=== PATIENT | male | born 1960 | race Caucasian/White ===

== ENCOUNTER 2018-09-17 15:26 | Emergency (ER) | payer MEDICARE, OTHER ==
[2018-09-17 15:33] VITALS: RESP 18; TEMP 97.7
--- NOTE | 2018-09-17 16:04 | XR ---
EXAMINATION TYPE: XR chest 2V DATE OF EXAM: 09/17/2018 COMPARISON: 02/16/2014 HISTORY: Congestion, cough, chest pain and rhinorrhea TECHNIQUE: Frontal and lateral views of the chest are obtained. FINDINGS: There is no focal air space opacity, pleural effusion, or pneumothorax seen. COPD is seen as flattening of the diaphragms and pulmonary hyperinflation. The cardiac silhouette size is within normal limits. The osseous structures are intact. IMPRESSION: No acute cardiopulmonary process. Radiographic sequela of COPD.
--- NOTE | 2018-09-17 16:22 | ED ---
General Adult HPI - General Chief complaint: Upper Respiratory Infection Stated complaint: Cold Time Seen by Provider: 09/17/18 15:34 Source: patient, RN notes reviewed, old records reviewed Mode of arrival: ambulatory Limitations: no limitations - History of Present Illness Initial comments: 58-year-old male patient passed no history of emphysema presents to ED with approximately 2 days of sinus congestion, nasal drainage, mild cough. Patient denies any other complaints today. Patient denies chest pain, shortness breath, abdominal pain, nausea vomiting diarrhea. Systemic: Pt denies fatigue, myalgia, fever/chills, rash. Pt denies weakness, night sweats, weight loss. Neuro: Pt denies headache, visual disturbances, syncope or pre-syncope. HEENT: Pt denies ocular discharge or irritation, otalgia, rhinorrhea, pharyngitis or notable lymphadenopathy. Cardiopulmonary: Pt denies chest pain, SOB, heart palpitations, dyspnea on exertion. Abdominal/GI: Pt denies abdominal pain, n/v/d. : Pt denies dysuria, burning w/ urination, frequency/urgency. Denies new onset urinary or bowel incontinence. MSK: Pt denies myalgia, loss of strength or function in extremities. Neuro: Pt denies new onset weakness, paresthesias. - Related Data Home Medications Medication Instructions Recorded Confirmed Haloperidol [Haldol] 2 mg PO HS 02/15/14 09/17/18 OLANZapine [ZyPREXA] 7.5 mg PO HS 02/15/14 09/17/18 Albuterol Sulfate [Ventolin HFA] 1 - 2 puff INHALATION RT-Q6H PRN 06/13/16 09/17/18 Montelukast Sodium [Singulair] 10 mg PO HS 06/13/16 09/17/18 Qvar (Unknown Dose) 2 puff INHALATION RT-BID 06/13/16 09/17/18 Previous Rx's Medication Instructions Recorded Doxycycline [Vibramycin] 100 mg PO BID 10 Days #20 capsule 09/17/18 Fluticasone Propionate [Flonase 1 - 2 spray EA NOSTRIL DAILY 5 09/17/18 Allergy Relief] Days ml Allergies Allergy/AdvReac Type Severity Reaction Status Date / Time cephalexin monohydrate Allergy Unknown Verified 09/17/18 15:30 [From Keflex] clindamycin Allergy Unknown Verified 09/17/18 15:30 latex Allergy Rash/Hives Verified 09/17/18 15:30 Penicillins Allergy Unknown Verified 09/17/18 15:30 Review of Systems ROS Statement: Those systems with pertinent positive or pertinent negative responses have been documented in the HPI. ROS Other: All systems not noted in ROS Statement are negative. Past Medical History Past Medical History: Cancer, COPD Additional Past Medical History / Comment(s): Bronchitis, pneumonia, hypoglycemia, schizophrenia History of Any Multi-Drug Resistant Organisms: None Reported Past Surgical History: Adenoidectomy, Tonsillectomy Past Anesthesia/Blood Transfusion Reactions: No Reported Reaction Past Psychological History: Depression, Schizophrenia Smoking Status: Current every day smoker Past Alcohol Use History: Occasional Past Drug Use History: None Reported - Past Family History Father Family Medical History: Diabetes Mellitus Mother Additional Family Medical History / Comment(s): shingles General Exam - General Exam Comments Initial Comments: Constitutional: NAD, AOX3, Pt has pleasant affect. HEENT: NC/AT, trachea midline, neck supple, no lymphadenopathy. Posterior phar ynx non erythematous, without exudates. External ears appear normal, without discharge. Mucous membranes moist. Eyes PERRLA, EOM intact. There is no scleral icterus. No pallor noted. Maxillary sinus pressure reproducible upon palpation. Cardiopulmonary: RRR, no murmurs, rubs or gallops, no JVD noted. Lungs CTAB in anterior and posterior robert. No peripheral edema. Abdominal exam: Abdomen soft and non-distended. Abdomen non-tender to palpation in all 4 quadrants. Bowel sounds active in LLQ. No hepatosplenomegaly. No ecchymosis Neuro: CN II-XII grossly intact. No nuchal rigidity. MSK: No posterior calf tenderness bilaterally, homans sign negative bilaterally. Posterior tibialis and radial pulse +2 bilaterally. Sensation intact in upper and lower extremities. Full active ROM in upper and lower extremities, 5/5 stregnth. Limitations: no limitations Course Vital Signs 09/17/18 15:30 Temperature 97.7 F Pulse Rate 82 Respiratory 18 Rate Blood Pressure 145/93 O2 Sat by Pulse 100 Oximetry Medical Decision Making - Medical Decision Making 58-year-old male patient passed no history of emphysema presents to ED with approximately 2 days of sinus congestion, nasal drainage, mild cough. Patient denies any other complaints today. Patient denies chest pain, shortness breath, abdominal pain, nausea vomiting diarrhea. Patient vital signs stable, afebrile. Physical exam displayed: Maxillary sinus pressure reproducible upon palpation. Lungs CTAB. Chest x-ray displayed no acute cardiopulmonary process. Patient to be treated for acute sinusitis with doxycycline, Flonase. Patient to follow up with primary care provider in 1-2 days. Patient to return to ED if new signs or symptoms develop or condition worsens in any way. Case discussed with Dr. Mahajan. Disposition Clinical Impression: Sinusitis Disposition: HOME SELF-CARE Condition: Stable Instructions (If sedation given, give patient instructions): Sinusitis (ED) Additional Instructions: Patient to adhere to previously discussed treatment plan and will take medication(s) as directed. Patient to follow up with PCP in 1-2 days. Patient to return to ED if symptoms do not improve. Please take doxycycline and Flonase as directed. Please follow-up with primary care provider in 1-2 days. Please return to ED if condition worsens in any way. Prescriptions: Fluticasone Propionate [Flonase Allergy Relief] 1 - 2 spray EA NOSTRIL DAILY 5 Days ml Doxycycline [Vibramycin] 100 mg PO BID 10 Days #20 capsule Is patient prescribed a controlled substance at d/c from ED?: No Referrals: Jose Reyes MD [Primary Care Provider] - 1-2 days
[2018-09-17] MEDS ORDERED: FLUTICASONE 50MCG/SPRAY NASAL 16GM EA NOSTRIL STA (16:23)
[2018-09-17 17:11] VITALS: BP 135/83; PULSE 78
== END 2018-09-17 16:55 | disposition home or self-care (01) ==
LOC: EC 15:26
DX: J32.9 Chronic sinusitis, unspecified (principal); J44.9 Chronic obstructive pulmonary disease, unspecified; F20.9 Schizophrenia, unspecified; F32.9 Major depressive disorder, single episode, unspecified; F17.200 Nicotine dependence, unspecified, uncomplicated; Z85.9 Personal history of malignant neoplasm, unspecified; Z79.899 Other long term (current) drug therapy; Z79.51 Long term (current) use of inhaled steroids; Z88.1 Allergy status to other antibiotic agents; Z88.0 Allergy status to penicillin; Z91.040 Latex allergy status
CPT/HCPCS: 71046; 99284

== ENCOUNTER 2019-02-05 13:15 | Emergency (ER) | payer MEDICARE, OTHER ==
[2019-02-05 13:28] VITALS: RESP 18
--- NOTE | 2019-02-05 14:25 | ED ---
General Adult HPI - General Chief complaint: Psychiatric Symptoms Stated complaint: Mental Health Time Seen by Provider: 02/05/19 14:15 Source: patient, RN notes reviewed Mode of arrival: ambulatory Limitations: no limitations - History of Present Illness Initial comments: Patient is a pleasant 58-year-old male presenting to the emergency department for possible medication adjustment. Patient states he has been on medications for years. Patient is a Zyprexa. Patient states he has not been sleeping well lately. Patient denies any depression or suicidal thoughts. No homicidal thoughts. No hallucinations. Patient does smoke and drink alcohol. - Related Data Home Medications Medication Instructions Recorded Confirmed Haloperidol [Haldol] 2 mg PO HS 02/15/14 09/17/18 OLANZapine [ZyPREXA] 7.5 mg PO HS 02/15/14 09/17/18 Albuterol Sulfate [Ventolin HFA] 1 - 2 puff INHALATION RT-Q6H PRN 06/13/16 09/17/18 Montelukast Sodium [Singulair] 10 mg PO HS 06/13/16 09/17/18 Qvar (Unknown Dose) 2 puff INHALATION RT-BID 06/13/16 09/17/18 Previous Rx's Medication Instructions Recorded Doxycycline [Vibramycin] 100 mg PO BID 10 Days #20 capsule 09/17/18 Fluticasone Propionate [Flonase 1 - 2 spray EA NOSTRIL DAILY 5 09/17/18 Allergy Relief] Days ml Allergies Allergy/AdvReac Type Severity Reaction Status Date / Time cephalexin monohydrate Allergy Unknown Verified 02/05/19 13:22 [From Keflex] clindamycin Allergy Unknown Verified 02/05/19 13:22 latex Allergy Rash/Hives Verified 02/05/19 13:22 Penicillins Allergy Unknown Verified 02/05/19 13:22 Review of Systems ROS Statement: Those systems with pertinent positive or pertinent negative responses have been documented in the HPI. ROS Other: All systems not noted in ROS Statement are negative. Constitutional: Denies: fever Eyes: Denies: eye pain ENT: Denies: ear pain Respiratory: Denies: cough Cardiovascular: Denies: chest pain Endocrine: Denies: fatigue Gastrointestinal: Denies: abdominal pain Genitourinary: Denies: dysuria Musculoskeletal: Denies: back pain Skin: Denies: rash Neurological: Denies: weakness Psychiatric: Denies: depression, homicidal thoughts, suicidal thoughts Past Medical History Past Medical History: Cancer, COPD Additional Past Medical History / Comment(s): Bronchitis, pneumonia, hypoglycemia, schizophrenia History of Any Multi-Drug Resistant Organisms: None Reported Past Surgical History: Adenoidectomy, Tonsillectomy Past Anesthesia/Blood Transfusion Reactions: No Reported Reaction Past Psychological History: Depression, Schizophrenia Smoking Status: Current every day smoker Past Alcohol Use History: Occasional Past Drug Use History: None Reported - Past Family History Father Family Medical History: Diabetes Mellitus Mother Additional Family Medical History / Comment(s): shingles General Exam Limitations: no limitations General appearance: alert, in no apparent distress Head exam: Present: atraumatic Eye exam: Present: normal appearance, PERRL ENT exam: Present: normal oropharynx Neck exam: Present: normal inspection Respiratory exam: Present: normal lung sounds bilaterally. Absent: chest wall tenderness Cardiovascular Exam: Present: regular rate, normal rhythm GI/Abdominal exam: Present: soft. Absent: tenderness Extremities exam: Present: normal inspection Neurological exam: Present: alert Psychiatric exam: Present: normal affect, normal mood Skin exam: Present: normal color. Absent: rash Course Vital Signs 02/05/19 13:23 Temperature 97.5 F L Pulse Rate 91 Respiratory 18 Rate Blood Pressure 140/86 O2 Sat by Pulse 98 Oximetry Medical Decision Making - Medical Decision Making Patient does not feel he needs to be admitted psychiatrically. Patient denies depression. Patient denies suicidal or homicidal ideation. Patient is comfortable with discharge with follow-up. Patient will be provided follow-up for psychiatric. Patient states he will be able to get in to [facility] without any difficulty. - Lab Data Lab Results 02/05/19 Range/Units 14:29 Urine Opiates Screen Not Detected (NotDetected) Ur Oxycodone Screen Not Detected (NotDetected) Urine Methadone Screen Not Detected (NotDetected) Ur Propoxyphene Screen Not Detected (NotDetected) Ur Barbiturates Screen Not Detected (NotDetected) U Tricyclic Antidepress Not Detected (NotDetected) Ur Phencyclidine Scrn Not Detected (NotDetected) Ur Amphetamines Screen Not Detected (NotDetected) U Methamphetamines Scrn Not Detected (NotDetected) U Benzodiazepines Scrn Not Detected (NotDetected) Urine Cocaine Screen Not Detected (NotDetected) U Marijuana (THC) Screen Not Detected (NotDetected) Disposition Clinical Impression: Schizophrenia Disposition: HOME SELF-CARE Condition: Stable Instructions (If sedation given, give patient instructions): Schizophrenia (ED) Additional Instructions: Please follow-up with [facility] and primary care physician in the beginning of the week. Please decrease and discontinue alcohol use. Please provide list for mental health follow-up services. Return for thoughts of self-harm, thoughts of harming others, unable to sleep, worsening symptoms or other concerns Is patient prescribed a controlled substance at d/c from ED?: No Referrals: Jose Reyes MD [Primary Care Provider] - 1-2 days Time of Disposition: 15:33
[2019-02-05 14:48] LABS: Amphetamine Screen,Urine Not Detected (NotDetected); Barbiturate Screen,Urine Not Detected (NotDetected); Benzodiazepines Screen,Urine Not Detected (NotDetected); Cocaine Screen,Urine Not Detected (NotDetected); Methadone Screen, Urine Not Detected (NotDetected); Opiate Screen,Urine Not Detected (NotDetected); Oxycodone Screen, Urine Not Detected (NotDetected); Phencyclidine Screen,Urine Not Detected (NotDetected); Tricyclic Antidepressant,Urine Not Detected (NotDetected); Urn Cannabinoid Scrn Not Detected (NotDetected)
[2019-02-05 15:55] VITALS: BP 132/92; PULSE 87; TEMP 97.8
== END 2019-02-05 15:56 | disposition home or self-care (01) ==
LOC: EC 13:15
DX: F20.9 Schizophrenia, unspecified (principal); F32.9 Major depressive disorder, single episode, unspecified; J44.9 Chronic obstructive pulmonary disease, unspecified; F17.200 Nicotine dependence, unspecified, uncomplicated; Z85.9 Personal history of malignant neoplasm, unspecified; Z79.899 Other long term (current) drug therapy; Z88.1 Allergy status to other antibiotic agents; Z91.040 Latex allergy status; Z88.0 Allergy status to penicillin
CPT/HCPCS: 80306; 82075; 99284

== ENCOUNTER 2019-04-13 10:11 | Inpatient (IN) | payer MEDICARE, OTHER ==
[2019-04-13] MEDS ORDERED: methylPREDNISolone SOD SUCCI 125 MG/2 ML VIAL IV STA (10:30)
[2019-04-13] MEDS ORDERED: IPRATROPIUM-ALBUTEROL 3 ML NEB INHALATION STA (10:30)
--- NOTE | 2019-04-13 10:35 | ED ---
General Adult HPI - General Chief complaint: Shortness of Breath Stated complaint: Sob Time Seen by Provider: 04/13/19 10:25 Source: patient, RN notes reviewed Mode of arrival: ambulatory Limitations: no limitations - History of Present Illness Initial comments: Patient is a pleasant 59-year-old male presenting to the emergency Department with complaints of difficulty breathing. Onset of symptoms was morning. Symptoms have progressively worsened since that time. Symptoms are similar to previous COPD. Patient does not have significant cough. No fevers. No chest pain. No leg pain or leg swelling. - Related Data Home Medications Medication Instructions Recorded Confirmed Haloperidol [Haldol] 2 mg PO DAILY 02/15/14 04/13/19 OLANZapine [ZyPREXA] 7.5 mg PO DAILY 02/15/14 04/13/19 Albuterol Sulfate [Ventolin HFA] 2 puff INHALATION RT-Q6H PRN 06/13/16 04/13/19 Fluticasone/Vilanterol [Breo 1 puff INHALATION RT-DAILY 04/13/19 04/13/19 Ellipta 200-25 Mcg INH] Allergies Allergy/AdvReac Type Severity Reaction Status Date / Time cephalexin monohydrate Allergy Unknown Verified 04/13/19 10:40 [From Keflex] clindamycin Allergy Unknown Verified 04/13/19 10:40 latex Allergy Rash/Hives Verified 04/13/19 10:40 Penicillins Allergy Unknown Verified 04/13/19 10:40 Review of Systems ROS Statement: Those systems with pertinent positive or pertinent negative responses have been documented in the HPI. ROS Other: All systems not noted in ROS Statement are negative. Constitutional: Denies: fever Eyes: Denies: eye pain ENT: Denies: ear pain Respiratory: Reports: dyspnea. Denies: cough Cardiovascular: Denies: chest pain Endocrine: Denies: fatigue Gastrointestinal: Denies: abdominal pain Genitourinary: Denies: dysuria Musculoskeletal: Denies: back pain Skin: Denies: rash Neurological: Denies: weakness Past Medical History Past Medical History: Cancer, COPD Additional Past Medical History / Comment(s): Bronchitis, pneumonia, hypoglycemia, schizophrenia History of Any Multi-Drug Resistant Organisms: None Reported Past Surgical History: Adenoidectomy, Tonsillectomy Past Anesthesia/Blood Transfusion Reactions: No Reported Reaction Past Psychological History: Depression, Schizophrenia Smoking Status: Current every day smoker Past Alcohol Use History: Occasional Past Drug Use History: None Reported - Past Family History Father Family Medical History: Diabetes Mellitus Mother Additional Family Medical History / Comment(s): shingles General Exam Limitations: no limitations General appearance: alert Head exam: Present: normocephalic Eye exam: Present: normal appearance Neck exam: Present: normal inspection Respiratory exam: Present: decreased breath sounds Cardiovascular Exam: Present: tachycardia GI/Abdominal exam: Present: soft. Absent: tenderness Extremities exam: Present: normal inspection. Absent: pedal edema, calf tendern ess Neurological exam: Present: alert Psychiatric exam: Present: normal affect, normal mood Skin exam: Present: normal color Course Vital Signs 04/13/19 04/13/19 04/13/19 10:17 11:14 11:26 Temperature 97.7 F Pulse Rate 118 H 110 H 113 H Respiratory 25 H Rate Blood Pressure 101/68 O2 Sat by Pulse 98 Oximetry EKG Findings - EKG Comments: EKG Findings:: Sinus tachycardia 107. ID 136. QRS 84. QT 336. QTc 448. Right axis. Normal QRS. No acute ST change. Medical Decision Making - Medical Decision Making Patient reevaluated and somewhat improved. Case discussed in detail with Dr. Reyes, who will admit his patient. Patient updated. Patient does meet sepsis criteria diagnosed at 12:01 PM. Blood culture and not acid and IV antibiotics will be ordered. - Lab Data Result diagrams: 04/13/19 10:58 04/13/19 10:58 Lab Results 04/13/19 04/13/19 Range/Units 10:58 10:58 WBC 10.2 (3.8-10.6) k/uL RBC 5.04 (4.30-5.90) m/uL Hgb 16.9 (13.0-17.5) gm/dL Hct 48.5 (39.0-53.0) % MCV 96.3 (80.0-100.0) fL MCH 33.6 (25.0-35.0) pg MCHC 34.9 (31.0-37.0) g/dL RDW 14.4 (11.5-15.5) % Plt Count 253 (150-450) k/uL Neutrophils % 83 % Lymphocytes % 10 % Monocytes % 6 % Eosinophils % 0 % Basophils % 0 % Neutrophils # 8.4 H (1.3-7.7) k/uL Lymphocytes # 1.1 (1.0-4.8) k/uL Monocytes # 0.6 (0-1.0) k/uL Eosinophils # 0.0 (0-0.7) k/uL Basophils # 0.0 (0-0.2) k/uL Sodium 134 L (137-145) mmol/L Potassium 4.0 (3.5-5.1) mmol/L Chloride 107 (98-107) mmol/L Carbon Dioxide 10 L (22-30) mmol/L Anion Gap 17 mmol/L BUN 10 (9-20) mg/dL Creatinine 0.85 (0.66-1.25) mg/dL Est GFR (CKD-EPI)AfAm >90 (>60 ml/min/1.73 sqM) Est GFR (CKD-EPI)NonAf >90 (>60 ml/min/1.73 sqM) Glucose 108 H (74-99) mg/dL Calcium 8.6 (8.4-10.2) mg/dL Total Bilirubin 0.4 (0.2-1.3) mg/dL AST 45 (17-59) U/L ALT 42 (21-72) U/L Alkaline Phosphatase 91 (38-126) U/L Total Protein 6.9 (6.3-8.2) g/dL Albumin 3.7 (3.5-5.0) g/dL - Radiology Data Radiology results: image reviewed (Chest x-ray shows right lower lobe infiltrate: Correlate for atelectasis or pneumonia.) Critical Care Time Critical Care Time: Yes Total Critical Care Time: 32 Disposition Clinical Impression: Acute exacerbation of chronic obstructive airways disease, Pneumonia Disposition: ADMITTED IP TO THIS HOSP Is patient prescribed a controlled substance at d/c from ED?: No Referrals: Jose Reyes MD [Primary Care Provider] - 1-2 days Decision Time: 11:58
[2019-04-13 11:22] LABS: Basophils % (A) 0 %; Eosinophils % (A) 0 %; HCT 48.5 % (39.0-53.0); HGB 16.9 gm/dL (13.0-17.5); Lymphocytes # (A) 1.1 k/uL (1.0-4.8); Lymphocytes % (A) 10 %; MCH 33.6 pg (25.0-35.0); MCHC 34.9 g/dL (31.0-37.0); MCV 96.3 fL (80.0-100.0); Monocytes # (A) 0.6 k/uL (0-1.0); Monocytes % (A) 6 %; Neutrophils # (A) 8.4 k/uL (1.3-7.7); Neutrophils % (A) 83 %; Platelet Count 253 k/uL (150-450); RBC 5.04 m/uL (4.30-5.90); RDW 14.4 % (11.5-15.5); WBC 10.2 k/uL (3.8-10.6)
--- NOTE | 2019-04-13 11:27 | XR ---
EXAMINATION TYPE: XR chest 2V DATE OF EXAM: 04/13/2019 COMPARISON: 09/17/2018 INDICATION: Difficulty breathing TECHNIQUE: Frontal and lateral views of the chest are obtained. FINDINGS: The heart size is normal. The pulmonary vasculature is normal. Mild right lower lobe infiltrate is present. Correlate for subsegmental atelectasis or pneumonia. Fol low-up can be performed.. IMPRESSION: 1. Mild right lower lobe infiltrate. Correlate for atelectasis or pneumonia.
[2019-04-13 11:35] LABS: ALT 42 U/L (21-72); AST 45 U/L (17-59); African American GFR (CKD) >90 (>60 ml/min/1.73 sqM); Albumin 3.7 g/dL (3.5-5.0); Alkaline Phosphatase 91 U/L (38-126); Anion Gap 17 mmol/L; Blood Urea Nitrogen 10 mg/dL (9-20); Calcium 8.6 mg/dL (8.4-10.2); Carbon Dioxide 10 mmol/L (22-30); Chloride 107 mmol/L (98-107); Glucose 108 mg/dL (74-99); Sodium 134 mmol/L (137-145); Total Bilirubin 0.4 mg/dL (0.2-1.3); Total Protein 6.9 g/dL (6.3-8.2)
[2019-04-13] MEDS ORDERED: IPRATROPIUM-ALBUTEROL 3 ML NEB INHALATION PRN (12:03)
[2019-04-13] MEDS ORDERED: PNEUMONIA PROTOCOL UTILIZED 1 EACH MISC PO PRN (12:03)
[2019-04-13] MEDS ORDERED: LEVOFLOXACIN 750MG-D5W PMX 750 MG in DEXTROSE/WATER 1 150ML.BAG IVPB STA (12:03)
[2019-04-13] MEDS ORDERED: INFLUENZA VACCINE (6 MOS+) 60 MCG/0.5 ML SYRINGE IM ONE (12:50)
[2019-04-13] MEDS: IPRATROPIUM-ALBUTEROL 3 ML NEB INHALATION SCH ×2 (15:49→21:34)
[2019-04-13] MEDS: methylPREDNISolone SOD SUCCI 125 MG/2 ML VIAL IV SCH ×2 (17:03→23:56)
[2019-04-14] MEDS: methylPREDNISolone SOD SUCCI 125 MG/2 ML VIAL IV SCH ×4 (06:21→23:53)
--- NOTE | 2019-04-14 07:37 | XR ---
EXAMINATION TYPE: XR chest 2V DATE OF EXAM: 04/14/2019 COMPARISON: 04/13/2019 HISTORY: Shortness of breath TECHNIQUE: Frontal and lateral views of the chest are obtained. FINDINGS: Scattered senescent parenchymal changes noted. Hyperinflation compatible with COPD. Patchy basilar infiltrates noted. Suspect pneumonia. Follow-up until resolution advised. Heart size is stable. Mediastinal structures are stable and grossly unremarkable. No evidence for hilar prominence. Degenerative changes dorsal spine. IMPRESSION: 1. Patchy basilar infiltrates noted. Suspect pneumonia. Follow-up until resolution advised.
[2019-04-14] MEDS: IPRATROPIUM-ALBUTEROL 3 ML NEB INHALATION SCH ×4 (10:15→19:18)
[2019-04-14] MEDS: LEVOFLOXACIN 750 MG TAB PO SCH (10:31)
--- NOTE | 2019-04-14 18:23 | HP ---
HISTORY AND PHYSICAL CHIEF COMPLAINT: Difficulty breathing. HISTORY OF PRESENT ILLNESS: This is another admission for this 59-year-old white male who is an extremely heavy smoker. He smokes 2-3 packs a day. He came to the emergency room because of shortness of breath and was admitted with exacerbation of COPD and possible infiltrate. He has been quite short of breath, but he has had no chest pain, hemoptysis, purulent sputum production, chills, fever, etc. REVIEW OF SYSTEMS: He has had no other complaints. He has had no nausea or vomiting. He has had no headaches, neurologic problems, difficulty with vision or hearing, hypertension, heart disease, abdominal pain, vomiting, diarrhea, melena, hematochezia, jaundice, hepatitis, cirrhosis, etc. He has had no renal failure, hematuria, dysuria, frequency, etc. He is not diabetic. Past medical history, family history, and personal and social histories are all otherwise unremarkable or noncontributory. PHYSICAL EXAMINATION: Blood pressure is 138/86 with a pulse of 99, respirations of 35, and he is afebrile. In general, he appears to be acutely ill. Skin is dry. Head, ears, eyes, nose, mouth and throat are normal except for dry mucous membranes. Neck is supple. Chest demonstrates very poor breath sounds throughout with scattered rales and rhonchi. Cardiac exam demonstrates sinus tachycardia. Abdomen is soft and nontender without any visceromegaly or masses. Bowel sounds are present. Extremities are normal. Neurologically he is intact. IMPRESSION: 1. Exacerbation of chronic obstructive pulmonary disease. 2. Bronchial pneumonia. PLAN: 1. Bed rest. 2. IV fluids. 3. IV and inhaled steroids. 4. Antibiotics. MMODL / IJN: [id number] /
--- NOTE | 2019-04-14 18:50 | PN ---
PROGRESS NOTE CHIEF COMPLAINT: Pneumonitis and COPD. HISTORY OF PRESENT ILLNESS: This gentleman is feeling a little bit better than when he came in. He is breathing a little bit more easily. He has had no fever or chills. He has had no chest pain. PHYSICAL EXAMINATION: Breath sounds are very poor with an increased AP diameter. There are scattered rales and rhonchi and inspiratory and expiratory wheezing. Cardiac exam is normal. IMPRESSION: 1. Exacerbation of chronic obstructive pulmonary disease. 2. Pneumonitis. PLAN: Continue with treatment plan and increase activity. MMODL / IJN: [id number] /
[2019-04-15] MEDS: methylPREDNISolone SOD SUCCI 125 MG/2 ML VIAL IV SCH ×2 (06:30→12:01)
[2019-04-15] MEDS: IPRATROPIUM-ALBUTEROL 3 ML NEB INHALATION SCH ×4 (09:06→21:06)
[2019-04-15] MEDS: SENNOSIDES 8.6 MG TAB PO SCH (11:04)
[2019-04-15] MEDS: LEVOFLOXACIN 750 MG TAB PO SCH (12:01)
[2019-04-15 13:03] LABS: ALT 26 U/L (21-72); AST 45 U/L (17-59); African American GFR (CKD) >90 (>60 ml/min/1.73 sqM); Albumin 3.6 g/dL (3.5-5.0); Alkaline Phosphatase 76 U/L (38-126); Anion Gap 11 mmol/L; Blood Urea Nitrogen 10 mg/dL (9-20); Calcium 8.7 mg/dL (8.4-10.2); Carbon Dioxide 22 mmol/L (22-30); Chloride 104 mmol/L (98-107); Glucose 139 mg/dL (74-99); Potassium 4.1 mmol/L (3.5-5.1); Sodium 137 mmol/L (137-145); Total Bilirubin 0.2 mg/dL (0.2-1.3); Total Protein 6.4 g/dL (6.3-8.2)
[2019-04-15 13:08] LABS: Basophils # (A) 0.1 k/uL (0-0.2); Basophils % (A) 1 %; Eosinophils % (A) 0 %; HCT 44.6 % (39.0-53.0); HGB 14.6 gm/dL (13.0-17.5); Lymphocytes # (A) 0.4 k/uL (1.0-4.8); Lymphocytes % (A) 4 %; MCH 33.6 pg (25.0-35.0); MCHC 32.8 g/dL (31.0-37.0); Macrocytosis Slight; Mean Platelet Volume 8.1; Monocytes # (A) 0.4 k/uL (0-1.0); Monocytes % (A) 5 %; Neutrophils # (A) 7.4 k/uL (1.3-7.7); Neutrophils % (A) 88 %; Platelet Count 253 k/uL (150-450); RBC 4.36 m/uL (4.30-5.90); RDW 14.8 % (11.5-15.5); WBC 8.4 k/uL (3.8-10.6)
[2019-04-15 13:12] LABS: MCV 102.4 fL (80.0-100.0)
--- NOTE | 2019-04-15 13:18 | XR ---
EXAMINATION TYPE: XR chest 2V DATE OF EXAM: 04/15/2019 COMPARISON: 04/14/2019 HISTORY: Bilateral pneumonia. Progress exam. TECHNIQUE: Frontal and lateral views of the chest are obtained. FINDINGS: Bibasilar consolidations are redemonstrated slightly worsened, now moderate interstitial p ulmonary edema is also slightly worsened. Cardiomediastinal silhouette is within normal limits. Hyper inflation of the lungs relates underlying COPD with leading of the diaphragms on the lateral view. Th ere is mild diffuse osseous demineralization seen. IMPRESSION: Increasing bibasilar consolidations that may represent confluent pulmonary edema or mult ifocal pneumonia. Increasing moderate interstitial pulmonary overall.
[2019-04-15] MEDS: HALOPERIDOL 2 MG TAB PO SCH (13:48)
[2019-04-15] MEDS: OLANZapine 2.5 MG TAB PO SCH (13:48)
[2019-04-15] MEDS ORDERED: ASPIRIN 325 MG TAB PO STA (15:54)
[2019-04-15] MEDS: methylPREDNISolone SOD SUCCI 40 MG/ML 1 ML VIAL IV SCH ×2 (16:33→23:54)
[2019-04-15] MEDS: BUDESONIDE 0.5 MG/2 ML NEBU INHALATION SCH (21:05)
[2019-04-16] MEDS: IPRATROPIUM-ALBUTEROL 3 ML NEB INHALATION SCH ×4 (07:07→19:34)
[2019-04-16] MEDS: BUDESONIDE 0.5 MG/2 ML NEBU INHALATION SCH ×2 (07:08→19:34)
[2019-04-16] MEDS: OLANZapine 2.5 MG TAB PO SCH (09:28)
[2019-04-16] MEDS: SENNOSIDES 8.6 MG TAB PO SCH (09:28)
[2019-04-16] MEDS: HALOPERIDOL 2 MG TAB PO SCH (09:28)
[2019-04-16] MEDS: methylPREDNISolone SOD SUCCI 40 MG/ML 1 ML VIAL IV SCH ×2 (09:28→16:18)
[2019-04-16] MEDS: LEVOFLOXACIN 750 MG TAB PO SCH (11:55)
--- NOTE | 2019-04-16 16:26 | PN ---
PROGRESS NOTE DATE OF SERVICE: 04/15/2019 CHIEF COMPLAINT: 1. Pneumonitis in the left lower lobe. 2. Exacerbation of COPD. HISTORY OF PRESENT ILLNESS: This gentleman is doing fairly well as long as he is on oxygen. Whenever it is removed, his pulse ox drops and he becomes very dyspneic. PHYSICAL EXAMINATION: His face is somewhat flushed and he appears to be slightly dusky. Neck veins are not distended. Chest demonstrates poor breath sounds throughout with scattered rales and rhonchi. Cardiac exam is normal. Abdomen is soft, nontender. IMPRESSION: 1. Pneumonitis. 2. Exacerbation of chronic obstructive pulmonary disease. 3. Hypoxia. PLAN: Continue with treatment and provide him with a long O2 tube so that he can ambulate in the room. MMODL / IJN: [id number] /
--- NOTE | 2019-04-16 20:14 | PN ---
PROGRESS NOTE CHIEF COMPLAINT: Pneumonitis and exacerbation of COPD. HISTORY OF PRESENT ILLNESS: This gentleman believes he is doing well, but whenever he takes oxygen off his pulse ox goes down to 77 and he becomes dusky. REVIEW OF SYSTEMS: He has had no chest pain, fever, chills, etc. PHYSICAL EXAMINATION: Chest is clear, but breath sounds are extremely poor. He has occasional scattered rales. He has dry expiratory wheezing. Cardiac exam is normal. Abdomen is soft, nontender. IMPRESSION: 1. Pneumonitis. 2. Exacerbation of chronic obstructive pulmonary disease. PLAN: Continue with current program. If he does not significantly improve in the next 2 to 3 days, he will require home oxygen. MMODL / IJN: [id number] /
[2019-04-17] MEDS: methylPREDNISolone SOD SUCCI 40 MG/ML 1 ML VIAL IV SCH ×3 (00:16→15:46)
[2019-04-17] MEDS: BUDESONIDE 0.5 MG/2 ML NEBU INHALATION SCH ×2 (07:59→20:19)
[2019-04-17] MEDS: IPRATROPIUM-ALBUTEROL 3 ML NEB INHALATION SCH ×4 (08:00→20:19)
[2019-04-17] MEDS: OLANZapine 2.5 MG TAB PO SCH (08:48)
[2019-04-17] MEDS: SENNOSIDES 8.6 MG TAB PO SCH (08:48)
[2019-04-17] MEDS: HALOPERIDOL 2 MG TAB PO SCH (08:48)
--- NOTE | 2019-04-17 10:20 | XR ---
EXAMINATION TYPE: XR chest 2V DATE OF EXAM: 04/17/2019 HISTORY: eval pna/copd. REFERENCE: Previous study dated 04/15/2019. FINDINGS: Lung volumes are prominent. There is improved aeration of both lung bases. Some residual in flammatory change persists. The heart is not enlarged. It would be difficult to exclude tiny, bilater al effusions. IMPRESSION: 1. COPD. 2. IMPROVED AERATION, BOTH LUNG BASES.
[2019-04-17] MEDS: LEVOFLOXACIN 750 MG TAB PO SCH (13:10)
--- NOTE | 2019-04-17 15:21 | PN ---
PROGRESS NOTE CHIEF COMPLAINT: Pneumonitis and COPD. HISTORY OF PRESENT ILLNESS: This gentleman is feeling fairly well, but he is still having trouble maintaining oxygen off the nasal O2. We are encouraging him to move about more without the oxygen. PHYSICAL EXAMINATION: Breath sounds are extremely poor. There is still occasional squeaks on inspiration, expiration and scattered rales. Cardiac exam is normal. IMPRESSION: 1. Pneumonitis. 2. Exacerbation of chronic obstructive pulmonary disease. PLAN: Continue with updrafts and inpatient treatment along with nasal O2. If he cannot get along without the oxygen in the next 48 hours, he will be discharged on home O2. MMODL / IJN: [id number] /
[2019-04-17] MEDS: LISINOPRIL 10 MG TAB PO SCH (21:00)
[2019-04-18] MEDS: methylPREDNISolone SOD SUCCI 40 MG/ML 1 ML VIAL IV SCH ×3 (00:06→17:23)
[2019-04-18] MEDS: LISINOPRIL 10 MG TAB PO SCH (09:20)
[2019-04-18] MEDS: OLANZapine 2.5 MG TAB PO SCH (09:20)
[2019-04-18] MEDS: SENNOSIDES 8.6 MG TAB PO SCH (09:20)
[2019-04-18] MEDS: HALOPERIDOL 2 MG TAB PO SCH (09:20)
[2019-04-18] MEDS: BUDESONIDE 0.5 MG/2 ML NEBU INHALATION SCH ×2 (09:22→20:25)
[2019-04-18] MEDS: IPRATROPIUM-ALBUTEROL 3 ML NEB INHALATION SCH ×4 (09:22→20:25)
[2019-04-18] MEDS: LEVOFLOXACIN 750 MG TAB PO SCH (11:22)
[2019-04-18] MEDS ORDERED: LISINOPRIL 10 MG TAB PO STA (12:57)
--- NOTE | 2019-04-18 19:40 | PN ---
PROGRESS NOTE DATE OF SERVICE: 04/18/2019 CHIEF COMPLAINT: Pneumonitis and COPD. HISTORY OF PRESENT ILLNESS: This gentleman is more or less stable. Without oxygen he drops to a pulse ox of 80 and he is dyspneic. He has had no fever, chills, cough, purulent sputum, etc. PHYSICAL EXAM: Breath sounds are greatly diminished throughout. There are occasional rales. Cardiac exam is normal. IMPRESSION: 1. Bronchial pneumonia, bilateral lower lobes. 2. End-stage chronic obstructive pulmonary disease with anoxia on room air. PLAN: Continue to increase activity and try ambulating without nasal O2. If he is unable to do so, he will be discharged in the next day or 2 on home O2. MMODL / IJN: [id number] /
[2019-04-18 22:09] VITALS: RESP 16
[2019-04-19] MEDS: methylPREDNISolone SOD SUCCI 40 MG/ML 1 ML VIAL IV SCH ×2 (00:18→08:05)
[2019-04-19] MEDS: SENNOSIDES 8.6 MG TAB PO SCH (08:04)
[2019-04-19] MEDS: HALOPERIDOL 2 MG TAB PO SCH (08:05)
[2019-04-19] MEDS: OLANZapine 2.5 MG TAB PO SCH (08:05)
[2019-04-19] MEDS ORDERED: LISINOPRIL 20 MG TAB PO SCH (09:00)
[2019-04-19] MEDS: BUDESONIDE 0.5 MG/2 ML NEBU INHALATION SCH (09:29)
[2019-04-19] MEDS: IPRATROPIUM-ALBUTEROL 3 ML NEB INHALATION SCH ×3 (09:29→16:20)
[2019-04-19] MEDS: LEVOFLOXACIN 750 MG TAB PO SCH (11:54)
[2019-04-19 12:50] VITALS: BP 138/88; PULSE 81; TEMP 97.6
--- NOTE | 2019-04-19 15:31 | CDI ---
Documentation Clarification Form Date: 04/19/2019 3:21:50 PM From: Alee NinoBeanMATT alicea, CCDS Admit Date: 04/15/2019 10:13:00 AM Patient Name: Abelardo Salgado Visit Number: [id number] Discharge Date: ATTENTION: The Clinical Documentation Specialists (CDI) and [facility] Coding Staff appreciate your assistance in clarifying documentation. Please respond to the clarification below the line at the bottom and electronically sign. The CDI & [facility] Coding staff will review the response and follow-up if needed. Please note: Queries are made part of the Legal Health Record. If you have any questions, please contact the author of this message via ITS. Dr. Jose Reyes: Hypoxia is documented in the 04/16 attending progress note with pneumonitis & exacerbation of COPD. History/Risk Factors: COPD, previous pneumonia, Hypoglycemia, Schizophrenia & Smoker. Clinical Indicators: Presented with SOB, diagnosed with acute exacerbation of COPD & bronchial pneumonia. Admission VS: T 97.7, P 118^, R 25^, BP 101/68, PO 98 ra VS 04/16: P 56 - 84, R 22, BP 148/97, PO 77 RA Treatment: O2 increased to 5-6L high flow, INH Albuterol, IV Solumedrol, IV Levaquin, IM Influenza vaccine In your professional opinion, can you please clarify if these findings signify one of the following conditions? Respiratory failure ruled out Acute respiratory failure Chronic respiratory failure Acute on Chronic respiratory failure If respiratory failure is ruled in please specify: o With or Without hypoxia o With or Without hypercapnia o With or Without other respiratory condition Other Diagnosis, please specify Unable to determine (Last Revision: October 2017) MTDD
--- NOTE | 2019-04-19 23:41 | DS ---
DISCHARGE SUMMARY CHIEF COMPLAINT: Difficulty breathing. HISTORY OF PRESENT ILLNESS AND PHYSICAL EXAMINATION: Details of this man's history and physical can be found in the initial workup. LABORATORY STUDIES: While he was in the hospital he had laboratory studies, details of which can be found in the laboratory section of his chart. COURSE IN THE HOSPITAL: After admission he was placed on bedrest, started on intravenous fluids, updrafts, IV inhaled steroids and nasal oxygen. He did improve. His pneumonitis was resolved. In the hospital he was on oxygen almost continuously. When he came off, his pulse ox dropped to around 70. Toward the end of his hospitalization, he was able to get up and walk around without the oxygen and his PO2 held around 88. He did not want to go home on oxygen, and his last PO2 was up to 91. He will be sent home on antibiotics and his usual pulmonary management. It is realized that he is not likely to do well because he will very likely go back to smoking his usual 2 to 3 packs a day. Will see him in the office in followup. FINAL DIAGNOSES: 1. Exacerbation of chronic obstructive pulmonary disease. 2. Pneumonitis. OPERATIONS: None. CONSULTATION: Pulmonology. He is improved. MMODL / IJN: [id number] /
[2019-04-20] MEDS ORDERED: methylPREDNISolone 4 MG TAB TAPER PO SCH (09:00)
--- NOTE | 2019-04-22 05:34 | MISC ---
MISCELLANOUS REPORT QUERY Chronic respiratory failure, has hypoxia and hypercapnia. MMODL / IJN: [id number] /
== END 2019-04-19 16:24 | disposition home or self-care (01) | DRG 190 ==
LOC: EC 10:11 → 4MS4W 12:11 → OBSVTOIN 04-15 10:13
PROVIDERS: ADMIT Family Medicine; ATTEND Family Medicine
DX: J44.1 Chronic obstructive pulmonary disease with (acute) exacerbation (principal); J18.0 Bronchopneumonia, unspecified organism; J96.12 Chronic respiratory failure with hypercapnia; J96.11 Chronic respiratory failure with hypoxia; J44.0 Chronic obstructive pulmonary disease with (acute) lower respiratory infection; F20.9 Schizophrenia, unspecified; F17.210 Nicotine dependence, cigarettes, uncomplicated; F32.9 Major depressive disorder, single episode, unspecified; Z79.899 Other long term (current) drug therapy; Z88.0 Allergy status to penicillin; Z88.1 Allergy status to other antibiotic agents; Z91.040 Latex allergy status; Z87.01 Personal history of pneumonia (recurrent); Z83.3 Family history of diabetes mellitus
CPT/HCPCS: 36415; 71046; 80053; 83605; 85025; 87040; 90686; 93005; 94640; 94760; 96365; 96375; 99291

== ENCOUNTER → 2019-05-13 | Outpatient (CLI) | payer MEDICARE, OTHER ==
--- NOTE | 2019-05-13 13:24 | CTL ---
EXAMINATION TYPE: CT Low Dose Lung DATE OF EXAM ORDERED: 05/13/2019 HISTORY: . Lung cancer screening CT DLP: 54.[address] CTDI: 1.3 mGy Automated exposure control for dose reduction was used. SCREENING VISIT: COMPARISON: 02/16/2014 TECHNIQUE: Low dose computed tomography scan was performed through the chest at 1 mm thick sections a nd reconstructed images in the coronal plane at [address] DIAGNOSTIC QUALITY: Satisfactory FINDINGS: LUNG NODULES: 1. There are 2 subpleural 2 mm nodules anteriorly within the right upper lobe lung apex retrospective ly stable. LUNGS: Diffuse emphysematous changes are seen. No consolidative pneumonia. No interstitial edema or pleural effusion. Subsegmental changes at both lung bases are noted. PLEURAL SPACE: No pleural calcification, pleural effusion or pneumothorax. HEART: Heart size is normal. There is three-vessel dense coronary artery calcification. Atherosclerotic burch ge aorta which appears to be of normal caliber. OTHER FINDINGS: Mild hypertrophic changes of vertebral column. Chronic appearing mild superior endplate deformity in the mid to upper thoracic spine. IMPRESSION: Benign findings 1. Stable 2 mm subpleural nodules right upper lobe have a benign appearance and are stable since 2013 . 2. COPD 3. Three-vessel coronary artery dense atherosclerotic changes. Correlate clinically. FOLLOW UP CT CHEST RECOMMENDATION: Follow-up in one year recommended CT LUNG RAD: Lung-Rad 2 Benign Appearance or Behavior
== END | disposition home or self-care (01) ==
LOC: RADCTMAIN 12:31
PROVIDERS: ATTEND Family Medicine
DX: J44.9 Chronic obstructive pulmonary disease, unspecified (principal); I25.10 Atherosclerotic heart disease of native coronary artery without angina pectoris; R91.8 Other nonspecific abnormal finding of lung field; Z87.891 Personal history of nicotine dependence; Z88.0 Allergy status to penicillin; Z88.1 Allergy status to other antibiotic agents; Z91.040 Latex allergy status

== ENCOUNTER 2019-12-18 21:53 | Inpatient (IN) | payer MEDICARE, MEDICAID ==
[2019-12-18 22:59] LABS: Appearance,Urine Clear (Clear); Bilirubin,Urine Negative (Negative); Blood,Urine Negative (Negative); Color,Urine Light Yellow; Glucose,Urine (UA) Negative (Negative); Ketones,Urine Negative (Negative); Leukocyte Esterase,Urine Negative (Negative); Nitrite,Urine Negative (Negative); PH, Urine 6.5 (5.0-8.0); Protein,Urine Negative (Negative); Specific Gravity,Urine 1.004 (1.001-1.035); Urobilinogen,Urine <2.0 mg/dL (<2.0)
[2019-12-18 23:09] LABS: Amphetamine Screen,Urine Not Detected (NotDetected); Barbiturate Screen,Urine Not Detected (NotDetected); Benzodiazepines Screen,Urine Not Detected (NotDetected); Cocaine Screen,Urine Not Detected (NotDetected); Methadone Screen, Urine Not Detected (NotDetected); Opiate Screen,Urine Not Detected (NotDetected); Oxycodone Screen, Urine Not Detected (NotDetected); Phencyclidine Screen,Urine Not Detected (NotDetected); Tricyclic Antidepressant,Urine Not Detected (NotDetected); Urn Cannabinoid Scrn Not Detected (NotDetected)
--- NOTE | 2019-12-19 00:18 | ED ---
Psych HPI - General Chief Complaint: Psychiatric Symptoms Stated Complaint: Mental health Time Seen by Provider: 12/18/19 22:39 Source: patient, police Mode of arrival: ambulatory - History of Present Illness Initial Comments: 59-year-old male patient is brought to the emergency department for psychiatric evaluation. He is accompanied by the police. Patient reports that he was woke from sleep and made to come to the emergency department. Police officers report that patient is being petitioned by his father for stress of suicide. Patient does report a history of schizo for any, states he is taking his medications as directed. Denies any current hallucinations. Denies any current physical illness or concerns. Patient denies any recent rash, fever, chills, cough, shor tness of breath, chest pain, abdominal pain, nausea, vomiting, diarrhea, constipation, back pain, numbness, tingling, dizziness, weakness, hematuria, dysuria, urinary urgency, urinary frequency, headache, visual changes, or any other complaints. - Related Data Home Medications Medication Instructions Recorded Confirmed Haloperidol [Haldol] 2 mg PO DAILY 02/15/14 04/13/19 OLANZapine [ZyPREXA] 7.5 mg PO DAILY 02/15/14 04/13/19 Albuterol Sulfate [Ventolin HFA] 2 puff INHALATION RT-Q6H PRN 06/13/16 04/13/19 Fluticasone/Vilanterol [Breo 1 puff INHALATION RT-DAILY 04/13/19 04/13/19 Ellipta 200-25 Mcg INH] Previous Rx's Medication Instructions Recorded Ipratropium-Albuterol Nebulize 3 ml INHALATION RT-QID #120 04/19/19 [Duoneb 0.5 mg-3 mg/3 ml Soln] ampul.neb Levofloxacin [Levaquin] 750 mg PO DAILY@1200 #10 tab 04/19/19 Lisinopril [Zestril] 40 mg PO DAILY #30 tab 04/19/19 methylPREDNISolone Dose Pack 24 mg PO DAILY #1 dosepack 04/19/19 [Medrol Dose Pack] Allergies Allergy/AdvReac Type Severity Reaction Status Date / Time cephalexin monohydrate Allergy Unknown Verified 12/18/19 22:35 [From Keflex] clindamycin Allergy Unknown Verified 12/18/19 22:35 latex Allergy Rash/Hives Verified 12/18/19 22:35 Penicillins Allergy Unknown Verified 12/18/19 22:35 Review of Systems ROS Statement: Those systems with pertinent positive or pertinent negative responses have been documented in the HPI. ROS Other: All systems not noted in ROS Statement are negative. Past Medical History Past Medical History: Cancer, COPD, Pneumonia Additional Past Medical History / Comment(s): Melanoma removed from L trunk, skin cancer removed from R side of nose, L eye blurry vision, constipation, hematuria/UTI, hypoglycemia. History of Any Multi-Drug Resistant Organisms: None Reported Past Surgical History: Adenoidectomy, Tonsillectomy Additional Past Surgical History / Comment(s): R side of nose skin cancer removal/skin graft, L trunk melanoma removed, colonoscopy. Past Anesthesia/Blood Transfusion Reactions: No Reported Reaction Past Psychological History: Depression, Schizophrenia Smoking Status: Current every day smoker Past Alcohol Use History: Heavy Past Drug Use History: None Reported - Past Family History Father Family Medical History: Diabetes Mellitus Additional Family Medical History / Comment(s): Father is living. Mother Family Medical History: CVA/TIA, Myocardial Infarction (HI) Additional Family Medical History / Comment(s): Mother had a CVA, shingles. She is from the CVA. General Exam Limitations: no limitations General appearance: alert, in no apparent distress, other (This is a well- developed, well-nourished adult male patient in no acute distress. Vital signs upon presentation are temperature 98.4F, pulse 98, respirations 20, blood pressure 175/97, pulse ox 97% on room air.) Eye exam: Present: normal appearance, PERRL, EOMI. Absent: scleral icterus, conjunctival injection, periorbital swelling ENT exam: Present: normal exam, normal oropharynx, mucous membranes moist Respiratory exam: Present: normal lung sounds bilaterally. Absent: respiratory distress, wheezes, rales, rhonchi, stridor Cardiovascular Exam: Present: regular rate, normal rhythm, normal heart sounds. Absent: systolic murmur, diastolic murmur, rubs, gallop, clicks GI/Abdominal exam: Present: soft, normal bowel sounds. Absent: distended, tenderness, guarding, rebound, rigid Neurological exam: Present: alert, oriented X3, CN II-XII intact Psychiatric exam: Present: normal affect, normal mood, other (petitioned). Absent: homicidal ideation (denies), suicidal ideation (denies) Skin exam: Present: warm, dry, intact, normal color. Absent: rash Course Vital Signs 12/18/19 22:31 Temperature 98.4 F Pulse Rate 98 Respiratory 20 Rate Blood Pressure 175/97 O2 Sat by Pulse 97 Oximetry Medical Decision Making - Medical Decision Making 59-year-old male patient presented to the emergency department petitioned by his father for suicidal ideation. Patient was medically cleared, evaluated by emergency psychiatric services. This felt he would benefit from inpatient admission to be transferred to the mental health unit. - Lab Data Lab Results 12/18/19 12/18/19 Range/Units 22:41 22:41 Urine Color Light Yellow Urine Appearance Clear (Clear) Urine pH 6.5 (5.0-8.0) Ur Specific [place] 1.004 (1.001-1.035) Urine Protein Negative (Negative) Urine Glucose (UA) Negative (Negative) Urine Ketones Negative (Negative) Urine Blood Negative (Negative) Urine Nitrite Negative (Negative) Urine Bilirubin Negative (Negative) Urine Urobilinogen <2.0 (<2.0) mg/dL Ur Leukocyte Esterase Negative (Negative) Urine Opiates Screen Not Detected (NotDetected) Ur Oxycodone Screen Not Detected (NotDetected) Urine Methadone Screen Not Detected (NotDetected) Ur Propoxyphene Screen Not Detected (NotDetected) Ur Barbiturates Screen Not Detected (NotDetected) U Tricyclic Antidepress Not Detected (NotDetected) Ur Phencyclidine Scrn Not Detected (NotDetected) Ur Amphetamines Screen Not Detected (NotDetected) U Methamphetamines Scrn Not Detected (NotDetected) U Benzodiazepines Scrn Not Detected (NotDetected) Urine Cocaine Screen Not Detected (NotDetected) U Marijuana (THC) Screen Not Detected (NotDetected) Disposition Clinical Impression: Suicidal ideation Disposition: ADMITTED IP TO THIS [facility] Condition: Serious Referrals: Jose Reyes MD [Primary Care Provider] - 1-2 days Decision to Admit Reason: Admit from EC Decision Date: 12/19/19 Decision Time: 00:45
[2019-12-19] MEDS ORDERED: ZIPRASIDONE 20 MG VIAL IM STA (00:43)
[2019-12-19] MEDS ORDERED: LORazepam 2 MG/ML INJ IM STA (00:44)
[2019-12-19] MEDS ORDERED: LORazepam 1 MG TAB PO PRN (01:55)
[2019-12-19] MEDS ORDERED: MAG HYDROX/AL HYDROX/SIMETH 30 ML CUP PO PRN (01:55)
[2019-12-19] MEDS ORDERED: ZIPRASIDONE 20 MG VIAL IM PRN (01:55)
[2019-12-19] MEDS ORDERED: MAGNESIUM HYDROXIDE 2,400 MG/10 ML CUP PO PRN (01:55)
[2019-12-19] MEDS ORDERED: LORazepam 2 MG/ML INJ IM PRN (01:58)
[2019-12-19] MEDS: NICOTINE 14MG/24HR PATCH TRANSDERM SCH (08:20)
--- NOTE | 2019-12-19 09:54 | P.HP ---
Psychiatric H&P - . H&P Date: 12/19/19 History & Physical: IDENTIFYING DATA: He is a 59-year-old single male who has a history of a schizophrenia. HISTORY OF PRESENT ILLNESS: I reviewed the medical record, interviewed the patient and spoke with his father, Oneil, on the telephone. Oneil completed a petition for hospitalization that read "multiple hospitalizations in [facility] and [facility]. When off meds is delusional, hears voices, talks gibberish, bizarre behavior,, compulsively washing and no insight into his need for treatment. He's been sitting in on his porch last 3 nights with a duffel bag waiting for an imaginary friend to pick him up. Attitude change. Moving out. All his kitchen dishes out of the drawers and thrown on the floor. Asked me to turn off all the water because he is moving to [place]. Excessively washing. Talking to imaginary friend. Threw meds on the floor and into the trash." He was guarded and minimally cooperative. She denied the allegations in the petition. He denied that he had stopped taking his medications or was talking to imaginary friend. He denied feeling depressed or having thoughts and thoughts of suicide. When I asked about psychotic symptoms such as auditory hallucinations replied "do you?" When I replied to negative, he responded "well neither do I." PAST PSYCHIATRIC HISTORY: He would not answer questions on his past psychiatric treatment. He denied that he is involved with community mental health. He alleged that he's taken his prescribed psychotropic medications-olanzapine and Haldol. According to his father he is received mental health services since he was 20 years old. His father believes that he was "a bit odd" when he was a teenager. His first psychotic break occurred in [facility] when he was in the [place]. He's had multiple hospitalizations and [facility] and [facility]. His last hospitalization to [facility] was 10 years ago. His father states that this 10 year period was the longest that he has had without psychiatric hospitalization. PAST MEDICAL HISTORY: Hypertension, COPD ALLERGIES: Cephalexin, clindamycin, penicillin SUBSTANCE USE HISTORY: He denied use of alcohol or drugs. However, his father stated he has a history of alcohol use problems and his alcohol use increases when he stops taking his psychotropic medications. FAMILY PSYCHIATRIC/SUBSTANCE USE HISTORY: His father reported alcohol use problems in his brother and himself. His father describes himself as a recovering alcoholic. LEGAL HISTORY: He does not have a guardian. SOCIAL HISTORY: He is born and raised in [facility]. He had a close and supportive relationship with mother who 2 years ago. She had served as his legal guardian for many years. He completed high school. He served in the [employer] and received a medical discharge after his first psychotic break. He single and has no children. He lives alone in his own apartment. He receives social security income his father says he supplements his income with a monthly check. His father talked about a long-term girlfriend who also has a chronic mental illness. MENTAL STATUS EXAM: He presented as a thin male with male pattern baldness and close cropped hair. He made eye contact and appeared to attend to the interview. He had no distinguishing features or prominent physical abnormalities. He had an angry facial expression. He was alert and oriented to person, place and time. He showed no abnormality of psychomotor activity. He was not agitated, restless and impulsive. His speech was spontaneous with decreased rate and rhythm. His affect was angry, irritable, suspicious and guarded. He denies suicidal ideation and wishes. He denied homicidal ideation. He denied feeling hopeless, helpless or worthless. He did not express clear ideas reference, paranoid ideations or delusions. When asked about his "imaginary friend. He denied the allegations petition. His thinking is very concrete and showed poverty content poverty of speech. He denied hallucinations did not appear to be responding to internal stimuli. Global impression of intellect is average to below. He has limited awareness or understanding of his illness. STRENGTHS: Physical health, supportive family, stable income, stable housing WEAKNESSES: Chronic mental illness, poor compliance with psychiatric treatment. IMPRESSION: He is a 51-year-old male who has a long history of schizophrenia with multiple psychiatric hospitalizations. The last 10 years his longest that he has experienced without psychiatric hospitalization. He stopped taking his psychotropic medications and has become more paranoid, confused and delusional. His father reports obsessive washing, neglect of his personal responsibilities (paying bills and cleaning his apartment), auditory hallucinations, paranoia and increased irritability. There are interview he was guarded, suspicious and denied all symptoms. He should be treated inpatient basis with a combination of psychopharmacology and multimodal therapy. PRINCIPLE DIAGNOSIS: Schizophrenia, poor compliance with psychiatric treatment, rule out alcohol use disorder RECOMMENDATION: Admitted to the psychiatric unit. Safety precautions. She with involuntary hospitalization. Restart Haldol 2 mg daily and olanzapine 7.5 mg daily. Consult medicine for initial physical exam and medical history. milking worker completed initial psychosocial assessment and coordinate discharge and aftercare services. Obtain collateral information and a possible past medical records. Encourage participation in therapeutic groups and activities. Evaluate clinical status response to treatment daily basis. Allergies Allergy/AdvReac Type Severity Reaction Status Date / Time cephalexin monohydrate Allergy Unknown Verified 12/18/19 22:35 [From Keflex] clindamycin Allergy Unknown Verified 12/18/19 22:35 latex Allergy Rash/Hives Verified 12/18/19 22:35 Penicillins Allergy Unknown Verified 12/18/19 22:35 Vital Signs Temp 96.9 F L 12/19/19 02:26 Pulse 103 H 12/19/19 02:26 Resp 16 12/19/19 02:26 BP 148/104 12/19/19 02:26 Pulse Ox 94 L 12/19/19 02:26 Intake & Output 12/18/19 12/19/19 12/19/19 18:59 06:59 18:59 Weight 52.8 kg Laboratory Last Values Urine Color Light Yellow 12/18/19 22:41 Urine Appearance Clear (Clear) 12/18/19 22:41 Urine pH 6.5 (5.0-8.0) 12/18/19 22:41 Ur Specific [place] 1.004 (1.001-1.035) 12/18/19 22:41 Urine Protein Negative (Negative) 12/18/19 22:41 Urine Glucose (UA) Negative (Negative) 12/18/19 22:41 Urine Ketones Negative (Negative) 12/18/19 22:41 Urine Blood Negative (Negative) 12/18/19 22:41 Urine Nitrite Negative (Negative) 12/18/19 22:41 Urine Bilirubin Negative (Negative) 12/18/19 22:41 Urine Urobilinogen <2.0 mg/dL (<2.0) 12/18/19 22:41 Ur Leukocyte Esterase Negative (Negative) 12/18/19 22:41 Urine Opiates Screen Not Detected (NotDetected) 12/18/19 22:41 Ur Oxycodone Screen Not Detected (NotDetected) 12/18/19 22:41 Urine Methadone Screen Not Detected (NotDetected) 12/18/19 22:41 Ur Propoxyphene Screen Not Detected (NotDetected) 12/18/19 22:41 Ur Barbiturates Screen Not Detected (NotDetected) 12/18/19 22:41 U Tricyclic Antidepress Not Detected (NotDetected) 12/18/19 22:41 Ur Phencyclidine Scrn Not Detected (NotDetected) 12/18/19 22:41 Ur Amphetamines Screen Not Detected (NotDetected) 12/18/19 22:41 U Methamphetamines Scrn Not Detected (NotDetected) 12/18/19 22:41 U Benzodiazepines Scrn Not Detected (NotDetected) 12/18/19 22:41 Urine Cocaine Screen Not Detected (NotDetected) 12/18/19 22:41 U Marijuana (THC) Screen Not Detected (NotDetected) 12/18/19 22:41 12/19/19 08:58
[2019-12-19] MEDS: OLANZapine 2.5 MG TAB PO SCH (10:41)
[2019-12-19] MEDS: HALOPERIDOL 2 MG TAB PO SCH (10:41)
--- NOTE | 2019-12-20 05:35 | CONS ---
CONSULTATION CHIEF COMPLAINT: Acute psychosis. HISTORY OF PRESENT ILLNESS: This is another psych admission for this 59-year-old white male. He has not been in the unit for about 10 years. Apparently he became extremely agitated and aggressive and was brought to the emergency room and admitted. It is not clear if he has been on any psych medications or not. He is extremely heavy smoker and comes to the office rarely. He had a malignant melanoma removed from the left chest several years ago without any sequelae. REVIEW OF SYSTEMS: He denies any headaches, neurologic problems, difficulty with vision or hearing, cough, hemoptysis, chest pain, heart disease, hypertension, murmurs, rheumatic fever, abdominal pain, melena, hematochezia, jaundice, vomiting, renal failure, dysuria, hematuria, frequency, urgency, nocturia, diabetes, etc. Past medical history, family history and personal and social histories are otherwise contained in his admitting summary or otherwise noncontributory. He smokes 3 to 4 packs a day. PHYSICAL EXAMINATION: Blood pressure 126/104 with a pulse of 110, respirations of 35, and he is afebrile. In general, he appeared to be slender, tanned, and possibly malnourished. Head, ears, eyes, nose, mouth, and throat were unremarkable. Neck veins not distended. Chest demonstrated increased AP diameter with very poor breath sounds throughout. There is scattered rales and occasional rhonchi. Cardiac exam demonstrates sinus tachycardia with no murmurs or extra sounds. Abdomen is soft and no masses. Extremities demonstrated poor muscle bulk. Neurologically, he is intact. He is extremely agitated and hyper verbose with pressured speech. IMPRESSION: 1. Acute psychosis. 2. Schizophrenia. 3. History of heavy smoking and chronic obstructive pulmonary disease. 4. History of malignant melanoma. RECOMMENDATIONS: None at this time. MMODL / IJN: [id number] /
[2019-12-20] MEDS: NICOTINE 14MG/24HR PATCH TRANSDERM SCH (07:51)
[2019-12-20] MEDS: OLANZapine 2.5 MG TAB PO SCH (07:52)
[2019-12-20] MEDS: HALOPERIDOL 2 MG TAB PO SCH (07:52)
[2019-12-20 08:20] LABS: Basophils % (A) 1 %; Eosinophils # (A) 0.1 k/uL (0-0.7); Eosinophils % (A) 1 %; HCT 51.7 % (39.0-53.0); HGB 16.6 gm/dL (13.0-17.5); Lymphocytes % (A) 33 %; MCH 34.4 pg (25.0-35.0); MCV 107.5 fL (80.0-100.0); Macrocytosis Moderate; Mean Platelet Volume 9.8; Monocytes # (A) 0.6 k/uL (0-1.0); Monocytes % (A) 10 %; Neutrophils # (A) 3.2 k/uL (1.3-7.7); Neutrophils % (A) 52 %; Platelet Count 228 k/uL (150-450); RBC 4.81 m/uL (4.30-5.90); RDW 14.6 % (11.5-15.5); WBC 6.1 k/uL (3.8-10.6)
[2019-12-20 08:27] LABS: ALT 47 U/L (4-49); AST 63 U/L (17-59); African American GFR (CKD) >90 (>60 ml/min/1.73 sqM); Albumin 3.9 g/dL (3.5-5.0); Alkaline Phosphatase 84 U/L (38-126); Anion Gap 7 mmol/L; Bilirubin, Delta 0.1 mg/dL (0.0-0.2); Bilirubin,Unconjugated 0.8 mg/dL (0.0-1.1); Blood Urea Nitrogen 4 mg/dL (9-20); Calcium 9.6 mg/dL (8.4-10.2); Carbon Dioxide 28 mmol/L (22-30); Chloride 105 mmol/L (98-107); Cholesterol 181 mg/dL (<200); Glucose 77 mg/dL (74-99); HDL Cholesterol 95 mg/dL (40-60); LDL Cholesterol,Calculated 68 mg/dL (0-99); Non-African American GFR(CKD) >90 (>60 ml/min/1.73 sqM); Potassium 3.9 mmol/L (3.5-5.1); Sodium 140 mmol/L (137-145); Total Bilirubin 0.9 mg/dL (0.2-1.3); Total Protein 6.7 g/dL (6.3-8.2); Triglycerides 90 mg/dL (<150)
[2019-12-20] MEDS ORDERED: HALOPERIDOL 2 MG TAB PO SCH (09:00)
[2019-12-20] MEDS ORDERED: OLANZapine 2.5 MG TAB PO SCH (09:00)
--- NOTE | 2019-12-20 11:56 | P.PN ---
Progress Note - Text Progress Note Date: 12/20/19 Clinical Problems: Schizophrenia, poor compliance with treatment Interim history: I reviewed the medical record, interviewed the patient and discuss his treatment and treatment plan during team meeting. We talked about the concerns that his father documented in the Petition. He denied that he had stopped taking his medications. He alleged that he paid his rent but has not yet paid his phone bill. Our discussion of him packing his belongings and waiting for a "imaginary friend" resulted in a confusing discussion. He talked about his plans to keep his apartment but "visit a couple of cities outside [place]." He did not know the name of the city and did not have a plan where he would live when he arrived. He also did not have a plan how to get there. He denied feeling depressed or having thoughts of or suicide. In response to questions about hallucinations he replied "do you?" His been compliant with prescribed psychotropic medications. He has not attended therapeutic groups and activities. He is posed no management problems that had no episodes of behavioral dyscontrol. Mental status exam: He presented as a very thin 59-year-old male who was pleasant on approach. He made eye contact and appeared to attend to the interview. He had no prominent physical maladies. He is a blunted facial expression. He was alert and oriented to person, place and time. He had slight psychomotor retardation but no abnormal involuntary movements. His speech was spontaneous spontaneous with normal rate and rhythm. He had no articulation difficulties. His affect was blunted but stable and appropriate. He denied suicidal ideation, wishes and homicidal ideation. He denied feeling hopeless, helpless and worthless. He was paranoid, guarded and suspicious but did not express clear ideas reference, paranoid ideation or delusions. His thinking was very concrete and associations were not organized and fully goal directed. He had marked problems with executive functioning particularly with planning and problem solving. Assessment: He has been compliant with prescribed medications and does not have appearing positives symptoms of schizophrenia Plan: Continue inpatient treatment. Safety precautions. Probate hearing pending. Continue Haldol 2 mg daily and Zyprexa 7.5 mg daily. Encourage participation in therapeutic groups and activities. Evaluate clinical status response to treatment daily basis.
[2019-12-20 19:02] LABS: Hemoglobin A1C 4.8 % (4.0-6.0)
[2019-12-21] MEDS: SYMBICORT 160-4.5 MCG INHALER (MHU) INHALATION SCH ×2 (08:18→20:10)
[2019-12-21] MEDS: NICOTINE 14MG/24HR PATCH TRANSDERM SCH (08:18)
[2019-12-21] MEDS: OLANZapine 2.5 MG TAB PO SCH (08:19)
[2019-12-21] MEDS: HALOPERIDOL 2 MG TAB PO SCH (08:19)
[2019-12-21] MEDS: ACETAMINOPHEN TAB 325 MG TAB PO PRN ×2 (09:15→20:07)
[2019-12-21] MEDS: ALBUTEROL INHALER 60 PUFF/8 GM INHALER (MHU) INHALATION PRN ×2 (09:16→20:10)
--- NOTE | 2019-12-21 14:08 | P.PN ---
Progress Note - Text Progress Note Date: 12/21/19 Clinical Problems: Schizophrenia, poor compliance with treatment Interim history: I reviewed the medical record, interviewed the patient and discuss his treatment and treatment plan during team meeting. He denied problems or concerns and question the need for hospitalization. He remains guarded and suspicious and volunteers little information. Although he denied experiencing auditory hallucinations I have observed him talking to himself as though he is responding to internal stimuli. He's been compliant with prescribed medications. He does not attend therapeutic groups or activities. Mental status exam: He was pleasant on approach. He made eye contact and appeared to attend to the interview. He is a blunted facial expression. He was alert and oriented to person, place and time. He had slight psychomotor retardation but no abnormal involuntary movements. His speech was spontaneous with a blunted rhythm and loud volume. He had no articulation difficulties. His affect was suspicious, paranoid and blunted. He denied suicidal ideation, wishes and homicidal ideation. He denied feeling hopeless, helpless and worthless. He was paranoid, guarded and suspicious but did not express clear ideas reference, paranoid ideation or delusions. His thinking was very concrete and associations were not organized and fully goal directed. He had marked problems with executive functioning particularly with planning and problem solving. Assessment: He has been compliant with prescribed medications and does not have appearing positives symptoms of schizophrenia Plan: Continue inpatient treatment. Safety precautions. Probate hearing pending. Continue Haldol 2 mg daily and Zyprexa 7.5 mg daily. Encourage participation in therapeutic groups and activities. Evaluate clinical status response to treatment daily basis.
[2019-12-21] MEDS: TETRAHYDROZOLINE 0.05% OPHTH DROPS 15 ML BTL BOTH EYES PRN (15:09)
[2019-12-22] MEDS: SYMBICORT 160-4.5 MCG INHALER (MHU) INHALATION SCH ×2 (08:39→19:54)
[2019-12-22] MEDS: OLANZapine 2.5 MG TAB PO SCH (08:40)
[2019-12-22] MEDS: HALOPERIDOL 2 MG TAB PO SCH (08:40)
[2019-12-22] MEDS: ALBUTEROL INHALER 60 PUFF/8 GM INHALER (MHU) INHALATION PRN (08:40)
[2019-12-22] MEDS: NICOTINE 14MG/24HR PATCH TRANSDERM SCH (08:40)
[2019-12-22] MEDS: TETRAHYDROZOLINE 0.05% OPHTH DROPS 15 ML BTL BOTH EYES PRN (08:41)
[2019-12-22] MEDS: ACETAMINOPHEN TAB 325 MG TAB PO PRN ×2 (08:41→16:36)
--- NOTE | 2019-12-22 12:01 | P.PN ---
Progress Note - Text Progress Note Date: 12/22/19 Clinical Problems: Schizophrenia, poor compliance with treatment Interim history: I reviewed the medical record, interviewed the patient and discuss his treatment and treatment plan during team meeting. He again denied problems or concerns. He denied feeling paranoid or suspicious. He denied experiencing auditory, visual or olfactory hallucinations. He denied experiencing thought insertion, thought broadcasting or thought control. He talked about returning to his apartment, paying his bills and looking for "another place". He would not answer my questions about what he meant by looking for "another place". He did not volunteer that he plan to move to another city. He has not attended therapeutic groups and activities. He slept 7 hours last night. Mental status exam: He was pleasant on approach. He made eye contact and appeared to attend to the interview. He is a blunted facial expression. He was alert and oriented to person, place and time. He had slight psychomotor retardation but no abnormal involuntary movements. His speech was spontaneous with a blunted rhythm and loud volume. He had no articulation difficulties. His he was less suspicious and guarded than on prior encounters. He denied suicidal ideation, wishes and homicidal ideation. He denied feeling hopeless, helpless and worthless. He did not express clear ideas reference, paranoid ideation or delusions. His thinking was very concrete and associations were not organized and fully goal directed. He had marked problems with executive functioning particularly with planning and problem solving. Assessment: He is chronically, persistently and severely mentally ill and moderately improved from admission. Plan: Continue inpatient treatment. Safety precautions. Probate hearing pending. Continue Haldol 2 mg daily. Increase Zyprexa 10 mg daily. Encourage participation in therapeutic groups and activities. Evaluate clinical status response to treatment daily basis.
[2019-12-23] MEDS: SYMBICORT 160-4.5 MCG INHALER (MHU) INHALATION SCH ×2 (08:14→19:50)
[2019-12-23] MEDS: OLANZapine 10 MG TAB PO SCH (08:15)
[2019-12-23] MEDS: TETRAHYDROZOLINE 0.05% OPHTH DROPS 15 ML BTL BOTH EYES PRN (08:15)
[2019-12-23] MEDS: ALBUTEROL INHALER 60 PUFF/8 GM INHALER (MHU) INHALATION PRN (08:15)
[2019-12-23] MEDS: NICOTINE 14MG/24HR PATCH TRANSDERM SCH (08:15)
[2019-12-23] MEDS: HALOPERIDOL 2 MG TAB PO SCH (08:15)
[2019-12-23] MEDS: ACETAMINOPHEN TAB 325 MG TAB PO PRN ×3 (08:16→19:50)
--- NOTE | 2019-12-23 13:06 | P.PN ---
Progress Note - Text Progress Note Date: 12/23/19 Clinical Problems: Schizophrenia, poor compliance with treatment Interim history: I reviewed the medical record, interviewed the patient and discuss his treatment and treatment plan during team meeting. He again denied problems or concerns. He denied feeling paranoid or suspicious. He denied experiencing auditory, visual or olfactory hallucinations. He denied experiencing thought insertion, thought broadcasting or thought control. He again talked about returning to his apartment, paying his bills and looking for "another place". He talked about "looking into" living in "a city outsides [place]." He was guarded and would not or could not discuss the specifics of this plan. He attended 2 therapeutic groups yesterday. A therapist in one group described him as intrusive and non-redirectable. He slept 7 hours last night. Mental status exam: He was pleasant on approach. He made eye contact and appeared to attend to the interview. He is a blunted facial expression. He was alert and oriented to person, place and time. He had slight psychomotor retardation but no abnormal involuntary movements. His speech was spontaneous with a blunted rhythm and loud volume. He had no articulation difficulties. His was suspicious and guarded. He denied suicidal ideation, wishes and homicidal ideation. He denied feeling hopeless, helpless and worthless. He did not express clear ideas reference, paranoid ideation or delusions. His thinking was very concrete and associations were not organized and fully goal directed. Assessment: He is chronically, persistently and severely mentally ill and moderately improved from admission. He had marked problems with executive functioning particularly with planning and problem solving. Plan: Continue inpatient treatment. Safety precautions. Probate hearing pending. Continue Haldol 2 mg daily. Continue Zyprexa 10 mg daily. Consider transitioning to Haldol decanoate prior to discharge. Encourage participation in therapeutic groups and activities. Evaluate clinical status response to treatment daily basis.
[2019-12-24] MEDS: ACETAMINOPHEN TAB 325 MG TAB PO PRN ×4 (02:11→20:06)
[2019-12-24] MEDS: NICOTINE 14MG/24HR PATCH TRANSDERM SCH (07:55)
[2019-12-24] MEDS: HALOPERIDOL 2 MG TAB PO SCH (07:56)
[2019-12-24] MEDS: OLANZapine 10 MG TAB PO SCH (07:56)
[2019-12-24] MEDS: SYMBICORT 160-4.5 MCG INHALER (MHU) INHALATION SCH ×2 (07:57→20:05)
[2019-12-24] MEDS: ALBUTEROL INHALER 60 PUFF/8 GM INHALER (MHU) INHALATION PRN ×2 (07:58→20:07)
[2019-12-24] MEDS: TETRAHYDROZOLINE 0.05% OPHTH DROPS 15 ML BTL BOTH EYES PRN (12:18)
--- NOTE | 2019-12-24 12:57 | P.PN ---
Progress Note - Text Progress Note Date: 12/24/19 Clinical Problems: Schizophrenia, poor compliance with treatment Interim history: I reviewed the medical record, interviewed the patient and discuss his treatment and treatment plan during team meeting. He again denied problems or concerns. He denied psychotic symptoms such as hallucinations, paranoia etc. He again talked about his plan to keep his apartment but "look into" living "some cityies" outside of [place]. He alleged that he spoke with a well drill operator cable tool in [place] who were charged him $700 to [address] him to [place] and help him "find a place." He was evasive about the specifics of this plan and alleged that he could afford to keep his apartment in [place] and live outside of [place] on his current disability. I spoke to him about switching from oral to Haldol Decanoate. He would not consent. He alleged that he is compliant with his medication and has no problem continue to take the medication. Mental status exam: He was pleasant on approach. He made eye contact and appeared to attend to the interview. He is a blunted facial expression. He was alert and oriented to person, place and time. He had slight psychomotor retardation but no abnormal involuntary movements. His speech was spontaneous with a blunted rhythm and loud volume. He had no articulation difficulties. His was suspicious and guarded. He denied suicidal ideation, wishes and homicidal ideation. He denied feeling hopeless, helpless and worthless. He did not express clear ideas reference, paranoid ideation or delusions. His thinking was very concrete and associations were not organized and fully goal directed. Assessment: He is chronically, persistently and severely mentally ill and moderately improved from admission. He had marked problems with executive functioning particularly with planning and problem solving. Plan: Continue inpatient treatment. Safety precautions. Probate hearing pending. Continue Haldol 2 mg daily. Continue Zyprexa 10 mg daily. Continue to talk about Haldol Decanoate as an alternative to the oral Haldol. Consider transitioning to Haldol decanoate prior to discharge. Encourage participation in therapeutic groups and activities. Evaluate clinical status response to treatment daily basis.
[2019-12-25] MEDS: SYMBICORT 160-4.5 MCG INHALER (MHU) INHALATION SCH ×2 (08:32→20:08)
[2019-12-25] MEDS: ALBUTEROL INHALER 60 PUFF/8 GM INHALER (MHU) INHALATION PRN ×2 (08:33→20:09)
[2019-12-25] MEDS: NICOTINE 14MG/24HR PATCH TRANSDERM SCH (08:33)
[2019-12-25] MEDS: HALOPERIDOL 2 MG TAB PO SCH (08:34)
[2019-12-25] MEDS: OLANZapine 10 MG TAB PO SCH (08:34)
[2019-12-25] MEDS: ACETAMINOPHEN TAB 325 MG TAB PO PRN ×2 (08:34→20:10)
[2019-12-25] MEDS: TETRAHYDROZOLINE 0.05% OPHTH DROPS 15 ML BTL BOTH EYES PRN (08:35)
--- NOTE | 2019-12-25 10:40 | P.PN ---
Progress Note - Text Progress Note Date: 12/25/19 Interval history: Patient was seen sitting on the floor near the nurse's desk and was directable and agreeable to speak with software writer. Patient was attempting to be polite at first with software writer however questioned him several times and endorsed some paranoia. Patient was also fairly intrusive during the interview however for the most part was directable during conversation. Patient asked several times who software writer was and what his credentials were. He states that he did not sleep well last night due to the noise in the hallways. He states that he is taking his medications and claims that "you can't change my medications even if you want to". He states that his appetite is fine. At this time patient denies any suicidal or homicidal ideations intent or plan. Denies any Auditory or visual hallucinations. Patient denies any side effects from the medications and has been compliant with meds. Mental status exam: General Appearance: Patient appears to be thin, stated age is alert, directable, and suspicious Behavior: No agitated behavior. Patient is calm and directable. Suspicious. Speech: Patient's speech is fluent and nonpressured. Mood/Affect: Mood is improving mildly, affect is congruent and constricted. Suicidality/Homicidality: Patient denies having any suicidal or homicidal ideation intent or plan. Perceptions: Patient denies any auditory or visual hallucinations. Though content/process: Logical, goal oriented. Suspicious and some paranoia. Memory and concentration: AOX3, grossly intact for the purposes of this session Judgment and insight: improving mildly Assessment/Plan: Continue with current diagnosis. Patient continues to meet criteria for inpatient psychiatric admission for symptom stabilization and safety.Patient will be maintained on current psychotropic medication regimen. Monitor for medication compliance and for any psychotropic medication side effects. Will continue to monitor ongoing response to treatment. Encouraged participation in milieu.
[2019-12-26] MEDS: NICOTINE 14MG/24HR PATCH TRANSDERM SCH (07:52)
[2019-12-26] MEDS: HALOPERIDOL 2 MG TAB PO SCH (07:54)
[2019-12-26] MEDS: OLANZapine 10 MG TAB PO SCH (07:54)
[2019-12-26] MEDS: TETRAHYDROZOLINE 0.05% OPHTH DROPS 15 ML BTL BOTH EYES PRN (07:55)
[2019-12-26] MEDS: ALBUTEROL INHALER 60 PUFF/8 GM INHALER (MHU) INHALATION PRN (07:55)
[2019-12-26] MEDS: ACETAMINOPHEN TAB 325 MG TAB PO PRN ×2 (07:55→22:01)
--- NOTE | 2019-12-26 11:31 | P.PN ---
Progress Note - Text Progress Note Date: 12/26/19 Interval history: Patient was seen wandering the hallways this morning was directable and agree able to speak with sports book writer. Patient was initially cooperative however redirected several questions back to sports book writer. He asked sports book writer several times "why do you want to speak to me" and also "what questions do want me to ask you". Patient was also fairly intrusive during the interview however for the most part was directable during conversation. He states that he slept well last night and offered no overnight complaints. He claims that he is been going to groups over did not elaborate much on what he is doing. He states that he is taking his medications. He states that his appetite is fine. At this time patient denies any suicidal or homicidal ideations intent or plan. Denies any Auditory or visual hallucinations. Patient denies any side effects from the medications and has been compliant with meds. Mental status exam: General Appearance: Patient appears to be thin, stated age is alert, directable, and suspicious Behavior: No agitated behavior. Patient is calm and directable. Suspicious. Speech: Patient's speech is fluent and nonpressured. Mood/Affect: Mood is improving mildly, affect is congruent and constricted. Suicidality/Homicidality: Patient denies having any suicidal or homicidal ideation intent or plan. Perceptions: Patient denies any auditory or visual hallucinations. Though content/process: Logical, goal oriented. Suspicious and some paranoia. Memory and concentration: AOX3, grossly intact for the purposes of this session Judgment and insight: improving mildly Assessment/Plan: Continue with current diagnosis. Patient continues to meet criteria for inpatient psychiatric admission for symptom stabilization and safety.Patient will be maintained on current psychotropic medication regimen. Monitor for medication compliance and for any psychotropic medication side effects. Will continue to monitor ongoing response to treatment. Encouraged participation in milieu.
[2019-12-26] MEDS: SYMBICORT 160-4.5 MCG INHALER (MHU) INHALATION SCH ×2 (19:21→21:54)
[2019-12-27] MEDS: HALOPERIDOL 2 MG TAB PO SCH (08:27)
[2019-12-27] MEDS: NICOTINE 14MG/24HR PATCH TRANSDERM SCH (08:27)
[2019-12-27] MEDS: OLANZapine 10 MG TAB PO SCH (08:27)
[2019-12-27] MEDS: ALBUTEROL INHALER 60 PUFF/8 GM INHALER (MHU) INHALATION PRN ×2 (08:28→20:04)
[2019-12-27] MEDS: SYMBICORT 160-4.5 MCG INHALER (MHU) INHALATION SCH ×2 (08:28→19:40)
[2019-12-27] MEDS: ACETAMINOPHEN TAB 325 MG TAB PO PRN ×3 (08:29→20:04)
[2019-12-27] MEDS: TETRAHYDROZOLINE 0.05% OPHTH DROPS 15 ML BTL BOTH EYES PRN ×2 (08:31→20:04)
--- NOTE | 2019-12-27 12:16 | P.PN ---
Progress Note - Text Progress Note Date: 12/27/19 Clinical Problems: Schizophrenia, poor compliance with treatment Interim history: I reviewed the medical record, interviewed the patient and discuss his treatment and treatment plan during team meeting. He again denied problems or concerns. He denied psychotic symptoms such as hallucinations, paranoia etc. Dislike on Friday he talked about his plan to keep his apartment but "look into going to some cities" outside of [place]. He has lived in [place]" for 40 years" and believes there is "nothing here for me. ... Maybe I go there and finds apartment, find a job maybe even go to school." Became increasingly irritable and defensive as I ask specific questions about this plan. I again spoke to him about switching from oral to Haldol Decanoate. He would not consent. He alleged that he is compliant with his medication and has no problem continue to take the medication. Mental status exam: He was pleasant on approach. He made eye contact and appeared to attend to the interview. He is a blunted facial expression. He was alert and oriented to person, place and time. He had slight psychomotor retardation but no abnormal involuntary movements. His speech was spontaneous with a blunted rhythm and loud volume. He had no articulation difficulties. His was suspicious and guarded. He denied suicidal ideation, wishes and homicidal ideation. He denied feeling hopeless, helpless and worthless. He did not express clear ideas reference, paranoid ideation or delusions. His thinking was very concrete and associations were not organized and fully goal directed. Assessment: He is chronically, persistently and severely mentally ill and moderately improved from admission. He had marked problems with executive functioning particularly with planning and problem solving. Plan: Continue inpatient treatment. Safety precautions. Probate hearing pending. Continue Haldol 2 mg daily. Continue Zyprexa 10 mg daily. Continue to talk about Haldol Decanoate as an alternative to the oral Haldol. Transition to although decanoate after the probate hearing. Encourage participation in therapeutic groups and activities. Evaluate clinical status response to treatment daily basis.
[2019-12-28 06:53] VITALS: RESP 16
[2019-12-28] MEDS: NICOTINE 14MG/24HR PATCH TRANSDERM SCH (08:15)
[2019-12-28] MEDS: HALOPERIDOL 2 MG TAB PO SCH (08:15)
[2019-12-28] MEDS: OLANZapine 10 MG TAB PO SCH (08:16)
[2019-12-28] MEDS: ACETAMINOPHEN TAB 325 MG TAB PO PRN ×2 (08:18→20:13)
[2019-12-28] MEDS: ALBUTEROL INHALER 60 PUFF/8 GM INHALER (MHU) INHALATION PRN ×2 (08:19→20:11)
[2019-12-28] MEDS: TETRAHYDROZOLINE 0.05% OPHTH DROPS 15 ML BTL BOTH EYES PRN ×2 (08:19→20:12)
[2019-12-28] MEDS: SYMBICORT 160-4.5 MCG INHALER (MHU) INHALATION SCH ×2 (08:57→20:11)
--- NOTE | 2019-12-28 11:27 | P.PN ---
Progress Note - Text Progress Note Date: 12/28/19 Clinical Problems: Schizophrenia, poor compliance with treatment Interim history: I reviewed the medical record, interviewed the patient and discuss his treatment and treatment plan during team meeting. He complained about his psychiatric services alleging that "we do nothing" for him. He complained that we would not allow him to wear his sweatshirt or allow him to order his girlfriend some irvin. He talked about past experiences with psychiatric treatment when he was allowed [facility]. He believes that there was no reason for this admission He denied psychotic symptoms such as hallucinations, paranoia etc. Mental status exam: He was pleasant on approach. He made eye contact and appeared to attend to the interview. He is a blunted facial expression. He had slight psychomotor retardation but no abnormal involuntary movements. His speech was spontaneous with a blunted rhythm and loud volume. He had no articulation difficulties. He was not irritable but remains suspicious and guarded. He denied suicidal ideation, wishes and homicidal ideation. He denied feeling hopeless, helpless and worthless. He did not express clear ideas reference, paranoid ideation or delusions. His thinking was very concrete and associations were not organized and fully goal directed. Assessment: He is chronically, persistently and severely mentally ill and moderately improved from admission. He had marked problems with executive functioning particularly with planning and problem solving. Plan: Continue inpatient treatment. Safety precautions. Probate hearing pending. Continue Haldol 2 mg daily. Continue Zyprexa 10 mg daily. Continue to talk about Haldol Decanoate as an alternative to the oral Haldol. Transition to although decanoate after the probate hearing. Encourage participation in therapeutic groups and activities. Evaluate clinical status response to treatment daily basis.
[2019-12-29] MEDS: OLANZapine 10 MG TAB PO SCH (08:13)
[2019-12-29] MEDS: HALOPERIDOL 2 MG TAB PO SCH (08:13)
[2019-12-29] MEDS: SYMBICORT 160-4.5 MCG INHALER (MHU) INHALATION SCH ×2 (08:13→20:17)
[2019-12-29] MEDS: NICOTINE 14MG/24HR PATCH TRANSDERM SCH (08:13)
[2019-12-29] MEDS: ALBUTEROL INHALER 60 PUFF/8 GM INHALER (MHU) INHALATION PRN ×2 (08:14→20:18)
[2019-12-29] MEDS: ACETAMINOPHEN TAB 325 MG TAB PO PRN ×2 (08:15→20:19)
[2019-12-29] MEDS: TETRAHYDROZOLINE 0.05% OPHTH DROPS 15 ML BTL BOTH EYES PRN ×2 (08:16→20:18)
--- NOTE | 2019-12-29 11:22 | P.PN ---
Progress Note - Text Progress Note Date: 12/29/19 Clinical Problems: Schizophrenia, poor compliance with treatment Interim history: I reviewed the medical record, interviewed the patient and discuss his treatment and treatment plan during team meeting. He denied psychotic symptoms such as hallucinations, paranoia etc. He denied concerns other than remaining in the hospital. He acknowledged plans for himself after he leaves the hospital and change; i.e. he wants to keep his apartment in [place] but "go to some cities outside [place]." He believes that he cannot afford to pay the rent his apartment, paid cab to drive him to [place] and assist him with a finding a residence as well as live "in a city outside [place]" with his social security disability. He has his probate hearing for involuntary hospitalization today. Mental status exam: He was pleasant on approach. He made eye contact and appeared to attend to the interview. He is a blunted facial expression. He had slight psychomotor retardation but no abnormal involuntary movements. His speech was spontaneous with a blunted rhythm and loud volume. He had no ar ticulation difficulties. He was not irritable but remains suspicious and guarded. He denied suicidal ideation, wishes and homicidal ideation. He denied feeling hopeless, helpless and worthless. He did not express clear ideas reference, paranoid ideation or delusions. His thinking was very concrete and associations were not organized and fully goal directed. Assessment: He is chronically, persistently and severely mentally ill and moderately improved from admission. He had marked problems with executive functioning particularly with planning and problem solving. Plan: Continue inpatient treatment. Safety precautions. Continue Haldol 2 mg daily. Continue Zyprexa 10 mg daily. Continue to talk about Haldol Decanoate as an alternative to the oral Haldol. Transition to although decanoate after the probate hearing. Encourage participation in therapeutic groups and activities. Evaluate clinical status response to treatment daily basis.
[2019-12-29 14:59] VITALS: BMI 18.8
[2019-12-29 17:01] VITALS: TEMP 97.8
[2019-12-30 03:26] VITALS: BP 117/83; PULSE 104
[2019-12-30] MEDS: OLANZapine 10 MG TAB PO SCH (07:45)
[2019-12-30] MEDS: SYMBICORT 160-4.5 MCG INHALER (MHU) INHALATION SCH (07:45)
[2019-12-30] MEDS: HALOPERIDOL 2 MG TAB PO SCH (07:45)
[2019-12-30] MEDS: NICOTINE 14MG/24HR PATCH TRANSDERM SCH (07:45)
[2019-12-30] MEDS: ALBUTEROL INHALER 60 PUFF/8 GM INHALER (MHU) INHALATION PRN (07:46)
[2019-12-30] MEDS: ACETAMINOPHEN TAB 325 MG TAB PO PRN (07:47)
[2019-12-30] MEDS: TETRAHYDROZOLINE 0.05% OPHTH DROPS 15 ML BTL BOTH EYES PRN (07:48)
--- NOTE | 2019-12-30 13:03 | P.DS ---
Providers Date of admission: 12/19/19 01:54 Attending physician: Marc Hamilton MD Consults: 12/19/19 01:55 Consult Physician Routine Consulting Provider: Jose Reyes Consult Reason/Comments: medical H and P Do you want consulting provider notified?: Yes, Notify in am Primary care physician: Jose Reyes - Discharge Diagnosis(es) (1) Schizophrenia in partial remission with history of multiple episodes Current Visit: Yes Status: Chronic Priority: High (2) Poor compliance with medication Current Visit: Yes Status: Acute Priority: High (3) COPD (chronic obstructive pulmonary disease) Current Visit: No Status: Chronic Priority: Low Hospital Course: He is a 59-year-old single male who has a history of a schizophrenia. His father, Oneil, on the telephone. Oneil completed a petition for hospitalization that read "[facility]. When off meds is delusional, hears voices, talks gibberish, bizarre behavior,, compulsively washing and no insight into his need for treatment. He's been sitting in on his porch last 3 nights with a duffel bag waiting for an imaginary friend to pick him up. Attitude change. Moving out. All his kitchen dishes out of the drawers and thrown on the floor. Asked me to turn off all the water because he is moving to [place]. Excessively washing. Talking to imaginary friend. Threw meds on the floor and into the trash." He was guarded and minimally cooperative. She denied the allegations in the petition. He denied that he had stopped taking his medications or was talking to imaginary friend. He denied feeling depressed or having thoughts and thoughts of suicide. When I asked about psychotic symptoms such as auditory hallucinations replied "do you?" When I replied to negative, he responded "well neither do I." He would not answer questions on his past psychiatric treatment. He denied that he is involved with community mental health. He alleged that he's taken his prescribed psychotropic medications-olanzapine and Haldol. According to his father he is received mental health services since he was 20 years old. His father believes that he was "a bit odd" when he was a teenager. His first psychotic break occurred in [facility] when he was in the [place]. He's had multiple hospitalizations and [facility] and [facility]. His last hospitalization to [facility] was 10 years ago. His father states that this 10 year period was the longest that he has had without psychiatric hospitalization. We admitted him involuntarily to the psychiatric unit and provided a comprehensive biopsychosocial assessment. The domestic travel consultant transportation mechanic completed the initial physical exam and medical history. The domestic travel consultant diagnosed COPD and history of malignant melanoma. We restarted his outpatient medications- Haldol 2 mg daily and olanzapine 7.5 mg daily. He was guarded, suspicious and irritable. Although he remained guarded and suspicious throughout the hospitalization the irritability decreased substantially. We increased olanzapine to 10 mg daily to address the continued suspiciousness. He would not agree to defer the probate hearing. After the probate hearing and received a combined 90 day inpatient/outpatient treatment order. He is compliant with medications and posed no management problem and had no episodes of behavioral dyscontrol. He maintained a fixed belief that he plans to move to "a city outside [place]" (he remained guarded about the name of the city) and alleged that he arranged to have a dump truck driver off highway take him to "the [facility]" and assist him with finding a residence. He believed that he continued paying the rent on his apartment in [place], travel to "the [facility]" and "find a place" to live their on his fixed disability income. He was resistant to all attempts to address the impracticality of this plan. At time of discharge he presented as a thin, small framed elderly male with close cropped hair. He made eye contact and appeared to attend to the interview. He had no distinguishing features or prominent physical modalities. He had a blunted facial expression. He was alert and oriented to person, place and time. He has slight psychomotor retardation but no abnormal involuntary movements. Her speech was not spontaneous but had normal rate and rhythm. His affect was blunted but stable and appropriate. He is much less irritable and with smile occasionally. He did not express suicidal ideation or wishes. He denied homicidal ideation. No express feelings of hopelessness, helplessness or worthlessness. He did not express clear ideas reference, paranoid ideation or delusional place. His thinking was very concrete but his associations were goal directed. He denied hallucinations and did not appear to be responding to internal stimuli. Patient Condition at Discharge: Serious Plan - Discharge Summary New Discharge Prescriptions: New OLANZapine [ZyPREXA] 10 mg PO DAILY #30 tab Continue Albuterol Sulfate [Ventolin HFA] 2 puff INHALATION RT-Q6H PRN PRN Reason: Dyspnea Fluticasone/Vilanterol [Breo Ellipta 200-25 Mcg INH] 1 puff INHALATION RT- DAILY Ipratropium-Albuterol Nebulize [Duoneb 0.5 mg-3 mg/3 ml Soln] 3 ml INHALATION RT-QID #120 ampul.neb Haloperidol [Haldol] 2 mg PO DAILY #30 tab Discontinued OLANZapine [ZyPREXA] 7.5 mg PO DAILY Levofloxacin [Levaquin] 750 mg PO DAILY@1200 #10 tab Lisinopril [Zestril] 40 mg PO DAILY #30 tab methylPREDNISolone Dose Pack [Medrol Dose Pack] 24 mg PO DAILY #1 dosepack Discharge Medication List Albuterol Sulfate [Ventolin HFA] 2 puff INHALATION RT-Q6H PRN 06/13/16 [History] Fluticasone/Vilanterol [Breo Ellipta 200-25 Mcg INH] 1 puff INHALATION RT-DAILY 04/13/19 [History] Ipratropium-Albuterol Nebulize [Duoneb 0.5 mg-3 mg/3 ml Soln] 3 ml INHALATION RT-QID #120 ampul.neb 04/19/19 [Rx] Haloperidol [Haldol] 2 mg PO DAILY #30 tab 12/30/19 [Rx] OLANZapine [ZyPREXA] 10 mg PO DAILY #30 tab 12/30/19 [Rx] Follow up Appointment(s)/Referral(s): [facility] [Outside] - 12/31/19 1:00 pm (Telephone intake on 12/31/19 @ 1 pm with Marcelo Burnett.) Jose Reyes MD [Primary Care Provider] - 1-2 days Patient Instructions/Handouts: How to Stop Smoking (DC), Schizophrenia (DC) Activity/Diet/Wound Care/Special Instructions: Activity and diet as tolerated. Avoid the use of street drugs and alcohol. Take all medications as prescribed. When you are in need of refills on your medications please contact your medical provider and/or outpatient psychiatrist to have this done. Please go to scheduled outpatient appointment for aftercare treatment. If symptoms return or become worse, call the crisis line at and/or go to the nearest emergency room for evaluation. Discharge Disposition: HOME SELF-CARE
== END 2019-12-30 12:30 | disposition home or self-care (01) | DRG 885 ==
LOC: EC 21:53 → 3MHU 12-19 01:54
PROVIDERS: ADMIT Psychiatry & Neurology Psychiatry; ATTEND Psychiatry & Neurology Psychiatry
DX: F20.9 Schizophrenia, unspecified (principal); J44.9 Chronic obstructive pulmonary disease, unspecified; F17.200 Nicotine dependence, unspecified, uncomplicated; I10 Essential (primary) hypertension; F32.9 Major depressive disorder, single episode, unspecified; Z88.0 Allergy status to penicillin; Z88.1 Allergy status to other antibiotic agents; Z79.899 Other long term (current) drug therapy; Z91.040 Latex allergy status; Z91.14 Patient's other noncompliance with medication regimen; Z91.19 Patient's noncompliance with other medical treatment and regimen; Z87.01 Personal history of pneumonia (recurrent); Z90.89 Acquired absence of other organs; Z98.890 Other specified postprocedural states; Z85.820 Personal history of malignant melanoma of skin; Z87.440 Personal history of urinary (tract) infections; Z82.3 Family history of stroke; Z82.49 Family history of ischemic heart disease and other diseases of the circulatory system; Z83.3 Family history of diabetes mellitus
CPT/HCPCS: 80053; 80061; 80306; 81003; 82075; 82248; 83036; 84439; 84443; 85025; 99285

== ENCOUNTER 2020-01-09 05:35 | Emergency (ER) | payer MEDICARE, OTHER ==
[2020-01-09 05:41] VITALS: RESP 18
[2020-01-09] MEDS ORDERED: IPRATROPIUM-ALBUTEROL 3 ML NEB INHALATION STA (05:52)
[2020-01-09] MEDS ORDERED: methylPREDNISolone SOD SUCCI 125 MG/2 ML VIAL IV STA (06:04)
--- NOTE | 2020-01-09 06:07 | ED ---
SOB HPI - General Chief Complaint: Shortness of Breath Stated Complaint: LORI Time Seen by Provider: 01/09/20 05:58 Source: patient, RN notes reviewed, old records reviewed Mode of arrival: ambulatory Limitations: no limitations - History of Present Illness Initial Comments: Patient is a 39-year-old male presents emergency department today for complaints of difficulty in breathing and cough is nonproductive for the past few days. He reports his been worse since yesterday evening. Patient does have a history of COPD smoker. Patient states that he has been using his inhaler without any significant relief. Patient denies any chest pain at this time. He reports he does have a history of pneumonia in the past. He has a history of mental health disorder. - Related Data Home Medications Medication Instructions Recorded Confirmed Albuterol Sulfate [Ventolin HFA] 2 puff INHALATION RT-Q6H PRN 06/13/16 04/13/19 Fluticasone/Vilanterol [Breo 1 puff INHALATION RT-DAILY 04/13/19 04/13/19 Ellipta 200-25 Mcg INH] Previous Rx's Medication Instructions Recorded Ipratropium-Albuterol Nebulize 3 ml INHALATION RT-QID #120 04/19/19 [Duoneb 0.5 mg-3 mg/3 ml Soln] ampul.neb Haloperidol [Haldol] 2 mg PO DAILY #30 tab 12/30/19 OLANZapine [ZyPREXA] 10 mg PO DAILY #30 tab 12/30/19 Albuterol Inhaler [Ventolin Hfa 1 puff INHALATION RT-QID #1 inhaler 01/09/20 Inhaler] Levofloxacin [Levaquin] 750 mg PO DAILY 5 Days #5 tab 01/09/20 predniSONE [Deltasone] 20 mg PO DIRECTED #12 tab 01/09/20 Allergies Allergy/AdvReac Type Severity Reaction Status Date / Time cephalexin monohydrate Allergy Unknown Verified 01/09/20 05:41 [From Keflex] clindamycin Allergy Unknown Verified 01/09/20 05:41 latex Allergy Rash/Hives Verified 01/09/20 05:41 Penicillins Allergy Unknown Verified 01/09/20 05:41 Review of Systems ROS Statement: Those systems with pertinent positive or pertinent negative responses have been documented in the HPI. ROS Other: All systems not noted in ROS Statement are negative. Past Medical History Past Medical History: Cancer, COPD, Pneumonia Additional Past Medical History / Comment(s): Melanoma removed from L trunk, skin cancer removed from R side of nose, L eye blurry vision, constipation, hematuria/UTI, hypoglycemia. History of Any Multi-Drug Resistant Organisms: None Reported Past Surgical History: Adenoidectomy, Tonsillectomy Additional Past Surgical History / Comment(s): R side of nose skin cancer removal/skin graft, L trunk melanoma removed, colonoscopy. Past Anesthesia/Blood Transfusion Reactions: No Reported Reaction Past Psychological History: Depression, Schizophrenia Smoking Status: Current every day smoker Past Alcohol Use History: Heavy Past Drug Use History: None Reported - Past Family History Father Family Medical History: Diabetes Mellitus Additional Family Medical History / Comment(s): Father is living. Mother Family Medical History: CVA/TIA, Myocardial Infarction ([place]) Additional Family Medical History / Comment(s): Mother had a CVA, shingles. She is from the [place]. General Exam - General Exam Comments Initial Comments: 51-year-old male. Somewhat agitated. Limitations: no limitations General appearance: alert, in no apparent distress Head exam: Present: atraumatic, normocephalic, normal inspection Eye exam: Present: normal appearance, PERRL, EOMI. Absent: scleral icterus, conjunctival injection, periorbital swelling ENT exam: Present: normal exam, mucous membranes moist Neck exam: Present: normal inspection. Absent: tenderness, meningismus, lymphadenopathy Respiratory exam: Present: wheezes (Diffuse wheezing bilaterally.). Absent: normal lung sounds bilaterally, respiratory distress, rales, rhonchi, stridor Cardiovascular Exam: Present: regular rate, normal rhythm, normal heart sounds. Absent: systolic murmur, diastolic murmur, rubs, gallop, clicks GI/Abdominal exam: Present: soft, normal bowel sounds. Absent: distended, tenderness, guarding, rebound, rigid Extremities exam: Present: normal inspection, full ROM, normal capillary refill. Absent: tenderness, pedal edema, joint swelling, calf tenderness Back exam: Present: normal inspection Neurological exam: Present: alert, oriented X3, CN II-XII intact Psychiatric exam: Present: normal affect, normal mood Skin exam: Present: warm, dry, intact, normal color. Absent: rash Course Vital Signs 01/09/20 01/09/20 01/09/20 05:37 06:05 06:14 Temperature 97.5 F L Pulse Rate 101 H 100 96 Respiratory 18 Rate Blood Pressure 129/89 O2 Sat by Pulse 100 Oximetry Medical Decision Making - Medical Decision Making 51-year-old male history of COPD presents emergency room today with complaints of wheezing shortness of breath. Patient was given DuoNeb treatment and was given IV Solu-Medrol. Patient's labwork was also unremarkable. EKG shows no acute changes. Chest x-ray was reviewed and shows evidence of COPD hyperinflation. No focal pneumonia. At this time Patient will be treated for COPD exacerbation with steroids and inhaler and levaquin. - Lab Data Result diagrams: 01/09/20 06:13 01/09/20 06:13 Lab Results 01/09/20 01/09/20 Range/Units 06:13 06:13 WBC 9.4 (3.8-10.6) k/uL RBC 4.74 (4.30-5.90) m/uL Hgb 15.7 (13.0-17.5) gm/dL Hct 48.6 (39.0-53.0) % MCV 102.6 H (80.0-100.0) fL MCH 33.1 (25.0-35.0) pg MCHC 32.2 (31.0-37.0) g/dL RDW 14.3 (11.5-15.5) % Plt Count 279 (150-450) k/uL Neutrophils % 62 % Lymphocytes % 24 % Monocytes % 8 % Eosinophils % 3 % Basophils % 0 % Neutrophils # 5.8 (1.3-7.7) k/uL Lymphocytes # 2.3 (1.0-4.8) k/uL Monocytes # 0.7 (0-1.0) k/uL Eosinophils # 0.3 (0-0.7) k/uL Basophils # 0.0 (0-0.2) k/uL Macrocytosis Slight Sodium 133 L (137-145) mmol/L Potassium 4.1 (3.5-5.1) mmol/L Chloride 105 (98-107) mmol/L Carbon Dioxide 22 (22-30) mmol/L Anion Gap 6 mmol/L BUN 12 (9-20) mg/dL Creatinine 0.50 L (0.66-1.25) mg/dL Est GFR (CKD-EPI)AfAm >90 (>60 ml/min/1.73 sqM) Est GFR (CKD-EPI)NonAf >90 (>60 ml/min/1.73 sqM) Glucose 91 (74-99) mg/dL Calcium 8.6 (8.4-10.2) mg/dL 01/09/20 06:10 EKG shows normal sinus rhythm possible left atrial. Borderline ECG. Ventricul ar rate of 90 bpm. NE interval is 134 ms. QRS duration is 82 ms. QT QTc is 372/455 ms. - Radiology Data Radiology results: report reviewed Disposition Clinical Impression: COPD exacerbation, Agitation, Hostile behavior Disposition: ADMITTED IP TO THIS HOSP Condition: Stable Instructions (If sedation given, give patient instructions): COPD (Chronic Obstructive Pulmonary Disease) (ED) Additional Instructions: Please use medication as discussed. Please follow up with family doctor if symptoms have not improved over the next two days. Please return to the emergency room if your symptoms increase or worsen or for any other concerns. Prescriptions: predniSONE [Deltasone] 20 mg PO DIRECTED #12 tab Levofloxacin [Levaquin] 750 mg PO DAILY 5 Days #5 tab Albuterol Inhaler [Ventolin Hfa Inhaler] 1 puff INHALATION RT-QID #1 inhaler Is patient prescribed a controlled substance at d/c from ED?: No Referrals: Jose Reyes MD [Primary Care Provider] - 1-2 days Time of Disposition: 07:09
[2020-01-09 06:23] LABS: Basophils % (A) 0 %; Eosinophils # (A) 0.3 k/uL (0-0.7); Eosinophils % (A) 3 %; HCT 48.6 % (39.0-53.0); HGB 15.7 gm/dL (13.0-17.5); Lymphocytes # (A) 2.3 k/uL (1.0-4.8); Lymphocytes % (A) 24 %; MCH 33.1 pg (25.0-35.0); MCHC 32.2 g/dL (31.0-37.0); MCV 102.6 fL (80.0-100.0); Macrocytosis Slight; Mean Platelet Volume 8.8; Monocytes # (A) 0.7 k/uL (0-1.0); Monocytes % (A) 8 %; Neutrophils # (A) 5.8 k/uL (1.3-7.7); Neutrophils % (A) 62 %; Platelet Count 279 k/uL (150-450); RBC 4.74 m/uL (4.30-5.90); RDW 14.3 % (11.5-15.5); WBC 9.4 k/uL (3.8-10.6)
[2020-01-09 06:38] LABS: African American GFR (CKD) >90 (>60 ml/min/1.73 sqM); Anion Gap 6 mmol/L; Blood Urea Nitrogen 12 mg/dL (9-20); Calcium 8.6 mg/dL (8.4-10.2); Carbon Dioxide 22 mmol/L (22-30); Chloride 105 mmol/L (98-107); Glucose 91 mg/dL (74-99); Non-African American GFR(CKD) >90 (>60 ml/min/1.73 sqM); Potassium 4.1 mmol/L (3.5-5.1); Sodium 133 mmol/L (137-145)
[2020-01-09] MEDS ORDERED: LEVOFLOXACIN 750 MG TAB PO STA (07:07)
[2020-01-09 07:29] VITALS: BP 161/98; PULSE 92; TEMP 96.8
--- NOTE | 2020-01-09 07:41 | XR ---
EXAMINATION TYPE: XR chest 2V DATE OF EXAM: 01/09/2020 HISTORY: cough. REFERENCE: Previous study dated 04/17/2019. FINDINGS: The lungs are overinflated but clear. Pleural space are clear. The heart is not enlarged. IMPRESSION: COPD.
== END 2020-01-09 07:26 | disposition other institution (70) ==
LOC: EC 05:35
DX: J44.1 Chronic obstructive pulmonary disease with (acute) exacerbation (principal); R45.1 Restlessness and agitation; F17.200 Nicotine dependence, unspecified, uncomplicated; Z88.1 Allergy status to other antibiotic agents; Z91.040 Latex allergy status; Z88.2 Allergy status to sulfonamides; Z85.828 Personal history of other malignant neoplasm of skin; Z98.890 Other specified postprocedural states
CPT/HCPCS: 36415; 94640; 80048; 85025; 71046; 99285; 96374; J2930; 96360

== ENCOUNTER 2020-01-21 21:30 | Inpatient (IN) | payer MEDICARE, MEDICAID ==
--- NOTE | 2020-01-21 22:15 | ED ---
Psych HPI - General Source: patient, RN notes reviewed, old records reviewed Mode of arrival: EMS Limitations: altered mental status, physical limitation - History of Present Illness MD Complaint: altered mental status -: unknown Associated Psychiatric Symptoms: racing thoughts History of same: Yes Quality: constant Improves With: none Worsens With: none Associated Symptoms: denies other symptoms Treatments Prior to Arrival: placed on mental health hold <Shiva Long - Last Filed: 01/21/20 23:25> <Fortunato Hernandez - Last Filed: 01/22/20 10:45> - General Chief Complaint: Psychiatric Symptoms Stated Complaint: Mental health Time Seen by Provider: 01/21/20 21:50 - History of Present Illness Initial Comments: There is a 51-year-old male is a poor strain secondary to acute psychosis brought in by PD under petition for evaluation treatment by psychiatry (Shiva Long) - Related Data Home Medications Medication Instructions Recorded Confirmed Albuterol Sulfate [Ventolin HFA] 2 puff INHALATION RT-Q6H PRN 06/13/16 01/21/20 Fluticasone/Vilanterol [Breo 1 puff INHALATION RT-DAILY 04/13/19 01/21/20 Ellipta 200-25 Mcg INH] Montelukast [Singulair] 10 mg PO DAILY 01/21/20 01/21/20 Previous Rx's Medication Instructions Recorded Ipratropium-Albuterol Nebulize 3 ml INHALATION RT-QID #120 04/19/19 [Duoneb 0.5 mg-3 mg/3 ml Soln] ampul.neb Haloperidol [Haldol] 2 mg PO DAILY #30 tab 12/30/19 OLANZapine [ZyPREXA] 10 mg PO DAILY #30 tab 12/30/19 Allergies Allergy/AdvReac Type Severity Reaction Status Date / Time cephalexin monohydrate Allergy Unknown Verified 01/21/20 22:45 [From Keflex] clindamycin Allergy Unknown Verified 01/21/20 22:45 latex Allergy Rash/Hives Verified 01/21/20 22:45 Penicillins Allergy Unknown Verified 01/21/20 22:45 Review of Systems ROS Other: All systems not noted in ROS Statement are negative. <Shiva Long - Last Filed: 01/21/20 23:25> ROS Other: All systems not noted in ROS Statement are negative. <Fortunato Hernandez - Last Filed: 01/22/20 10:45> ROS Statement: Those systems with pertinent positive or pertinent negative responses have been documented in the HPI. Past Medical History Past Medical History: Cancer, COPD, Pneumonia Additional Past Medical History / Comment(s): Melanoma removed from L trunk, skin cancer removed from R side of nose, L eye blurry vision, constipation, hematuria/UTI, hypoglycemia. History of Any Multi-Drug Resistant Organisms: None Reported Past Surgical History: Adenoidectomy, Tonsillectomy Additional Past Surgical History / Comment(s): R side of nose skin cancer removal/skin graft, L trunk melanoma removed, colonoscopy. Past Anesthesia/Blood Transfusion Reactions: No Reported Reaction Past Psychological History: Depression, Schizophrenia Smoking Status: Current every day smoker Past Alcohol Use History: Heavy Past Drug Use History: None Reported - Past Family History Father Family Medical History: Diabetes Mellitus Additional Family Medical History / Comment(s): Father is living. Mother Family Medical History: CVA/TIA, Myocardial Infarction ([place]) Additional Family Medical History / Comment(s): Mother had a CVA, shingles. She is from the [place]. <Shiva Long B - Last Filed: 01/21/20 23:25> General Exam Limitations: no limitations General appearance: alert, in no apparent distress Head exam: Present: atraumatic, normocephalic, normal inspection Eye exam: Present: normal appearance, PERRL, EOMI. Absent: scleral icterus, conjunctival injection, periorbital swelling ENT exam: Present: normal exam, mucous membranes moist Neck exam: Present: normal inspection. Absent: tenderness, meningismus, lymphadenopathy Respiratory exam: Present: normal lung sounds bilaterally. Absent: respiratory distress, wheezes, rales, rhonchi, stridor Cardiovascular Exam: Present: regular rate, normal rhythm, normal heart sounds. Absent: systolic murmur, diastolic murmur, rubs, gallop, clicks GI/Abdominal exam: Present: soft, normal bowel sounds. Absent: distended, tenderness, guarding, rebound, rigid Extremities exam: Present: normal inspection, full ROM, normal capillary refill. Absent: tenderness, pedal edema, joint swelling, calf tenderness Back exam: Present: normal inspection Neurological exam: Present: alert, oriented X3, CN II-XII intact Psychiatric exam: Present: normal affect, normal mood Skin exam: Present: warm, dry, intact, normal color. Absent: rash <Shiva Long - Last Filed: 01/21/20 23:25> Course <Shiva Long - Last Filed: 01/21/20 23:25> Vital Signs 01/21/20 21:43 Temperature 98.6 F Pulse Rate 79 Respiratory 16 Rate Blood Pressure 136/88 O2 Sat by Pulse 100 Oximetry - Reevaluation(s) Reevaluation #1: 01/21/20 23:26 medically clear for psychiatric evaluation (Shiva Long) Medical Decision Making - Lab Data Result diagrams: 01/21/20 22:38 01/21/20 22:38 <Fortunato Hernandez - Last Filed: 01/22/20 10:45> - Medical Decision Making Patient is here on a pickup order, has been evaluated by EPS and will be admitted to this institution. I did complete a clinical certification on this patient. (Fortunato Hernandez) - Lab Data Lab Results 01/21/20 01/21/20 01/21/20 Range/Units 22:37 22:37 22:38 WBC 7.9 (3.8-10.6) k/uL RBC 4.12 L (4.30-5.90) m/uL Hgb 14.7 (13.0-17.5) gm/dL Hct 43.1 (39.0-53.0) % MCV 104.6 H (80.0-100.0) fL MCH 35.7 H (25.0-35.0) pg MCHC 34.1 (31.0-37.0) g/dL RDW 14.1 (11.5-15.5) % Plt Count 186 (150-450) k/uL Neutrophils % 63 % Lymphocytes % 28 % Monocytes % 7 % Eosinophils % 1 % Basophils % 0 % Neutrophils # 5.0 (1.3-7.7) k/uL Lymphocytes # 2.2 (1.0-4.8) k/uL Monocytes # 0.5 (0-1.0) k/uL Eosinophils # 0.1 (0-0.7) k/uL Basophils # 0.0 (0-0.2) k/uL Macrocytosis Slight Sodium (137-145) mmol/L Potassium (3.5-5.1) mmol/L Chloride (98-107) mmol/L Carbon Dioxide (22-30) mmol/L Anion Gap mmol/L BUN (9-20) mg/dL Creatinine (0.66-1.25) mg/dL Est GFR (CKD-EPI)AfAm (>60 ml/min/1.73 sqM) Est GFR (CKD-EPI)NonAf (>60 ml/min/1.73 sqM) Glucose (74-99) mg/dL Calcium (8.4-10.2) mg/dL Urine Color Yellow Urine Appearance Clear (Clear) Urine pH 6.0 (5.0-8.0) Ur Specific Williamson 1.012 (1.001-1.035) Urine Protein Negative (Negative) Urine Glucose (UA) Negative (Negative) Urine Ketones Negative (Negative) Urine Blood Negative (Negative) Urine Nitrite Negative (Negative) Urine Bilirubin Negative (Negative) Urine Urobilinogen 6.0 (<2.0) mg/dL Ur Leukocyte Esterase Negative (Negative) Salicylates mg/dL Urine Opiates Screen Not Detected (NotDetected) Ur Oxycodone Screen Not Detected (NotDetected) Urine Methadone Screen Not Detected (NotDetected) Ur Propoxyphene Screen Not Detected (NotDetected) Acetaminophen ug/mL Ur Barbiturates Screen Not Detected (NotDetected) U Tricyclic Antidepress Not Detected (NotDetected) Ur Phencyclidine Scrn Not Detected (NotDetected) Ur Amphetamines Screen Not Detected (NotDetected) U Methamphetamines Scrn Not Detected (NotDetected) U Benzodiazepines Scrn Not Detected (NotDetected) Urine Cocaine Screen Not Detected (NotDetected) U Marijuana (THC) Screen Not Detected (NotDetected) Serum Alcohol mg/dL 01/21/20 Range/Units 22:38 WBC (3.8-10.6) k/uL RBC (4.30-5.90) m/uL Hgb (13.0-17.5) gm/dL Hct (39.0-53.0) % MCV (80.0-100.0) fL MCH (25.0-35.0) pg MCHC (31.0-37.0) g/dL RDW (11.5-15.5) % Plt Count (150-450) k/uL Neutrophils % % Lymphocytes % % Monocytes % % Eosinophils % % Basophils % % Neutrophils # (1.3-7.7) k/uL Lymphocytes # (1.0-4.8) k/uL Monocytes # (0-1.0) k/uL Eosinophils # (0-0.7) k/uL Basophils # (0-0.2) k/uL Macrocytosis Sodium 128 L (137-145) mmol/L Potassium 3.7 (3.5-5.1) mmol/L Chloride 100 (98-107) mmol/L Carbon Dioxide 23 (22-30) mmol/L Anion Gap 5 mmol/L BUN 9 (9-20) mg/dL Creatinine 0.59 L (0.66-1.25) mg/dL Est GFR (CKD-EPI)AfAm >90 (>60 ml/min/1.73 sqM) Est GFR (CKD-EPI)NonAf >90 (>60 ml/min/1.73 sqM) Glucose 85 (74-99) mg/dL Calcium 8.2 L (8.4-10.2) mg/dL Urine Color Urine Appearance (Clear) Urine pH (5.0-8.0) Ur Specific Williamson (1.001-1.035) Urine Protein (Negative) Urine Glucose (UA) (Negative) Urine Ketones (Negative) Urine Blood (Negative) Urine Nitrite (Negative) Urine Bilirubin (Negative) Urine Urobilinogen (<2.0) mg/dL Ur Leukocyte Esterase (Negative) Salicylates 7.6 mg/dL Urine Opiates Screen (NotDetected) Ur Oxycodone Screen (NotDetected) Urine Methadone Screen (NotDetected) Ur Propoxyphene Screen (NotDetected) Acetaminophen <10.0 ug/mL Ur Barbiturates Screen (NotDetected) U Tricyclic Antidepress (NotDetected) Ur Phencyclidine Scrn (NotDetected) Ur Amphetamines Screen (NotDetected) U Methamphetamines Scrn (NotDetected) U Benzodiazepines Scrn (NotDetected) Urine Cocaine Screen (NotDetected) U Marijuana (THC) Screen (NotDetected) Serum Alcohol <10 mg/dL Disposition <Shiva Long - Last Filed: 01/21/20 23:25> Is patient prescribed a controlled substance at d/c from ED?: No Decision to Admit Reason: Admit from EC Decision Date: 01/22/20 Decision Time: 10:45 <Fortunato Hernandez - Last Filed: 01/22/20 10:45> Clinical Impression: Psychosis, Agitation, Hostile behavior Disposition: ADMITTED IP TO THIS HOSP Condition: Stable Referrals: Jose Reyes MD [Primary Care Provider] - 1-2 days
[2020-01-21 23:31] LABS: Acetaminophen <10.0 ug/mL; African American GFR (CKD) >90 (>60 ml/min/1.73 sqM); Alcohol <10 mg/dL; Anion Gap 5 mmol/L; Blood Urea Nitrogen 9 mg/dL (9-20); Calcium 8.2 mg/dL (8.4-10.2); Carbon Dioxide 23 mmol/L (22-30); Chloride 100 mmol/L (98-107); Glucose 85 mg/dL (74-99); Non-African American GFR(CKD) >90 (>60 ml/min/1.73 sqM); Potassium 3.7 mmol/L (3.5-5.1); Salicylate 7.6 mg/dL; Sodium 128 mmol/L (137-145)
[2020-01-21 23:32] LABS: Appearance,Urine Clear (Clear); Bilirubin,Urine Negative (Negative); Blood,Urine Negative (Negative); Color,Urine Yellow; Glucose,Urine (UA) Negative (Negative); Ketones,Urine Negative (Negative); Leukocyte Esterase,Urine Negative (Negative); Nitrite,Urine Negative (Negative); Protein,Urine Negative (Negative); Specific Gravity,Urine 1.012 (1.001-1.035)
[2020-01-21 23:35] LABS: Basophils % (A) 0 %; Eosinophils # (A) 0.1 k/uL (0-0.7); Eosinophils % (A) 1 %; HCT 43.1 % (39.0-53.0); HGB 14.7 gm/dL (13.0-17.5); Lymphocytes # (A) 2.2 k/uL (1.0-4.8); Lymphocytes % (A) 28 %; MCH 35.7 pg (25.0-35.0); MCHC 34.1 g/dL (31.0-37.0); MCV 104.6 fL (80.0-100.0); Macrocytosis Slight; Mean Platelet Volume 8.4; Monocytes # (A) 0.5 k/uL (0-1.0); Monocytes % (A) 7 %; Neutrophils % (A) 63 %; Platelet Count 186 k/uL (150-450); RBC 4.12 m/uL (4.30-5.90); RDW 14.1 % (11.5-15.5); WBC 7.9 k/uL (3.8-10.6)
[2020-01-21 23:47] LABS: Amphetamine Screen,Urine Not Detected (NotDetected); Barbiturate Screen,Urine Not Detected (NotDetected); Benzodiazepines Screen,Urine Not Detected (NotDetected); Cocaine Screen,Urine Not Detected (NotDetected); Methadone Screen, Urine Not Detected (NotDetected); Opiate Screen,Urine Not Detected (NotDetected); Oxycodone Screen, Urine Not Detected (NotDetected); Phencyclidine Screen,Urine Not Detected (NotDetected); Tricyclic Antidepressant,Urine Not Detected (NotDetected); Urn Cannabinoid Scrn Not Detected (NotDetected)
[2020-01-21] MEDS ORDERED: OLANZapine ODT 10 MG TAB PO STA (23:56)
[2020-01-22] MEDS ORDERED: ASPIRIN 325 MG TAB PO STA (03:20)
[2020-01-22] MEDS ORDERED: OLANZapine 5 MG TAB PO STA (06:36)
[2020-01-22] MEDS ORDERED: MAGNESIUM HYDROXIDE 2,400 MG/10 ML CUP PO PRN (12:15)
[2020-01-22] MEDS ORDERED: MAG HYDROX/AL HYDROX/SIMETH 30 ML CUP PO PRN (12:15)
[2020-01-22] MEDS: ACETAMINOPHEN TAB 325 MG TAB PO PRN ×2 (14:30→20:15)
[2020-01-22] MEDS: IPRATROPIUM-ALBUTEROL 3 ML NEB INHALATION SCH ×2 (17:22→19:43)
--- NOTE | 2020-01-22 20:13 | P.HP ---
Psychiatric H&P - . H&P Date: 01/22/20 History & Physical: IDENTIFYING Data: The patient is a 59-year-old single male who currently lives by himself, unemployed on SSD, has psychiatric history of schizophrenia, and medical history of COPD, skin cancer, melanoma. The patient has been admitted to our inpatient psychiatric services after been transferred from [facility]. Patient was initially brought to ED by police. The patient has been admitted on involuntary basis to our [id number]. Noncompliance with treatment. CHIEF COMPLAINT: "The brought me here because I missed appointment was my psychiatrist." HISTORY OF PRESENT ILLNESS: The patient was poorly historian, but reported was brought to the hospital because of court order and he missed appointment with his psychiatrist. Patient reports follow-up with [facility] for outpatient psychiatric treatment and he couldn't see his psychiatrist for long time so he missed a follow-up. He claimed that maintained taking his medications Zyprexa and Haldol. Reports taking Zyprexa 7.5 mg and Haldol 2 mg at bedtime. Patient reports last time was hospitalized at this facility was a month ago. He was talking about being and presents internally preoccupied with some tangential speech. He presents was flat affect and very staring eye contact. Patient was very loud and sometimes disorganized speech. Patient denies feeling depressed, hopeless, or suicidal. He denies any symptoms of maribell including a euphoric mood, absence need to sleep due to unusual increase in activities, impulsive/irrational behavior. Denies any current auditory or visual hallucinations, and he denies any paranoid ideation. Denies any delusions, but presents internally preoccupied. Denies any anxiety, feeling stressed, panic attacks, or PTSD symptoms. He denies any history of self- injurious behavior or suicide attempts. PAST PSYCHIATRIC HISTORY: Previous diagnoses: Schizophrenia Previous psychiatric hospitalizations: Multiple previous inpatient psychiatric hospitalization, reports last time was admitted to this unit was a month ago. As per medical records, the patient was admitted to this unit last months and discharged on 12/27/19 with psychiatric medications on discharge Haldol 2 mg daily, and Zyprexa 10 mg daily. Previous suicide attempts: Denies. Previous outpatient psychiatric treatment: Currently receiving outpatient psychiatric treatment with [facility] Dr. Leigh. Current psychiatric medications: Reports current medications Zyprexa 7.5 mg and Haldol 2 mg at bedtime.. Previous medication trials: Patient couldn't recall any previous psychiatric medications. SUBSTANCE ABUSE HISTORY: Reports to smoking cigar every day. Reports drinking alcohol a few times every month with the last time was few days ago. Denies any history of severe alcohol withdrawal, intoxication, or legal problems because of alcohol drinking. Reports sporadic use of marijuana with the last time was few weeks ago. Denies any history of using other illicit drugs. Denies any history of substance use disorder treatment. Social History: Patient was born in [place], [place] and raised up by appearance. Denies any history of childhood problems, abuse, or developmental problems Housing: Currently lives by himself. Patient never , and has no children Work history: Void on SSD. Education: Patient reports attaining an educational level of high school diploma. Denies any history of legal problems History of psychological trauma: Denies FAMILY HISTORY: Denies any family history of mental illness, addiction, or suicide Medical History: History of skin cancer, melanoma, and COPD MENTAL STATUS EVALUATION: Appearance: Appears stated age, FAIRLY groomed, average body built, and no specific features. Gait/ posture: Steady gait, normal arm swinging, no abnormal movements, with relaxed posture. Attitude and Behavior: engaged, cooperative, starring eye contact during course of interview. Motor Activity: normal psychomotor activity. Speech: spontaneous, normal rate, rhythm, and articulation. increased volume. not pressured. Language: Articulating, naming objects and repeat phrases. Mood: anxious Affect: flat to constrict. Thought process: poor, impoverished. Association: to some degree tangential. Thought content: denies delusions, but internally preoccupied, denies suicidal thoughts, Denies homicidal thoughts, no intentions, or plans. Perception: denies any hallucinations Alertness: No impairment. Concentration: impaired Orientation: Oriented to time, person, place, and situation Insight regarding psychiatric condition: Limited Judgment regarding daily activities and social situation: Limited Impulse control: fair Strengths: stable general medical condition housing SSD Challenges: poor compliance with treatment limited social support Allergies Allergy/AdvReac Type Severity Reaction Status Date / Time cephalexin monohydrate Allergy Unknown Verified 01/21/20 22:45 [From Keflex] clindamycin Allergy Unknown Verified 01/21/20 22:45 latex Allergy Rash/Hives Verified 01/21/20 22:45 Penicillins Allergy Unknown Verified 01/21/20 22:45 Vital Signs Temp 97.6 F 01/22/20 12:45 Pulse 76 01/22/20 17:31 Resp 18 01/22/20 12:45 BP 131/80 01/22/20 12:45 Pulse Ox 100 01/22/20 12:45 Intake & Output 01/22/20 01/22/20 01/23/20 06:59 18:59 06:59 Weight 51.891 kg Review of Lab results: Laboratory Last Values WBC 7.9 k/uL (3.8-10.6) 01/21/20 22:38 RBC 4.12 m/uL (4.30-5.90) L 01/21/20 22:38 Hgb 14.7 gm/dL (13.0-17.5) 01/21/20 22:38 Hct 43.1 % (39.0-53.0) 01/21/20 22:38 MCV 104.6 fL (80.0-100.0) H 01/21/20 22:38 MCH 35.7 pg (25.0-35.0) H 01/21/20 22:38 MCHC 34.1 g/dL (31.0-37.0) 01/21/20 22:38 RDW 14.1 % (11.5-15.5) 01/21/20 22:38 Plt Count 186 k/uL (150-450) 01/21/20 22:38 Neutrophils % 63 % 01/21/20 22:38 Lymphocytes % 28 % 01/21/20 22:38 Monocytes % 7 % 01/21/20 22:38 Eosinophils % 1 % 01/21/20 22:38 Basophils % 0 % 01/21/20 22:38 Neutrophils # 5.0 k/uL (1.3-7.7) 01/21/20 22:38 Lymphocytes # 2.2 k/uL (1.0-4.8) 01/21/20 22:38 Monocytes # 0.5 k/uL (0-1.0) 01/21/20 22:38 Eosinophils # 0.1 k/uL (0-0.7) 01/21/20 22:38 Basophils # 0.0 k/uL (0-0.2) 01/21/20 22:38 Macrocytosis Slight 01/21/20 22:38 Sodium 128 mmol/L (137-145) L 01/21/20 22:38 Potassium 3.7 mmol/L (3.5-5.1) 01/21/20 22:38 Chloride 100 mmol/L (98-107) 01/21/20 22:38 Carbon Dioxide 23 mmol/L (22-30) 01/21/20 22:38 Anion Gap 5 mmol/L 01/21/20 22:38 BUN 9 mg/dL (9-20) 01/21/20 22:38 Creatinine 0.59 mg/dL (0.66-1.25) L 01/21/20 22:38 Est GFR (CKD-EPI)AfAm >90 (>60 ml/min/1.73 sqM) 01/21/20 22:38 Est GFR (CKD-EPI)NonAf >90 (>60 ml/min/1.73 sqM) 01/21/20 22:38 Glucose 85 mg/dL (74-99) 01/21/20 22:38 Calcium 8.2 mg/dL (8.4-10.2) L 01/21/20 22:38 Urine Color Yellow 01/21/20 22:37 Urine Appearance Clear (Clear) 01/21/20 22:37 Urine pH 6.0 (5.0-8.0) 01/21/20 22:37 Ur Specific [place] 1.012 (1.001-1.035) 01/21/20 22:37 Urine Protein Negative (Negative) 01/21/20 22:37 Urine Glucose (UA) Negative (Negative) 01/21/20 22:37 Urine Ketones Negative (Negative) 01/21/20 22:37 Urine Blood Negative (Negative) 01/21/20 22:37 Urine Nitrite Negative (Negative) 01/21/20 22:37 Urine Bilirubin Negative (Negative) 01/21/20 22:37 Urine Urobilinogen 6.0 mg/dL (<2.0) 01/21/20 22:37 Ur Leukocyte Esterase Negative (Negative) 01/21/20 22:37 Salicylates 7.6 mg/dL 01/21/20 22:38 Urine Opiates Screen Not Detected (NotDetected) 01/21/20 22:37 Ur Oxycodone Screen Not Detected (NotDetected) 01/21/20 22:37 Urine Methadone Screen Not Detected (NotDetected) 01/21/20 22:37 Ur Propoxyphene Screen Not Detected (NotDetected) 01/21/20 22:37 Acetaminophen <10.0 ug/mL 01/21/20 22:38 Ur Barbiturates Screen Not Detected (NotDetected) 01/21/20 22:37 U Tricyclic Antidepress Not Detected (NotDetected) 01/21/20 22:37 Ur Phencyclidine Scrn Not Detected (NotDetected) 01/21/20 22:37 Ur Amphetamines Screen Not Detected (NotDetected) 01/21/20 22:37 U Methamphetamines Scrn Not Detected (NotDetected) 01/21/20 22:37 U Benzodiazepines Scrn Not Detected (NotDetected) 01/21/20 22:37 Urine Cocaine Screen Not Detected (NotDetected) 01/21/20 22:37 U Marijuana (THC) Screen Not Detected (NotDetected) 01/21/20 22:37 Serum Alcohol <10 mg/dL 01/21/20 22:38 Assessment: Schizophrenia TREATMENT PLAN/RECOMMENDATIONS: Medical Decision making: The patient presented with psychotic symptoms and noncompliance with treatment. The patient at high risk to hurt himself if he is not in the inpatient setting because of unstable psychotic symptoms. The patient's psychiatric symptoms are not stable and he needs further management of psychiatric medications and further planning for discharge. Therefore, inpatient level of care is needed. Continue the patient inpatient for safety. Continue the patient under 15 minutes safe check for safety. Continue treatment of schizophrenia. Psych education regarding his diagnosis, and treatment option. The patient will also be provided with individual therapy, group therapy, substance abuse counseling, gain insight, and coping skills. Consider medical consultation if any acute medical issue arise. Medications: Haldol 2 mg for psychotic symptoms. Zyprexa 10 mg for psychotic symptoms. Prognosis is guarded, contingent on patient has been compliant with his medications and has been followed up closely with outpatient mental health provider after discharge. The patient will be assessed on daily basis, and will be discharged back to his outpatient mental health provider upon stabilization. EXPECTED LENGTH OF STAY: 7 days. 01/22/20 19:56 01/22/20 20:12
[2020-01-22] MEDS: SYMBICORT 160-4.5 MCG INHALER INHALATION SCH (20:14)
[2020-01-23] MEDS: ACETAMINOPHEN TAB 325 MG TAB PO PRN ×3 (03:22→18:41)
[2020-01-23 07:36] LABS: ALT 41 U/L (4-49); AST 52 U/L (17-59); African American GFR (CKD) >90 (>60 ml/min/1.73 sqM); Albumin 3.1 g/dL (3.5-5.0); Alkaline Phosphatase 106 U/L (38-126); Anion Gap 3 mmol/L; Basophils % (A) 0 %; Blood Urea Nitrogen 5 mg/dL (9-20); Calcium 8.5 mg/dL (8.4-10.2); Carbon Dioxide 28 mmol/L (22-30); Chloride 101 mmol/L (98-107); Cholesterol 93 mg/dL (<200); Eosinophils # (A) 0.1 k/uL (0-0.7); Eosinophils % (A) 1 %; Glucose 84 mg/dL (74-99); HDL Cholesterol 30 mg/dL (40-60); LDL Cholesterol,Calculated 44 mg/dL (0-99); Lymphocytes % (A) 18 %; MCH 35.1 pg (25.0-35.0); MCHC 33.2 g/dL (31.0-37.0); MCV 105.6 fL (80.0-100.0); Macrocytosis Moderate; Mean Platelet Volume 8.4; Monocytes # (A) 0.7 k/uL (0-1.0); Monocytes % (A) 7 %; Neutrophils % (A) 73 %; Non-African American GFR(CKD) >90 (>60 ml/min/1.73 sqM); Platelet Count 174 k/uL (150-450); Potassium 3.9 mmol/L (3.5-5.1); RBC 4.26 m/uL (4.30-5.90); Sodium 132 mmol/L (137-145); Total Protein 5.7 g/dL (6.3-8.2); Triglycerides 94 mg/dL (<150)
[2020-01-23] MEDS: IPRATROPIUM-ALBUTEROL 3 ML NEB INHALATION SCH ×4 (09:05→20:55)
[2020-01-23] MEDS: MONTELUKAST 10 MG TAB PO SCH (09:41)
[2020-01-23] MEDS: OLANZapine 10 MG TAB PO SCH (09:41)
[2020-01-23] MEDS: SYMBICORT 160-4.5 MCG INHALER INHALATION SCH (09:42)
--- NOTE | 2020-01-23 16:15 | P.PN ---
Progress Note - Text Progress Note Date: 01/23/20 Subjective: Patient was seen today as a cross coverage for . The patient was evaluated, chart reviewed, case discussed with the treatment team. Patient reports good sleep last night and he denies any appetite problem. Patient has not been going to groups or other unit activities, but he was seen interacting with other peers. Patient takes his psychiatric medications and denies any side effects. Patient denies feeling depressed, suicidal or homicidal. He denies any hallucinations, but presents internally preoccupied. Patient is very loud, talkative and to some degree tangential. He was fixated on getting eyedrops because of dry eye. Objectives: MENTAL STATUS EVALUATION: Appearance: Appears stated age, FAIRLY groomed, average body built, and no specific features. Gait/ posture: Steady gait, normal arm swinging, no abnormal movements, with rel axed posture. Attitude and Behavior: engaged, cooperative, starring eye contact during course of interview. Motor Activity: normal psychomotor activity. Speech: spontaneous, normal rate, rhythm, and articulation. increased volume. not pressured. Language: Articulating, naming objects and repeat phrases. Mood: anxious Affect: flat to constrict. Thought process: poor, impoverished. Association: to some degree tangential. Thought content: denies delusions, but internally preoccupied, denies suicidal thoughts, Denies homicidal thoughts, no intentions, or plans. Perception: denies any hallucinations Alertness: No impairment. Concentration: impaired Orientation: Oriented to time, person, place, and situation Insight regarding psychiatric condition: Limited Judgment regarding daily activities and social situation: Limited Impulse control: fair Assessment: Schizophrenia Plan: Continue inpatient level of care due to need for further stabilization Precautions: Continue 15 minutes check for safety. Consider medical consultation if any acute medical issues arise. Provide the patient individual, group therapy, substance use disorder counseling to give better insight and learn coping skills. Continue follow-up with the patient daily to monitor progress of psychotic symptoms. Medications: Haldol 2 mg for psychotic symptoms. Zyprexa 10 mg for psychotic symptoms. Continue non-psychiatric medications for COPD. Discharge patient to OUTPATIENT services upon a stabilization
--- NOTE | 2020-01-23 17:02 | CONS ---
CONSULTATION CHIEF COMPLAINT: Acute psychosis, schizophrenia, and COPD. HISTORY OF PRESENT ILLNESS: This gentleman was not available at the time I came to the floor. He was in group. He will be assessed tomorrow. LAWSON / BOY: [id number] /
[2020-01-23] MEDS: LORazepam 1 MG TAB PO PRN (18:41)
[2020-01-24] MEDS: ACETAMINOPHEN TAB 325 MG TAB PO PRN ×3 (06:09→20:46)
[2020-01-24] MEDS: IPRATROPIUM-ALBUTEROL 3 ML NEB INHALATION SCH ×3 (08:22→20:06)
[2020-01-24] MEDS: SYMBICORT 160-4.5 MCG INHALER INHALATION SCH ×2 (08:43→20:06)
[2020-01-24] MEDS: OLANZapine 10 MG TAB PO SCH (08:46)
[2020-01-24] MEDS: MONTELUKAST 10 MG TAB PO SCH (08:46)
[2020-01-24] MEDS: LORazepam 1 MG TAB PO PRN ×3 (08:46→23:04)
[2020-01-24 11:39] LABS: Hemoglobin A1C 5.4 % (4.0-6.0)
[2020-01-24] MEDS ORDERED: HALOPERIDOL LACTATE 5 MG/ML 1 ML VIAL IM PRN (11:48)
--- NOTE | 2020-01-24 11:53 | P.PN ---
Progress Note - Text Progress Note Date: 01/24/20 Interval History: Patient was seen being agitated in the hallway and yelling at another patient this morning however patient was redirected and went to his room. Patient was then seen by board writer in his room and appeared to be sleeping. Patient was awoken by board writer and appeared to be bizarre, tangential with loose associations. He appeared to have poor insight and judgment. He spoke about being noncompliant with his medications at home and also spoke about being at "[employer] [place]" and claims that he was picked up by police however does not know why. Patient was somewhat argumentative with board writer when speaking about his medications. He claimed that his mood is "fine" and was constricted and his affect. He states that he was able to sleep well last night. At this time patient denies any suicidal or homical ideations, intent or plan. Patient denies any auditory, visual hallucinations. Patient denies any side effects from the medications and has been compliant with meds. Mental Status Exam: General Appearance: [Patient appears to be thin, older than stated age is alert, bizarre and difficult to redirect. Argumentative at times. Has poor hygiene and grooming.] Behavior: [Patient is calmly seated without any agitated behavior.] Bizarre at times. Argumentative Speech: Patient's speech is fluent and nonpressured. Illogical. Mood/Affect: Mood is "okay", affect is congruent and constricted. Suicidality/Homicidality: Patient denies having any suicidal or homicidal ideation intent or plan. Perceptions: Patient denies any visual hallucinations [and denies any auditory hallucinations] Though content/process: [place], illogical, tangential and bizarre content. Memory and concentration: AOX3, grossly intact for the purposes of this session Judgment and insight: Poor Assessment Schizophrenia Plan: -Patient continues to meet criteria for inpatient psychiatric admission for symptom stabilization and safety. Patient is currently on a active treatment order which expires in June 2020. -Medications: Due to issues with patient's compliance at home with medications will attempt to transition patient onto long-acting injection and minimize by mouth meds. Will increase Haldol by mouth to 3 mg twice a day for psychosis. Decreased Zyprexa to 5 mg daily at bedtime with plan to continue to titrate off. -When necessary Ativan and Geodon for agitation/aggression. -NRT -not needed as patient does not smoke. -SW on board for discharge planning. Encouraged the patient to participate in milieu. Patient will eat needed to transition onto long-acting injection prior to discharge. Likely discharge in 2-3 days.
[2020-01-24] MEDS: ALBUTEROL HFA INHALER INHALATION PRN (17:34)
[2020-01-24] MEDS: haloperidoL 1 MG TAB PO SCH (20:46)
[2020-01-24] MEDS ORDERED: OLANZapine 5 MG TAB PO SCH (21:00)
[2020-01-25] MEDS: IPRATROPIUM-ALBUTEROL 3 ML NEB INHALATION SCH ×3 (08:19→15:42)
[2020-01-25] MEDS: SYMBICORT 160-4.5 MCG INHALER INHALATION SCH ×2 (08:22→20:04)
[2020-01-25] MEDS: MONTELUKAST 10 MG TAB PO SCH (08:23)
[2020-01-25] MEDS: haloperidoL 1 MG TAB PO SCH ×2 (08:23→20:05)
[2020-01-25] MEDS: ACETAMINOPHEN TAB 325 MG TAB PO PRN ×3 (08:26→20:07)
[2020-01-25] MEDS: LORazepam 1 MG TAB PO PRN ×3 (08:26→23:09)
[2020-01-25] MEDS: ALBUTEROL HFA INHALER INHALATION PRN ×2 (08:28→15:41)
--- NOTE | 2020-01-25 10:37 | P.PN ---
Progress Note - Text Progress Note Date: 01/25/20 Interval History: Patient was seen this morning and always waiting for his medication and appeared to be upset and yelling in the hallway claiming that "my medications messed up in need to fix it". Patient was approached later on as he was sitting in on group and was agreeable to speak to telegraphic typewriter operator chief in the office. Patient was preoccupied with his medications and claims that he needs to be restarted on a morning dose of Zyprexa to help him with mood stabilization. Patient was requesting to be placed back on 7.5 mg daily. He continues to be bizarre, intrusive and demanding during conversation. Patient has poor insight and judgment. Improvement in hygiene today. He states that he was able to sleep well last night. Patient was somewhat argumentative with telegraphic typewriter operator chief when speaking about his medications. He claimed that his mood is "fine" and was constricted and his affect. At this time patient denies any suicidal or homical ideations, intent or plan. Patient denies any auditory, visual hallucinations. Patient denies any side effects from the medications and has been compliant with meds. Mental Status Exam: General Appearance: Patient appears to be thin, older than stated age is alert, difficult to redirect. Demanding and Argumentative at times. Has proving hygiene and grooming. Behavior: Patient is calmly seated without any agitated behavior. Demanding and Argumentative Speech: Patient's speech is fluent and nonpressured. Mood/Affect: Mood is "ok", affect is congruent and constricted. Suicidality/Homicidality: Patient denies having any suicidal or homicidal ideation intent or plan. Perceptions: Patient denies any visual hallucinations and denies any auditory mcqueen llucinations Though content/process: [place], illogical, tangential, preoccupied with his medications. Memory and concentration: AOX3, grossly intact for the purposes of this session Judgment and insight: Poor, and proving mildly. Assessment Schizophrenia Plan: -Patient continues to meet criteria for inpatient psychiatric admission for symptom stabilization and safety. Patient is currently on a active treatment order which expires in June 2020. -Medications: Due to issues with patient's compliance at home with medications will attempt to transition patient onto Haldol-D long-acting injection and minimize by mouth meds. Will continue with Haldol by mouth to 3 mg twice a day for psychosis, consider increasing as needed. Change Zyprexa to 7.5 mg daily for mood stabilization/psychosis. -When necessary Ativan and Geodon for agitation/aggression. -NRT -not needed as patient does not smoke. -SW on board for discharge planning. Encouraged the patient to participate in milieu. Patient will be needed to transition onto long-acting injection prior to discharge. Likely discharge in 2-3 days.
[2020-01-25] MEDS: OLANZapine 2.5 MG TAB PO SCH (10:47)
[2020-01-25] MEDS: ARTIFICIAL TEARS-HYPROMELLOSE DROPS 15 ML BTL BOTH EYES SCH ×2 (13:50→20:05)
--- NOTE | 2020-01-25 17:08 | CONS ---
CONSULTATION CHIEF COMPLAINT: Acute psychosis. HISTORY OF PRESENT ILLNESS: This is another recent admission for this 59-year-old white male, schizophrenic. He apparently was involved in some kind of a disturbance or activity and was brought to the emergency room and was admitted. It is not clear if he has been on medications or not. He has not been seen in my office since his last discharge from the psychiatric unit. REVIEW OF SYSTEMS: He denies headaches, trouble with vision or hearing, chest pain, cough, shortness of breath, hemoptysis, murmurs, rheumatic fever, hypertension, abdominal pain, nausea, vomiting, melena, hematochezia, hematuria, renal failure, frequency, urgency, diabetes, etc. PAST MEDICAL HISTORY/FAMILY HISTORY/PERSONAL AND SOCIAL HISTORIES: Are all otherwise unremarkable or can be found in his original history and physical. His biggest medical problem is that he smokes about 4 packs of cigarettes a day. PHYSICAL EXAMINATION: Blood pressure 128/78 with a pulse of 69, respirations of 32, and he is afebrile. In general, he appeared to be slender and somewhat hyperactive. Head, ears, eyes, nose, mouth, and throat were normal. Chest is clear. Cardiac exam is normal with sinus rhythm. The abdomen is soft and flat. Extremities normal. Neurologically, he is intact. IMPRESSION: 1. Acute psychosis. 2. Schizophrenia. 3. Chronic obstructive pulmonary disease. RECOMMENDATIONS: None. MMODL / IJN: [id number] /
[2020-01-26] MEDS: IPRATROPIUM-ALBUTEROL 3 ML NEB INHALATION SCH ×5 (02:11→21:09)
[2020-01-26] MEDS: ACETAMINOPHEN TAB 325 MG TAB PO PRN ×4 (03:36→21:11)
[2020-01-26] MEDS: MONTELUKAST 10 MG TAB PO SCH (08:52)
[2020-01-26] MEDS: ARTIFICIAL TEARS-HYPROMELLOSE DROPS 15 ML BTL BOTH EYES SCH ×2 (08:52→21:07)
[2020-01-26] MEDS: OLANZapine 2.5 MG TAB PO SCH (08:52)
[2020-01-26] MEDS: haloperidoL 1 MG TAB PO SCH ×2 (08:52→21:09)
[2020-01-26] MEDS: LORazepam 1 MG TAB PO PRN ×3 (08:54→23:55)
[2020-01-26] MEDS: ALBUTEROL HFA INHALER INHALATION PRN ×2 (08:56→21:08)
[2020-01-26] MEDS: SYMBICORT 160-4.5 MCG INHALER INHALATION SCH ×2 (08:57→21:08)
--- NOTE | 2020-01-26 12:48 | P.PN ---
Progress Note - Text Progress Note Date: 01/26/20 Interval History: Patient was seen this morning ,he does not have any insight to his need for me dications ,very paranoia,bizarre delusion ,I tried to talk with him about long actiing Haldol injection however patient got upset ,angry and with loud voice kept saying :(I have the right to refuse injection ,you do not have any right to change my medications,you want to run my life but I will not allowing you " Patient was argumentive and demanding to be discharged ,he denies any auditory or visual hallucination ,denies any suicidal or homicidal ideations,he claimed that his father called the police on him because "I was smoking cigar,I know the law and I have the right to smoke cigar" according to patient he has been getting his psychotropic medications from PCP , patient is very resistant to change current medications "I will not allowig you to change even dose ,I am completely fine " We discussed his case in treatment team and we will approach patient as a team tomorrow regarding transition to Haldol D Patient is on court order for treatment till end of June Mental status exam: He presented as a casually dressed fair hygiene uncooperative but agreed to to speak to greeting card writer in the office. He showed psychomotor agitation ,demanding and tangential. His speech was rambling ,very loud at times His affect was constricted He denied suicidal ideation or wishes. He denied homicidal ideation. He denied any auditory or visual hallucinations He did express paranoid ideation and bizarre delusions. His thinking was concrete with loose of association. Patient does not have any insight and very poor judgement.He is alert and oriented to place,person and date,memory is grossly intact Assessment: The acute psychosis has resolved and he has signs and symptoms of methamphetamine withdrawal. He is minimizing the severity of his methamphetamine use disorder and appears only superficially interested and some space treatment. Plan: Continue inpatient treatment. Continue safety precautions. Will discuss transition to Haldol D due to poor compliance and to avoid re-hospitalization . Will continue oral Haldol and ZyprexaContinue Ativan 1 mg 3 times a day when necessary for anxiety or agitation and Geodon 20 mg IM twice a day for agitation acute psychosis. service worker to coordinate discharge and aftercare services.
[2020-01-27] MEDS: ACETAMINOPHEN TAB 325 MG TAB PO PRN ×3 (05:54→20:51)
[2020-01-27] MEDS: ARTIFICIAL TEARS-HYPROMELLOSE DROPS 15 ML BTL BOTH EYES SCH ×2 (08:23→20:49)
[2020-01-27] MEDS: haloperidoL 1 MG TAB PO SCH (08:24)
[2020-01-27] MEDS: MONTELUKAST 10 MG TAB PO SCH (08:26)
[2020-01-27] MEDS: ALBUTEROL HFA INHALER INHALATION PRN ×2 (08:26→20:51)
[2020-01-27] MEDS: OLANZapine 2.5 MG TAB PO SCH (08:26)
[2020-01-27] MEDS: LORazepam 1 MG TAB PO PRN ×3 (08:26→23:02)
[2020-01-27] MEDS: IPRATROPIUM-ALBUTEROL 3 ML NEB INHALATION SCH ×4 (09:11→19:38)
[2020-01-27] MEDS: SYMBICORT 160-4.5 MCG INHALER INHALATION SCH ×2 (10:30→19:38)
--- NOTE | 2020-01-27 15:27 | P.PN ---
Progress Note - Text Progress Note Date: 01/27/20 Patient was seen today with his SW. . Patient reports good sleep last night and he denies any appetite problem. Patient denies any depressive symptoms,stated that he has been wearing diapers to avoid accident,patient denies having hallucinations but he presents with bizarre way of thinking,discussed transition to long acting Haldol and he agreed Objectives: MENTAL STATUS EVALUATION: Appearance: Appears stated age, FAIRLY groomed, average body built, and no specific features. Gait/ posture: Steady gait, normal arm swinging, no abnormal movements, with relaxed posture. Attitude and Behavior: engaged, cooperative, starring eye contact during course of interview. Motor Activity: normal psychomotor activity. Speech: spontaneous, normal rate, rhythm, and articulation. increased volume. not pressured. Language: Articulating, naming objects and repeat phrases. Mood: anxious Affect: flat to constrict. Thought process: poor, impoverished. Association: to some degree tangential. Thought content: denies delusions, but internally preoccupied, denies suicidal thoughts, Denies homicidal thoughts, no intentions, or plans. Perception: denies any hallucinations Alertness: No impairment. Concentration: impaired Orientation: Oriented to time, person, place, and situation Insight regarding psychiatric condition: Limited Judgment regarding daily activities and social situation: Limited Impulse control: fair Assessment: Schizophrenia Plan: Continue inpatient level of care due to need for further stabilization Discontinue oral Haldol ,start Haldol [place] 50 mg IM Q 4 weeks ,moniter any side-effect,continue Zyprexa 7.5 mg as patient was resistant to discontinue it Lenght of stay 2-3 days
[2020-01-28] MEDS: ACETAMINOPHEN TAB 325 MG TAB PO PRN ×4 (00:50→23:37)
--- NOTE | 2020-01-28 08:14 | P.PN ---
Progress Note - Text Progress Note Date: 01/28/20 Interval History: Patient was seen in th office,he was pleasant ,cooperative. Patient talked ab out that poor compliance with oral medications on weekend because I do drink bottle of vodka on weekend ,but I am not alcoholic ,I know I can not mix medications with alcohol"Patient talked about his post-plan discharge as he is willing to start Haldol D. He claimed that his mood is "fine" and was constricted and his affect. He states that he was able to sleep well last night. At this time patient denies any suicidal or homical ideations, intent or plan. Patient denies any auditory, visual hallucinations. Patient denies any side effects from the medications and has been compliant with meds. Mental Status Exam: General Appearance: [Patient appears stated age,hygiene is better Behavior: [Patient is calmly seated without any agitated behavior.] Bizarre at times. Speech: Patient's speech is fluent with some loose of association Mood/Affect: Mood is "okay", affect is congruent and constricted. Suicidality/Homicidality: Patient denies having any suicidal or homicidal ideation intent or plan. Perceptions: Patient denies any visual hallucinations [and denies any auditory hallucinations] Though content/process: [place], tangential and bizarre content. Memory and concentration: AOX3, grossly intact for the purposes of this session Judgment and insight: improving Assessment Schizophrenia Plan: -Patient continues to meet criteria for inpatient psychiatric admission for sym ptom stabilization and safety. Patient is currently on a active treatment order which expires in June 2020. -Medications:Haldol Decanoate 50 mg IM today and continue Zyprexa 7.5 mg ,encourage participation in groups ,discussed sobriety and compliance with treatment
[2020-01-28] MEDS: SYMBICORT 160-4.5 MCG INHALER INHALATION SCH ×2 (08:20→19:38)
[2020-01-28] MEDS: ALBUTEROL HFA INHALER INHALATION PRN ×2 (08:20→19:39)
[2020-01-28] MEDS: MONTELUKAST 10 MG TAB PO SCH (08:21)
[2020-01-28] MEDS: ARTIFICIAL TEARS-HYPROMELLOSE DROPS 15 ML BTL BOTH EYES SCH ×2 (08:21→19:39)
[2020-01-28] MEDS: OLANZapine 2.5 MG TAB PO SCH (08:21)
[2020-01-28] MEDS: LORazepam 1 MG TAB PO PRN ×3 (08:24→23:36)
[2020-01-28 11:13] VITALS: BMI 19.2
[2020-01-28] MEDS: IPRATROPIUM-ALBUTEROL 3 ML NEB INHALATION SCH ×3 (12:09→19:31)
[2020-01-28] MEDS ORDERED: HALOPERIDOL DECANOATE 50 MG/ML 1 ML VIAL IM SCH (15:30)
[2020-01-29] MEDS: ALBUTEROL HFA INHALER INHALATION PRN ×2 (08:11→21:10)
[2020-01-29] MEDS: SYMBICORT 160-4.5 MCG INHALER INHALATION SCH ×2 (08:11→21:11)
[2020-01-29] MEDS: OLANZapine 2.5 MG TAB PO SCH (08:13)
[2020-01-29] MEDS: MONTELUKAST 10 MG TAB PO SCH (08:13)
[2020-01-29] MEDS: ARTIFICIAL TEARS-HYPROMELLOSE DROPS 15 ML BTL BOTH EYES SCH ×2 (08:13→21:09)
[2020-01-29] MEDS: LORazepam 1 MG TAB PO PRN ×3 (08:14→23:19)
[2020-01-29] MEDS: ACETAMINOPHEN TAB 325 MG TAB PO PRN ×3 (08:14→21:10)
[2020-01-29] MEDS: IPRATROPIUM-ALBUTEROL 3 ML NEB INHALATION SCH ×3 (13:27→19:32)
--- NOTE | 2020-01-29 15:03 | P.PN ---
Progress Note - Text Progress Note Date: 01/29/20 Interval history: Patient is seen in [facility] today. He reports that he recently got a Haldol injection. He talks about some of the other medications that he is on. He does state that he had 2 cheeseburgers for lunch. He does not seem to verbalize any adverse psychotropic medication side effects. He does make reference to following up with [facility] after hospitalization. Mental status exam: He is alert and cooperative with the interview. He does show some range of affect. Mood toscano he says he had a rough start today but seems to have gotten better. He does not verbalize any auditory or visual hallucinations. He does not voice any thoughts of harm to self or others. He does not display any agitation. His thought processes are organized. Plan: Patient will be maintained on current psychotropic medication regimen. Continue to monitor for any medication side effects and monitor his ongoing response to treatment.
[2020-01-30] MEDS: ALBUTEROL HFA INHALER INHALATION PRN ×3 (08:21→21:00)
[2020-01-30] MEDS: ARTIFICIAL TEARS-HYPROMELLOSE DROPS 15 ML BTL BOTH EYES SCH ×2 (08:21→20:56)
[2020-01-30] MEDS: SYMBICORT 160-4.5 MCG INHALER INHALATION SCH ×2 (08:21→20:58)
[2020-01-30] MEDS: MONTELUKAST 10 MG TAB PO SCH (08:22)
[2020-01-30] MEDS: OLANZapine 2.5 MG TAB PO SCH (08:22)
[2020-01-30] MEDS: LORazepam 1 MG TAB PO PRN ×3 (08:24→22:54)
[2020-01-30] MEDS: ACETAMINOPHEN TAB 325 MG TAB PO PRN ×3 (08:24→20:58)
[2020-01-30] MEDS: IPRATROPIUM-ALBUTEROL 3 ML NEB INHALATION SCH ×4 (08:36→21:10)
--- NOTE | 2020-01-30 16:25 | P.PN ---
Progress Note - Text Progress Note Date: 01/30/20 Interval history: Patient seen in [facility] again today. He was found in the group.he does not seem to verbalize any adverse psychotropic medication side effects he says that the olanzapine has worked well for him and he also just received a Haldol Decanoate injection. He does make reference to having upcoming court hearing. Mental status exam: He is alert and cooperative with the interview. His speech is fluent, not rapid or pressured. He seems to describe his mood is doing well. He denies any thoughts of harm to self and does not voice any thoughts of harm to others. He denies any hallucinations. He does not display any agitation. Overall his thought processes are organized. Plan: Patient will be maintained on current psychotropic medication regimen. Continue monitor for any medication side effects monitor his ongoing response to treatment.
[2020-01-31 04:18] VITALS: RESP 16
[2020-01-31] MEDS: OLANZapine 2.5 MG TAB PO SCH (08:16)
[2020-01-31] MEDS: MONTELUKAST 10 MG TAB PO SCH (08:16)
[2020-01-31] MEDS: SYMBICORT 160-4.5 MCG INHALER INHALATION SCH ×2 (08:17→21:23)
[2020-01-31] MEDS: ARTIFICIAL TEARS-HYPROMELLOSE DROPS 15 ML BTL BOTH EYES SCH ×2 (08:18→21:27)
[2020-01-31] MEDS: ACETAMINOPHEN TAB 325 MG TAB PO PRN ×2 (08:20→21:26)
[2020-01-31] MEDS: LORazepam 1 MG TAB PO PRN (08:21)
--- NOTE | 2020-01-31 09:44 | P.PN ---
Progress Note - Text Progress Note Date: 01/31/20 Interval History: Patient was seen in th office,he was loud ,irritable ,talked about going to [place] [facility] on Friday for guardianship ,he stated "People running my life ,I do not need guardian ,I can pay my bills". Patient endorses anxiety and kept asking for "I just need Ativan or Xanax three times a day", He claimed that his mood is "fine" ,affect is irritable. .Patient has limited insight to his illness.endorses grandiose delusion saying "I am doing home care for lot of friends. At this time patient denies any suicidal or homical ideations, intent or plan. Patient denies any auditory, visual hallucinations. Patient denies any side effects from the medications Mental Status Exam: General Appearance: [Patient appears stated age,hygiene is fair Behavior: [Patient presents with agitated behavior.] Bizarre at times. Speech: Patient's speech is loud ,pressured with some loose of association Mood/Affect: Mood is "okay", affect is irritable Suicidality/Homicidality: Patient denies having any suicidal or homicidal ideation intent or plan. Perceptions: Patient denies any visual hallucinations [and denies any auditory hallucinations] Though content/process: [place], tangential and bizarre content. Memory and concentration: AOX3, grossly intact for the purposes of this session Judgment and insight: very limited Assessment Schizophrenia Plan: -Patient continues to meet criteria for inpatient psychiatric admission for symptom stabilization and safety. Patient is currently on a active treatment order which expires in June 2020. -Medications:Haldol Decanoate 50 mg IM today and continue Zyprexa 7.5 mg ,add Vistaril for anxiety ,encourage participation in groups ,discussed sobriety and compliance with treatment
[2020-01-31] MEDS ORDERED: hydrOXYzine pamoate 25 MG CAP PO PRN (09:45)
[2020-01-31] MEDS: IPRATROPIUM-ALBUTEROL 3 ML NEB INHALATION SCH ×4 (11:51→19:35)
[2020-01-31] MEDS: ALBUTEROL HFA INHALER INHALATION PRN (21:26)
[2020-02-01] MEDS: SYMBICORT 160-4.5 MCG INHALER INHALATION SCH ×2 (08:19→20:54)
[2020-02-01] MEDS: IPRATROPIUM-ALBUTEROL 3 ML NEB INHALATION SCH ×3 (08:19→20:34)
[2020-02-01] MEDS: OLANZapine 2.5 MG TAB PO SCH (08:53)
[2020-02-01] MEDS: MONTELUKAST 10 MG TAB PO SCH (08:53)
[2020-02-01] MEDS: ALBUTEROL HFA INHALER INHALATION PRN (08:53)
[2020-02-01] MEDS: ARTIFICIAL TEARS-HYPROMELLOSE DROPS 15 ML BTL BOTH EYES SCH ×2 (08:53→20:54)
[2020-02-01] MEDS: ACETAMINOPHEN TAB 325 MG TAB PO PRN ×2 (08:54→20:53)
--- NOTE | 2020-02-01 10:20 | P.PN ---
Progress Note - Text Progress Note Date: 02/01/20 Interval History: Patient was seen this morning taking part in group actively and sharing his th oughts. Patient was speaking about seeing several different psychiatrists however was directable and agreeable to speak with junior underwriter in the office today. Patient continues to ramble at times however for the most part was more logical today and goal oriented. He spoke more positively about his medications and states that "I'm taking a very old one and a very old one" And states that it is helping his mood. He denies any anxiety at this time. He spoke about Ativan being a "narcotic" and states that he is trying not to take that. He claims that he is actively participating in group. Patient did not endorse any delusions today and appeared to have improvement in his irritability and frustration tolerance. Patient was less intrusive and demanding during conversation. Improvement in hygiene today. He states that he was able to sleep well last night. At this time patient denies any suicidal or homical ideations, intent or plan. Patient denies any auditory, visual hallucinations. Patient denies any side effects from the medications and has been compliant with meds. Mental Status Exam: General Appearance: Patient appears to be thin, older than stated age is alert, more directable today and attempts to cooperate. Less demanding and improvement in hygiene and grooming. Behavior: Patient is calmly seated without any agitated behavior. Speech: Patient's speech is fluent and nonpressured. Mood/Affect: Mood is "fine", affect is congruent and constricted. Less irritable. Suicidality/Homicidality: Patient denies having any suicidal or homicidal ideation intent or plan. Perceptions: Patient denies any visual hallucinations and denies any auditory hallucinations Though content/process: rambles, tangential, preoccupied with his medications. Memory and concentration: AOX3, grossly intact for the purposes of this session Judgment and insight: Chronically Poor, however improving mildly. Assessment Schizophrenia Plan: -Patient continues to meet criteria for inpatient psychiatric admission for symptom stabilization and safety. Patient is currently on a active treatment order which expires in June 2020. -Medications: Patient received Haldol D 50 mg IM on 01/28/2020 and will be due every 14 days. Continue with Zyprexa to 7.5 mg daily for mood stabilization/psychosis. -When necessary Ativan and Geodon for agitation/aggression. -NRT -not needed as patient does not smoke. -SW on board for discharge planning. Encouraged the patient to participate in milieu. Likely discharge in 1-2 days. Patient will be following up with [facility] upon discharge.
[2020-02-02] MEDS: IPRATROPIUM-ALBUTEROL 3 ML NEB INHALATION SCH (01:55)
[2020-02-02 04:02] VITALS: BP 109/72; PULSE 119; TEMP 98
[2020-02-02] MEDS: ACETAMINOPHEN TAB 325 MG TAB PO PRN (06:47)
[2020-02-02] MEDS ORDERED: ACETAMINOPHEN TAB 325 MG TAB PO PRN (07:51)
[2020-02-02] MEDS: ALBUTEROL HFA INHALER INHALATION PRN (08:27)
[2020-02-02] MEDS: SYMBICORT 160-4.5 MCG INHALER INHALATION SCH (08:27)
[2020-02-02] MEDS: OLANZapine 2.5 MG TAB PO SCH (08:28)
[2020-02-02] MEDS: ARTIFICIAL TEARS-HYPROMELLOSE DROPS 15 ML BTL BOTH EYES SCH (08:28)
[2020-02-02] MEDS: MONTELUKAST 10 MG TAB PO SCH (08:28)
[2020-02-02] MEDS: LORazepam 1 MG TAB PO PRN (08:28)
--- NOTE | 2020-02-02 10:11 | P.DS ---
Providers Date of admission: 01/22/20 12:00 Expected date of discharge: 02/02/20 Attending physician: Michael Gonzalez MD Consults: 01/22/20 12:15 Consult Physician Routine Consulting Provider: Jose Reyes Consult Reason/Comments: medical management Do you want consulting provider notified?: Yes Primary care physician: Jose Reyes - Discharge Diagnosis(es) (1) Schizophrenia Current Visit: Yes Status: Acute Priority: High Hospital Course: Admission HPI: Admission note was completed by Dr. Rodas "The patient is a 59-year-old single male who currently lives by himself, unemployed on SSD, has psychiatric history of schizophrenia, and medical history of COPD, skin cancer, melanoma. The patient has been admitted to our inpatient psychiatric services after been transferred from [facility]. Patient was initially brought to ED by police. The patient has been admitted on involuntary basis to our [id number] Noncompliance with treatment. The patient was poorly historian, but reported was brought to the hospital because of court order and he missed appointment with his psychiatrist. Patient reports follow-up with [facility] for outpatient psychiatric treatment and he couldn't see his psychiatrist for long time so he missed a follow-up. He claimed that maintained taking his medications Zyprexa and Haldol. Reports taking Zyprexa 7.5 mg and Haldol 2 mg at bedtime. Patient reports last time was hospitalized at this facility was a month ago. He was talking about being and presents internally preoccupied with some tangential speech. He presents was flat affect and very staring eye contact. Patient was very loud and sometimes disorganized speech. Patient denies feeling depressed, hopeless, or suicidal. He denies any symptoms of maribell including a euphoric mood, absence need to sleep due to unusual in crease in activities, impulsive/irrational behavior. Denies any current auditory or visual hallucinations, and he denies any paranoid ideation. Denies any delusions, but presents internally preoccupied. Denies any anxiety, feeling stressed, panic attacks, or PTSD symptoms. He denies any history of self- injurious behavior or suicide attempts." Hospital course: Upon admission to the unit patient was initially bizarre, intrusive and unpredictable. Patient was currently on a active treatment order which is set to in June 2020. Patient also currently does not have a guardian paula ho does have a guardianship hearing set for 02/04/2020. Patient was however directable and agreeable to commence treatment. Patient initially was bizarre, loud and unpredictable however with treatment got along well with other patients on the unit and followed unit protocol. Patient was compliant with the medications and denied any side effects throughout hospital course. Patient was started on Haldol by mouth which was his home medication and was transitioned onto Haldol D long-acting injection 50 mg which was given on 01/28/2020 and patient will be due for his next injection on 02/11/2020 and every 14 days thereafter. Patient was also restarted on his Zyprexa at 7.5 mg daily for psychosis/mood stabilization. Patient spoke of his stressors and engaged in therapy both group and individual. Patient participated actively during groups. Patient was also seen by medical team for history and physical exam. Throughout the course of the hospitalization patient gradually improved with regards to mood, psychosis, sleep and became future oriented with improved insight and judgment. On the day of discharge patient denied any suicidal or homicidal ideations intent or plan denied any auditory or visual hallucinations. Patient endorsed wanting to live for his future and his family. The patient denied any access to guns or weapons. Patient denied any paranoia and did not endorse any delusions. Patient does not have a significant history of substance abuse however was counseled on abstaining from all substances including alcohol and marijuana. Patient was also counseled on the medications and need for regular compliance and was encouraged to follow-up with their outpatient appointment for mental health and also for primary care. Prior to discharge a family meeting will be arranged by social work assistant to answer any questions and ensure safety upon discharge. Mental status exam: General Appearance: Patient appears to be thin, stated age is alert, pleasant, and attempts to be cooperative. Patient is in no acute distress and has fair hygiene and grooming Behavior: Patient is calmly seated without any agitated behavior. Attempts to be cooperative. Speech: Patient's speech is fluent and nonpressured. Mood/Affect: Patient reports their mood is "much better", affect is congruent and euthymic. Suicidality/Homicidality: Patient denies having any suicidal or homicidal idea tion intent or plan. Perceptions: Patient denies any auditory or visual hallucinations. Though content/process: There is no evidence of any delusional thought content and thought process is linear and goal-directed. more future oriented. Rambles at times. Memory and concentration: AOX3, grossly intact for the purposes of this session. Can spell "WORLD" backwards correctly. Judgment and insight: Improved with guarded prognosis Impression: Schizophrenia Plan: -Continue with discharge today as patient has improved and stabilized psychiatrically and is not currently an imminent threat to himself and/or others. -Continue medications: Continue with Haldol D 50 mg every 14 days to ensure compliance. Patient's last 50 mg injection was given on 01/28/2020 and will be due for his next injection on 02/11/2020. Continue with Zyprexa 7.5 mg daily for mood stabilization/psychosis. -Patient was counseled on the need for medication compliance and appropriate follow-up at mental health and also primary care for medical issues. Patient verbalized understanding and agreed. -Patient is currently on a active treatment order which is set to in June 2020. Patient also currently does not have a guardian however does have a guardianship hearing set for 02/04/2020. -Social work to arrange for and conduct family meeting to ensure safety upon discharge and answer any questions/concerns. Social work also to arrange for patients follow up appointments with [facility] for psychiatric care along with follow up with primary care provider. -Patient counseled on abstaining from recreational drugs and marijuana and alcohol. Was informed/educated on the adverse effects on their physical and mental health. Patient verbally agreed and understood. -Patient was instructed to return to the hospital or seek immediate medical care if their psychiatric or medical symptoms do worsen or reoccur. Allergies Allergy/AdvReac Type Severity Reaction Status Date / Time cephalexin monohydrate Allergy Unknown Verified 01/21/20 22:45 [From Keflex] clindamycin Allergy Unknown Verified 01/21/20 22:45 latex Allergy Rash/Hives Verified 01/21/20 22:45 Penicillins Allergy Unknown Verified 01/21/20 22:45 Laboratory Results WBC 11.0 k/uL (3.8-10.6) H 01/23/20 06:59 RBC 4.26 m/uL (4.30-5.90) L 01/23/20 06:59 Hgb 15.0 gm/dL (13.0-17.5) 01/23/20 06:59 Hct 45.0 % (39.0-53.0) 01/23/20 06:59 MCV 105.6 fL (80.0-100.0) H 01/23/20 06:59 MCH 35.1 pg (25.0-35.0) H 01/23/20 06:59 MCHC 33.2 g/dL (31.0-37.0) 01/23/20 06:59 RDW 14.0 % (11.5-15.5) 01/23/20 06:59 Plt Count 174 k/uL (150-450) 01/23/20 06:59 Neutrophils % 73 % 01/23/20 06:59 Lymphocytes % 18 % 01/23/20 06:59 Monocytes % 7 % 01/23/20 06:59 Eosinophils % 1 % 01/23/20 06:59 Basophils % 0 % 01/23/20 06:59 Neutrophils # 8.0 k/uL (1.3-7.7) H 01/23/20 06:59 Lymphocytes # 2.0 k/uL (1.0-4.8) 01/23/20 06:59 Monocytes # 0.7 k/uL (0-1.0) 01/23/20 06:59 Eosinophils # 0.1 k/uL (0-0.7) 01/23/20 06:59 Basophils # 0.0 k/uL (0-0.2) 01/23/20 06:59 Macrocytosis Moderate 01/23/20 06:59 Sodium 132 mmol/L (137-145) L 01/23/20 06:59 Potassium 3.9 mmol/L (3.5-5.1) 01/23/20 06:59 Chloride 101 mmol/L (98-107) 01/23/20 06:59 Carbon Dioxide 28 mmol/L (22-30) 01/23/20 06:59 Anion Gap 3 mmol/L 01/23/20 06:59 BUN 5 mg/dL (9-20) L 01/23/20 06:59 Creatinine 0.45 mg/dL (0.66-1.25) L 01/23/20 06:59 Est GFR (CKD-EPI)AfAm >90 (>60 ml/min/1.73 sqM) 01/23/20 06:59 Est GFR (CKD-EPI)NonAf >90 (>60 ml/min/1.73 sqM) 01/23/20 06:59 Glucose 84 mg/dL (74-99) 01/23/20 06:[address] Glu mg/dL 108 01/23/20 06:59 Hemoglobin A1c 5.4 % (4.0-6.0) 01/23/20 06:59 Calcium 8.5 mg/dL (8.4-10.2) 01/23/20 06:59 Total Bilirubin 2.0 mg/dL (0.2-1.3) H 01/23/20 06:59 AST 52 U/L (17-59) 01/23/20 06:59 ALT 41 U/L (4-49) 01/23/20 06:59 Alkaline Phosphatase 106 U/L (38-126) 01/23/20 06:59 Total Protein 5.7 g/dL (6.3-8.2) L 01/23/20 06:59 Albumin 3.1 g/dL (3.5-5.0) L 01/23/20 06:59 Triglycerides 94 mg/dL (<150) 01/23/20 06:59 Cholesterol 93 mg/dL (<200) 01/23/20 06:59 LDL Cholesterol, Calc 44 mg/dL (0-99) 01/23/20 06:59 HDL Cholesterol 30 mg/dL (40-60) L 01/23/20 06:59 TSH 2.620 mIU/L (0.465-4.680) 01/23/20 06:59 Urine Color Yellow 01/21/20 22:37 Urine Appearance Clear (Clear) 01/21/20 22:37 Urine pH 6.0 (5.0-8.0) 01/21/20 22:37 Ur Specific Rena Lara 1.012 (1.001-1.035) 01/21/20 22:37 Urine Protein Negative (Negative) 01/21/20 22:37 Urine Glucose (UA) Negative (Negative) 01/21/20 22:37 Urine Ketones Negative (Negative) 01/21/20 22:37 Urine Blood Negative (Negative) 01/21/20 22:37 Urine Nitrite Negative (Negative) 01/21/20 22:37 Urine Bilirubin Negative (Negative) 01/21/20 22:37 Urine Urobilinogen 6.0 mg/dL (<2.0) 01/21/20 22:37 Ur Leukocyte Esterase Negative (Negative) 01/21/20 22:37 Salicylates 7.6 mg/dL 01/21/20 22:38 Urine Opiates Screen Not Detected (NotDetected) 01/21/20 22:37 Ur Oxycodone Screen Not Detected (NotDetected) 01/21/20 22:37 Urine Methadone Screen Not Detected (NotDetected) 01/21/20 22:37 Ur Propoxyphene Screen Not Detected (NotDetected) 01/21/20 22:37 Acetaminophen <10.0 ug/mL 01/21/20 22:38 Ur Barbiturates Screen Not Detected (NotDetected) 01/21/20 22:37 U Tricyclic Antidepress Not Detected (NotDetected) 01/21/20 22:37 Ur Phencyclidine Scrn Not Detected (NotDetected) 01/21/20 22:37 Ur Amphetamines Screen Not Detected (NotDetected) 01/21/20 22:37 U Methamphetamines Scrn Not Detected (NotDetected) 01/21/20 22:37 U Benzodiazepines Scrn Not Detected (NotDetected) 01/21/20 22:37 Urine Cocaine Screen Not Detected (NotDetected) 01/21/20 22:37 U Marijuana (THC) Screen Not Detected (NotDetected) 01/21/20 22:37 Serum Alcohol <10 mg/dL 01/21/20 22:38 Vital Signs Temp 98.0 F 02/02/20 04:01 Pulse 119 H 02/02/20 04:01 Resp 16 02/02/20 04:01 BP 109/72 02/02/20 04:01 Pulse Ox 98 02/02/20 04:01 Patient Condition at Discharge: Stable Plan - Discharge Summary New Discharge Prescriptions: New Artificial Tears-Hypromellose [Artificial Tear Drops] 1 drops BOTH EYES BID bottle OLANZapine 7.5 mg PO DAILY 30 Days tablet Continue Fluticasone/Vilanterol [Breo Ellipta 200-25 Mcg INH] 1 puff INHALATION RT- DAILY Ipratropium-Albuterol Nebulize [Duoneb 0.5 mg-3 mg/3 ml Soln] 3 ml INHALATION RT-QID #1 ampul.neb Montelukast [Singulair] 10 mg PO DAILY 30 Days tab Albuterol Sulfate [Ventolin HFA] 2 puff INHALATION RT-Q6H PRN #1 inhaler PRN Reason: Dyspnea Discontinued OLANZapine [ZyPREXA] 10 mg PO DAILY #30 tab haloperidoL [Haldol] 2 mg PO DAILY #30 tab Discharge Medication List Fluticasone/Vilanterol [Breo Ellipta 200-25 Mcg INH] 1 puff INHALATION RT-DAILY 04/13/19 [History] Albuterol Sulfate [Ventolin HFA] 2 puff INHALATION RT-Q6H PRN #1 inhaler 02/02/20 [Rx] Artificial Tears-Hypromellose [Artificial Tear Drops] 1 drops BOTH EYES BID bottle 02/02/20 [Rx] Ipratropium-Albuterol Nebulize [Duoneb 0.5 mg-3 mg/3 ml Soln] 3 ml INHALATION RT-QID #1 ampul.neb 02/02/20 [Rx] Montelukast [Singulair] 10 mg PO DAILY 30 Days tab 02/02/20 [Rx] OLANZapine 7.5 mg PO DAILY 30 Days tablet 02/02/20 [Rx] Follow up Appointment(s)/Referral(s): [facility] [Outside] - 02/08/20 11:00 am (02-08-20 @ 11:00 with Jimmy Novak by phone. 02-09-20 @ 9:[address] Yolanda Rodriguez at [facility] office.) Jose Reyes MD [Primary Care Provider] - 1-2 days Patient Instructions/Handouts: Brief Psychotic Disorder (DC) Activity/Diet/Wound Care/Special Instructions: Activity and diet as tolerated. Avoid the use of street drugs and alcohol. Take all medications as prescribed. When you are in need of refills on your medications please contact your medical provider and/or outpatient psychiatrist to have this done. Please go to scheduled outpatient appointment for aftercare treatment. If symptoms return or become worse, call the crisis line at and/or go to the nearest emergency room for evaluation Discharge Disposition: HOME SELF-CARE
[2020-02-11] MEDS ORDERED: HALOPERIDOL DECANOATE 50 MG/ML 1 ML VIAL IM SCH (09:00)
== END 2020-02-02 13:15 | disposition home or self-care (01) | DRG 885 ==
LOC: EC 21:30 → 3MHU 01-22 12:00
PROVIDERS: ADMIT Psychiatry & Neurology Psychiatry; ATTEND Psychiatry & Neurology Psychiatry
DX: F20.9 Schizophrenia, unspecified (principal); F17.200 Nicotine dependence, unspecified, uncomplicated; F41.9 Anxiety disorder, unspecified; J44.9 Chronic obstructive pulmonary disease, unspecified; F32.9 Major depressive disorder, single episode, unspecified; F15.10 Other stimulant abuse, uncomplicated; Z79.899 Other long term (current) drug therapy; Z88.0 Allergy status to penicillin; Z88.1 Allergy status to other antibiotic agents; Z91.040 Latex allergy status; Z87.01 Personal history of pneumonia (recurrent); Z80.8 Family history of malignant neoplasm of other organs or systems; Z82.49 Family history of ischemic heart disease and other diseases of the circulatory system; Z82.5 Family history of asthma and other chronic lower respiratory diseases; Z83.3 Family history of diabetes mellitus; Z85.820 Personal history of malignant melanoma of skin; Z90.89 Acquired absence of other organs; Z98.890 Other specified postprocedural states; Z87.440 Personal history of urinary (tract) infections; Z82.3 Family history of stroke; Z91.19 Patient's noncompliance with other medical treatment and regimen
CPT/HCPCS: 36415; 80048; 80053; 80061; 80306; 80320; 80329; 81003; 82075; 83036; 83520; 84443; 85025; 94640; 99285

== ENCOUNTER 2020-02-07 20:53 | Emergency (ER) | payer MEDICARE, OTHER ==
[2020-02-07 20:58] VITALS: BP 125/88; PULSE 56; RESP 18; TEMP 98.3
[2020-02-07] MEDS ORDERED: BUTA/APAP/CAF/COD 50-325-40-30 CAP PO STA (21:05)
--- NOTE | 2020-02-07 21:07 | ED ---
Headache HPI - General Chief Complaint: Headache Stated Complaint: Headache Time Seen by Provider: 02/07/20 20:59 Mode of arrival: ambulatory Limitations: no limitations - History of Present Illness Initial Comments: 59-year-old male patient presents to the emergency department today for evaluation of headache. Patient states that the headache started a few hours ago. States he has not taken any medication for his symptoms. He states that he does have a history of frequent headaches, this headache is consistent with his usual pattern. States that he usually takes Fioricet prescribed by his doctor but he is out of his prescription. He states he is eating and drinking without difficulty. Denies any nausea, vomiting, new blurred vision, dizziness, or weakness. Denies numbness or tingling to his extremities. He denies any new symptoms with this headache. Patient denies any recent rash, fever, chills, cough, shortness of breath, chest pain, abdominal pain, diarrhea, constipation, back pain, hematuria, dysuria, urinary urgency, urinary frequency, or any other complaints. - Related Data Home Medications Medication Instructions Recorded Confirmed Fluticasone/Vilanterol [Breo 1 puff INHALATION RT-DAILY 04/13/19 01/21/20 Ellipta 200-25 Mcg INH] Previous Rx's Medication Instructions Recorded Albuterol Sulfate [Ventolin HFA] 2 puff INHALATION RT-Q6H PRN #1 02/02/20 inhaler Artificial Tears-Hypromellose 1 drops BOTH EYES BID bottle 02/02/20 [Artificial Tear Drops] Ipratropium-Albuterol Nebulize 3 ml INHALATION RT-QID #1 ampul.neb 02/02/20 [Duoneb 0.5 mg-3 mg/3 ml Soln] Montelukast [Singulair] 10 mg PO DAILY 30 Days tab 02/02/20 OLANZapine 7.5 mg PO DAILY 30 Days tablet 02/02/20 Allergies Allergy/AdvReac Type Severity Reaction Status Date / Time cephalexin monohydrate Allergy Unknown Verified 01/21/20 22:45 [From Keflex] clindamycin Allergy Unknown Verified 01/21/20 22:45 latex Allergy Rash/Hives Verified 01/21/20 22:45 Penicillins Allergy Unknown Verified 01/21/20 22:45 Review of Systems ROS Statement: Those systems with pertinent positive or pertinent negative responses have been documented in the HPI. ROS Other: All systems not noted in ROS Statement are negative. Past Medical History Past Medical History: Cancer, COPD, Pneumonia Additional Past Medical History / Comment(s): Melanoma removed from L trunk, skin cancer removed from R side of nose, L eye blurry vision, constipation, hematuria/UTI, hypoglycemia. History of Any Multi-Drug Resistant Organisms: None Reported Past Surgical History: Adenoidectomy, Tonsillectomy Additional Past Surgical History / Comment(s): R side of nose skin cancer removal/skin graft, L trunk melanoma removed, colonoscopy. Past Anesthesia/Blood Transfusion Reactions: No Reported Reaction Past Psychological History: Depression, Schizophrenia Smoking Status: Current every day smoker Past Alcohol Use History: Heavy Past Drug Use History: None Reported - Past Family History Father Family Medical History: Diabetes Mellitus Additional Family Medical History / Comment(s): Father is living. Mother Family Medical History: CVA/TIA, Myocardial Infarction ([place]) Additional Family Medical History / Comment(s): Mother had a CVA, shingles. She is from the CVA. General Exam Limitations: no limitations General appearance: alert, in no apparent distress, other (This is a well- developed, well-nourished adult male patient in no acute distress. Vital signs upon presentation are temperature 98.3F, pulse 56, respirations 18, blood pressure 125/88, pulse ox 98% on room air.) Eye exam: Present: normal appearance, PERRL, EOMI. Absent: scleral icterus, conjunctival injection, nystagmus, periorbital swelling ENT exam: Present: normal exam, normal oropharynx, mucous membranes moist Respiratory exam: Present: normal lung sounds bilaterally. Absent: respiratory distress, wheezes, rales, rhonchi, stridor Cardiovascular Exam: Present: regular rate, normal rhythm, normal heart sounds. Absent: systolic murmur, diastolic murmur, rubs, gallop, clicks GI/Abdominal exam: Present: soft, normal bowel sounds. Absent: distended, tenderness, guarding, rebound, rigid Neurological exam: Present: alert, oriented X3, CN II-XII intact Expanded Cranial nerves: EOM's Intact: Normal, Nystagmus: Normal Motor strength exam: RUE: 5, LUE: 5, RLE: 5, LLE: 5 Psychiatric exam: Present: normal affect, normal mood Skin exam: Present: warm, dry, intact, normal color. Absent: rash Course Vital Signs 02/07/20 20:54 Temperature 98.3 F Pulse Rate 56 L Respiratory 18 Rate Blood Pressure 125/88 O2 Sat by Pulse 98 Oximetry Medical Decision Making - Medical Decision Making 59-year-old male patient presents to the emergency department today for evaluation of headache. Physical examination is unremarkable. He is neurologically intact with no focal deficits. This is not the worst headache of his life. He does report a history of frequent headaches usually takes Urised but is out of the medication. He has not taken any medication for his symptoms. He is not having any vomiting. He'll be given Fioricet here in the emergency department. We discharged him up with his primary care physician for recheck in 1-2 days. Return parameters were discussed in detail. He verbalizes understanding and agrees with this plan. Disposition Clinical Impression: Migraine Disposition: HOME SELF-CARE Condition: Good Instructions (If sedation given, give patient instructions): Acute Headache (ED) Additional Instructions: Follow-up with your primary care physician for recheck in 1-2 days. Return to the emergency department immediately for any new, worsening, or concerning symptoms. Is patient prescribed a controlled substance at d/c from ED?: No Referrals: Jose Reyes MD [Primary Care Provider] - 1-2 days Time of Disposition: 21:06
== END 2020-02-07 21:22 | disposition home or self-care (01) ==
LOC: EEVIPCON 20:53 → EC 20:53
DX: G43.909 Migraine, unspecified, not intractable, without status migrainosus (principal); J44.9 Chronic obstructive pulmonary disease, unspecified; F17.200 Nicotine dependence, unspecified, uncomplicated; Z79.51 Long term (current) use of inhaled steroids; Z85.828 Personal history of other malignant neoplasm of skin; Z88.0 Allergy status to penicillin; Z88.1 Allergy status to other antibiotic agents; Z91.040 Latex allergy status
CPT/HCPCS: 99283

== ENCOUNTER 2020-02-08 03:53 | Emergency (ER) | payer MEDICARE, OTHER ==
--- NOTE | 2020-02-08 03:57 | ED ---
Headache HPI - General Stated Complaint: headache Time Seen by Provider: 02/08/20 03:55 Source: RN notes reviewed, old records reviewed - History of Present Illness Initial Comments: This is a 51-year-old male well-known to us with some mental health issues coming in for headache today. Seen in ER yesterday for same complaint. No trauma no fevers no neurological complaints, no recent trauma. MD Complaint: headache, "migraine" -: days(s) Onset Description: gradual Location: frontal Severity: moderate Severity scale (1-10): 6 Quality: aching, throbbing Consistency: intermittent Improves With: nothing Worsens With: none Context: occurred at rest Treatments Prior to Arrival: none - Related Data Home Medications Medication Instructions Recorded Confirmed Fluticasone/Vilanterol [Breo 1 puff INHALATION RT-DAILY 04/13/19 01/21/20 Ellipta 200-25 Mcg INH] Previous Rx's Medication Instructions Recorded Albuterol Sulfate [Ventolin HFA] 2 puff INHALATION RT-Q6H PRN #1 02/02/20 inhaler Artificial Tears-Hypromellose 1 drops BOTH EYES BID bottle 02/02/20 [Artificial Tear Drops] Ipratropium-Albuterol Nebulize 3 ml INHALATION RT-QID #1 ampul.neb 02/02/20 [Duoneb 0.5 mg-3 mg/3 ml Soln] Montelukast [Singulair] 10 mg PO DAILY 30 Days tab 02/02/20 OLANZapine 7.5 mg PO DAILY 30 Days tablet 02/02/20 Allergies Allergy/AdvReac Type Severity Reaction Status Date / Time cephalexin monohydrate Allergy Unknown Verified 01/21/20 22:45 [From Keflex] clindamycin Allergy Unknown Verified 01/21/20 22:45 latex Allergy Rash/Hives Verified 01/21/20 22:45 Penicillins Allergy Unknown Verified 01/21/20 22:45 Review of Systems ROS Statement: Those systems with pertinent positive or pertinent negative responses have been documented in the HPI. ROS Other: All systems not noted in ROS Statement are negative. Past Medical History Past Medical History: Cancer, COPD, Pneumonia Additional Past Medical History / Comment(s): Melanoma removed from L trunk, skin cancer removed from R side of nose, L eye blurry vision, constipation, hematuria/UTI, hypoglycemia. History of Any Multi-Drug Resistant Organisms: None Reported Past Surgical History: Adenoidectomy, Tonsillectomy Additional Past Surgical History / Comment(s): R side of nose skin cancer removal/skin graft, L trunk melanoma removed, colonoscopy. Past Anesthesia/Blood Transfusion Reactions: No Reported Reaction Past Psychological History: Depression, Schizophrenia Smoking Status: Current every day smoker Past Alcohol Use History: Heavy Past Drug Use History: None Reported - Past Family History Father Family Medical History: Diabetes Mellitus Additional Family Medical History / Comment(s): Father is living. Mother Family Medical History: CVA/TIA, Myocardial Infarction ([place]) Additional Family Medical History / Comment(s): Mother had a CVA, shingles. She is from the CVA. General Exam General appearance: alert, in no apparent distress Head exam: Present: atraumatic, normocephalic, normal inspection Eye exam: Present: normal appearance, PERRL, EOMI. Absent: scleral icterus, conjunctival injection, periorbital swelling ENT exam: Present: normal exam, mucous membranes moist Neck exam: Present: normal inspection. Absent: tenderness, meningismus, lymphadenopathy Respiratory exam: Present: normal lung sounds bilaterally. Absent: respiratory distress, wheezes, rales, rhonchi, stridor Cardiovascular Exam: Present: regular rate, normal rhythm, normal heart sounds. Absent: systolic murmur, diastolic murmur, rubs, gallop, clicks GI/Abdominal exam: Present: soft, normal bowel sounds. Absent: distended, tenderness, guarding, rebound, rigid Extremities exam: Present: normal inspection, full ROM, normal capillary refill. Absent: tenderness, pedal edema, joint swelling, calf tenderness Back exam: Present: normal inspection Neurological exam: Present: alert, oriented X3, CN II-XII intact Psychiatric exam: Present: normal affect, normal mood Skin exam: Present: warm, dry, intact, normal color. Absent: rash Course Vital Signs 02/08/20 04:00 Temperature 97.0 F L Pulse Rate 102 H Respiratory 16 Rate Blood Pressure 139/94 O2 Sat by Pulse 99 Oximetry - Reevaluation(s) Reevaluation #1: 02/08/20 04:26 Patient's medical record is reviewed Reevaluation #2: 02/08/20 04:26 Patient is well-known to this emergency department, symptoms resolved Medical Decision Making - Medical Decision Making 69 male requiring specific medications for symptoms including headache. Patient symptoms resolved here in the ER and can be discharged home Disposition Clinical Impression: Poor compliance with medication, Headache Disposition: HOME SELF-CARE Condition: Good Instructions (If sedation given, give patient instructions): Acute Headache (ED) Is patient prescribed a controlled substance at d/c from ED?: No Referrals: Jose Reyes MD [Primary Care Provider] - 1-2 days
[2020-02-08 04:03] VITALS: BP 139/94; PULSE 102; RESP 16; TEMP 97
[2020-02-08] MEDS ORDERED: LORazepam 1 MG TAB PO STA (04:26)
[2020-02-08] MEDS ORDERED: BUTA/APAP/CAF/COD 50-325-40-30 CAP PO STA (04:26)
== END 2020-02-08 04:44 | disposition home or self-care (01) ==
LOC: EC 03:53
DX: R51 Headache (principal); J44.9 Chronic obstructive pulmonary disease, unspecified; F17.200 Nicotine dependence, unspecified, uncomplicated; Z79.51 Long term (current) use of inhaled steroids; Z91.040 Latex allergy status; Z88.0 Allergy status to penicillin; Z88.1 Allergy status to other antibiotic agents; Z85.820 Personal history of malignant melanoma of skin; Z91.14 Patient's other noncompliance with medication regimen
CPT/HCPCS: 99284

== ENCOUNTER 2020-02-09 18:55 | Emergency (ER) | payer MEDICARE, OTHER ==
[2020-02-09 19:04] VITALS: BP 152/89; PULSE 115; RESP 18; TEMP 98.9
--- NOTE | 2020-02-09 19:37 | ED ---
Headache HPI - General Chief Complaint: Headache Stated Complaint: headache, anxiety Time Seen by Provider: 02/09/20 19:10 Mode of arrival: ambulatory Limitations: no limitations - History of Present Illness Initial Comments: Patient is a 59-year-old male with history of schizophrenia presenting to the emergency department with a chief complaint of headache. Patient states he has history of recurrent headaches. Patient states his primary care typically given there are for the headaches but he is yet to fill up his prescription. Patient states she also has anxiety and is causing his headaches. States the headache is mostly located in the frontal region which was a gradual onset and not the worst headache of his life. Patient denies any photosensitivity nausea or vom iting. Denies any visual disturbances, one-sided weakness or paresthesias. Denies any nuchal rigidity or neck tenderness. Denies any night sweats fevers or chills. Patient states he was recently treated emergency department which helped him for sure. At time but then the pain returned. Patient also concerned for his glucose levels. Patient is not a diabetic. - Related Data Home Medications Medication Instructions Recorded Confirmed Fluticasone/Vilanterol [Breo 1 puff INHALATION RT-DAILY 04/13/19 02/09/20 Ellipta 200-25 Mcg INH] Artificial Tears-Hypromellose 1 drop BOTH EYES BID 02/09/20 02/09/20 [Artificial Tear Drops] Haldol Decanoate 50mg/Ml Oil 50 mg IM Q14D 02/09/20 02/09/20 haloperidoL [Haldol] 2 mg PO DAILY 02/09/20 02/09/20 Previous Rx's Medication Instructions Recorded Albuterol Sulfate [Ventolin HFA] 2 puff INHALATION RT-Q6H PRN #1 02/02/20 inhaler Ipratropium-Albuterol Nebulize 3 ml INHALATION RT-QID #1 ampul.neb 02/02/20 [Duoneb 0.5 mg-3 mg/3 ml Soln] Montelukast [Singulair] 10 mg PO DAILY 30 Days tab 02/02/20 OLANZapine 7.5 mg PO DAILY 30 Days tablet 02/02/20 Allergies Allergy/AdvReac Type Severity Reaction Status Date / Time cephalexin monohydrate Allergy Unknown Verified 02/09/20 20:10 [From [employer]] clindamycin Allergy Unknown Verified 02/09/20 20:10 latex Allergy Rash/Hives Verified 02/09/20 20:10 Penicillins Allergy Rash/Hives Verified 02/09/20 20:10 Review of Systems ROS Statement: Those systems with pertinent positive or pertinent negative responses have been documented in the HPI. ROS Other: All systems not noted in ROS Statement are negative. Past Medical History Past Medical History: Cancer, COPD, Pneumonia Additional Past Medical History / Comment(s): Melanoma removed from L trunk, skin cancer removed from R side of nose, L eye blurry vision, constipation, hematuria/UTI, hypoglycemia. History of Any Multi-Drug Resistant Organisms: None Reported Past Surgical History: Adenoidectomy, Tonsillectomy Additional Past Surgical History / Comment(s): R side of nose skin cancer removal/skin graft, L trunk melanoma removed, colonoscopy. Past Anesthesia/Blood Transfusion Reactions: No Reported Reaction Past Psychological History: Depression, Schizophrenia Smoking Status: Current every day smoker Past Alcohol Use History: Heavy Past Drug Use History: None Reported - Past Family History Father Family Medical History: Diabetes Mellitus Additional Family Medical History / Comment(s): Father is living. Mother Family Medical History: CVA/TIA, Myocardial Infarction ([place]) Additional Family Medical History / Comment(s): Mother had a CVA, shingles. She is from the CVA. General Exam Limitations: no limitations General appearance: alert, in no apparent distress Head exam: Present: atraumatic, normocephalic, normal inspection Eye exam: Present: normal appearance, PERRL, EOMI Pupils: Present: normal accommodation ENT exam: Present: normal exam, normal oropharynx, mucous membranes moist, TM's normal bilaterally, normal external ear exam Neck exam: Present: normal inspection, full ROM. Absent: tenderness Respiratory exam: Present: normal lung sounds bilaterally. Absent: respiratory distress, wheezes Cardiovascular Exam: Present: regular rate, normal rhythm, normal heart sounds Extremities exam: Present: normal inspection, full ROM, normal capillary refill, other (+2 ulnar and radial pulses bilateral.). Absent: tenderness Back exam: Present: normal inspection, full ROM. Absent: tenderness, CVA tenderness (R), CVA tenderness (L), muscle spasm Neurological exam: Present: alert, oriented X3, CN II-XII intact, normal gait Psychiatric exam: Present: normal affect, normal mood Skin exam: Present: warm, dry, intact, normal color Course Vital Signs 02/09/20 19:01 Temperature 98.9 F Pulse Rate 115 H Respiratory 18 Rate Blood Pressure 152/89 O2 Sat by Pulse 98 Oximetry Medical Decision Making - Medical Decision Making Patient is 59-year-old male with history of headaches presenting to the emergency department with a chief complaint of a headache. Patient well-known to the emergency department course frequent visits. Patient has been to emergency department last several days with same chief complaint. Patient state he saw his psychiatrist today and was prescribed antipsychotic medication for his schizophrenia. He is yet to start taking the medication. Patient given here said with codeine and Xanax for anxiety. Patient requesting outpatient prescription of the medication. I did not give him any and advised him to come to the emergency department if symptoms worsen. he was also advised to follow- up with his primary care physician who can possibly give him a prescription. Return parameters were thoroughly discussed patient is an ascending agreeable. Case discussed with physician. - Lab Data Lab Results 02/09/20 Range/Units 19:47 POC Glucose (mg/dL) 94 (75-99) mg/dL POC Glu [employer] Automatic ID Sarita Monroy Disposition Clinical Impression: Headache Disposition: HOME SELF-CARE Condition: Good Instructions (If sedation given, give patient instructions): Acute Headache (ED) Additional Instructions: Follow up with primary care physician. Return to emergency department if symptoms worsen. Is patient prescribed a controlled substance at d/c from ED?: No Referrals: Jose Reyes MD [Primary Care Provider] - 1-2 days Time of Disposition: 20:43
[2020-02-09] MEDS ORDERED: LORazepam 1 MG TAB PO STA (19:38)
[2020-02-09] MEDS ORDERED: BUTA/APAP/CAF/COD 50-325-40-30 CAP PO STA (19:38)
[2020-02-09 20:00] LABS: Glucose,Whole Blood 94 mg/dL (75-99)
== END 2020-02-09 20:57 | disposition home or self-care (01) ==
LOC: EC 18:55
DX: R51 Headache (principal); F41.9 Anxiety disorder, unspecified; J44.9 Chronic obstructive pulmonary disease, unspecified; F20.9 Schizophrenia, unspecified; F17.200 Nicotine dependence, unspecified, uncomplicated; Z85.820 Personal history of malignant melanoma of skin; Z85.828 Personal history of other malignant neoplasm of skin; Z79.51 Long term (current) use of inhaled steroids; Z79.899 Other long term (current) drug therapy; Z88.1 Allergy status to other antibiotic agents; Z91.040 Latex allergy status; Z88.0 Allergy status to penicillin
CPT/HCPCS: 36415; 99284

== ENCOUNTER 2020-02-10 09:15 | Emergency (ER) | payer MEDICARE, OTHER ==
[2020-02-10 09:20] VITALS: BP 136/90; PULSE 101; RESP 18; TEMP 98
[2020-02-10] MEDS ORDERED: KETOROLAC 30 MG/ML 1 ML VIAL IM STA (09:34)
--- NOTE | 2020-02-10 09:36 | ED ---
General Adult HPI - General Chief complaint: Headache Stated complaint: headache Source: patient, RN notes reviewed Mode of arrival: ambulatory Limitations: no limitations - History of Present Illness Initial comments: 59-year-old male with a past medical history of melanoma, schizophrenia, chronic headaches presents to the emergency department for a chief complaint of headache . Patient states that he gets headaches every day of his life. States he is normally on Fioricet with codeine and Ativan for these headaches. States that he has an appointment with his doctor in a few weeks but they will not fill his prescriptions until he is seen. Patient reports that he is going to be coming here daily until that time for his Fioricet and Ativan. States his headaches are consistent with previous headaches. Denies nausea vomiting. Patient has no other complaints at this time including shortness of breath, chest pain, abdominal pain, nausea or vomiting, or visual changes. - Related Data Home Medications Medication Instructions Recorded Confirmed Fluticasone/Vilanterol [Breo 1 puff INHALATION RT-DAILY 04/13/19 02/09/20 Ellipta 200-25 Mcg INH] Artificial Tears-Hypromellose 1 drop BOTH EYES BID 02/09/20 02/09/20 [Artificial Tear Drops] Haldol Decanoate 50mg/Ml Oil 50 mg IM Q14D 02/09/20 02/09/20 haloperidoL [Haldol] 2 mg PO DAILY 02/09/20 02/09/20 Previous Rx's Medication Instructions Recorded Albuterol Sulfate [Ventolin HFA] 2 puff INHALATION RT-Q6H PRN #1 02/02/20 inhaler Ipratropium-Albuterol Nebulize 3 ml INHALATION RT-QID #1 ampul.neb 02/02/20 [Duoneb 0.5 mg-3 mg/3 ml Soln] Montelukast [Singulair] 10 mg PO DAILY 30 Days tab 02/02/20 OLANZapine 7.5 mg PO DAILY 30 Days tablet 02/02/20 Allergies Allergy/AdvReac Type Severity Reaction Status Date / Time cephalexin monohydrate Allergy Unknown Verified 02/10/20 09:37 [From Keflex] clindamycin Allergy Unknown Verified 02/10/20 09:37 latex Allergy Rash/Hives Verified 02/10/20 09:37 Penicillins Allergy Rash/Hives Verified 02/10/20 09:37 Review of Systems ROS Statement: Those systems with pertinent positive or pertinent negative responses have been documented in the HPI. ROS Other: All systems not noted in ROS Statement are negative. Past Medical History Past Medical History: Cancer, COPD, Pneumonia Additional Past Medical History / Comment(s): Melanoma removed from L trunk, skin cancer removed from R side of nose, L eye blurry vision, constipation, hematuria/UTI, hypoglycemia. History of Any Multi-Drug Resistant Organisms: None Reported Past Surgical History: Adenoidectomy, Tonsillectomy Additional Past Surgical History / Comment(s): R side of nose skin cancer removal/skin graft, L trunk melanoma removed, colonoscopy. Past Anesthesia/Blood Transfusion Reactions: No Reported Reaction Past Psychological History: Schizophrenia Smoking Status: Current every day smoker Past Alcohol Use History: Heavy Past Drug Use History: None Reported - Past Family History Father Family Medical History: Diabetes Mellitus Additional Family Medical History / Comment(s): Father is living. Mother Family Medical History: CVA/TIA, Myocardial Infarction ([place]) Additional Family Medical History / Comment(s): Mother had a CVA, shingles. She is from the CVA. General Exam Limitations: no limitations General appearance: alert, in no apparent distress Head exam: Present: atraumatic, normocephalic, normal inspection Eye exam: Present: normal appearance, PERRL, EOMI. Absent: scleral icterus, conjunctival injection, periorbital swelling ENT exam: Present: normal exam, mucous membranes moist Neck exam: Present: normal inspection, full ROM. Absent: tenderness, meningismus, lymphadenopathy Respiratory exam: Present: normal lung sounds bilaterally. Absent: respiratory distress, wheezes, rales, rhonchi, stridor Cardiovascular Exam: Present: regular rate, normal rhythm, normal heart sounds. Absent: systolic murmur, diastolic murmur, rubs, gallop, clicks GI/Abdominal exam: Present: soft, normal bowel sounds. Absent: distended, tenderness, guarding, rebound, rigid Neurological exam: Present: alert, oriented X3, normal gait, other (GCS 15) Course Vital Signs 02/10/20 09:16 Temperature 98 F Pulse Rate 101 H Respiratory 18 Rate Blood Pressure 136/90 O2 Sat by Pulse 98 Oximetry Medical Decision Making - Medical Decision Making Patient refuses CAT scan. I did recommend CAT scan given this is patient's fourth day being seen here for headache. However he reports he always gets this headache and is only here because he does not have his prescriptions filled. Patient was not given Ativan and codeine. He was given Toradol instead as this is nonnarcotic. He is not trying any [id number] medications and was told to try Excedrin Motrin or Tylenol. He will return here for any worsening symptoms. Patient was given a half dose of Ativan to prevent withdrawal. Disposition Clinical Impression: Headache Disposition: HOME SELF-CARE Condition: Good Instructions (If sedation given, give patient instructions): Acute Headache (ED) Additional Instructions: Please try Motrin, or Tylenol, or Excedrin [id number] for headaches. Please follow-up with your doctor for further treatment of chronic headaches. If you have worsening headaches return to the emergency room. Is patient prescribed a controlled substance at d/c from ED?: No Referrals: Navneet King [Primary Care Provider] - 1-2 days Time of Disposition: 09:39
[2020-02-10] MEDS ORDERED: LORazepam 1 MG TAB PO STA (09:41)
== END 2020-02-10 10:03 | disposition home or self-care (01) ==
LOC: EC 09:15
DX: R51 Headache (principal); F20.9 Schizophrenia, unspecified; J44.9 Chronic obstructive pulmonary disease, unspecified; F17.200 Nicotine dependence, unspecified, uncomplicated; Z79.51 Long term (current) use of inhaled steroids; Z79.899 Other long term (current) drug therapy; Z88.0 Allergy status to penicillin; Z88.1 Allergy status to other antibiotic agents; Z91.040 Latex allergy status; Z85.828 Personal history of other malignant neoplasm of skin; Z98.890 Other specified postprocedural states
CPT/HCPCS: 96372; 99284; J1885

== ENCOUNTER 2020-02-13 14:10 | Emergency (ER) | payer MEDICARE, OTHER ==
[2020-02-13 14:14] VITALS: BP 147/88; PULSE 87; RESP 20; TEMP 98.3
--- NOTE | 2020-02-13 14:35 | ED ---
Headache HPI - General Chief Complaint: Headache Stated Complaint: headache Time Seen by Provider: 02/13/20 14:18 Source: RN notes reviewed, old records reviewed Mode of arrival: ambulatory Limitations: no limitations - History of Present Illness Initial Comments: Bhavin Bermudez 51-year-old male with a history of schizophrenia who presents emergency department today complaining of a chronic headache. He spent to the emergency department 5 times within the past week for this headache. He states is only looking for a refill for his Fioricet with codeine and Ativan. Patient states that this headache seems to be consistent of previous headaches. Patient has reported multiple CT scans related to this the past. He states that he has an upcoming appointment with a new primary care physician on February 27. He states that he plans to come here every day until he can have his prescriptions refilled. Patient states he has not been taking any aspirin or any other medications to help with this headache at home. - Related Data Home Medications Medication Instructions Recorded Confirmed Fluticasone/Vilanterol [Breo 1 puff INHALATION RT-DAILY 04/13/19 02/10/20 Ellipta 200-25 Mcg INH] Artificial Tears-Hypromellose 1 drop BOTH EYES BID 02/09/20 02/10/20 [Artificial Tear Drops] Haldol Decanoate 50mg/Ml Oil 50 mg IM Q14D 02/09/20 02/10/20 haloperidoL [Haldol] 2 mg PO DAILY 02/09/20 02/10/20 Previous Rx's Medication Instructions Recorded Albuterol Sulfate [Ventolin HFA] 2 puff INHALATION RT-Q6H PRN #1 02/02/20 inhaler Ipratropium-Albuterol Nebulize 3 ml INHALATION RT-QID #1 ampul.neb 02/02/20 [Duoneb 0.5 mg-3 mg/3 ml Soln] Montelukast [Singulair] 10 mg PO DAILY 30 Days tab 02/02/20 OLANZapine 7.5 mg PO DAILY 30 Days tablet 02/02/20 Acetaminophen Tab [Tylenol Tab] 500 mg PO Q6H #12 tablet 02/13/20 Fluticasone/Vilanterol [Breo 1 inhalation INHALATION DAILY #1 02/13/20 Ellipta 200-25 Mcg INH] device Ibuprofen [Motrin] 600 mg PO Q6HR PRN #20 tab 02/13/20 Allergies Allergy/AdvReac Type Severity Reaction Status Date / Time cephalexin monohydrate Allergy Unknown Verified 02/13/20 14:14 [From Keflex] clindamycin Allergy Unknown Verified 02/13/20 14:14 latex Allergy Rash/Hives Verified 02/13/20 14:14 Penicillins Allergy Rash/Hives Verified 02/13/20 14:14 Review of Systems ROS Statement: Those systems with pertinent positive or pertinent negative responses have been documented in the HPI. ROS Other: All systems not noted in ROS Statement are negative. Past Medical History Past Medical History: Cancer, COPD, Pneumonia Additional Past Medical History / Comment(s): Melanoma removed from L trunk, skin cancer removed from R side of nose, L eye blurry vision, constipation, hematuria/UTI, hypoglycemia. History of Any Multi-Drug Resistant Organisms: None Reported Past Surgical History: Adenoidectomy, Tonsillectomy Additional Past Surgical History / Comment(s): R side of nose skin cancer removal/skin graft, L trunk melanoma removed, colonoscopy. Past Anesthesia/Blood Transfusion Reactions: No Reported Reaction Past Psychological History: Schizophrenia Smoking Status: Current every day smoker Past Alcohol Use History: Heavy Past Drug Use History: None Reported - Past Family History Father Family Medical History: Diabetes Mellitus Additional Family Medical History / Comment(s): Father is living. Mother Family Medical History: CVA/TIA, Myocardial Infarction ([place]) Additional Family Medical History / Comment(s): Mother had a CVA, shingles. She is from the CV[place]. General Exam - General Exam Comments Initial Comments: Is alert and oriented 59-year-old male. No significant distress. Patient is somewhat hostile. Limitations: no limitations General appearance: alert, in no apparent distress Head exam: Present: atraumatic, normocephalic, normal inspection Eye exam: Present: normal appearance, PERRL, EOMI. Absent: scleral icterus, conjunctival injection, periorbital swelling ENT exam: Present: normal exam, mucous membranes moist Neck exam: Present: normal inspection. Absent: tenderness, meningismus, lymphadenopathy Respiratory exam: Present: normal lung sounds bilaterally. Absent: respiratory distress, wheezes, rales, rhonchi, stridor Cardiovascular Exam: Present: regular rate, normal rhythm, normal heart sounds. Absent: systolic murmur, diastolic murmur, rubs, gallop, clicks GI/Abdominal exam: Present: soft, normal bowel sounds. Absent: distended, tenderness, guarding, rebound, rigid Extremities exam: Present: normal inspection, full ROM, normal capillary refill. Absent: tenderness, pedal edema, joint swelling, calf tenderness Back exam: Present: normal inspection Neurological exam: Present: alert, oriented X3, CN II-XII intact Expanded Patient oriented to: Present: person, place, time Speech: Present: fluid speech Cranial nerves: EOM's Intact: Normal Cerebellar function: Finger to Nose: Normal Upper motor neuron: Pronator Drift: Normal Sensory exam: Upper Extremity Light Touch: Normal, Lower Extremity Light Touch: Normal Motor strength exam: RUE: 5, LUE: 5, RLE: 5, LLE: 5 Eye Response: (4) open spontaneously Motor Response: (6) obeys commands Verbal Response: (5) oriented Rod Total: 15 Psychiatric exam: Present: normal affect, normal mood Skin exam: Present: warm, dry, intact, normal color. Absent: rash Course Vital Signs 02/13/20 14:13 Temperature 98.3 F Pulse Rate 87 Respiratory 20 Rate Blood Pressure 147/88 O2 Sat by Pulse 100 Oximetry Medical Decision Making - Medical Decision Making 51-year-old male presents emergency room today with concerns for chronic headache. He states he is here only for a refill of his torso with codeine medication as well as Ativan. States he has an upcoming appointment with a new primary care physician on the . He also requests a refill for his breathing. He states is the same headache he's had. Patient has no acute neurological deficits. I discussed that this is the patient's fifth time to be evaluated in the emergency department for headache. Discussed that imaging such as CT would be is warranted any concerns or tumor masses or other causes for patient's headache. Patient was agreeable to this. Patient had a CT of the brain without contrast shows no acute changes. Patient is requesting snacks and food emergency department. He otherwise appears well. He is somewhat hostile but does have a previous psychiatric admission history. At this time Patient was given Toradol and was given half a dose of Ativan for anxiety behavior emergency department. Does report improvement of his headache. I discussed his PRIMARY care doctor for further prescriptions and no prescription for Fioricet with codeine or Ativan will be written from the emergency department. I did discuss that I can write him a prescription for his Brio inhaler that he is out of. - Radiology Data Radiology results: report reviewed Negative Unenhanced head CT. Disposition Clinical Impression: Headache, Medication refill Disposition: HOME SELF-CARE Condition: Good Instructions (If sedation given, give patient instructions): Acute Headache (ED) Additional Instructions: Please use medication as discussed. Please follow up with family doctor if symptoms have not improved over the next two days. Please return to the emergency room if your symptoms increase or worsen or for any other concerns. Prescriptions: Fluticasone/Vilanterol [Breo Ellipta 200-25 Mcg INH] 1 inhalation INHALATION DAILY #1 device Ibuprofen [Motrin] 600 mg PO Q6HR PRN #20 tab PRN Reason: Pain Acetaminophen Tab [Tylenol Tab] 500 mg PO Q6H #12 tablet Is patient prescribed a controlled substance at d/c from ED?: No Referrals: Jose Reyes MD [Primary Care Provider] - 1-2 days Time of Disposition: 15:25
[2020-02-13] MEDS ORDERED: KETOROLAC 30 MG/ML 1 ML VIAL IM STA (14:38)
[2020-02-13] MEDS ORDERED: LORazepam 1 MG TAB PO STA (14:43)
--- NOTE | 2020-02-13 15:10 | CT ---
EXAMINATION TYPE: CT brain wo con DATE OF EXAM: 02/13/2020 COMPARISON: None HISTORY: headache CT DLP: 1103.4 mGycm Automated exposure control for dose reduction was used. Ventricles and sulci appear normal. There is no mass effect nor midline shift. There is no sign of in tracranial hemorrhage. Calvarium is intact. There is no evidence of cerebral edema. There is normal a eration of the temporal bones. IMPRESSION: Negative unenhanced head CT scan.
== END 2020-02-13 15:40 | disposition home or self-care (01) ==
LOC: EC 14:10
DX: R51 Headache (principal); F17.200 Nicotine dependence, unspecified, uncomplicated; J44.9 Chronic obstructive pulmonary disease, unspecified; F20.9 Schizophrenia, unspecified; Z79.899 Other long term (current) drug therapy; Z76.0 Encounter for issue of repeat prescription; Z88.0 Allergy status to penicillin; Z88.1 Allergy status to other antibiotic agents; Z91.040 Latex allergy status; Z85.820 Personal history of malignant melanoma of skin
CPT/HCPCS: 70450; 99284

== ENCOUNTER 2020-02-14 03:15 | Emergency (ER) | payer MEDICARE, OTHER ==
--- NOTE | 2020-02-14 03:20 | ED ---
Headache HPI - General Stated Complaint: Headache Time Seen by Provider: 02/14/20 03:18 - History of Present Illness Initial Comments: Abelardo is a 59-year-old and a history of chronic migraines who regularly takes Fioricet with codeine. Patient also has an extensive psychiatric history. Patient is been in our ER 6 times in the past 8 days for his chronic headaches. On my arrival in the room patient states #10 headache indicating that this is a headache with 10 out 10 in intensity, though he is sitting in a well lit room in no acute distress. Patient states he needs his Fioricet with codeine and Ativan because he feels anxious. Patient has these requests everyday when he comes to the emergency department. He states that he is out of his current meds are not scheduled to see his primary care until the . He states he takes Fioricet and Ativan daily and is going to come to the ER daily until he sees his primary care. - Related Data Home Medications Medication Instructions Recorded Confirmed Fluticasone/Vilanterol [Breo 1 puff INHALATION RT-DAILY 04/13/19 02/10/20 Ellipta 200-25 Mcg INH] Artificial Tears-Hypromellose 1 drop BOTH EYES BID 02/09/20 02/10/20 [Artificial Tear Drops] Haldol Decanoate 50mg/Ml Oil 50 mg IM Q14D 02/09/20 02/10/20 haloperidoL [Haldol] 2 mg PO DAILY 02/09/20 02/10/20 Previous Rx's Medication Instructions Recorded Albuterol Sulfate [Ventolin HFA] 2 puff INHALATION RT-Q6H PRN #1 02/02/20 inhaler Ipratropium-Albuterol Nebulize 3 ml INHALATION RT-QID #1 ampul.neb 02/02/20 [Duoneb 0.5 mg-3 mg/3 ml Soln] Montelukast [Singulair] 10 mg PO DAILY 30 Days tab 02/02/20 OLANZapine 7.5 mg PO DAILY 30 Days tablet 02/02/20 Acetaminophen Tab [Tylenol Tab] 500 mg PO Q6H #12 tablet 02/13/20 Fluticasone/Vilanterol [Breo 1 inhalation INHALATION DAILY #1 02/13/20 Ellipta 200-25 Mcg INH] device Ibuprofen [Motrin] 600 mg PO Q6HR PRN #20 tab 02/13/20 Allergies Allergy/AdvReac Type Severity Reaction Status Date / Time cephalexin monohydrate Allergy Unknown Verified 02/14/20 03:31 [From Keflex] clindamycin Allergy Unknown Verified 02/14/20 03:31 latex Allergy Rash/Hives Verified 02/14/20 03:31 Penicillins Allergy Rash/Hives Verified 02/14/20 03:31 Review of Systems ROS Statement: Those systems with pertinent positive or pertinent negative responses have been documented in the HPI. ROS Other: All systems not noted in ROS Statement are negative. Past Medical History Past Medical History: Cancer, COPD, Pneumonia Additional Past Medical History / Comment(s): Melanoma removed from L trunk, skin cancer removed from R side of nose, L eye blurry vision, constipation, hematuria/UTI, hypoglycemia. History of Any Multi-Drug Resistant Organisms: None Reported Past Surgical History: Adenoidectomy, Tonsillectomy Additional Past Surgical History / Comment(s): R side of nose skin cancer removal/skin graft, L trunk melanoma removed, colonoscopy. Past Anesthesia/Blood Transfusion Reactions: No Reported Reaction Past Psychological History: Schizophrenia Smoking Status: Current every day smoker Past Alcohol Use History: Heavy Past Drug Use History: None Reported - Past Family History Father Family Medical History: Diabetes Mellitus Additional Family Medical History / Comment(s): Father is living. Mother Family Medical History: CVA/TIA, Myocardial Infarction ([place]) Additional Family Medical History / Comment(s): Mother had a CVA, shingles. She is from the [place]. General Exam - General Exam Comments Initial Comments: Physical Exam GENERAL: Patient is well-developed and well-nourished. Patient is nontoxic and well-hydrated and is in no distress. HENT: Normocephalic, Atraumatic. No nuchal rigidity EYES: PERRL, EOMI No photophobia PULMONARY: Unlabored respirations. CARDIOVASCULAR: RRR Warm and well perfused extremities ABDOMEN: Non-distended SKIN: No rashes or bruising : Deferred NEUROLOGIC: Alert and oriented Normal speech Normal gait MUSCULOSKELETAL: Moving all extremities with no apparent injury PSYCHIATRIC: Agitated, baseline for patient Course Vital Signs 02/14/20 03:29 Temperature 98.3 F Pulse Rate 93 Respiratory 18 Rate Blood Pressure 139/64 O2 Sat by Pulse 100 Oximetry Medical Decision Making - Medical Decision Making Patient was seen and evaluated history. Patient review of medical record Patient complaining of headache requesting Fioricet Ativan and food Ambulating through the emergency department while waiting for his medications, no acute distress Advised patient that since he doesn't seem to have any acute anxiety or signs of withdrawal we will not give him any Ativan however we will put give him a single dose of Fioricet here in the emergency department Patient was given his dose of Fioricet and stated that he was ready to leave, he reported the headache hadn't improved when he note will after taking his Fioricet Discharge home in stable condition Disposition Clinical Impression: Headache Disposition: HOME SELF-CARE Condition: Stable Instructions (If sedation given, give patient instructions): Acute Headache (ED) Is patient prescribed a controlled substance at d/c from ED?: No Referrals: Jose Reyes MD [Primary Care Provider] - 1-2 days
[2020-02-14 03:32] VITALS: BP 139/64; PULSE 93; RESP 18; TEMP 98.3
[2020-02-14] MEDS ORDERED: BUTA/APAP/CAF/COD 50-325-40-30 CAP PO STA (03:58)
== END 2020-02-14 04:40 | disposition home or self-care (01) ==
LOC: EC 03:15
DX: G43.709 Chronic migraine without aura, not intractable, without status migrainosus (principal); J44.9 Chronic obstructive pulmonary disease, unspecified; F17.200 Nicotine dependence, unspecified, uncomplicated; Z79.51 Long term (current) use of inhaled steroids; Z79.899 Other long term (current) drug therapy; Z88.0 Allergy status to penicillin; Z88.1 Allergy status to other antibiotic agents; Z91.040 Latex allergy status; Z85.820 Personal history of malignant melanoma of skin
CPT/HCPCS: 99283

== ENCOUNTER 2020-02-16 04:40 | Emergency (ER) | payer MEDICARE, OTHER ==
[2020-02-16 04:46] VITALS: TEMP 97.5
[2020-02-16] MEDS ORDERED: LORazepam 1 MG TAB PO STA (05:10)
[2020-02-16] MEDS ORDERED: BUTA/APAP/CAF/COD 50-325-40-30 CAP PO ONE (05:30)
--- NOTE | 2020-02-16 05:40 | ED ---
Headache HPI - General Chief Complaint: Headache Stated Complaint: headache Time Seen by Provider: 02/16/20 04:56 Mode of arrival: ambulatory - History of Present Illness MD Complaint: headache -: days(s) Onset Description: gradual Location: frontal Severity: moderate Quality: aching, similar to previous headaches Consistency: constant Improves With: nothing Worsens With: none Context: occurred at rest Treatments Prior to Arrival: none - Related Data Home Medications Medication Instructions Recorded Confirmed Fluticasone/Vilanterol [Breo 1 puff INHALATION RT-DAILY 04/13/19 02/10/20 Ellipta 200-25 Mcg INH] Artificial Tears-Hypromellose 1 drop BOTH EYES BID 02/09/20 02/10/20 [Artificial Tear Drops] Haldol Decanoate 50mg/Ml Oil 50 mg IM Q14D 02/09/20 02/10/20 haloperidoL [Haldol] 2 mg PO DAILY 02/09/20 02/10/20 Previous Rx's Medication Instructions Recorded Albuterol Sulfate [Ventolin HFA] 2 puff INHALATION RT-Q6H PRN #1 02/02/20 inhaler Ipratropium-Albuterol Nebulize 3 ml INHALATION RT-QID #1 ampul.neb 02/02/20 [Duoneb 0.5 mg-3 mg/3 ml Soln] Montelukast [Singulair] 10 mg PO DAILY 30 Days tab 02/02/20 OLANZapine 7.5 mg PO DAILY 30 Days tablet 02/02/20 Acetaminophen Tab [Tylenol Tab] 500 mg PO Q6H #12 tablet 02/13/20 Fluticasone/Vilanterol [Breo 1 inhalation INHALATION DAILY #1 02/13/20 Ellipta 200-25 Mcg INH] device Ibuprofen [Motrin] 600 mg PO Q6HR PRN #20 tab 02/13/20 [place]/APAP/Caf/Cod 71-168-29-30 1 cap PO Q8H PRN 3 Days #9 cap 02/16/20 [Fioricet w/Cod 16-015-48-30MG] Allergies Allergy/AdvReac Type Severity Reaction Status Date / Time cephalexin monohydrate Allergy Unknown Verified 02/16/20 04:46 [From Keflex] clindamycin Allergy Unknown Verified 02/16/20 04:46 latex Allergy Rash/Hives Verified 02/16/20 04:46 Penicillins Allergy Rash/Hives Verified 02/16/20 04:46 Review of Systems ROS Statement: Those systems with pertinent positive or pertinent negative responses have been documented in the HPI. ROS Other: All systems not noted in ROS Statement are negative. Constitutional: Denies: fever, chills Respiratory: Denies: cough, dyspnea Cardiovascular: Denies: chest pain Gastrointestinal: Denies: abdominal pain, nausea, vomiting Skin: Denies: rash Neurological: Reports: headache. Denies: weakness, numbness, paresthesias, confusion, abnormal gait, vertigo Past Medical History Past Medical History: Cancer, COPD, Pneumonia Additional Past Medical History / Comment(s): Melanoma removed from L trunk, skin cancer removed from R side of nose, L eye blurry vision, constipation, hematuria/UTI, hypoglycemia. History of Any Multi-Drug Resistant Organisms: None Reported Past Surgical History: Adenoidectomy, Tonsillectomy Additional Past Surgical History / Comment(s): R side of nose skin cancer removal/skin graft, L trunk melanoma removed, colonoscopy. Past Anesthesia/Blood Transfusion Reactions: No Reported Reaction Past Psychological History: Schizophrenia Smoking Status: Current every day smoker Past Alcohol Use History: Heavy Past Drug Use History: None Reported - Past Family History Father Family Medical History: Diabetes Mellitus Additional Family Medical History / Comment(s): Father is living. Mother Family Medical History: CVA/TIA, Myocardial Infarction ([place]) Additional Family Medical History / Comment(s): Mother had a CVA, shingles. She is from the [place]. General Exam General appearance: alert, in no apparent distress Head exam: Present: atraumatic, normocephalic Eye exam: Present: normal appearance. Absent: scleral icterus, conjunctival injection ENT exam: Present: normal oropharynx Neck exam: Present: normal inspection, full ROM. Absent: tenderness, meningismus Respiratory exam: Present: normal lung sounds bilaterally. Absent: respiratory distress, wheezes, rales, rhonchi, stridor Cardiovascular Exam: Present: regular rate, normal rhythm, normal heart sounds GI/Abdominal exam: Present: soft. Absent: distended, tenderness, guarding, rebound Neurological exam: Present: alert, oriented X3, CN II-XII intact. Absent: motor sensory deficit Skin exam: Present: warm, dry, intact, normal color. Absent: rash Course Vital Signs 02/16/20 04:44 Temperature 97.5 F L Pulse Rate 87 Respiratory 18 Rate Blood Pressure 140/92 O2 Sat by Pulse 100 Oximetry Disposition Clinical Impression: Headache Disposition: HOME SELF-CARE Condition: Good Instructions (If sedation given, give patient instructions): General Headache (ED) Prescriptions: [place]/APAP/Caf/Cod 60-808-10-30 [Fioricet w/Cod 80-060-09-30MG] 1 cap PO Q8H PRN 3 Days #9 cap PRN Reason: Migraine Headache Is patient prescribed a controlled substance at d/c from ED?: No Referrals: Jose Reyes MD [Primary Care Provider] - 1-2 days Maria Guadalupe Gan MD [REFERRING] - 1-2 days
[2020-02-16 06:07] VITALS: BP 137/94; PULSE 94; RESP 16
== END 2020-02-16 06:07 | disposition home or self-care (01) ==
LOC: EC 04:40
DX: R51 Headache (principal); J44.9 Chronic obstructive pulmonary disease, unspecified; F17.200 Nicotine dependence, unspecified, uncomplicated; Z79.51 Long term (current) use of inhaled steroids; Z79.899 Other long term (current) drug therapy; Z88.0 Allergy status to penicillin; Z88.1 Allergy status to other antibiotic agents; Z91.040 Latex allergy status; Z85.828 Personal history of other malignant neoplasm of skin; Z85.820 Personal history of malignant melanoma of skin
CPT/HCPCS: 99283

== ENCOUNTER 2020-02-19 20:42 | Emergency (ER) | payer MEDICARE, OTHER ==
--- NOTE | 2020-02-19 21:47 | ED ---
Headache HPI - General Chief Complaint: Headache Stated Complaint: Headache Time Seen by Provider: 02/19/20 21:12 Mode of arrival: ambulatory Limitations: no limitations - History of Present Illness Initial Comments: patient is a 59-year-old male here with complaints of a headache x 1 day. this is patient's eighth visit in the last 2 weeks for same complaint. He does have history of chronic headaches. He states he is waiting for his doctor's appointment that he thinks is in a week or 2. He denies any falls or trauma. he had CT of the brain during a recent visit which showed no abnormalities.Denies any dizziness, blurry vision, nausea or vomiting. He states his headache is 10 out of 10 however he is sitting comfortably in a well lit room. He states that he normally gets Fioricet with codeine. He states he has run out from his previous prescription. He is also requesting Ativan that he takes as needed. He denies any chest pains, shortness of breath, fever or chills. He has no further complaints at this time. Upon arrival to the ER, his vital signs are stable. - Related Data Home Medications Medication Instructions Recorded Confirmed Fluticasone/Vilanterol [Breo 1 puff INHALATION RT-DAILY 04/13/19 02/10/20 Ellipta 200-25 Mcg INH] Artificial Tears-Hypromellose 1 drop BOTH EYES BID 02/09/20 02/10/20 [Artificial Tear Drops] Haldol Decanoate 50mg/Ml Oil 50 mg IM Q14D 02/09/20 02/10/20 haloperidoL [Haldol] 2 mg PO DAILY 02/09/20 02/10/20 Previous Rx's Medication Instructions Recorded Albuterol Sulfate [Ventolin HFA] 2 puff INHALATION RT-Q6H PRN #1 02/02/20 inhaler Ipratropium-Albuterol Nebulize 3 ml INHALATION RT-QID #1 ampul.neb 02/02/20 [Duoneb 0.5 mg-3 mg/3 ml Soln] Montelukast [Singulair] 10 mg PO DAILY 30 Days tab 02/02/20 OLANZapine 7.5 mg PO DAILY 30 Days tablet 02/02/20 Acetaminophen Tab [Tylenol Tab] 500 mg PO Q6H #12 tablet 02/13/20 Fluticasone/Vilanterol [Breo 1 inhalation INHALATION DAILY #1 02/13/20 Ellipta 200-25 Mcg INH] device Ibuprofen [Motrin] 600 mg PO Q6HR PRN #20 tab 02/13/20 Buta/APAP/Caf/Cod [id number] 1 cap PO Q8H PRN 3 Days #9 cap 02/19/20 [Fioricet w/Cod [id number]] Allergies Allergy/AdvReac Type Severity Reaction Status Date / Time cephalexin monohydrate Allergy Unknown Verified 02/19/20 20:50 [From Keflex] clindamycin Allergy Unknown Verified 02/19/20 20:50 latex Allergy Rash/Hives Verified 02/19/20 20:50 Penicillins Allergy Rash/Hives Verified 02/19/20 20:50 Review of Systems ROS Statement: Those systems with pertinent positive or pertinent negative responses have been documented in the HPI. ROS Other: All systems not noted in ROS Statement are negative. Past Medical History Past Medical History: Cancer, COPD, Pneumonia Additional Past Medical History / Comment(s): Melanoma removed from L trunk, skin cancer removed from R side of nose, L eye blurry vision, constipation, hematuria/UTI, hypoglycemia. History of Any Multi-Drug Resistant Organisms: None Reported Past Surgical History: Adenoidectomy, Tonsillectomy Additional Past Surgical History / Comment(s): R side of nose skin cancer removal/skin graft, L trunk melanoma removed, colonoscopy. Past Anesthesia/Blood Transfusion Reactions: No Reported Reaction Past Psychological History: Schizophrenia Smoking Status: Current every day smoker Past Alcohol Use History: Heavy Past Drug Use History: None Reported - Past Family History Father Family Medical History: Diabetes Mellitus Additional Family Medical History / Comment(s): Father is living. Mother Family Medical History: CVA/TIA, Myocardial Infarction ([place]) Additional Family Medical History / Comment(s): Mother had a CVA, shingles. She is from the [place]. General Exam - General Exam Comments Initial Comments: GENERAL: Patient is well-developed and well-nourished. Patient is nontoxic and in no acute distress. HEAD: Atraumatic, normocephalic. EYES: Pupils equal round and reactive to light, extraocular movements intact, sclera anicteric, conjunctiva are normal. Eyelids were unremarkable. ENT: TMs normal, nares patent, oropharynx clear without exudates. Moist mucous membranes. NECK: Normal range of motion, supple without lymphadenopathy or JVD. LUNGS: Unlabored respirations. Breath sounds clear to auscultation bilaterally and equal. No wheezes rales or rhonchi. HEART: Regular rate and rhythm without murmurs, rubs or gallops. ABDOMEN: Soft, nontender, normoactive bowel sounds. No guarding, no rebound. No masses appreciated. : Deferred MUSCULOSKELETAL: Normal extremities with adequate strength and normal range of motion, no pitting or edema. No clubbing or cyanosis. NEUROLOGICAL: Patient is alert and oriented x 3. Motor and sensory are also intact. Cranial nerves II through XII grossly intact. Symmetrical smile. Normal speech, normal gait. PSYCH: Normal mood, normal affect. SKIN: Warm, Dry, normal turgor, no rashes or lesions noted. Limitations: no limitations Course Vital Signs 02/19/20 02/19/20 20:48 21:59 Temperature 98.5 F 98.3 F Pulse Rate 99 94 Respiratory 18 17 Rate Blood Pressure 142/93 144/94 O2 Sat by Pulse 99 99 Oximetry Medical Decision Making - Medical Decision Making patient is a 59-year-old male here for a headache 1 day. This is patient's eighth visit in the last 2 weeks for same complaint. He rates his headache a 10 out of 10 but is sensitive sitting comfortably in a well lit room without any distress. His exam is unremarkable, no neural deficits. he did have recent CT of the brain which showed no abnormalities.He is requesting Fioricet with codeine as well as Ativan that he takes when necessary for anxiety. He appears to have no need for the Ativan today, no acute anxiety. I discussed the patient we will give him a tablet of Fioricet with codeine but I will not give him Ativan. He needs to get that from his PCP. I will give him a short prescription for additional Fioricet. He is in agreement with this plan of care. He is stable for discharge.return parameters were discussed with the patient he verbalizes understanding. Case discussed with Dr. Gonzalez. Disposition Clinical Impression: Medication refill, Headache Disposition: HOME SELF-CARE Condition: Stable Instructions (If sedation given, give patient instructions): Acute Headache (ED) Additional Instructions: Please return to the Emergency Department if symptoms worsen or any other conc erns. Follow-up with PCP. Prescriptions: Buta/APAP/Caf/Cod [id number] [Fioricet w/Cod [id number]] 1 cap PO Q8H PRN 3 Days #9 cap PRN Reason: Migraine Headache Is patient prescribed a controlled substance at d/c from ED?: Yes When asked, does pt state using other controlled substances?: No If prescribed controlled substance>3 days was MAPS reviewed?: Prescribed <3 Days If opioid is for acute pain is fill amount 7 days or less?: Yes Referrals: Jose Reyes MD [Primary Care Provider] - 1-2 days
[2020-02-19] MEDS ORDERED: BUTA/APAP/CAF/COD 50-325-40-30 CAP PO STA (21:52)
[2020-02-19 22:00] VITALS: BP 144/94; PULSE 94; RESP 17; TEMP 98.3
== END 2020-02-19 22:17 | disposition home or self-care (01) ==
LOC: EC 20:42
DX: R51 Headache (principal); J44.9 Chronic obstructive pulmonary disease, unspecified; F20.9 Schizophrenia, unspecified; F17.200 Nicotine dependence, unspecified, uncomplicated; Z79.51 Long term (current) use of inhaled steroids; Z79.899 Other long term (current) drug therapy; Z91.040 Latex allergy status; Z88.0 Allergy status to penicillin; Z88.1 Allergy status to other antibiotic agents; Z76.0 Encounter for issue of repeat prescription; Z85.820 Personal history of malignant melanoma of skin; Z85.828 Personal history of other malignant neoplasm of skin
CPT/HCPCS: 99283

== ENCOUNTER 2020-02-20 10:14 | Emergency (ER) | payer MEDICARE, OTHER ==
[2020-02-20 10:30] VITALS: BP 124/74; PULSE 93; RESP 18; TEMP 98.2
[2020-02-20] MEDS ORDERED: BUTA/APAP/CAF/COD 50-325-40-30 CAP PO STA (11:07)
--- NOTE | 2020-02-20 11:07 | ED ---
Headache HPI - General Chief Complaint: Headache Stated Complaint: headache Time Seen by Provider: 02/20/20 10:51 Mode of arrival: ambulatory Limitations: no limitations - History of Present Illness Initial Comments: 89-year-old male presenting today for chief complaint of headache. Patient states he has had a headache the past 2 days he states that normally Fioricet with codeine works however he has been out of medications and came here yesterday where his prescription was sent to the pharmacy at [facility] he states he cannot pick it up that evening and waited till the morning and found out there closed. Patient states he then came to the ER. Patient states he needs Ativan as well. Patient states his chronic anxiety. Patient denies any vision loss weakness of the upper or lower external ears facial asymmetry denies IV drug use fevers he denies any nausea. Patient states as a pounding 10 out of 10 headache. Not worst headahce of life, denies sudden onset. states came on gradually "a few days ago". Patient states is very typical of his headaches to be does not take his medications. Patient denies head injury. Patient denies ataxia. Upon arrival patient resting comfortably in well lit room. Does not appear in distress. - Related Data Home Medications Medication Instructions Recorded Confirmed Fluticasone/Vilanterol [Breo 1 puff INHALATION RT-DAILY 04/13/19 02/10/20 Ellipta 200-25 Mcg INH] Artificial Tears-Hypromellose 1 drop BOTH EYES BID 02/09/20 02/10/20 [Artificial Tear Drops] Haldol Decanoate 50mg/Ml Oil 50 mg IM Q14D 02/09/20 02/10/20 haloperidoL [Haldol] 2 mg PO DAILY 02/09/20 02/10/20 Previous Rx's Medication Instructions Recorded Albuterol Sulfate [Ventolin HFA] 2 puff INHALATION RT-Q6H PRN #1 02/02/20 inhaler Ipratropium-Albuterol Nebulize 3 ml INHALATION RT-QID #1 ampul.neb 02/02/20 [Duoneb 0.5 mg-3 mg/3 ml Soln] Montelukast [Singulair] 10 mg PO DAILY 30 Days tab 02/02/20 OLANZapine 7.5 mg PO DAILY 30 Days tablet 02/02/20 Acetaminophen Tab [Tylenol Tab] 500 mg PO Q6H #12 tablet 02/13/20 Fluticasone/Vilanterol [Breo 1 inhalation INHALATION DAILY #1 02/13/20 Ellipta 200-25 Mcg INH] device Ibuprofen [Motrin] 600 mg PO Q6HR PRN #20 tab 02/13/20 Buta/APAP/Caf/Cod [id number] 1 cap PO Q8H PRN 3 Days #9 cap 02/19/20 [Fioricet w/Cod 85-714-90-30MG] Allergies Allergy/AdvReac Type Severity Reaction Status Date / Time cephalexin monohydrate Allergy Unknown Verified 02/20/20 10:25 [From Keflex] clindamycin Allergy Unknown Verified 02/20/20 10:25 latex Allergy Rash/Hives Verified 02/20/20 10:25 Penicillins Allergy Rash/Hives Verified 02/20/20 10:25 Review of Systems ROS Statement: Those systems with pertinent positive or pertinent negative responses have been documented in the HPI. ROS Other: All systems not noted in ROS Statement are negative. Past Medical History Past Medical History: Cancer, COPD, Pneumonia Additional Past Medical History / Comment(s): Melanoma removed from L trunk, skin cancer removed from R side of nose, L eye blurry vision, constipation, hematuria/UTI, hypoglycemia. History of Any Multi-Drug Resistant Organisms: None Reported Past Surgical History: Adenoidectomy, Tonsillectomy Additional Past Surgical History / Comment(s): R side of nose skin cancer removal/skin graft, L trunk melanoma removed, colonoscopy. Past Anesthesia/Blood Transfusion Reactions: No Reported Reaction Past Psychological History: Schizophrenia Smoking Status: Current every day smoker Past Alcohol Use History: Heavy Past Drug Use History: None Reported - Past Family History Father Family Medical History: Diabetes Mellitus Additional Family Medical History / Comment(s): Father is living. Mother Family Medical History: CVA/TIA, Myocardial Infarction ([place]) Additional Family Medical History / Comment(s): Mother had a CVA, shingles. She is from the [place]. General Exam - General Exam Comments Initial Comments: General: The patient is awake and alert, in no distress, and does not appear acutely ill. Eye: +3 mm pupils are equal, round and reactive to light, extra-ocular movements are intact. No nystagmus. There is normal conjunctiva bilaterally. No signs of icterus. Ears, nose, mouth and throat: There are moist mucous membranes and no oral lesions. Neck: The neck is supple, there is no tenderness or JVD. No nuchal rigidity Cardiovascular: There is a regular rate and rhythm. No murmur, rub or gallop is appreciated. Respiratory: Lungs are clear to auscultation, respirations are non-labored, breath sounds are equal. No wheezes, stridor, rales, or rhonchi. Musculoskeletal: Normal ROM, no tenderness. Strength 5/5 of the upper and lower extremities equal comparison bilaterally. Sensation intact of the upper and lower extremity is equal comparison bilaterally. Pulses equal bilaterally 2+. Neurological: A&O x 3. CN II-XII intact, There are no obvious motor or sensory deficits. Coordination of upper and lower extremity swelling and coronary. Patient has no changes in gait. No drift. Normal b/l java oracle developer strength. Speech WNL. Skin: Skin is warm and dry and no rashes or lesions are noted. Psychiatric: Cooperative, appropriate mood & affect, normal judgment. Limitations: no limitations Course Vital Signs 02/20/20 10:26 Temperature 98.2 F Pulse Rate 93 Respiratory 18 Rate Blood Pressure 124/74 O2 Sat by Pulse 98 Oximetry Medical Decision Making - Medical Decision Making Nontoxic-appearing 59-year-old male well-known to the emergency department for presenting for headaches. Denies sudden onset denied this being the worst headache of his life stating as 10 out of 10 pain he states this is because he has not had his prescription for Fioricet or Ativan. Patient was given a Fioricet with codeine in the emergency department he was encouraged to transfer his prescription from [facility] in the hospital which is closed [facility] which is in close proximity to the hospital. Patient scoffed at the idea. Patient does not appear to in distress and has no focal neurological deficits. Patient is agreeable to discharge he is upset that he did not get Ativan. Case discussed with attending provider Dr. fair. Disposition Clinical Impression: Headache Disposition: HOME SELF-CARE Condition: Good Instructions (If sedation given, give patient instructions): Acute Headache (ED) Additional Instructions: Please use medication as discussed. Please follow-up with family doctor in the next 2 days.. Please return to emergency room if the symptoms increase or worsen or for any other concerns. Is patient prescribed a controlled substance at d/c from ED?: No Referrals: Jose Reyes MD [STAFF PHYSICIAN] - 1-2 days Time of Disposition: 11:07
== END 2020-02-20 11:39 | disposition home or self-care (01) ==
LOC: EC 10:14
DX: R51 Headache (principal); J44.9 Chronic obstructive pulmonary disease, unspecified; F17.200 Nicotine dependence, unspecified, uncomplicated; Z79.51 Long term (current) use of inhaled steroids; Z79.899 Other long term (current) drug therapy; Z88.1 Allergy status to other antibiotic agents; Z91.040 Latex allergy status; Z88.0 Allergy status to penicillin; Z85.828 Personal history of other malignant neoplasm of skin; Z85.820 Personal history of malignant melanoma of skin
CPT/HCPCS: 99283

== ENCOUNTER 2020-02-23 11:25 | Emergency (ER) | payer MEDICARE, OTHER ==
[2020-02-23 11:46] VITALS: BP 134/90; PULSE 89; RESP 16; TEMP 97.6
[2020-02-23] MEDS ORDERED: BUTA/APAP/CAF/COD 50-325-40-30 CAP PO STA (12:36)
--- NOTE | 2020-02-23 12:37 | ED ---
Headache HPI - General Chief Complaint: Headache Stated Complaint: headache Time Seen by Provider: 02/23/20 11:54 Mode of arrival: ambulatory Limitations: no limitations - History of Present Illness Initial Comments: Patient is a 59-year-old male presenting to the emergency Department with complaints of a headache 1 day. He states his headache is a "10 headache." Patient has had multiple visits in the past few weeks for same complaint. He states he normally takes Fioricet with codeine for his headaches but has unable to get into his PCP to get a refill. Patient states he feels like this is his normal headache. He denies the worst headache of his life, sudden onset. He is asking for food as well as Ativan. Patient denies recent fever, chills, nausea, vomiting. Lights are bright the room, he is resting comfortably. He has no further complaints. Upon arrival to the ER his vitals are stable. - Related Data Home Medications Medication Instructions Recorded Confirmed Fluticasone/Vilanterol [Breo 1 puff INHALATION RT-DAILY 04/13/19 02/10/20 Ellipta 200-25 Mcg INH] Artificial Tears-Hypromellose 1 drop BOTH EYES BID 02/09/20 02/10/20 [Artificial Tear Drops] Haldol Decanoate 50mg/Ml Oil 50 mg IM Q14D 02/09/20 02/10/20 haloperidoL [Haldol] 2 mg PO DAILY 02/09/20 02/10/20 Previous Rx's Medication Instructions Recorded Albuterol Sulfate [Ventolin HFA] 2 puff INHALATION RT-Q6H PRN #1 02/02/20 inhaler Ipratropium-Albuterol Nebulize 3 ml INHALATION RT-QID #1 ampul.neb 02/02/20 [Duoneb 0.5 mg-3 mg/3 ml Soln] Montelukast [Singulair] 10 mg PO DAILY 30 Days tab 02/02/20 OLANZapine 7.5 mg PO DAILY 30 Days tablet 02/02/20 Acetaminophen Tab [Tylenol Tab] 500 mg PO Q6H #12 tablet 02/13/20 Fluticasone/Vilanterol [Breo 1 inhalation INHALATION DAILY #1 02/13/20 Ellipta 200-25 Mcg INH] device Ibuprofen [Motrin] 600 mg PO Q6HR PRN #20 tab 02/13/20 Buta/APAP/Caf/Cod [id number] 1 cap PO Q8H PRN 3 Days #9 cap 02/19/20 [Fioricet w/Cod 10-138-29-30MG] Allergies Allergy/AdvReac Type Severity Reaction Status Date / Time cephalexin monohydrate Allergy Unknown Verified 02/23/20 11:44 [From Keflex] clindamycin Allergy Unknown Verified 02/23/20 11:44 latex Allergy Rash/Hives Verified 02/23/20 11:44 Penicillins Allergy Rash/Hives Verified 02/23/20 11:44 Review of Systems ROS Statement: Those systems with pertinent positive or pertinent negative responses have been documented in the HPI. ROS Other: All systems not noted in ROS Statement are negative. Past Medical History Past Medical History: Cancer, COPD, Pneumonia Additional Past Medical History / Comment(s): Melanoma removed from L trunk, skin cancer removed from R side of nose, L eye blurry vision, constipation, hematuria/UTI, hypoglycemia. History of Any Multi-Drug Resistant Organisms: None Reported Past Surgical History: Adenoidectomy, Tonsillectomy Additional Past Surgical History / Comment(s): R side of nose skin cancer removal/skin graft, L trunk melanoma removed, colonoscopy. Past Anesthesia/Blood Transfusion Reactions: No Reported Reaction Past Psychological History: Schizophrenia Smoking Status: Current every day smoker Past Alcohol Use History: Heavy Past Drug Use History: None Reported - Past Family History Father Family Medical History: Diabetes Mellitus Additional Family Medical History / Comment(s): Father is living. Mother Family Medical History: CVA/TIA, Myocardial Infarction ([place]) Additional Family Medical History / Comment(s): Mother had a CVA, shingles. She is from the [place]. General Exam - General Exam Comments Initial Comments: GENERAL: Patient is well-developed and well-nourished. Patient is nontoxic and in no acute distress. HEAD: Atraumatic, normocephalic. EYES: Pupils equal round and reactive to light, extraocular movements intact, sclera anicteric, conjunctiva are normal. Eyelids were unremarkable. ENT: TMs normal, nares patent, oropharynx clear without exudates. Moist mucous membranes. NECK: Normal range of motion, supple without lymphadenopathy or JVD. LUNGS: Unlabored respirations. Breath sounds clear to auscultation bilaterally and equal. No wheezes rales or rhonchi. HEART: Regular rate and rhythm without murmurs, rubs or gallops. ABDOMEN: Soft, nontender, normoactive bowel sounds. No guarding, no rebound. No masses appreciated. : Deferred MUSCULOSKELETAL: Normal extremities with adequate strength and normal range of motion, no pitting or edema. No clubbing or cyanosis. NEUROLOGICAL: Patient is alert and oriented x 3. Motor and sensory are also intact. Cranial nerves II through XII grossly intact. Symmetrical smile. Normal speech, normal gait. PSYCH: Normal mood, normal affect. SKIN: Warm, Dry, normal turgor, no rashes or lesions noted. Limitations: no limitations Course Vital Signs 02/23/20 11:44 Temperature 97.6 F Pulse Rate 89 Respiratory 16 Rate Blood Pressure 134/90 O2 Sat by Pulse 98 Oximetry Medical Decision Making - Medical Decision Making Patient is a 59-year-old male presenting with a headache 1 day. This is patient's 10th visit in the past few weeks for same complaint. He has been told multiple times that he needs to follow up with his PCP for continued medications. His exam is unremarkable, no acute neuro deficits. He's had recent brain imaging with no acute process. Patient is requesting food and At juana as well as his Fioricet with codeine. I discussed with patient that I would not give him a prescription for Ativan or a prescription for Fioricet with codeine. We will give him one tablet in the ER. I strongly recommended he call his regular doctor for continued visits. I discussed with patient that we cannot continue to treat his chronic condition. He is stable for discharge. He is in agreement with this plan of care. Case discussed with Dr. Gonzalez. Disposition Clinical Impression: Headache Disposition: HOME SELF-CARE Condition: Stable Instructions (If sedation given, give patient instructions): Acute Headache (ED) Additional Instructions: Please return to the Emergency Department if symptoms worsen or any other concerns. Follow-up with PCP. Is patient prescribed a controlled substance at d/c from ED?: No Referrals: None,Stated [Primary Care Provider] - 1-2 days
== END 2020-02-23 12:55 | disposition home or self-care (01) ==
LOC: EC 11:25
DX: R51 Headache (principal); J44.9 Chronic obstructive pulmonary disease, unspecified; F20.9 Schizophrenia, unspecified; Z79.51 Long term (current) use of inhaled steroids; Z79.899 Other long term (current) drug therapy; F17.200 Nicotine dependence, unspecified, uncomplicated; Z88.1 Allergy status to other antibiotic agents; Z91.040 Latex allergy status; Z88.0 Allergy status to penicillin; Z85.828 Personal history of other malignant neoplasm of skin; Z98.890 Other specified postprocedural states
CPT/HCPCS: 99283

== ENCOUNTER 2020-02-25 11:34 | Emergency (ER) | payer MEDICARE, OTHER ==
[2020-02-25 11:49] VITALS: RESP 18
--- NOTE | 2020-02-25 12:22 | ED ---
Psych HPI - General Chief Complaint: Psychiatric Symptoms Stated Complaint: mental health Time Seen by Provider: 02/25/20 11:56 Source: patient Mode of arrival: ambulatory - History of Present Illness Initial Comments: Patient is a 57-year-old male presenting to the emergency department for psychiatric evaluation. Patient states he has schizophrenia and has had difficult time dealing with a recently. States he takes Haldol and Zyprexa which seemed to be effective although not as of recently. He denies any visual or auditory hallucinations at this time. He denies any homicidal, suicidal thoughts or ideations. Patient states she was recently in the emergency department for headaches which have since resolved. - Related Data Home Medications Medication Instructions Recorded Confirmed Fluticasone/Vilanterol [Breo 1 puff INHALATION RT-DAILY 04/13/19 02/10/20 Ellipta 200-25 Mcg INH] Artificial Tears-Hypromellose 1 drop BOTH EYES BID 02/09/20 02/10/20 [Artificial Tear Drops] Haldol Decanoate 50mg/Ml Oil 50 mg IM Q14D 02/09/20 02/10/20 haloperidoL [Haldol] 2 mg PO DAILY 02/09/20 02/10/20 Previous Rx's Medication Instructions Recorded Albuterol Sulfate [Ventolin HFA] 2 puff INHALATION RT-Q6H PRN #1 02/02/20 inhaler Ipratropium-Albuterol Nebulize 3 ml INHALATION RT-QID #1 ampul.neb 02/02/20 [Duoneb 0.5 mg-3 mg/3 ml Soln] Montelukast [Singulair] 10 mg PO DAILY 30 Days tab 02/02/20 OLANZapine 7.5 mg PO DAILY 30 Days tablet 02/02/20 Acetaminophen Tab [Tylenol Tab] 500 mg PO Q6H #12 tablet 02/13/20 Fluticasone/Vilanterol [Breo 1 inhalation INHALATION DAILY #1 02/13/20 Ellipta 200-25 Mcg INH] device Ibuprofen [Motrin] 600 mg PO Q6HR PRN #20 tab 02/13/20 Buta/APAP/Caf/Cod [id number] 1 cap PO Q8H PRN 3 Days #9 cap 02/19/20 [Fioricet w/Cod [id number]] Allergies Allergy/AdvReac Type Severity Reaction Status Date / Time cephalexin monohydrate Allergy Unknown Verified 02/25/20 11:49 [From Keflex] clindamycin Allergy Unknown Verified 02/25/20 11:49 latex Allergy Rash/Hives Verified 02/25/20 11:49 Penicillins Allergy Rash/Hives Verified 02/25/20 11:49 Review of Systems ROS Statement: Those systems with pertinent positive or pertinent negative responses have been documented in the HPI. ROS Other: All systems not noted in ROS Statement are negative. Past Medical History Past Medical History: Cancer, COPD, Pneumonia Additional Past Medical History / Comment(s): Melanoma removed from L trunk, skin cancer removed from R side of nose, L eye blurry vision, constipation, hematuria/UTI, hypoglycemia. History of Any Multi-Drug Resistant Organisms: None Reported Past Surgical History: Adenoidectomy, Tonsillectomy Additional Past Surgical History / Comment(s): R side of nose skin cancer removal/skin graft, L trunk melanoma removed, colonoscopy. Past Anesthesia/Blood Transfusion Reactions: No Reported Reaction Past Psychological History: Schizophrenia Smoking Status: Current every day smoker Past Alcohol Use History: Daily, Heavy Past Drug Use History: None Reported - Past Family History Father Family Medical History: Diabetes Mellitus Additional Family Medical History / Comment(s): Father is living. Mother Family Medical History: CVA/TIA, Myocardial Infarction ([place]) Additional Family Medical History / Comment(s): Mother had a CVA, shingles. She is from the CVA. General Exam Limitations: no limitations General appearance: alert, in no apparent distress Head exam: Present: atraumatic, normocephalic, normal inspection Eye exam: Present: normal appearance, PERRL Pupils: Present: normal accommodation ENT exam: Present: normal exam, normal oropharynx, mucous membranes moist Neck exam: Present: normal inspection, full ROM Respiratory exam: Present: normal lung sounds bilaterally. Absent: respiratory distress Cardiovascular Exam: Present: regular rate, normal rhythm, normal heart sounds Extremities exam: Present: normal inspection, full ROM Back exam: Present: normal inspection, full ROM. Absent: tenderness Neurological exam: Present: alert, oriented X3, normal gait Psychiatric exam: Present: depressed, flat affect Skin exam: Present: warm, dry, intact, normal color Course Vital Signs 02/25/20 11:45 Temperature 97.7 F Pulse Rate 99 Respiratory 18 Rate Blood Pressure 139/93 O2 Sat by Pulse 99 Oximetry Medical Decision Making - Medical Decision Making patient 57-year-old male with history of schizophrenia presenting to the emergency department for psychiatric evaluation. Physical examination is unrem arkable. He doesn't have any suicidal, homicidal thoughts or ideations. EPS evaluated the patient and they recommend discharge. Patient will seek outpatient psychiatric care. safety plan discussed. Case discussed physician. Disposition Clinical Impression: Adjustment reaction of adult life Disposition: HOME SELF-CARE Condition: Stable Instructions (If sedation given, give patient instructions): Schizophrenia (ED) Additional Instructions: Follow with a psychiatrist. Return to emergency department if symptoms worsen. Is patient prescribed a controlled substance at d/c from ED?: No Referrals: None,Stated [Primary Care Provider] - 1-2 days Time of Disposition: 14:20
[2020-02-25 14:36] VITALS: BP 128/74; PULSE 89; TEMP 97.8
== END 2020-02-25 14:33 | disposition home or self-care (01) ==
LOC: EC 11:34
DX: F43.20 Adjustment disorder, unspecified (principal); F20.9 Schizophrenia, unspecified; J44.9 Chronic obstructive pulmonary disease, unspecified; F17.200 Nicotine dependence, unspecified, uncomplicated; Z79.899 Other long term (current) drug therapy; Z79.51 Long term (current) use of inhaled steroids; Z88.0 Allergy status to penicillin; Z91.040 Latex allergy status; Z88.1 Allergy status to other antibiotic agents; Z85.820 Personal history of malignant melanoma of skin; Z85.828 Personal history of other malignant neoplasm of skin
CPT/HCPCS: 82075; 99284

== ENCOUNTER 2020-03-04 00:51 | Emergency (ER) | payer MEDICARE, OTHER ==
[2020-03-04 01:05] VITALS: BP 127/86; PULSE 82; RESP 16; TEMP 98
[2020-03-04] MEDS ORDERED: LORazepam 1 MG TAB PO STA (01:17)
--- NOTE | 2020-03-04 01:18 | ED ---
Headache HPI - General Chief Complaint: Headache Stated Complaint: headache Mode of arrival: ambulatory Limitations: no limitations - History of Present Illness Initial Comments: Patient is a 59-year-old male with history of headaches and schizophrenia presenting to the emergency department with chief complaint of painful urination and headache. Patient states she was recently discharged from the mental health unit from this hospital. States the doctor advised him to take Ativan as needed. Patient states he has an appointment with a psychiatrist to [facility] on Friday. Patient also reports since yesterday developed dysuria but denies increased urgency or frequency. Denies any penile discharge, testicular pain or swelling. Patient states this is his typical headache and it goes away with Fioricet. Denies any visual changes, gait instability, chest pain, shortness of breath, one-sided weakness or paresthesias. Denies nausea vomiting diarrhea. Denies any back pain abdominal pain. - Related Data Home Medications Medication Instructions Recorded Confirmed Fluticasone/Vilanterol [Breo 1 puff INHALATION RT-DAILY 04/13/19 02/10/20 Ellipta 200-25 Mcg INH] Artificial Tears-Hypromellose 1 drop BOTH EYES BID 02/09/20 02/10/20 [Artificial Tear Drops] Haldol Decanoate 50mg/Ml Oil 50 mg IM Q14D 02/09/20 02/10/20 haloperidoL [Haldol] 2 mg PO DAILY 02/09/20 02/10/20 Previous Rx's Medication Instructions Recorded Albuterol Sulfate [Ventolin HFA] 2 puff INHALATION RT-Q6H PRN #1 02/02/20 inhaler Ipratropium-Albuterol Nebulize 3 ml INHALATION RT-QID #1 ampul.neb 02/02/20 [Duoneb 0.5 mg-3 mg/3 ml Soln] Montelukast [Singulair] 10 mg PO DAILY 30 Days tab 02/02/20 OLANZapine 7.5 mg PO DAILY 30 Days tablet 02/02/20 Acetaminophen Tab [Tylenol Tab] 500 mg PO Q6H #12 tablet 02/13/20 Fluticasone/Vilanterol [Breo 1 inhalation INHALATION DAILY #1 02/13/20 Ellipta 200-25 Mcg INH] device Ibuprofen [Motrin] 600 mg PO Q6HR PRN #20 tab 02/13/20 Buta/APAP/Caf/Cod [id number] 1 cap PO Q8H PRN 3 Days #9 cap 02/19/20 [Fioricet w/Cod [id number]] Allergies Allergy/AdvReac Type Severity Reaction Status Date / Time cephalexin monohydrate Allergy Unknown Verified 03/04/20 01:05 [From Keflex] clindamycin Allergy Unknown Verified 03/04/20 01:05 latex Allergy Rash/Hives Verified 03/04/20 01:05 Penicillins Allergy Rash/Hives Verified 03/04/20 01:05 Review of Systems ROS Statement: Those systems with pertinent positive or pertinent negative responses have been documented in the HPI. ROS Other: All systems not noted in ROS Statement are negative. Past Medical History Past Medical History: Cancer, COPD, Pneumonia Additional Past Medical History / Comment(s): Melanoma removed from L trunk, skin cancer removed from R side of nose, L eye blurry vision, constipation, hematuria/UTI, hypoglycemia. History of Any Multi-Drug Resistant Organisms: None Reported Past Surgical History: Adenoidectomy, Tonsillectomy Additional Past Surgical History / Comment(s): R side of nose skin cancer removal/skin graft, L trunk melanoma removed, colonoscopy. Past Anesthesia/Blood Transfusion Reactions: No Reported Reaction Past Psychological History: Schizophrenia Smoking Status: Current every day smoker Past Alcohol Use History: Daily, Heavy Past Drug Use History: None Reported - Past Family History Father Family Medical History: Diabetes Mellitus Additional Family Medical History / Comment(s): Father is living. Mother Family Medical History: CVA/TIA, Myocardial Infarction ([place]) Additional Family Medical History / Comment(s): Mother had a CVA, shingles. She is from the CVA. General Exam Limitations: no limitations General appearance: alert, in no apparent distress Head exam: Present: atraumatic, normocephalic, normal inspection Eye exam: Present: normal appearance, PERRL, EOMI Pupils: Present: normal accommodation ENT exam: Present: normal exam, normal oropharynx, mucous membranes moist Neck exam: Present: normal inspection, full ROM. Absent: tenderness Respiratory exam: Present: normal lung sounds bilaterally. Absent: respiratory distress, wheezes Cardiovascular Exam: Present: regular rate, normal rhythm, normal heart sounds GI/Abdominal exam: Present: soft. Absent: distended, tenderness, guarding Extremities exam: Present: normal inspection, full ROM. Absent: tenderness Back exam: Present: normal inspection, full ROM. Absent: tenderness, CVA tenderness (R), CVA tenderness (L) Neurological exam: Present: alert, oriented X3 Psychiatric exam: Present: normal affect, normal mood Skin exam: Present: warm, dry, intact, normal color Course Vital Signs 03/04/20 01:03 Temperature 98.0 F Pulse Rate 82 Respiratory 16 Rate Blood Pressure 127/86 O2 Sat by Pulse 99 Oximetry Medical Decision Making - Medical Decision Making Patient is a 59-year-old male with history of schizophrenia and headaches presenting to the emergency department with chief complaint of headache and painful urination. He only has dysuria but no frequency or urgency. No testicular pain, swelling, penile discharge. UA is unremarkable. Culture is pending. Patient was given furicet and Ativan. He will follow up with his psychiatrist on Friday at [facility]. Return parameters thoroughly discussed the patient is understanding and agreeable. Case discussed with physician. - Lab Data Lab Results 03/04/20 Range/Units 01:22 Urine Color Light Yellow Urine Appearance Clear (Clear) Urine pH 7.0 (5.0-8.0) Ur Specific [place] 1.005 (1.001-1.035) Urine Protein Negative (Negative) Urine Glucose (UA) Negative (Negative) Urine Ketones Negative (Negative) Urine Blood Negative (Negative) Urine Nitrite Negative (Negative) Urine Bilirubin Negative (Negative) Urine Urobilinogen <2.0 (<2.0) mg/dL Ur Leukocyte Esterase Negative (Negative) Disposition Clinical Impression: Headache, Dysuria Disposition: HOME SELF-CARE Condition: Stable Instructions (If sedation given, give patient instructions): Acute Headache (ED) Additional Instructions: Follow-up with your psychiatrist. Return to emergency department if symptoms worsen. Is patient prescribed a controlled substance at d/c from ED?: No Referrals: None,Stated [REFERRING] - 1-2 days Time of Disposition: 01:47
[2020-03-04] MEDS ORDERED: BUTALB/APAP/CAFF 50-325-40MG TAB PO ONE (01:30)
[2020-03-04 01:42] LABS: Appearance,Urine Clear (Clear); Bilirubin,Urine Negative (Negative); Blood,Urine Negative (Negative); Color,Urine Light Yellow; Glucose,Urine (UA) Negative (Negative); Ketones,Urine Negative (Negative); Leukocyte Esterase,Urine Negative (Negative); Nitrite,Urine Negative (Negative); Protein,Urine Negative (Negative); Specific Gravity,Urine 1.005 (1.001-1.035); Urobilinogen,Urine <2.0 mg/dL (<2.0)
== END 2020-03-04 02:04 | disposition home or self-care (01) ==
LOC: EC 00:51
DX: R51 Headache (principal); R30.0 Dysuria; F20.9 Schizophrenia, unspecified; J44.9 Chronic obstructive pulmonary disease, unspecified; F17.200 Nicotine dependence, unspecified, uncomplicated; Z79.899 Other long term (current) drug therapy; Z79.51 Long term (current) use of inhaled steroids; Z88.1 Allergy status to other antibiotic agents; Z91.040 Latex allergy status; Z88.0 Allergy status to penicillin; Z85.828 Personal history of other malignant neoplasm of skin; Z98.890 Other specified postprocedural states
CPT/HCPCS: 81003; 99283; 99284

== ENCOUNTER 2020-03-04 18:54 | Emergency (ER) | payer MEDICARE, OTHER ==
[2020-03-04 19:13] VITALS: BP 110/73; PULSE 97; RESP 18; TEMP 97.8
--- NOTE | 2020-03-04 19:39 | ED ---
General Adult HPI - General Chief complaint: Headache Stated complaint: headache Time Seen by Provider: 03/04/20 19:03 Source: patient Mode of arrival: ambulatory Limitations: no limitations - History of Present Illness Initial comments: Patient presents the ED complaining of having a diffuse, 10/10 headache for the past 3 hours or so. Patient states that he has had similar headaches intermittently for quite some time now. Patient has had numerous ED presentations for similar headaches over the past month. Patient is requesting Fioricet with codeine and Ativan for treatment of his headache. Patient denies trauma or injury, sudden onset of headache, LOC, neck pain or stiffness, fever or chills, focal numbness/weakness/neuro deficit, visual changes, speech difficulty, chest pain, dyspnea, dizziness, abdominal pain, nausea or vomiting, or any other symptoms or complaint. - Related Data Home Medications Medication Instructions Recorded Confirmed Fluticasone/Vilanterol [Breo 1 puff INHALATION RT-DAILY 04/13/19 02/10/20 Ellipta 200-25 Mcg INH] Artificial Tears-Hypromellose 1 drop BOTH EYES BID 02/09/20 02/10/20 [Artificial Tear Drops] Haldol Decanoate 50mg/Ml Oil 50 mg IM Q14D 02/09/20 02/10/20 haloperidoL [Haldol] 2 mg PO DAILY 02/09/20 02/10/20 Previous Rx's Medication Instructions Recorded Albuterol Sulfate [Ventolin HFA] 2 puff INHALATION RT-Q6H PRN #1 02/02/20 inhaler Ipratropium-Albuterol Nebulize 3 ml INHALATION RT-QID #1 ampul.neb 02/02/20 [Duoneb 0.5 mg-3 mg/3 ml Soln] Montelukast [Singulair] 10 mg PO DAILY 30 Days tab 02/02/20 OLANZapine 7.5 mg PO DAILY 30 Days tablet 02/02/20 Acetaminophen Tab [Tylenol Tab] 500 mg PO Q6H #12 tablet 02/13/20 Fluticasone/Vilanterol [Breo 1 inhalation INHALATION DAILY #1 02/13/20 Ellipta 200-25 Mcg INH] device Ibuprofen [Motrin] 600 mg PO Q6HR PRN #20 tab 02/13/20 Buta/APAP/Caf/Cod [id number] 1 cap PO Q8H PRN 3 Days #9 cap 02/19/20 [Fioricet w/Cod [id number]] Allergies Allergy/AdvReac Type Severity Reaction Status Date / Time cephalexin monohydrate Allergy Unknown Verified 03/04/20 19:00 [From Keflex] clindamycin Allergy Unknown Verified 03/04/20 19:00 latex Allergy Rash/Hives Verified 03/04/20 19:00 Penicillins Allergy Rash/Hives Verified 03/04/20 19:00 Review of Systems ROS Statement: Those systems with pertinent positive or pertinent negative responses have been documented in the HPI. ROS Other: All systems not noted in ROS Statement are negative. Past Medical History Past Medical History: Cancer, COPD, Pneumonia Additional Past Medical History / Comment(s): Melanoma removed from L trunk, skin cancer removed from R side of nose, L eye blurry vision, constipation, hematuria/UTI, hypoglycemia. History of Any Multi-Drug Resistant Organisms: None Reported Past Surgical History: Adenoidectomy, Tonsillectomy Additional Past Surgical History / Comment(s): R side of nose skin cancer removal/skin graft, L trunk melanoma removed, colonoscopy. Past Anesthesia/Blood Transfusion Reactions: No Reported Reaction Past Psychological History: Schizophrenia Smoking Status: Current every day smoker Past Alcohol Use History: Daily, Occasional Past Drug Use History: None Reported - Past Family History Father Family Medical History: Diabetes Mellitus Additional Family Medical History / Comment(s): Father is living. Mother Family Medical History: CVA/TIA, Myocardial Infarction ([place]) Additional Family Medical History / Comment(s): Mother had a CVA, shingles. She is from the [place]A. General Exam Limitations: no limitations General appearance: alert, in no apparent distress Head exam: Present: atraumatic, normocephalic Eye exam: Present: normal appearance, PERRL, EOMI ENT exam: Present: mucous membranes moist Neck exam: Present: other (No nuchal rigidity or meningeal signs are present on examination). Absent: tenderness, meningismus Respiratory exam: Present: normal lung sounds bilaterally. Absent: respiratory distress, wheezes, rales, rhonchi Cardiovascular Exam: Present: regular rate, normal rhythm, normal heart sounds, other (Normal radial pulses bilaterally) GI/Abdominal exam: Present: soft. Absent: distended, tenderness Extremities exam: Present: full ROM. Absent: tenderness, pedal edema, calf tenderness Neurological exam: Present: alert, oriented X3, CN II-XII intact. Absent: motor sensory deficit Psychiatric exam: Present: normal mood Skin exam: Present: warm, dry, intact, normal color Course Vital Signs 03/04/20 18:57 Temperature 97.8 F Pulse Rate 97 Respiratory 18 Rate Blood Pressure 110/73 O2 Sat by Pulse 98 Oximetry Medical Decision Making - Medical Decision Making I explained to the patient that I would not provide him with prescriptions for Fioricet with codeine or Ativan as he is requesting given his headaches are chronic in nature, and he has been told this on prior ED presentations. At this point, the patient decided that he wanted to leave AMA. Patient is A and O 4 and completely coherent at this time. I have explained to the patient the risks of leaving AMA, including further morbidity and even in the worse case situation. Patient is able to verbalize understanding of these risks, and he states that he still wishes to leave AMA. Patient was counseled about headaches, and he was instructed to return to the ED should he change his mind or develop new or worsening symptoms. Patient was also instructed to follow up closely with his primary care provider. Patient feels comfortable with this plan. Disposition Clinical Impression: Headache Disposition: Left Against Medical Advice Condition: Stable Instructions (If sedation given, give patient instructions): Acute Headache (ED) Additional Instructions: Return to the ER immediately if you change your mind or if you develop new or worsening symptoms. Follow up closely with your primary care provider. Is patient prescribed a controlled substance at d/c from ED?: No Referrals: Navneet King [Primary Care Provider] - 1-2 days Time of Disposition: 19:29
== END 2020-03-04 19:33 | disposition left against medical advice (07) ==
LOC: EC 18:54
DX: R51 Headache (principal); H53.8 Other visual disturbances; F17.200 Nicotine dependence, unspecified, uncomplicated; J44.9 Chronic obstructive pulmonary disease, unspecified; F20.9 Schizophrenia, unspecified; Z79.51 Long term (current) use of inhaled steroids; Z79.899 Other long term (current) drug therapy; Z88.1 Allergy status to other antibiotic agents; Z91.040 Latex allergy status; Z88.0 Allergy status to penicillin; Z85.828 Personal history of other malignant neoplasm of skin; Z98.890 Other specified postprocedural states
CPT/HCPCS: 99283

== ENCOUNTER 2020-03-24 22:47 | Emergency (ER) | payer MEDICARE, OTHER ==
[2020-03-24 22:59] VITALS: RESP 18
--- NOTE | 2020-03-25 00:03 | ED ---
Psych HPI - General Chief Complaint: Psychiatric Symptoms Stated Complaint: MENTAL HEALTH Time Seen by Provider: 03/24/20 23:24 Source: patient Mode of arrival: ambulatory - History of Present Illness Initial Comments: 59-year-old male presenting for psychiatric evaluation. Patient states he needs Fioricet and Ativan he states he is out palpation. He states he needs a psychiatric evaluation as they usually give him these medications. Patient denies suicidal or homicidal ideation he states he is concerned he is being evicted. Admits to headaache, states he has them daily and struggles with chronic headahces, denies changes, sudden onset, visual or speech changes, denies weakness or sensation deficits of the extremities. Patient denies chest pain shortness of breath nausea vomiting hallucinations dizziness shakiness or additional complaints. Patient appears to be at baseline on arrival as I am familar with the patient. - Related Data Home Medications Medication Instructions Recorded Confirmed Fluticasone/Vilanterol [Breo 1 puff INHALATION RT-DAILY 04/13/19 02/10/20 Ellipta 200-25 Mcg INH] Artificial Tears-Hypromellose 1 drop BOTH EYES BID 02/09/20 02/10/20 [Artificial Tear Drops] Haldol Decanoate 50mg/Ml Oil 50 mg IM Q14D 02/09/20 02/10/20 haloperidoL [Haldol] 2 mg PO DAILY 02/09/20 02/10/20 Previous Rx's Medication Instructions Recorded Albuterol Sulfate [Ventolin HFA] 2 puff INHALATION RT-Q6H PRN #1 02/02/20 inhaler Ipratropium-Albuterol Nebulize 3 ml INHALATION RT-QID #1 ampul.neb 02/02/20 [Duoneb 0.5 mg-3 mg/3 ml Soln] Montelukast [Singulair] 10 mg PO DAILY 30 Days tab 02/02/20 OLANZapine 7.5 mg PO DAILY 30 Days tablet 02/02/20 Acetaminophen Tab [Tylenol Tab] 500 mg PO Q6H #12 tablet 02/13/20 Fluticasone/Vilanterol [Breo 1 inhalation INHALATION DAILY #1 02/13/20 Ellipta 200-25 Mcg INH] device Ibuprofen [Motrin] 600 mg PO Q6HR PRN #20 tab 02/13/20 Buta/APAP/Caf/Cod 33-960-55-30 1 cap PO Q8H PRN 3 Days #9 cap 02/19/20 [Fioricet w/Cod 93-433-90-30MG] Allergies Allergy/AdvReac Type Severity Reaction Status Date / Time cephalexin monohydrate Allergy Unknown Verified 03/04/20 19:00 [From Keflex] clindamycin Allergy Unknown Verified 03/04/20 19:00 latex Allergy Rash/Hives Verified 03/04/20 19:00 Penicillins Allergy Rash/Hives Verified 03/04/20 19:00 Review of Systems ROS Statement: Those systems with pertinent positive or pertinent negative responses have been documented in the HPI. ROS Other: All systems not noted in ROS Statement are negative. Past Medical History Past Medical History: Cancer, COPD, Pneumonia Additional Past Medical History / Comment(s): Melanoma removed from L trunk, skin cancer removed from R side of nose, L eye blurry vision, constipation, hematuria/UTI, hypoglycemia. History of Any Multi-Drug Resistant Organisms: None Reported Past Surgical History: Adenoidectomy, Tonsillectomy Additional Past Surgical History / Comment(s): R side of nose skin cancer removal/skin graft, L trunk melanoma removed, colonoscopy. Past Anesthesia/Blood Transfusion Reactions: No Reported Reaction Past Psychological History: Schizophrenia Smoking Status: Current every day smoker Past Alcohol Use History: Daily, Occasional Past Drug Use History: None Reported - Past Family History Father Family Medical History: Diabetes Mellitus Additional Family Medical History / Comment(s): Father is living. Mother Family Medical History: CVA/TIA, Myocardial Infarction ([place]) Additional Family Medical History / Comment(s): Mother had a CVA, shingles. She is from the CVA. General Exam - General Exam Comments Initial Comments: General: The patient is awake and alert, in no distress, and does not appear acutely ill. Eye: Pupils are equal, round and reactive to light, extra-ocular movements are intact. No nystagmus. There is normal conjunctiva bilaterally. No signs of icterus. Ears, nose, mouth and throat: There are moist mucous membranes and no oral lesions. Neck: The neck is supple, there is no tenderness or JVD. Cardiovascular: There is a regular rate and rhythm. No murmur, rub or gallop is appreciated. Respiratory: Lungs are clear to auscultation, respirations are non-labored, breath sounds are equal. No wheezes, stridor, rales, or rhonchi. Gastrointestinal: Soft, non-distended, non-tender abdomen without masses or organomegaly noted. There is no rebound or guarding present Musculoskeletal: Normal ROM, no tenderness. Strength 5/5. Sensation intact. Pulses equal bilaterally 2+. Neurological: A&O x 3. CN II-XII intact grossly, There are no obvious motor or sensory deficits. Coordination appears grossly intact. Speech is normal. Skin: Skin is warm and dry and no rashes or lesions are noted. Psychiatric: Cooperative, appropriate mood & affect, normal judgment. Limitations: no limitations Course Vital Signs 03/24/20 03/25/20 22:55 02:28 Temperature 98.3 F 97.9 F Pulse Rate 94 115 H Respiratory 18 18 Rate Blood Pressure 148/78 133/87 O2 Sat by Pulse 98 97 Oximetry Medical Decision Making - Medical Decision Making Patient states he needs EPS evaluation. Smells of alcohol.. Sober at 0000. Patient placed on CIWA protocols as he drinks heavily. given ativan states he feels much better. Patient evaluated by EPS after clearance. EPS recommended discharge, - Lab Data Lab Results 03/25/20 Range/Units 00:25 Urine Color Colorless Urine Appearance Clear (Clear) Urine pH 7.0 (5.0-8.0) Ur Specific [place] 1.001 (1.001-1.035) Urine Protein Negative (Negative) Urine Glucose (UA) Negative (Negative) Urine Ketones Negative (Negative) Urine Blood Negative (Negative) Urine Nitrite Negative (Negative) Urine Bilirubin Negative (Negative) Urine Urobilinogen <2.0 (<2.0) mg/dL Ur Leukocyte Esterase Negative (Negative) Urine Opiates Screen Not Detected (NotDetected) Ur Oxycodone Screen Not Detected (NotDetected) Urine Methadone Screen Not Detected (NotDetected) Ur Propoxyphene Screen Not Detected (NotDetected) Ur Barbiturates Screen Not Detected (NotDetected) U Tricyclic Antidepress Not Detected (NotDetected) Ur Phencyclidine Scrn Not Detected (NotDetected) Ur Amphetamines Screen Not Detected (NotDetected) U Methamphetamines Scrn Not Detected (NotDetected) U Benzodiazepines Scrn Not Detected (NotDetected) Urine Cocaine Screen Not Detected (NotDetected) U Marijuana (THC) Screen Not Detected (NotDetected) Disposition Clinical Impression: Psychiatric complaint, Chronic headaches Disposition: HOME SELF-CARE Condition: Good Instructions (If sedation given, give patient instructions): Medical Clearance for Psychiatric Care (ED) Additional Instructions: Please use medication as discussed. Please follow-up with family doctor in the next 2 days. Please return to emergency room if the symptoms increase or worsen or for any other concerns. Is patient prescribed a controlled substance at d/c from ED?: No Referrals: Navneet King [Primary Care Provider] - 1-2 days Time of Disposition: 02:09
[2020-03-25] MEDS ORDERED: THIAMINE 100 MG/ML 2 ML VIAL IM STA (00:04)
[2020-03-25] MEDS ORDERED: LORazepam 2 MG/ML INJ IV PRN ×3 (00:04)
[2020-03-25 01:04] LABS: Appearance,Urine Clear (Clear); Bilirubin,Urine Negative (Negative); Blood,Urine Negative (Negative); Color,Urine Colorless; Glucose,Urine (UA) Negative (Negative); Ketones,Urine Negative (Negative); Leukocyte Esterase,Urine Negative (Negative); Nitrite,Urine Negative (Negative); Protein,Urine Negative (Negative); Specific Gravity,Urine 1.001 (1.001-1.035); Urobilinogen,Urine <2.0 mg/dL (<2.0)
[2020-03-25 01:13] LABS: Amphetamine Screen,Urine Not Detected (NotDetected); Barbiturate Screen,Urine Not Detected (NotDetected); Benzodiazepines Screen,Urine Not Detected (NotDetected); Cocaine Screen,Urine Not Detected (NotDetected); Methadone Screen, Urine Not Detected (NotDetected); Opiate Screen,Urine Not Detected (NotDetected); Oxycodone Screen, Urine Not Detected (NotDetected); Phencyclidine Screen,Urine Not Detected (NotDetected); Tricyclic Antidepressant,Urine Not Detected (NotDetected); Urn Cannabinoid Scrn Not Detected (NotDetected)
[2020-03-25 02:29] VITALS: BP 133/87; PULSE 115; TEMP 97.9
[2020-03-25] MEDS ORDERED: THIAMINE 100 MG TAB PO SCH (17:30)
== END 2020-03-25 02:29 | disposition home or self-care (01) ==
LOC: SUPCPDRO 22:47 → EC 22:47
DX: G89.29 Other chronic pain (principal); R51 Headache; Z13.39 Encounter for screening examination for other mental health and behavioral disorders; F20.9 Schizophrenia, unspecified; J44.9 Chronic obstructive pulmonary disease, unspecified; F17.200 Nicotine dependence, unspecified, uncomplicated; Z79.51 Long term (current) use of inhaled steroids; Z79.899 Other long term (current) drug therapy; Z88.1 Allergy status to other antibiotic agents; Z91.040 Latex allergy status; Z88.0 Allergy status to penicillin; Z85.828 Personal history of other malignant neoplasm of skin; Z98.890 Other specified postprocedural states
CPT/HCPCS: 96372; 99284 ×2; 82075; 96360; 81003; 80306; J3411

== ENCOUNTER 2020-06-17 20:26 | Emergency (ER) | payer MEDICARE, OTHER ==
[2020-06-17 20:33] VITALS: BP 121/69; PULSE 94; RESP 16; TEMP 97.8
[2020-06-17] MEDS ORDERED: TOBRAMYCIN 0.3% OPHTH DROPS 5 ML BTL LEFT EYE STA (20:59)
--- NOTE | 2020-06-17 21:04 | ED ---
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 Patient reports that he has had symptoms for the past day. He reports he woke up with his eye crusted over. He denies any other symptoms. Denies visual changes. Denies pain with eye movements. - Related Data Home Medications Medication Instructions Recorded Confirmed Fluticasone/Vilanterol [Breo 1 puff INHALATION RT-DAILY 04/13/19 04/06/20 Ellipta 200-25 Mcg INH] Haldol Decanoate 50mg/Ml Oil 50 mg IM Q14D 02/09/20 04/06/20 haloperidoL [Haldol] 2 mg PO DAILY 02/09/20 04/06/20 Previous Rx's Medication Instructions Recorded Albuterol Sulfate [Ventolin HFA] 2 puff INHALATION RT-Q6H PRN #1 02/02/20 inhaler OLANZapine 7.5 mg PO DAILY 30 Days tablet 02/02/20 Tobramycin 0.3% Ophth Soln [Tobrex 1 - 2 drop BOTH EYES Q4H #1 bottle 06/17/20 0.3% Ophth Soln] Tobramycin 0.3% Ophth Soln [Tobrex 1 - 2 drop BOTH EYES Q4H #1 bottle 06/17/20 0.3% Ophth Soln] Allergies Allergy/AdvReac Type Severity Reaction Status Date / Time cephalexin monohydrate Allergy Unknown Verified 06/17/20 20:30 [From Keflex] clindamycin Allergy Unknown Verified 06/17/20 20:30 latex Allergy Rash/Hives Verified 06/17/20 20:30 Penicillins Allergy Rash/Hives Verified 06/17/20 20:30 Review of Systems ROS Statement: Those systems with pertinent positive or pertinent negative responses have been documented in the HPI. ROS Other: All systems not noted in ROS Statement are negative. Past Medical History Past Medical History: Cancer, COPD, Pneumonia Additional Past Medical History / Comment(s): Melanoma removed from L trunk, skin cancer removed from R side of nose, L eye blurry vision, constipation, hematuria/UTI, hypoglycemia. History of Any Multi-Drug Resistant Organisms: None Reported Past Surgical History: Adenoidectomy, Tonsillectomy Additional Past Surgical History / Comment(s): R side of nose skin cancer removal/skin graft, L trunk melanoma removed, colonoscopy. Past Anesthesia/Blood Transfusion Reactions: No Reported Reaction Past Psychological History: No Psychological Hx Reported, Schizophrenia Smoking Status: Current every day smoker Past Alcohol Use History: Occasional Past Drug Use History: None Reported - Past Family History Father Family Medical History: Diabetes Mellitus Additional Family Medical History / Comment(s): Father is living. Mother Family Medical History: CVA/TIA, Myocardial Infarction ([place]) Additional Family Medical History / Comment(s): Mother had a CVA, shingles. She is from the CVA. General Exam - General Exam Comments Initial Comments: Vision 10-year-old male. Alert and oriented. No distress. Limitations: no limitations General appearance: alert, in no apparent distress Head exam: Present: atraumatic, normocephalic, normal inspection Eye exam: Present: normal appearance, PERRL, EOMI, other (Left eye conjunctival injection erythema. Evidence of purulent drainage.). Absent: scleral icterus, conjunctival injection, periorbital swelling ENT exam: Present: normal exam, mucous membranes moist Neck exam: Present: normal inspection. Absent: tenderness, meningismus, lymphadenopathy Respiratory exam: Present: normal lung sounds bilaterally. Absent: respiratory distress, wheezes, rales, rhonchi, stridor Cardiovascular Exam: Present: regular rate, normal rhythm, normal heart sounds. Absent: systolic murmur, diastolic murmur, rubs, gallop, clicks GI/Abdominal exam: Present: soft, normal bowel sounds. Absent: distended, tenderness, guarding, rebound, rigid Extremities exam: Present: normal inspection, full ROM, normal capillary refill. Absent: tenderness, pedal edema, joint swelling, calf tenderness Back exam: Present: normal inspection Neurological exam: Present: alert, oriented X3, CN II-XII intact Psychiatric exam: Present: normal affect, normal mood Course Vital Signs 06/17/20 20:30 Temperature 97.8 F Pulse Rate 94 Respiratory 16 Rate Blood Pressure 121/69 O2 Sat by Pulse 97 Oximetry Medical Decision Making - Medical Decision Making 60-year-old male presents with her today for left eye drainage and pain. Patient has evidence of conjunctivitis likely bacterial with due to the purulent drainage. Patient started on torsemide tonight ointment. Discussed return parameters and following up with PCP or ophthalmology. Disposition Clinical Impression: Conjunctivitis Disposition: HOME SELF-CARE Condition: Good Instructions (If sedation given, give patient instructions): Conjunctivitis (ED) Additional Instructions: The eye drops in the eye every 4 hours. Patient should return to emergency department if any alarming signs or symptoms occur. Prescriptions: Tobramycin 0.3% Ophth Soln [Tobrex 0.3% Ophth Soln] 1 - 2 drop BOTH EYES Q4H #1 bottle Tobramycin 0.3% Ophth Soln [Tobrex 0.3% Ophth Soln] 1 - 2 drop BOTH EYES Q4H #1 bottle Is patient prescribed a controlled substance at d/c from ED?: No Referrals: Navneet King [Primary Care Provider] - 1-2 days Time of Disposition: 21:01
== END 2020-06-17 21:34 | disposition home or self-care (01) ==
LOC: EC 20:26
DX: H10.9 Unspecified conjunctivitis (principal); J44.9 Chronic obstructive pulmonary disease, unspecified; F17.200 Nicotine dependence, unspecified, uncomplicated; Z79.51 Long term (current) use of inhaled steroids; Z79.899 Other long term (current) drug therapy; Z88.0 Allergy status to penicillin; Z88.1 Allergy status to other antibiotic agents; Z91.040 Latex allergy status; Z85.820 Personal history of malignant melanoma of skin
CPT/HCPCS: 99283

== ENCOUNTER 2020-09-23 12:29 | Emergency (ER) | payer MEDICARE, OTHER ==
[2020-09-23 12:40] VITALS: BP 126/72; PULSE 91; RESP 18; TEMP 97.6
[2020-09-23] MEDS ORDERED: BUTA/APAP/CAF/COD 50-325-40-30 CAP PO STA (13:07)
--- NOTE | 2020-09-23 13:08 | ED ---
Headache HPI - General Chief Complaint: Headache Stated Complaint: headach Time Seen by Provider: 09/23/20 12:47 Mode of arrival: ambulatory Limitations: no limitations - History of Present Illness Initial Comments: 60-year-old male patient with past history significant for migraine headache presents to the emergency department today reporting a headache with a 10 out of 10 pain rating on the scale. Patient states the headache has been present for the last couple of days. States he is out of his usual migraine medications. States he generally takes Fioricet with codeine and is now for quite some time. States he does have an appointment with his primary care physician on Friday to get a refill. Patient denies any new symptoms with this headache. Denies any blurred or double vision. Denies nausea, vomiting, numbness, tingling, weakness. Denies any dizziness or fainting. States his headache is the same as previous is just out of his medication. Denies any recent head injury. Denies use of anticoagulants or antiplatelet medications. - Related Data Home Medications Medication Instructions Recorded Confirmed Fluticasone/Vilanterol [Breo 1 puff INHALATION RT-DAILY 04/13/19 04/06/20 Ellipta 200-25 Mcg INH] Haldol Decanoate 50mg/Ml Oil 50 mg IM Q14D 02/09/20 04/06/20 haloperidoL [Haldol] 2 mg PO DAILY 02/09/20 04/06/20 Previous Rx's Medication Instructions Recorded Albuterol Sulfate [Ventolin HFA] 2 puff INHALATION RT-Q6H PRN #1 02/02/20 inhaler OLANZapine 7.5 mg PO DAILY 30 Days tablet 02/02/20 Tobramycin 0.3% Ophth Soln [Tobrex 1 - 2 drop BOTH EYES Q4H #1 bottle 06/17/20 0.3% Ophth Soln] Tobramycin 0.3% Ophth Soln [Tobrex 1 - 2 drop BOTH EYES Q4H #1 bottle 06/17/20 0.3% Ophth Soln] Allergies Allergy/AdvReac Type Severity Reaction Status Date / Time cephalexin monohydrate Allergy Unknown Verified 09/23/20 12:40 [From Keflex] clindamycin Allergy Unknown Verified 09/23/20 12:40 latex Allergy Rash/Hives Verified 09/23/20 12:40 Penicillins Allergy Rash/Hives Verified 09/23/20 12:40 Review of Systems ROS Statement: Those systems with pertinent positive or pertinent negative responses have been documented in the HPI. ROS Other: All systems not noted in ROS Statement are negative. Past Medical History Past Medical History: Cancer, COPD, Pneumonia Additional Past Medical History / Comment(s): Melanoma removed from L trunk, skin cancer removed from R side of nose, L eye blurry vision, constipation, hematuria/UTI, hypoglycemia. migraines History of Any Multi-Drug Resistant Organisms: None Reported Past Surgical History: Adenoidectomy, Tonsillectomy Additional Past Surgical History / Comment(s): R side of nose skin cancer removal/skin graft, L trunk melanoma removed, colonoscopy. Past Anesthesia/Blood Transfusion Reactions: No Reported Reaction Past Psychological History: No Psychological Hx Reported Smoking Status: Current every day smoker Past Alcohol Use History: Occasional Past Drug Use History: None Reported - Past Family History Father Family Medical History: Diabetes Mellitus Additional Family Medical History / Comment(s): Father is living. Mother Family Medical History: CVA/TIA, Myocardial Infarction ([place]) Additional Family Medical History / Comment(s): Mother had a CVA, shingles. She is from the CVA. General Exam Limitations: no limitations General appearance: alert, in no apparent distress, other (This is a well- developed, well-nourished adult male patient in no acute distress. Vital signs upon presentation are temperature 97.6F, pulse 91, respirations 18, blood pressure 126/72, pulse ox 99% on room air.) Eye exam: Present: normal appearance, PERRL, EOMI. Absent: scleral icterus, conjunctival injection, nystagmus, periorbital swelling Respiratory exam: Present: normal lung sounds bilaterally. Absent: respiratory distress, wheezes, rales, rhonchi, stridor Cardiovascular Exam: Present: regular rate, normal rhythm, normal heart sounds. Absent: systolic murmur, diastolic murmur, rubs, gallop, clicks Neurological exam: Present: alert, oriented X3, CN II-XII intact Expanded Speech: Present: fluid speech Cerebellar function: Finger to Nose: Normal Motor strength exam: RUE: 5, LUE: 5, RLE: 5, LLE: 5 Eye Response: (4) open spontaneously Motor Response: (6) obeys commands Verbal Response: (5) oriented Rod Total: 15 Psychiatric exam: Present: normal affect, normal mood Skin exam: Present: warm, dry, intact, normal color. Absent: rash Course Vital Signs 09/23/20 12:37 Temperature 97.6 F Pulse Rate 91 Respiratory 18 Rate Blood Pressure 126/72 O2 Sat by Pulse 99 Oximetry Medical Decision Making - Medical Decision Making 60-year-old male patient with past medical history significant for migraine headache presents to the emergency department today reporting headache. States the pain is at couple episodes entire head. This is not the worse headache of his life. Denies any sudden onset of head pain. Denies any recent injury. Physical examination is unremarkable. He is neurologically intact with no focal deficits. He is requesting Fioricet with codeine. He'll be given 1 tablet here and discharged popped his primary care physician. He does have an appointment on Friday. Return parameters were discussed in detail. He verbalizes understanding and agrees with this plan. My attending is Dr. Gonzalez Disposition Clinical Impression: Migraine Disposition: HOME SELF-CARE Condition: Good Instructions (If sedation given, give patient instructions): Migraine Headache (ED) Additional Instructions: Follow-up with your primary care physician for recheck on Friday as you have planned. Return to the emergency department for any new, worsening, or concerning symptoms. Is patient prescribed a controlled substance at d/c from ED?: No Referrals: Jose Reyes MD [Primary Care Provider] - 1-2 days Time of Disposition: 13:07
== END 2020-09-23 13:42 | disposition home or self-care (01) ==
LOC: EC 12:29
DX: G43.909 Migraine, unspecified, not intractable, without status migrainosus (principal); T39.1X6A Underdosing of 4-Aminophenol derivatives, initial encounter; J44.9 Chronic obstructive pulmonary disease, unspecified; F17.200 Nicotine dependence, unspecified, uncomplicated; K59.00 Constipation, unspecified; H53.8 Other visual disturbances; Z87.01 Personal history of pneumonia (recurrent); Z87.440 Personal history of urinary (tract) infections; Z85.820 Personal history of malignant melanoma of skin; Z79.899 Other long term (current) drug therapy; Z88.0 Allergy status to penicillin; Z88.1 Allergy status to other antibiotic agents; Z91.040 Latex allergy status; Z83.3 Family history of diabetes mellitus; Z82.49 Family history of ischemic heart disease and other diseases of the circulatory system; Z82.3 Family history of stroke; Z83.1 Family history of other infectious and parasitic diseases
CPT/HCPCS: 99283

== ENCOUNTER 2020-10-08 09:11 | Emergency (ER) | payer MEDICARE, OTHER ==
[2020-10-08 09:22] VITALS: RESP 18; TEMP 98
[2020-10-08] MEDS ORDERED: BUTA/APAP/CAF/COD 50-325-40-30 CAP PO STA (10:23)
--- NOTE | 2020-10-08 10:24 | ED ---
Headache HPI - General Chief Complaint: Headache Stated Complaint: HEADACHE Time Seen by Provider: 10/08/20 10:10 Source: patient, RN notes reviewed Mode of arrival: ambulatory Limitations: no limitations - History of Present Illness Initial Comments: This a 60-year-old male presents emergency from chief complaint of migraine headache. Patient has chronic migraine states this is not out of the usual headache. He states that he just is out of his firocet with codeine. He states that he cannot get a hold with his PCP today on a Friday. Patient that she'll contact them tomorrow. Patient is requesting one firocet that for his migraine headache. Denies any visual disturbances, focal weakness, nausea vomiting. He states is diffuse normal headache. It was not sudden onset. - Related Data Home Medications Medication Instructions Recorded Confirmed Fluticasone/Vilanterol [Breo 1 puff INHALATION RT-DAILY 04/13/19 04/06/20 Ellipta 200-25 Mcg INH] Haldol Decanoate 50mg/Ml Oil 50 mg IM Q14D 02/09/20 04/06/20 haloperidoL [Haldol] 2 mg PO DAILY 02/09/20 04/06/20 Previous Rx's Medication Instructions Recorded Albuterol Sulfate [Ventolin HFA] 2 puff INHALATION RT-Q6H PRN #1 02/02/20 inhaler OLANZapine 7.5 mg PO DAILY 30 Days tablet 02/02/20 Tobramycin 0.3% Ophth Soln [Tobrex 1 - 2 drop BOTH EYES Q4H #1 bottle 06/17/20 0.3% Ophth Soln] Tobramycin 0.3% Ophth Soln [Tobrex 1 - 2 drop BOTH EYES Q4H #1 bottle 06/17/20 0.3% Ophth Soln] Allergies Allergy/AdvReac Type Severity Reaction Status Date / Time cephalexin monohydrate Allergy Unknown Verified 10/08/20 09:19 [From Keflex] clindamycin Allergy Unknown Verified 10/08/20 09:19 latex Allergy Rash/Hives Verified 10/08/20 09:19 Penicillins Allergy Rash/Hives Verified 10/08/20 09:19 Review of Systems ROS Statement: Those systems with pertinent positive or pertinent negative responses have been documented in the HPI. ROS Other: All systems not noted in ROS Statement are negative. Past Medical History Past Medical History: Cancer, COPD, Pneumonia Additional Past Medical History / Comment(s): Melanoma removed from L trunk, skin cancer removed from R side of nose, L eye blurry vision, constipation, hematuria/UTI, hypoglycemia. migraines History of Any Multi-Drug Resistant Organisms: None Reported Past Surgical History: Adenoidectomy, Tonsillectomy Additional Past Surgical History / Comment(s): R side of nose skin cancer removal/skin graft, L trunk melanoma removed, colonoscopy. Past Anesthesia/Blood Transfusion Reactions: No Reported Reaction Past Psychological History: No Psychological Hx Reported Smoking Status: Current every day smoker Past Alcohol Use History: Occasional Past Drug Use History: None Reported - Past Family History Father Family Medical History: Diabetes Mellitus Additional Family Medical History / Comment(s): Father is living. Mother Family Medical History: CVA/TIA, Myocardial Infarction ([place]) Additional Family Medical History / Comment(s): Mother had a CVA, shingles. She is from the CVA. General Exam Limitations: no limitations General appearance: alert, in no apparent distress Head exam: Present: atraumatic, normocephalic, normal inspection Eye exam: Present: normal appearance, PERRL, EOMI. Absent: scleral icterus, conjunctival injection, periorbital swelling ENT exam: Present: normal exam, normal oropharynx, mucous membranes moist, TM's normal bilaterally Neck exam: Present: normal inspection, full ROM. Absent: tenderness, meningismus, lymphadenopathy Respiratory exam: Present: normal lung sounds bilaterally. Absent: respiratory distress, wheezes, rales, rhonchi, stridor Cardiovascular Exam: Present: regular rate, normal rhythm, normal heart sounds. Absent: systolic murmur, diastolic murmur, rubs, gallop, clicks Extremities exam: Present: normal inspection, full ROM, normal capillary refill. Absent: tenderness, pedal edema, joint swelling, calf tenderness Neurological exam: Present: alert, oriented X3, CN II-XII intact, reflexes normal, other (finger to nose intact). Absent: motor sensory deficit Course Vital Signs 10/08/20 09:19 Temperature 98 F Pulse Rate 76 Respiratory 18 Rate Blood Pressure 130/76 O2 Sat by Pulse 100 Oximetry Medical Decision Making - Medical Decision Making Patient is neurologically intact with his typical migraine headache. Patient provided one of his firocet and which she will follow-up with his PCP tomorrow for prescription. Return parameters were discussed. Patient has no neurological deficits. Disposition Clinical Impression: Migraine Disposition: HOME SELF-CARE Condition: Stable Instructions (If sedation given, give patient instructions): Acute Headache (ED) Additional Instructions: Please return to the Emergency Department if symptoms worsen or any other concerns. Is patient prescribed a controlled substance at d/c from ED?: No Referrals: Jose Reyes MD [Primary Care Provider] - 1-2 days Time of Disposition: 10:24
[2020-10-08 10:42] VITALS: PULSE 72
[2020-10-08 10:43] VITALS: BP 121/78
== END 2020-10-08 11:10 | disposition home or self-care (01) ==
LOC: EC 09:11
DX: G43.909 Migraine, unspecified, not intractable, without status migrainosus (principal); F17.200 Nicotine dependence, unspecified, uncomplicated; J44.9 Chronic obstructive pulmonary disease, unspecified; Z79.51 Long term (current) use of inhaled steroids
CPT/HCPCS: 99283

== ENCOUNTER 2020-12-06 06:11 | Emergency (ER) | payer MEDICARE, OTHER ==
--- NOTE | 2020-12-06 06:18 | ED ---
General Adult HPI - General Chief complaint: Headache Stated complaint: Headache Time Seen by Provider: 12/06/20 06:13 Source: patient, EMS, RN notes reviewed Mode of arrival: EMS Limitations: no limitations - History of Present Illness Initial comments: This a 60-year-old male presents emergency Department with chief complaint of needing medication refill. Patient states that he is out of his fierce that with codeine and states that the pharmacy will not fill it because he needs $150. Patient states his chronic headaches is not usual. He states he had no injury no fevers chills no neck pain no neck stiffness no blurred vision no focal weakness. Patient offers no other complaints. - Related Data Home Medications Medication Instructions Recorded Confirmed Fluticasone/Vilanterol [Breo 1 puff INHALATION RT-DAILY 04/13/19 04/06/20 Ellipta 200-25 Mcg INH] Haldol Decanoate 50mg/Ml Oil 50 mg IM Q14D 02/09/20 04/06/20 haloperidoL [Haldol] 2 mg PO DAILY 02/09/20 04/06/20 Previous Rx's Medication Instructions Recorded Albuterol Sulfate [Ventolin HFA] 2 puff INHALATION RT-Q6H PRN #1 02/02/20 inhaler OLANZapine 7.5 mg PO DAILY 30 Days tablet 02/02/20 Tobramycin 0.3% Ophth Soln [Tobrex 1 - 2 drop BOTH EYES Q4H #1 bottle 06/17/20 0.3% Ophth Soln] Tobramycin 0.3% Ophth Soln [Tobrex 1 - 2 drop BOTH EYES Q4H #1 bottle 06/17/20 0.3% Ophth Soln] Allergies Allergy/AdvReac Type Severity Reaction Status Date / Time cephalexin monohydrate Allergy Unknown Verified 12/06/20 06:18 [From Keflex] clindamycin Allergy Unknown Verified 12/06/20 06:18 latex Allergy Rash/Hives Verified 12/06/20 06:18 Penicillins Allergy Rash/Hives Verified 12/06/20 06:18 Review of Systems ROS Statement: Those systems with pertinent positive or pertinent negative responses have been documented in the HPI. ROS Other: All systems not noted in ROS Statement are negative. Past Medical History Past Medical History: Cancer, COPD, Pneumonia Additional Past Medical History / Comment(s): Melanoma removed from L trunk, skin cancer removed from R side of nose, L eye blurry vision, constipation, hematuria/UTI, hypoglycemia. migraines History of Any Multi-Drug Resistant Organisms: None Reported Past Surgical History: Adenoidectomy, Tonsillectomy Additional Past Surgical History / Comment(s): R side of nose skin cancer removal/skin graft, L trunk melanoma removed, colonoscopy. Past Anesthesia/Blood Transfusion Reactions: No Reported Reaction Past Psychological History: No Psychological Hx Reported Smoking Status: Current every day smoker Past Alcohol Use History: Occasional Past Drug Use History: None Reported - Past Family History Father Family Medical History: Diabetes Mellitus Additional Family Medical History / Comment(s): Father is living. Mother Family Medical History: CVA/TIA, Myocardial Infarction ([place]) Additional Family Medical History / Comment(s): Mother had a CVA, shingles. She is from the CVA. General Exam Limitations: no limitations General appearance: alert, in no apparent distress Head exam: Present: atraumatic, normocephalic, normal inspection Eye exam: Present: normal appearance, PERRL, EOMI. Absent: scleral icterus, conjunctival injection, periorbital swelling ENT exam: Present: normal exam, normal oropharynx, mucous membranes moist Neck exam: Present: normal inspection, full ROM. Absent: tenderness, meningismus, lymphadenopathy Respiratory exam: Present: normal lung sounds bilaterally. Absent: respiratory distress, wheezes, rales, rhonchi, stridor Cardiovascular Exam: Present: regular rate, normal rhythm, normal heart sounds. Absent: systolic murmur, diastolic murmur, rubs, gallop, clicks Neurological exam: Present: alert, oriented X3, CN II-XII intact Skin exam: Present: warm, dry, intact, normal color. Absent: rash Course Vital Signs 12/06/20 06:13 Temperature 98.0 F Pulse Rate 92 Respiratory 18 Rate Blood Pressure 160/90 O2 Sat by Pulse 96 Oximetry Medical Decision Making - Medical Decision Making Patient does not want any workup states that he just wants his medications filled. Patient will be given 2 tablets now and he is advised to contact his insurance and pharmacy requiring about his prescription coverage. Disposition Clinical Impression: Headache, Medication refill Disposition: HOME SELF-CARE Condition: Stable Instructions (If sedation given, give patient instructions): Acute Headache (ED) Additional Instructions: Please return to the Emergency Department if symptoms worsen or any other concerns. Is patient prescribed a controlled substance at d/c from ED?: No Referrals: Jose Reyes MD [Primary Care Provider] - 1-2 days Time of Disposition: 06:18
[2020-12-06 06:19] VITALS: BP 160/90; PULSE 92; RESP 18; TEMP 98
[2020-12-06] MEDS ORDERED: BUTA/APAP/CAF/COD 50-325-40-30 CAP PO ONE (06:30)
== END 2020-12-06 06:40 | disposition home or self-care (01) ==
LOC: EC 06:11
DX: Z76.0 Encounter for issue of repeat prescription (principal); R51.9 Headache, unspecified; J44.9 Chronic obstructive pulmonary disease, unspecified; F17.200 Nicotine dependence, unspecified, uncomplicated; Z79.51 Long term (current) use of inhaled steroids
CPT/HCPCS: 99284

== ENCOUNTER 2020-12-23 07:20 | Emergency (ER) | payer MEDICARE, OTHER ==
[2020-12-23] MEDS ORDERED: BUTA/APAP/CAF/COD 50-325-40-30 CAP PO STA (07:24)
--- NOTE | 2020-12-23 07:26 | ED ---
General Adult HPI - General Stated complaint: headache Time Seen by Provider: 12/23/20 07:22 Source: patient, EMS, RN notes reviewed Mode of arrival: EMS Limitations: no limitations - History of Present Illness Initial comments: 60-year-old male presents emergency Department chief complaint of a headache. This is a chronic ongoing issue. He states is normal headache from denies any visual changes. Denies any nausea vomiting fevers chills neck Stiffness. Patient states he normally takes fierce that but secondary to insurance issues currently. He's not had his prescription. Patient states he was gardening to help him. Patient denies any chest pain shortness breath. Patient offers no other complaints. - Related Data Home Medications Medication Instructions Recorded Confirmed Fluticasone/Vilanterol [Breo 1 puff INHALATION RT-DAILY 04/13/19 04/06/20 Ellipta 200-25 Mcg INH] Haldol Decanoate 50mg/Ml Oil 50 mg IM Q14D 02/09/20 04/06/20 haloperidoL [Haldol] 2 mg PO DAILY 02/09/20 04/06/20 Previous Rx's Medication Instructions Recorded Albuterol Sulfate [Ventolin HFA] 2 puff INHALATION RT-Q6H PRN #1 02/02/20 inhaler OLANZapine 7.5 mg PO DAILY 30 Days tablet 02/02/20 Tobramycin 0.3% Ophth Soln [Tobrex 1 - 2 drop BOTH EYES Q4H #1 bottle 06/17/20 0.3% Ophth Soln] Tobramycin 0.3% Ophth Soln [Tobrex 1 - 2 drop BOTH EYES Q4H #1 bottle 06/17/20 0.3% Ophth Soln] Allergies Allergy/AdvReac Type Severity Reaction Status Date / Time cephalexin monohydrate Allergy Unknown Verified 12/06/20 06:18 [From Keflex] clindamycin Allergy Unknown Verified 12/06/20 06:18 latex Allergy Rash/Hives Verified 12/06/20 06:18 Penicillins Allergy Rash/Hives Verified 12/06/20 06:18 Review of Systems ROS Statement: Those systems with pertinent positive or pertinent negative responses have been documented in the HPI. ROS Other: All systems not noted in ROS Statement are negative. Past Medical History Past Medical History: Cancer, COPD, Pneumonia Additional Past Medical History / Comment(s): Melanoma removed from L trunk, skin cancer removed from R side of nose, L eye blurry vision, constipation, hem aturia/UTI, hypoglycemia. migraines History of Any Multi-Drug Resistant Organisms: None Reported Past Surgical History: Adenoidectomy, Tonsillectomy Additional Past Surgical History / Comment(s): R side of nose skin cancer removal/skin graft, L trunk melanoma removed, colonoscopy. Past Anesthesia/Blood Transfusion Reactions: No Reported Reaction Past Psychological History: No Psychological Hx Reported Smoking Status: Current every day smoker Past Alcohol Use History: Occasional Past Drug Use History: None Reported - Past Family History Father Family Medical History: Diabetes Mellitus Additional Family Medical History / Comment(s): Father is living. Mother Family Medical History: CVA/TIA, Myocardial Infarction ([place]) Additional Family Medical History / Comment(s): Mother had a CVA, shingles. She is from the CVA. General Exam General appearance: alert, in no apparent distress Head exam: Present: atraumatic, normocephalic, normal inspection Eye exam: Present: normal appearance, PERRL, EOMI. Absent: scleral icterus, conjunctival injection, periorbital swelling ENT exam: Present: normal exam, normal oropharynx, mucous membranes moist Neck exam: Present: normal inspection, full ROM. Absent: tenderness, meningismus, lymphadenopathy Respiratory exam: Present: normal lung sounds bilaterally. Absent: respiratory distress, wheezes, rales, rhonchi, stridor Cardiovascular Exam: Present: regular rate, normal rhythm, normal heart sounds. Absent: systolic murmur, diastolic murmur, rubs, gallop, clicks Neurological exam: Present: alert, oriented X3, CN II-XII intact Medical Decision Making - Medical Decision Making Patient's is neurovascular neurologically intact with no deficits. Patient has chronic headaches. Patient will be provided 2 tablets now be discharged advised to contact his levelman his prescription and return for any worsening change in symptoms Disposition Clinical Impression: Headache Disposition: HOME SELF-CARE Condition: Stable Instructions (If sedation given, give patient instructions): Migraine Headache (ED) Additional Instructions: Please return to the Emergency Department if symptoms worsen or any other concerns. Is patient prescribed a controlled substance at d/c from ED?: No Referrals: Jose Reyes MD [Primary Care Provider] - 1-2 days Time of Disposition: 07:26
[2020-12-23 07:29] VITALS: BP 146/100; PULSE 76; RESP 18; TEMP 97.5
== END 2020-12-23 07:59 | disposition home or self-care (01) ==
LOC: EC 07:20
DX: R51.9 Headache, unspecified (principal); J44.9 Chronic obstructive pulmonary disease, unspecified; F17.200 Nicotine dependence, unspecified, uncomplicated; Z88.0 Allergy status to penicillin; Z79.51 Long term (current) use of inhaled steroids
CPT/HCPCS: 99283

== ENCOUNTER 2020-12-24 10:58 | Emergency (ER) | payer MEDICARE, OTHER ==
[2020-12-24 11:15] VITALS: BP 129/92; RESP 18
--- NOTE | 2020-12-24 11:42 | ED ---
Lower Extremity Injury HPI - General Chief Complaint: Extremity Injury, Lower Stated Complaint: R ankle pain Time Seen by Provider: 12/24/20 11:16 Source: patient, RN notes reviewed Mode of arrival: ambulatory Limitations: no limitations - History of Present Illness Initial Comments: 60-year-old male presents emergency Department with chief complaint right ankle injury. Patient states he stepped in a manhole that was removed and states he twisted his ankle. Patient complains of pain when he ambulates. No head injury no other injuries from this accident. Patient states that he is able to move it no paresthesias no prior fractures. - Related Data Home Medications Medication Instructions Recorded Confirmed Fluticasone/Vilanterol [Breo 1 puff INHALATION RT-DAILY 04/13/19 04/06/20 Ellipta 200-25 Mcg INH] Haldol Decanoate 50mg/Ml Oil 50 mg IM Q14D 02/09/20 04/06/20 haloperidoL [Haldol] 2 mg PO DAILY 02/09/20 04/06/20 Previous Rx's Medication Instructions Recorded Albuterol Sulfate [Ventolin HFA] 2 puff INHALATION RT-Q6H PRN #1 02/02/20 inhaler OLANZapine 7.5 mg PO DAILY 30 Days tablet 02/02/20 Tobramycin 0.3% Ophth Soln [Tobrex 1 - 2 drop BOTH EYES Q4H #1 bottle 06/17/20 0.3% Ophth Soln] Tobramycin 0.3% Ophth Soln [Tobrex 1 - 2 drop BOTH EYES Q4H #1 bottle 06/17/20 0.3% Ophth Soln] Allergies Allergy/AdvReac Type Severity Reaction Status Date / Time cephalexin monohydrate Allergy Unknown Verified 12/24/20 11:15 [From Keflex] clindamycin Allergy Unknown Verified 12/24/20 11:15 latex Allergy Rash/Hives Verified 12/24/20 11:15 Penicillins Allergy Rash/Hives Verified 12/24/20 11:15 Review of Systems ROS Statement: Those systems with pertinent positive or pertinent negative responses have been documented in the HPI. ROS Other: All systems not noted in ROS Statement are negative. Past Medical History Past Medical History: Cancer, COPD, Pneumonia Additional Past Medical History / Comment(s): Melanoma removed from L trunk, skin cancer removed from R side of nose, L eye blurry vision, constipation, hematuria/UTI, hypoglycemia. migraines History of Any Multi-Drug Resistant Organisms: None Reported Past Surgical History: Adenoidectomy, Tonsillectomy Additional Past Surgical History / Comment(s): R side of nose skin cancer removal/skin graft, L trunk melanoma removed, colonoscopy. Past Anesthesia/Blood Transfusion Reactions: No Reported Reaction Past Psychological History: No Psychological Hx Reported Smoking Status: Current every day smoker Past Alcohol Use History: Occasional Past Drug Use History: None Reported - Past Family History Father Family Medical History: Diabetes Mellitus Additional Family Medical History / Comment(s): Father is living. Mother Family Medical History: CVA/TIA, Myocardial Infarction ([place]) Additional Family Medical History / Comment(s): Mother had a CVA, shingles. She is from the CVA. General Exam Limitations: no limitations General appearance: alert, in no apparent distress Head exam: Present: atraumatic, normocephalic, normal inspection Neck exam: Present: normal inspection, full ROM. Absent: tenderness, meningismus, lymphadenopathy Respiratory exam: Present: normal lung sounds bilaterally. Absent: respiratory distress, wheezes, rales, rhonchi, stridor Cardiovascular Exam: Present: regular rate, normal rhythm, normal heart sounds. Absent: systolic murmur, diastolic murmur, rubs, gallop, clicks Extremities exam: Present: other (Right ankle there is tenderness on the medial lateral portion, mild swelling neurovascular intact no distal foot tenderness no proximal tib-fib tenderness) Course Vital Signs 12/24/20 11:13 Temperature 97.7 F Pulse Rate 88 Respiratory 18 Rate Blood Pressure 129/92 O2 Sat by Pulse 98 Oximetry Procedures - Orthopedic Splinting/Casting Injury #1 Side: left Lower Extremity Injury Location: short leg, foot Lower Extremity Immobilizer: posterior splint, synthetic pre-padded splint Other Orthopedic Equipment: crutches Medical Decision Making - Medical Decision Making Case discussed with on-call orthopedics recommended the patient be placed in a posterior splint, remain nonweightbearing, crutches will follow-up in office. Disposition Clinical Impression: Calcaneus fracture, right Disposition: HOME SELF-CARE Condition: Stable Instructions (If sedation given, give patient instructions): Calcaneal Fracture (ED) Additional Instructions: Remain nonweightbearing as directed follow-up with orthopedics.Please return to the Emergency Department if symptoms worsen or any other concerns. Is patient prescribed a controlled substance at d/c from ED?: No Referrals: Jose Reyes MD [Primary Care Provider] - 1-2 days Robert Blackman DO [REFERRING] - 1-2 days Addison Gruber DO [Doctor of Osteopathic Medicine] - 1-2 days Time of Disposition: 12:51
--- NOTE | 2020-12-24 11:49 | XR ---
EXAMINATION TYPE: XR ankle complete RT DATE OF EXAM: 12/24/2020 COMPARISON: NONE HISTORY: 60-year-old male right ankle pain after injury TECHNIQUE: 3 views FINDINGS: Mild anterior and lateral soft tissue swelling. Small underlying ankle joint effusion. Some lucency o bliquely oriented across the inferior body of the calcaneus. Sclerosis along the superior half calcan eal body. Spinal delineation to the Achilles tendon. No other acute fracture or dislocation seen. Jose Luis hler's angle may be slightly flattened. IMPRESSION: Unable to exclude a subtle calcaneal body fracture.
[2020-12-24] MEDS ORDERED: ACET/COD 300 MG/30 MG STARTER PACK 6 TAB BTL PO STA (13:11)
--- NOTE | 2020-12-24 13:16 | CT ---
EXAMINATION TYPE: CT ankle RT wo con DATE OF EXAM: 12/24/2020 COMPARISON: Radiograph same day HISTORY: 60-year-old male with injury, pain, Possible calcaneus fracture TECHNIQUE: Contiguous axial scanning of the ankle without IV contrast. Coronal and sagittal reconstru ctions performed. 3-D reconstructions generated on a dedicated workstation. CT DLP: 264.2 mGycm Automated exposure control for dose reduction was used. FINDINGS: There is a markedly comminuted fracture involving the calcaneus extending from the anterior aspect in cluding the anterior process to the mid body. There is intra-articular extension into the calcaneal cuboidal joint joint that results in 3 mm of ar ticular surface step-off and a 4 mm bony gap, referred axial image 64. There is impaction to the anterior portion of the middle subtalar facet resulting in slight anterior rotation and up to 5 mm of articular surface step-off (sagittal image 50). Additional impaction involves the lateral half of the posterior subtalar articular facet resulting in clockwise rotation and 8 mm of articular surface step-off, coronal image 69. Fractures located along the posterior margin of the anterior subtalar joint but does not extend into the joint itself. Slight flattening of Boehler's angle Achilles tendon is intact. No additional acute fractures identified. IMPRESSION: COMMINUTED FRACTURE INVOLVING THE ANTERIOR CALCANEUS AND CALCANEAL BODY. INTRA-ARTICULAR FRACTURE EXT ENSION INTO BOTH THE MIDDLE AND POSTERIOR SUBTALAR JOINTS WELL THE CALCANEOCUBOID JOINT RESULTI NG IN ARTICULAR SURFACE STEP-OFF AND ARTICULAR SURFACE GAPS ABOVE. SLIGHT FLATTENING OF BOEHLER'S ANGLE.
[2020-12-24 13:44] VITALS: PULSE 78; TEMP 97.8
== END 2020-12-24 13:44 | disposition home or self-care (01) ==
LOC: EC 10:58
DX: S92.061A Displaced intraarticular fracture of right calcaneus, initial encounter for closed fracture (principal); J44.9 Chronic obstructive pulmonary disease, unspecified; F17.200 Nicotine dependence, unspecified, uncomplicated; Z88.1 Allergy status to other antibiotic agents; Z91.040 Latex allergy status; Z88.0 Allergy status to penicillin; Z79.51 Long term (current) use of inhaled steroids; X50.1XXA Overexertion from prolonged static or awkward postures, initial encounter
CPT/HCPCS: 29515; 99284

== ENCOUNTER 2021-02-04 05:50 | Emergency (ER) | payer MEDICARE, OTHER ==
[2021-02-04 06:31] VITALS: BP 127/89; PULSE 87; RESP 18; TEMP 98
[2021-02-04] MEDS ORDERED: IBUPROFEN 600 MG STARTER PACK 4 TAB BTL PO STA (06:38)
--- NOTE | 2021-02-04 06:45 | ED ---
Headache HPI - General Chief Complaint: Headache Stated Complaint: Headache Time Seen by Provider: 02/04/21 06:21 Mode of arrival: EMS - History of Present Illness Initial Comments: Patient is a 60-year-old male, presenting via EMS with complaints of a headache and foot pain has been going on for a while. He states he is a chronic headache for years. He states he also is recovering from a broken foot that happened early last month.. Patient states he was taking Tylenol threes with codeine for his broken foot and he also used to take Fioricet with codeine for his headaches. According to his guardian, they do not want to prescribe any narcotics anymore. He denies any falls or trauma, no worry vision, he states his headache is minimal right now at a 2/10. Denies any blurry vision, no fevers or chills, no neck pain, no chest pain or short of breath, no nausea or vomiting. According to EMS, there was bed bugs found on the patient upon arrival, he was showered. He has no further complaints. - Related Data Home Medications Medication Instructions Recorded Confirmed Fluticasone/Vilanterol [Breo 1 puff INHALATION RT-DAILY 04/13/19 04/06/20 Ellipta 200-25 Mcg INH] Haldol Decanoate 50mg/Ml Oil 50 mg IM Q14D 02/09/20 04/06/20 haloperidoL [Haldol] 2 mg PO DAILY 02/09/20 04/06/20 Previous Rx's Medication Instructions Recorded Albuterol Sulfate [Ventolin HFA] 2 puff INHALATION RT-Q6H PRN #1 02/02/20 inhaler OLANZapine 7.5 mg PO DAILY 30 Days tablet 02/02/20 Tobramycin 0.3% Ophth Soln [Tobrex 1 - 2 drop BOTH EYES Q4H #1 bottle 06/17/20 0.3% Ophth Soln] Tobramycin 0.3% Ophth Soln [Tobrex 1 - 2 drop BOTH EYES Q4H #1 bottle 06/17/20 0.3% Ophth Soln] Allergies Allergy/AdvReac Type Severity Reaction Status Date / Time cephalexin monohydrate Allergy Unknown Verified 02/04/21 06:20 [From Keflex] clindamycin Allergy Unknown Verified 02/04/21 06:20 latex Allergy Rash/Hives Verified 02/04/21 06:20 Penicillins Allergy Rash/Hives Verified 02/04/21 06:20 Review of Systems ROS Statement: Those systems with pertinent positive or pertinent negative responses have been documented in the HPI. ROS Other: All systems not noted in ROS Statement are negative. Past Medical History Past Medical History: Cancer, COPD, Pneumonia Additional Past Medical History / Comment(s): Melanoma removed from L trunk, skin cancer removed from R side of nose, L eye blurry vision, constipation, hematuria/UTI, hypoglycemia. migraines History of Any Multi-Drug Resistant Organisms: None Reported Past Surgical History: Adenoidectomy, Tonsillectomy Additional Past Surgical History / Comment(s): R side of nose skin cancer removal/skin graft, L trunk melanoma removed, colonoscopy. Past Anesthesia/Blood Transfusion Reactions: No Reported Reaction Past Psychological History: No Psychological Hx Reported Smoking Status: Current every day smoker Past Alcohol Use History: Occasional Past Drug Use History: None Reported - Past Family History Father Family Medical History: Diabetes Mellitus Additional Family Medical History / Comment(s): Father is living. Mother Family Medical History: CVA/TIA, Myocardial Infarction ([place]) Additional Family Medical History / Comment(s): Mother had a CVA, shingles. She is from the CVA. General Exam - General Exam Comments Initial Comments: GENERAL: Patient is well-developed and well-nourished. Patient is nontoxic and in no acute distress. HEAD: Atraumatic, normocephalic. EYES: Pupils equal round and reactive to light, extraocular movements intact, sclera anicteric, conjunctiva are normal. Eyelids were unremarkable. ENT: Nares patent, oropharynx clear without exudates. Moist mucous membranes. NECK: Normal range of motion, supple without lymphadenopathy or JVD. LUNGS: Unlabored respirations. Breath sounds clear to auscultation bilaterally and equal. No wheezes rales or rhonchi. HEART: Regular rate and rhythm without murmurs, rubs or gallops. ABDOMEN: Soft, nontender, normoactive bowel sounds. MUSCULOSKELETAL: Normal extremities with adequate strength and normal range of motion, no pitting or edema. No clubbing or cyanosis. NEUROLOGICAL: Patient is alert and oriented x 3. Motor and sensory are also intact. Cranial nerves II through XII grossly intact. Symmetrical smile. Normal speech. PSYCH: Patient is angry that he is not receiving narcotics. SKIN: Warm, Dry, normal turgor, no rashes or lesions noted. Course Vital Signs 02/04/21 06:17 Temperature 98.0 F Pulse Rate 87 Respiratory 18 Rate Blood Pressure 127/89 O2 Sat by Pulse 100 Oximetry Medical Decision Making - Medical Decision Making Patient is a 60-year-old male presenting via EMS for a chronic headache he's had for years. He states he normally takes Fioricet with codeine for these h eadaches. According to his guardian, he is no longer able to receive narcotics. Patient's exam is showing no acute findings, no acute neuro deficits. His headache feels like his normal everyday headaches, currently rates it as minimal. I did offer patient Tylenol or Motrin. I will give patient a Motrin starter pack to go home with. I recommended following up with his PCP for pain management. Patient is very angry that he is not getting the medication that he wants but is agreeable to this. He is stable for discharge. Case discussed with Dr. Polanco. Upon discharge, patient refused Motrin starter pack. Disposition Clinical Impression: Chronic headache Disposition: HOME SELF-CARE Condition: Stable Instructions (If sedation given, give patient instructions): Acute Headache (ED) Additional Instructions: Please return to the Emergency Department if symptoms worsen or any other concerns. May take Motrin every 8 hours for headache or pain. Please follow up with your primary care physician or your orthopedic physician for pain management. Is patient prescribed a controlled substance at d/c from ED?: No Referrals: Jose Reyes MD [Primary Care Provider] - 1-2 days Time of Disposition: 06:45
== END 2021-02-04 06:58 | disposition home or self-care (01) ==
LOC: EC 05:50
DX: G89.29 Other chronic pain (principal); R51.9 Headache, unspecified; J44.9 Chronic obstructive pulmonary disease, unspecified; F17.200 Nicotine dependence, unspecified, uncomplicated; Z85.820 Personal history of malignant melanoma of skin; Z83.3 Family history of diabetes mellitus; Z82.49 Family history of ischemic heart disease and other diseases of the circulatory system; Z79.51 Long term (current) use of inhaled steroids; Z79.899 Other long term (current) drug therapy; Z88.0 Allergy status to penicillin; Z88.1 Allergy status to other antibiotic agents
CPT/HCPCS: 99284

== ENCOUNTER 2021-02-11 08:15 | Emergency (ER) | payer MEDICARE, OTHER ==
[2021-02-11 08:33] VITALS: BP 142/94; PULSE 65; RESP 16; TEMP 98.1
--- NOTE | 2021-02-11 08:58 | ED ---
Lower Extremity Injury HPI - General Chief Complaint: Extremity Injury, Lower Stated Complaint: Rt Foot Pain Time Seen by Provider: 02/11/21 08:35 Source: patient, RN notes reviewed Mode of arrival: ambulatory Limitations: no limitations - History of Present Illness Initial Comments: This a 60-year-old male presents emergency Department with chief complaint of right foot and ankle pain. Patient was offered for last 3 weeks as he states he had a fracture. Patient states he saw orthopedics was advised to stay off it but never followed up after. He states is too painful to ambulate. Patient states so swollen. No Pain no upper leg pain no paresthesias. - Related Data Home Medications Medication Instructions Recorded Confirmed Fluticasone/Vilanterol [Breo 1 puff INHALATION RT-DAILY 04/13/19 04/06/20 Ellipta 200-25 Mcg INH] Haldol Decanoate 50mg/Ml Oil 50 mg IM Q14D 02/09/20 04/06/20 haloperidoL [Haldol] 2 mg PO DAILY 02/09/20 04/06/20 Previous Rx's Medication Instructions Recorded Albuterol Sulfate [Ventolin HFA] 2 puff INHALATION RT-Q6H PRN #1 02/02/20 inhaler OLANZapine 7.5 mg PO DAILY 30 Days tablet 02/02/20 Tobramycin 0.3% Ophth Soln [Tobrex 1 - 2 drop BOTH EYES Q4H #1 bottle 06/17/20 0.3% Ophth Soln] Tobramycin 0.3% Ophth Soln [Tobrex 1 - 2 drop BOTH EYES Q4H #1 bottle 06/17/20 0.3% Ophth Soln] Allergies Allergy/AdvReac Type Severity Reaction Status Date / Time cephalexin monohydrate Allergy Unknown Verified 02/11/21 08:33 [From Keflex] clindamycin Allergy Unknown Verified 02/11/21 08:33 latex Allergy Rash/Hives Verified 02/11/21 08:33 Penicillins Allergy Rash/Hives Verified 02/11/21 08:33 Review of Systems ROS Statement: Those systems with pertinent positive or pertinent negative responses have been documented in the HPI. ROS Other: All systems not noted in ROS Statement are negative. Past Medical History Past Medical History: Cancer, COPD, Pneumonia Additional Past Medical History / Comment(s): Melanoma removed from L trunk, skin cancer removed from R side of nose, L eye blurry vision, constipation, hematuria/UTI, hypoglycemia. migraines History of Any Multi-Drug Resistant Organisms: None Reported Past Surgical History: Adenoidectomy, Tonsillectomy Additional Past Surgical History / Comment(s): R side of nose skin cancer removal/skin graft, L trunk melanoma removed, colonoscopy. Past Anesthesia/Blood Transfusion Reactions: No Reported Reaction Past Psychological History: No Psychological Hx Reported Smoking Status: Current every day smoker Past Alcohol Use History: Occasional Past Drug Use History: None Reported - Past Family History Father Family Medical History: Diabetes Mellitus Additional Family Medical History / Comment(s): Father is living. Mother Family Medical History: CVA/TIA, Myocardial Infarction ([place]) Additional Family Medical History / Comment(s): Mother had a CVA, shingles. She is from the CVA. General Exam Limitations: no limitations General appearance: alert, in no apparent distress Head exam: Present: atraumatic, normocephalic, normal inspection Respiratory exam: Present: normal lung sounds bilaterally. Absent: respiratory distress, wheezes, rales, rhonchi, stridor Cardiovascular Exam: Present: regular rate, normal rhythm, normal heart sounds. Absent: systolic murmur, diastolic murmur, rubs, gallop, clicks Extremities exam: Present: other (Right foot and ankle is moderate swelling, tenderness with palpation diffusely neurovascular intact no calf swelling or tenderness noted no erythema) Course Vital Signs 02/11/21 08:31 Temperature 98.1 F Pulse Rate 65 Respiratory 16 Rate Blood Pressure 142/94 O2 Sat by Pulse 99 Oximetry Procedures - Orthopedic Splinting/Casting Injury #1 Side: right Lower Extremity Injury Location: short leg, ankle, foot Lower Extremity Immobilizer: posterior splint Other Orthopedic Equipment: crutches Medical Decision Making - Medical Decision Making Patient was resplinted and will follow-up with orthopedics as provided. Return parameters discussed he is advised to remain nonweightbearing Disposition Clinical Impression: Calcaneus fracture, right Disposition: HOME SELF-CARE Condition: Stable Instructions (If sedation given, give patient instructions): Foot Fracture in Adults (ED) Additional Instructions: Please follow-up with orthopedic physician as directed. Please remain nonweightbearing.Please return to the Emergency Department if symptoms worsen or any other concerns. Is patient prescribed a controlled substance at d/c from ED?: No Referrals: Tracy,Jose G, MD [Primary Care Provider] - 1-2 days Haroon Davis DPM [Doctor of Osteopathic Medicine] - 1-2 days Time of Disposition: 08:58
--- NOTE | 2021-02-11 09:10 | XR ---
EXAMINATION TYPE: XR ankle complete RT DATE OF EXAM: 02/11/2021 COMPARISON: NONE HISTORY: Pain FINDINGS: Three views of the ankle demonstrate the ankle mortise to be intact and symmetric. There is diffuse o steopenia. Abnormal appearance to the calcaneus highly suggestive of fracture. Fracture line suspecte d to extend into the subtalar joint. IMPRESSION: 1. Suspect fracture involving the calcaneus with extension into the subtalar joint.
--- NOTE | 2021-02-11 09:12 | XR ---
EXAMINATION TYPE: XR foot complete RT DATE OF EXAM: 02/11/2021 COMPARISON: NONE HISTORY: Pain TECHNIQUE: Two views are submitted. FINDINGS: Diffuse osteopenia with arthropathy of the first MTP and all DIP joints. There is an abnormal appeara nce of the calcaneus suggestive of comminuted fracture extending into the subtalar joint. IMPRESSION: 1. Suspect comminuted fracture calcaneus extending into the subtalar joint.
== END 2021-02-11 09:12 | disposition home or self-care (01) ==
LOC: EC 08:15
DX: S92.001A Unspecified fracture of right calcaneus, initial encounter for closed fracture (principal); J44.9 Chronic obstructive pulmonary disease, unspecified; F17.200 Nicotine dependence, unspecified, uncomplicated; Z79.899 Other long term (current) drug therapy; Z79.51 Long term (current) use of inhaled steroids; Z88.0 Allergy status to penicillin; Z88.1 Allergy status to other antibiotic agents; Z88.8 Allergy status to other drugs, medicaments and biological substances; X58.XXXA Exposure to other specified factors, initial encounter
CPT/HCPCS: 29515; 99283

== ENCOUNTER 2021-04-26 03:13 | Emergency (ER) | payer MEDICARE, OTHER ==
[2021-04-26 03:38] VITALS: TEMP 97.7
--- NOTE | 2021-04-26 04:05 | XR ---
EXAMINATION TYPE: XR chest 2V DATE OF EXAM: 04/26/2021 COMPARISON: 01/09/2020 HISTORY: Difficulty breathing TECHNIQUE: 2 views FINDINGS: There is no heart failure nor confluent pneumonic infiltrate. Costophrenic angles are clear . There is flattening of the diaphragm. There are chest leads. Bony thorax is intact. IMPRESSION: COPD. No active cardiopulmonary disease. Normal heart. No change.
[2021-04-26] MEDS ORDERED: predniSONE 20 MG TAB PO STA (04:51)
[2021-04-26] MEDS ORDERED: ALBUTEROL NEBULIZED 2.5 MG/3 ML INHALATION STA (04:51)
[2021-04-26 05:14] VITALS: BP 144/87; PULSE 91; RESP 25
--- NOTE | 2021-04-26 05:15 | ED ---
SOB HPI - General Chief Complaint: Shortness of Breath Stated Complaint: LORI Time Seen by Provider: 04/26/21 03:17 Source: patient, EMS Mode of arrival: EMS Limitations: no limitations - Related Data Home Medications Medication Instructions Recorded Confirmed Fluticasone/Vilanterol [Breo 1 puff INHALATION RT-DAILY 04/13/19 04/06/20 Ellipta 200-25 Mcg Inhaler] Haldol Decanoate 50mg/Ml Oil 50 mg IM Q14D 02/09/20 04/06/20 haloperidoL [Haldol] 2 mg PO DAILY 02/09/20 04/06/20 Previous Rx's Medication Instructions Recorded Albuterol Sulfate [Ventolin HFA] 2 puff INHALATION RT-Q6H PRN #1 02/02/20 inhaler OLANZapine 7.5 mg PO DAILY 30 Days tablet 02/02/20 Tobramycin 0.3% Ophth Soln [Tobrex 1 - 2 drop BOTH EYES Q4H #1 bottle 06/17/20 0.3% Ophth Soln] Tobramycin 0.3% Ophth Soln [Tobrex 1 - 2 drop BOTH EYES Q4H #1 bottle 06/17/20 0.3% Ophth Soln] Albuterol Inhaler [Ventolin Hfa 2 puff INHALATION Q4HR PRN #8 gm 04/26/21 Inhaler] predniSONE [Deltasone] 20 mg PO BID #8 tab 04/26/21 Allergies Allergy/AdvReac Type Severity Reaction Status Date / Time cephalexin monohydrate Allergy Unknown Verified 02/11/21 08:33 [From Keflex] clindamycin Allergy Unknown Verified 02/11/21 08:33 latex Allergy Rash/Hives Verified 02/11/21 08:33 Penicillins Allergy Rash/Hives Verified 02/11/21 08:33 Review of Systems ROS Statement: Those systems with pertinent positive or pertinent negative responses have been documented in the HPI. ROS Other: All systems not noted in ROS Statement are negative. Past Medical History Past Medical History: Cancer, COPD, Pneumonia Additional Past Medical History / Comment(s): Melanoma removed from L trunk, skin cancer removed from R side of nose, L eye blurry vision, constipation, cam turia/UTI, hypoglycemia. migraines History of Any Multi-Drug Resistant Organisms: None Reported Past Surgical History: Adenoidectomy, Tonsillectomy Additional Past Surgical History / Comment(s): R side of nose skin cancer removal/skin graft, L trunk melanoma removed, colonoscopy. Past Anesthesia/Blood Transfusion Reactions: No Reported Reaction Past Psychological History: No Psychological Hx Reported Smoking Status: Current every day smoker Past Alcohol Use History: Occasional Past Drug Use History: None Reported - Past Family History Father Family Medical History: Diabetes Mellitus Additional Family Medical History / Comment(s): Father is living. Mother Family Medical History: CVA/TIA, Myocardial Infarction ([place]) Additional Family Medical History / Comment(s): Mother had a CVA, shingles. She is from the CVA. General Exam Limitations: no limitations Course Vital Signs 04/26/21 04/26/21 04/26/21 03:29 04:13 04:14 Temperature 97.7 F Pulse Rate 90 93 Respiratory 24 20 24 Rate Blood Pressure 133/84 129/94 O2 Sat by Pulse 97 96 Oximetry Medical Decision Making - Lab Data Lab Results 04/26/21 Range/Units 03:57 Coronavirus (PCR) Not Detected (Not Detectd) Disposition Clinical Impression: Acute exacerbation of chronic obstructive airways disease Disposition: HOME SELF-CARE Condition: Good Instructions (If sedation given, give patient instructions): Acute Bronchitis (ED) Prescriptions: predniSONE [Deltasone] 20 mg PO BID #8 tab Albuterol Inhaler [Ventolin Hfa Inhaler] 2 puff INHALATION Q4HR PRN #8 gm PRN Reason: Wheezing Is patient prescribed a controlled substance at d/c from ED?: No Referrals: Jose Reyes MD [Primary Care Provider] - 1-2 days
== END 2021-04-26 05:20 | disposition home or self-care (01) ==
LOC: EC 03:13
DX: J44.1 Chronic obstructive pulmonary disease with (acute) exacerbation (principal); F17.200 Nicotine dependence, unspecified, uncomplicated; Z88.0 Allergy status to penicillin; Z88.1 Allergy status to other antibiotic agents; Z91.040 Latex allergy status; Z20.822 Contact with and (suspected) exposure to COVID-19
CPT/HCPCS: 99285; 87635; 71046; J7512

== ENCOUNTER 2021-05-21 14:54 | Emergency (ER) | payer MEDICARE, OTHER ==
[2021-05-21 15:12] VITALS: RESP 18; TEMP 97.6
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
--- NOTE | 2021-05-21 15:29 | XR ---
EXAMINATION TYPE: XR knee complete RT DATE OF EXAM: 05/21/2021 COMPARISON: NONE HISTORY: Pain TECHNIQUE: Three views are submitted. FINDINGS: There is a vascular calcification. There is a depressed lateral tibial plateau fracture with displace ment recommend CT scan. Suspect a hairline fracture through the proximal fibula. IMPRESSION: 1. Findings are suggestive of a significantly depressed lateral tibial plateau fracture. Recommend CT scan. 2. Hairline fracture involving the proximal fibula suspected
--- NOTE | 2021-05-21 17:35 | CT ---
EXAMINATION TYPE: CT lower extremity RT wo con DATE OF EXAM: 05/21/2021 COMPARISON: None HISTORY: Right knee pain after injury CT DLP: 108.4 mGycm Automated exposure control for dose reduction was used. Images obtained from the distal femur to the proximal tibia without contrast. There is severely comminuted fractures of the lateral tibial condyle with depression of the lateral t ibial plateau. There is approximate 2 cm of depression of the major fragments. There is fracture line s extending to the tibial spines. There is knee joint effusion. The patella is intact. There is nondi splaced fracture of the head of the fibula which extends to the end of the bone. The distal femur is intact. IMPRESSION: Comminuted lateral tibial condyle fracture with significant depression of the lateral tibial plateau. Nondisplaced fibular fracture.
[2021-05-21 17:37] VITALS: BP 135/89; PULSE 91
== END 2021-05-21 17:36 | disposition home or self-care (01) ==
LOC: EC 14:54
DX: S82.141A Displaced bicondylar fracture of right tibia, initial encounter for closed fracture (principal); S82.831A Other fracture of upper and lower end of right fibula, initial encounter for closed fracture; J44.9 Chronic obstructive pulmonary disease, unspecified; F17.200 Nicotine dependence, unspecified, uncomplicated; Z88.1 Allergy status to other antibiotic agents; Z88.0 Allergy status to penicillin; Z91.040 Latex allergy status; Z85.820 Personal history of malignant melanoma of skin; Z87.440 Personal history of urinary (tract) infections; Z90.89 Acquired absence of other organs; W50.0XXA Accidental hit or strike by another person, initial encounter
CPT/HCPCS: 99284; 73562; 73700; L1830

== ENCOUNTER 2021-09-17 11:19 | Inpatient (IN) | payer MEDICARE, MEDICAID ==
--- NOTE | 2021-09-17 12:58 | ED ---
General Adult HPI - General Source: patient, RN notes reviewed Mode of arrival: ambulatory Limitations: no limitations <Florian Quinn - Last Filed: 09/17/21 13:02> <Nikhil Zuluaga - Last Filed: 09/17/21 13:16> - General Chief complaint: Psychiatric Symptoms Stated complaint: Mental Health Time Seen by Provider: 09/17/21 11:26 - History of Present Illness Initial comments: This is a 7-year-old male presents emergency Department with police for psychiatric evaluation. Patient states that he has no specific complaints patient is brought in for acute psychosis. She has been in intermediate for several months per his report. Patient denies any medications. Patient does have history of psychiatric issues. Patient denies any physical complaints. (Florian Quinn) - Related Data Home Medications Medication Instructions Recorded Confirmed No Known Home Medications 09/17/21 09/17/21 Allergies Allergy/AdvReac Type Severity Reaction Status Date / Time cephalexin monohydrate Allergy Unknown Verified 09/17/21 12:05 [From Keflex] clindamycin Allergy Unknown Verified 09/17/21 12:05 latex Allergy Rash/Hives Verified 09/17/21 12:05 Penicillins Allergy Rash/Hives Verified 09/17/21 12:05 Review of Systems ROS Other: All systems not noted in ROS Statement are negative. <Florian Quinn - Last Filed: 09/17/21 13:02> ROS Other: All systems not noted in ROS Statement are negative. <Nikhil Zuluaga - Last Filed: 09/17/21 13:16> ROS Statement: Those systems with pertinent positive or pertinent negative responses have been documented in the HPI. Past Medical History Past Medical History: Cancer, COPD, Pneumonia Additional Past Medical History / Comment(s): Melanoma removed from L trunk, skin cancer removed from R side of nose, L eye blurry vision, constipation, hematuria/UTI, hypoglycemia. migraines History of Any Multi-Drug Resistant Organisms: None Reported Past Surgical History: Adenoidectomy, Tonsillectomy Additional Past Surgical History / Comment(s): R side of nose skin cancer removal/skin graft, L trunk melanoma removed, colonoscopy. Past Anesthesia/Blood Transfusion Reactions: No Reported Reaction Past Psychological History: No Psychological Hx Reported Smoking Status: Current every day smoker Past Alcohol Use History: Occasional Past Drug Use History: None Reported - Past Family History Father Family Medical History: Diabetes Mellitus Additional Family Medical History / Comment(s): Father is living. Mother Family Medical History: CVA/TIA, Myocardial Infarction ([place]) Additional Family Medical History / Comment(s): Mother had a CVA, shingles. She is from the [place]. <Florian Quinn - Last Filed: 09/17/21 13:02> General Exam Limitations: no limitations General appearance: alert, in no apparent distress, anxious Head exam: Present: atraumatic, normocephalic, normal inspection Eye exam: Present: normal appearance, PERRL, EOMI. Absent: scleral icterus, conjunctival injection, periorbital swelling ENT exam: Present: normal exam, normal oropharynx, mucous membranes moist Neck exam: Present: normal inspection, full ROM. Absent: tenderness, meningismus, lymphadenopathy Respiratory exam: Present: normal lung sounds bilaterally. Absent: respiratory distress, wheezes, rales, rhonchi, stridor Cardiovascular Exam: Present: regular rate, normal rhythm, normal heart sounds. Absent: systolic murmur, diastolic murmur, rubs, gallop, clicks Neurological exam: Present: alert Psychiatric exam: Present: agitated, anxious Skin exam: Present: warm, dry, intact, normal color. Absent: rash <Florian Quinn - Last Filed: 09/17/21 13:02> Course Vital Signs 09/17/21 11:21 Temperature 97.3 F L Pulse Rate 103 H Respiratory 20 Rate Blood Pressure 141/94 O2 Sat by Pulse 96 Oximetry Medical Decision Making <Florian Quinn - Last Filed: 09/17/21 13:02> <Nikhil Zuluaga - Last Filed: 09/17/21 13:16> - Medical Decision Making Patient was evaluated be admitted for psychiatric services. Clinical certification filled out by Dr. Zuluaga. (Florian Quinn) Patient reevaluated by myself, Dr. Zuluaga. Patient was seen by mental health services with plans for admission. Patient is clearly psychotic. Patient is hyperverbal and assessed with urination. Patient has been yelling at staff and officers were present. Positive clinical certificate completed. (Nikhil Zuluaga) Disposition Time of Disposition: 13:02 <Florian Quinn - Last Filed: 09/17/21 13:02> <Nikhil Zuluaga - Last Filed: 09/17/21 13:16> Clinical Impression: Acute psychosis, Schizophrenia Disposition: TRANSFER TO PSYCH HOSP/UNIT Condition: Stable Referrals: None,Stated [Primary Care Provider] - 1-2 days
[2021-09-17] MEDS ORDERED: ZIPRASIDONE 20 MG VIAL IM STA (14:41)
[2021-09-17] MEDS ORDERED: LORazepam 2 MG/ML INJ IM STA (14:42)
[2021-09-17 17:37] LABS: Appearance,Urine Turbid (Clear); Bacteria,Urine Moderate /hpf; Bilirubin,Urine Negative (Negative); Blood,Urine Small (Negative); Color,Urine Yellow; Glucose,Urine (UA) Negative (Negative); Ketones,Urine Negative (Negative); Leukocyte Esterase,Urine Large (Negative); Mucus,Urine Rare /hpf; Nitrite,Urine Positive (Negative); PH, Urine 6.5 (5.0-8.0); Protein,Urine 1+ (Negative); RBC,Urine 27 /hpf (0-5); Specific Gravity,Urine 1.017 (1.001-1.035); Squamous Epithelial Cell,Urine <1 /hpf (0-4); Urobilinogen,Urine <2.0 mg/dL (<2.0); WBC,Urine >182 /hpf (0-5)
[2021-09-17 17:59] LABS: Amphetamine Screen,Urine Not Detected (NotDetected); Barbiturate Screen,Urine Not Detected (NotDetected); Benzodiazepines Screen,Urine Not Detected (NotDetected); Cocaine Screen,Urine Not Detected (NotDetected); Methadone Screen, Urine Not Detected (NotDetected); Opiate Screen,Urine Not Detected (NotDetected); Phencyclidine Screen,Urine Not Detected (NotDetected); Tricyclic Antidepressant,Urine Not Detected (NotDetected); Urn Cannabinoid Scrn Not Detected (NotDetected)
[2021-09-17 18:00] LABS: Oxycodone Screen, Urine Not Detected (NotDetected)
[2021-09-17] MEDS ORDERED: HALOPERIDOL LACTATE 5 MG/ML 1 ML VIAL IM PRN (21:37)
[2021-09-17] MEDS ORDERED: MAGNESIUM HYDROXIDE 2,400 MG/10 ML CUP PO PRN (21:37)
[2021-09-17] MEDS ORDERED: MAG HYDROX/AL HYDROX/SIMETH 30 ML CUP PO PRN (21:37)
[2021-09-17] MEDS ORDERED: QUEtiapine 100 MG TAB PO PRN (21:38)
[2021-09-17] MEDS ORDERED: LORazepam 2 MG/ML INJ IM PRN (21:38)
--- NOTE | 2021-09-17 22:20 | P.PN ---
Progress Note - Text Progress Note Date: 09/17/21 notified by RN of new admission , patient currently sleeping
[2021-09-18] MEDS: ACETAMINOPHEN TAB 325 MG TAB PO PRN ×2 (03:24→20:15)
[2021-09-18] MEDS: LORazepam 1 MG TAB PO PRN ×2 (08:30→20:15)
[2021-09-18] MEDS: NICOTINE 14MG/24HR PATCH TRANSDERM SCH (09:01)
[2021-09-18] MEDS: haloperidoL 5 MG TAB PO PRN (10:11)
[2021-09-18] MEDS ORDERED: traZODone HCL 100 MG TAB PO PRN (10:25)
--- NOTE | 2021-09-18 10:43 | P.HP ---
Psychiatric H&P - . H&P Date: 09/18/21 History & Physical: Allergies Allergy/AdvReac Type Severity Reaction Status Date / Time cephalexin monohydrate Allergy Unknown Verified 09/17/21 12:05 From Keflex clindamycin Allergy Unknown Verified 09/17/21 12:05 latex Allergy Rash/Hives Verified 09/17/21 12:05 Penicillins Allergy Rash/Hives Verified 09/17/21 12:05 Vital Signs Temp 98.5 F 09/18/21 06:43 Pulse 97 09/18/21 06:43 Resp 18 09/17/21 22:21 BP 98/61 09/18/21 06:43 Pulse Ox 98 09/18/21 06:43 Intake & Output 09/17/21 09/18/21 09/18/21 18:59 06:59 18:59 Weight 77.111 kg Laboratory Last Values Urine Color Yellow 09/17/21 17:01 Urine Appearance Turbid (Clear) 09/17/21 17:01 Urine pH 6.5 (5.0-8.0) 09/17/21 17:01 Ur Specific [place] 1.017 (1.001-1.035) 09/17/21 17:01 Urine Protein 1+ (Negative) H 09/17/21 17:01 Urine Glucose (UA) Negative (Negative) 09/17/21 17:01 Urine Ketones Negative (Negative) 09/17/21 17:01 Urine Blood Small (Negative) H 09/17/21 17:01 Urine Nitrite Positive (Negative) 09/17/21 17:01 Urine Bilirubin Negative (Negative) 09/17/21 17:01 Urine Urobilinogen <2.0 mg/dL (<2.0) 09/17/21 17:01 Ur Leukocyte Esterase Large (Negative) H 09/17/21 17:01 Urine RBC 27 /hpf (0-5) H 09/17/21 17:01 Urine WBC >182 /hpf (0-5) H 09/17/21 17:01 Urine WBC Clumps Many /hpf (None) H 09/17/21 17:01 Ur Squamous Epith Cells <1 /hpf (0-4) 09/17/21 17:01 Urine Bacteria Moderate /hpf (None) H 09/17/21 17:01 Urine Mucus Rare /hpf (None) H 09/17/21 17:01 Urine Opiates Screen Not Detected (NotDetected) 09/17/21 17:01 Ur Oxycodone Screen Not Detected (NotDetected) 09/17/21 17:01 Urine Methadone Screen Not Detected (NotDetected) 09/17/21 17:01 Ur Propoxyphene Screen Not Detected (NotDetected) 09/17/21 17:01 Ur Barbiturates Screen Not Detected (NotDetected) 09/17/21 17:01 U Tricyclic Antidepress Not Detected (NotDetected) 09/17/21 17:01 Ur Phencyclidine Scrn Not Detected (NotDetected) 09/17/21 17:01 Ur Amphetamines Screen Not Detected (NotDetected) 09/17/21 17:01 U Methamphetamines Scrn Not Detected (NotDetected) 09/17/21 17:01 U Benzodiazepines Scrn Not Detected (NotDetected) 09/17/21 17:01 Urine Cocaine Screen Not Detected (NotDetected) 09/17/21 17:01 U Marijuana (THC) Screen Not Detected (NotDetected) 09/17/21 17:01 Coronavirus (PCR) Not Detected (Not Detectd) 09/17/21 13:08 09/18/21 10:21 IDENTIFYING Data: The patient is a 61-year-old single male who currently lives by himself, unemployed on [employer], has psychiatric history of schizophrenia HISTORY OF PRESENT ILLNESS: The patient was brought in by the police from the assisted yesterday and was on a petition. The petition was filled out by the community mental health social worker who claim the patient was floridly psychotic and apparently was easily angered, responding to internal stimuli and covered in urine. Patient was evaluated in the ER and found to have a UDS which was negative. Patient was last admitted to the mental health unit in January 2020 and has been following up with [facility] up until 2020 where he stopped. Patient was previously on Haldol Decanoate 50 mg IM every 2 weeks and also Zyprexa 7.5 mg daily at bedtime. Patient was admitted to the mental health unit involuntarily. Patient was seen wandering the hallways and was covering his head with a blanket. He was responding to internal stimuli at times during the interview and laughing inappropriately. He was also irritable and illogical and had loose associations. He had poor reality testing. Poor hygiene and grooming. He claims that the police "just walked in and grabbed me" and was unsure as to why he was in the hospital. He redirected several questions towards specification writer about his medications. He was agreeable to go back on Haldol and states that he was previously taking it "as needed". He denied most of what was going on in the petition. He claims that his sleep has been poor appetite as been fair. He is currently denying any suicidal or homicidal ideations and denying any auditory or visual hallucinations. He is denying any recreational drug use. Admits to cigarette use. PAST PSYCHIATRIC HISTORY: Previous diagnoses: Schizophrenia Previous psychiatric hospitalizations: Multiple previous inpatient psychiatric hospitalization, reports last time was admitted to the unit in January 2020. Previous suicide attempts: Denies. Previous outpatient psychiatric treatment: Currently receiving outpatient psychiatric treatment with [facility] however has not gone since 2020. Current psychiatric medications: Patient was previously on Zyprexa and Haldol D. SUBSTANCE ABUSE HISTORY: Reports to smoking cigar every day. Reports drinking alcohol a few times every month with the last time was few days ago. Denies any history of severe alcohol withdrawal, intoxication, or legal problems because of alcohol drinking. Reports sporadic use of marijuana with the last time was few weeks ago. Denies any history of using other illicit drugs. Denies any history of substance use disorder treatment. Social History: Patient was born in [place], [place] and raised up by appearance. Denies any history of childhood problems, abuse, or developmental problems Housing: Currently lives by himself. Patient never , and has no children Work history: [employer]. Education: Patient reports attaining an educational level of high school diploma. FAMILY HISTORY: Denies any family history of mental illness, addiction, or suicide Medical History: History of skin cancer, melanoma, and COPD MENTAL STATUS EXAM: General Appearance: Patient appears to be thin, bald, wearing hospital gown and blanket over his head, stated age is alert, bizarre and inappropriate. Responding to internal stimuli. Patient appears to have poor hygiene and grooming. Behavior: Patient is seated without any agitated behavior. Irritable. Responding to internal stimuli. Speech: Patient's speech is slurred at times. Loud at times. Mood/Affect: Patient reports their mood is "fine", affect is congruent and constricted. Suicidality/Homicidality: Patient denies having any homicidal ideation intent or plan. Denies any suicidal ideations intent or plan Perceptions: Patient denies any visual hallucinations and denies any auditory hallucinations Though content/process: Patient is a logical, tangential, inappropriate. Redirects questions. Bizarre. Memory and concentration: AOX3, grossly intact for the purposes of this session. Can spell "WORLD" backwards Judgment and insight: Chronically poor STRENGTHS/WEAKNESSES: strength is that patient is resilient. Weakness is that patient has poor judgment and is impulsive INTELLECT: average IMPRESSIONS: Schizophrenia Nicotine dependence PLAN: -Patient is admitted under involuntary status to MHU for stabilization of psychiatric symptoms and safety. Patient has not signed adult voluntary form and medication consent and is placed in patient's chart. A second certification was completed and along with petition will be filed for court. -Medications : Will start patient on Haldol 3 mg twice a day for psychosis. Plan will be to transition patient back onto Haldol D to ensure compliance. Trazodone 100 mg daily at bedtime when necessary for insomnia. -Ativan and Haldol PRN for agitation/aggression -Patient was informed of the risks, benefits and side effects of the medication and patient verbally consented however did not sign for medications. -Internal Medicine consult to perform medical evaluation and physical. -NRT - nicotine patch -SW on board for discharge planning. Encourage patient to participate in groups to work on coping skills. Will await deferral and court date.
[2021-09-18 11:20] LABS: Basophils # (A) 0.1 k/uL (0-0.2); Basophils % (A) 0 %; Eosinophils # (A) 0.1 k/uL (0-0.7); Eosinophils % (A) 1 %; HCT 45.2 % (39.0-53.0); HGB 14.6 gm/dL (13.0-17.5); Lymphocytes # (A) 1.8 k/uL (1.0-4.8); Lymphocytes % (A) 16 %; MCH 30.3 pg (25.0-35.0); MCHC 32.4 g/dL (31.0-37.0); MCV 93.6 fL (80.0-100.0); Mean Platelet Volume 10.2; Monocytes # (A) 1.1 k/uL (0-1.0); Monocytes % (A) 10 %; Neutrophils # (A) 7.8 k/uL (1.3-7.7); Neutrophils % (A) 70 %; Platelet Count 266 k/uL (150-450); RBC 4.83 m/uL (4.30-5.90); RDW 14.2 % (11.5-15.5); WBC 11.1 k/uL (3.8-10.6)
[2021-09-18 11:47] LABS: ALT 13 U/L (4-49); AST 26 U/L (17-59); African American GFR (CKD) >90 (>60 ml/min/1.73 sqM); Albumin 4.2 g/dL (3.5-5.0); Alkaline Phosphatase 80 U/L (38-126); Anion Gap 11 mmol/L; Blood Urea Nitrogen 15 mg/dL (9-20); Calcium 9.5 mg/dL (8.4-10.2); Carbon Dioxide 26 mmol/L (22-30); Chloride 98 mmol/L (98-107); Glucose 68 mg/dL (74-99); Non-African American GFR(CKD) >90 (>60 ml/min/1.73 sqM); Potassium 4.5 mmol/L (3.5-5.1); Sodium 135 mmol/L (137-145); Total Bilirubin 0.5 mg/dL (0.2-1.3); Total Protein 7.2 g/dL (6.3-8.2)
[2021-09-18] MEDS: haloperidoL 1 MG TAB PO SCH ×2 (11:58→20:15)
--- NOTE | 2021-09-18 15:12 | P.HPMEDMHU ---
History of Present Illness H&P Date: 09/18/21 Chief Complaint: psychosis patient is a 61-year-old male with a past medical history significant for schizophrenia the presence of the hospital secondary to psychosis. Internal medicine was consulted for medical management.vital signs are currently stable afebrile normotensive.leukocytosis 11.1BMP revealed sodium 135, creatinine 0.64, glucose slightly low at 68, urinalysis completed showing pyuria with moderate bacteria.urine drug screen was completed which was negative.to examination patient denies any urinary tract infection symptoms including dysuria urgency or frequency. Past Medical History Past Medical History: Cancer, COPD, Pneumonia Additional Past Medical History / Comment(s): Melanoma removed from L trunk, skin cancer removed from R side of nose, L eye blurry vision, constipation, hematuria/UTI, hypoglycemia. migraines History of Any Multi-Drug Resistant Organisms: None Reported Past Surgical History: Adenoidectomy, Tonsillectomy Additional Past Surgical History / Comment(s): R side of nose skin cancer remov al/skin graft, L trunk melanoma removed, colonoscopy. Past Anesthesia/Blood Transfusion Reactions: No Reported Reaction Past Psychological History: No Psychological Hx Reported Smoking Status: Current every day smoker Past Alcohol Use History: Occasional Past Drug Use History: None Reported - Past Family History Father Family Medical History: Diabetes Mellitus Additional Family Medical History / Comment(s): Father is living. Mother Family Medical History: CVA/TIA, Myocardial Infarction (OR) Additional Family Medical History / Comment(s): Mother had a CVA, shingles. She is from the CVA. Medications and Allergies Home Medications Medication Instructions Recorded Confirmed Type No Known Home Medications 09/17/21 09/17/21 History Allergies Allergy/AdvReac Type Severity Reaction Status Date / Time cephalexin monohydrate Allergy Unknown Verified 09/17/21 12:05 [From Keflex] clindamycin Allergy Unknown Verified 09/17/21 12:05 latex Allergy Rash/Hives Verified 09/17/21 12:05 Penicillins Allergy Rash/Hives Verified 09/17/21 12:05 Physical Exam Vitals: Vital Signs Temp Pulse Pulse Resp BP BP Pulse Ox 09/18/21 06:43 98.5 F 97 98/61 98 09/17/21 22:21 97.3 F L 75 18 108/63 98 09/17/21 21:00 94 18 143/84 96 Cranial Nerve Examination - Cranial Nerves Cranial Nerve II- Optic: Intact Cranial Nerve III- Oculomotor: Intact Cranial Nerve IV- Trochlear: Intact Cranial Nerve V- Trigeminal: Intact Cranial Nerve - Abducens: Intact Cranial Nerve VII- Facial: Intact Cranial Nerve VIII- Auditory: Intact Cranial Nerve IX- Glossopharyngeal: Intact Cranial Nerve X- Vagus: Intact Cranial Nerve XI- Accessory: Intact Cranial Nerve XII- Hypoglossal: Intact Results CBC & Chem 7: 09/18/21 10:48 09/18/21 10:48 Labs: Abnormal Lab Results - Last 24 Hours (Table) 09/17/21 09/18/21 09/18/21 Range/Units 17:01 10:48 10:48 WBC 11.1 H (3.8-10.6) k/uL Neutrophils # 7.8 H (1.3-7.7) k/uL Monocytes # 1.1 H (0-1.0) k/uL Sodium 135 L (137-145) mmol/L Creatinine 0.64 L (0.66-1.25) mg/dL Glucose 68 L (74-99) mg/dL Urine Protein 1+ H (Negative) Urine Blood Small H (Negative) Ur Leukocyte Esterase Large H (Negative) Urine RBC 27 H (0-5) /hpf Urine WBC >182 H (0-5) /hpf Urine WBC Clumps Many H (None) /hpf Urine Bacteria Moderate H (None) /hpf Urine Mucus Rare H (None) /hpf Assessment and Plan Assessment: assessment: #1 schizophrenia/psychosis #2 urinary tract infection - asymptomatic #3leukocytosis most likely reactive plan: -continue management as per primary team -ua positive however patient denies any symptoms of frequency, urgency or dysuria therefore will not treat asymptmatic bacteruia. -continue to monitor wbc count until normalized. please inform if it continues to stay elevated or any systemic symptoms -at this time we will sign off. please do not hesitate to contact us at any time with questions thank you.
[2021-09-18 18:05] LABS: Chol/HDL Ratio 2.62 Ratio; LDL Cholesterol,Calculated 65.6 mg/dL (0.0-131.0)
[2021-09-19] MEDS: NICOTINE 14MG/24HR PATCH TRANSDERM SCH (08:17)
[2021-09-19] MEDS: haloperidoL 1 MG TAB PO SCH (08:18)
[2021-09-19] MEDS: LORazepam 1 MG TAB PO PRN ×2 (08:19→15:56)
[2021-09-19] MEDS: ACETAMINOPHEN TAB 325 MG TAB PO PRN ×2 (08:19→13:25)
--- NOTE | 2021-09-19 10:30 | P.PN ---
Progress Note - Text Progress Note Date: 09/19/21 Interval History: Patient was seen lying in his bed today and was directable and agreeable to sp johnk with gag writer. Patient had toothpaste still over his lips and teeth and when asked about it he states that "if you leave it on his weight and her teeth more". He claims that he has been taking his medications and denies any side effects or problems with it. He was fairly concrete and was attempting to be more appropriately with brighter today. He was less intrusive and less irritable today with gag writer. He claims that his mood is "fine". States that he slept fairly well and admits to a fair appetite. At this time patient denies any suicidal or homical ideations, intent or plan. Patient denies any auditory, visual hallucinations and denies any paranoia or delusions. Patient denies any side effects from the medications and has been compliant with meds. Mental Status Exam: General Appearance: Patient appears to be thin, bald, wearing hospital gown and blanket over his head, stated age is alert, bizarre, improving mildly. Patient appears to have poor hygiene and grooming. Behavior: Patient is seated without any agitated behavior. Less irritable today. Speech: Patient's speech is slurred at times. Mood/Affect: Patient reports their mood is "ok", affect is congruent and constr icted. Suicidality/Homicidality: Patient denies having any homicidal ideation intent or plan. Denies any suicidal ideations intent or plan Perceptions: Patient denies any visual hallucinations and denies any auditory hallucinations Though content/process: Patient is a logical, more appropriate. Redirects some questions. Bizarre, improving mildly. Memory and concentration: AOX3, grossly intact for the purposes of this session. Can spell "WORLD" backwards Judgment and insight: Chronically poor, improving mildly IMPRESSIONS: Schizophrenia Nicotine dependence Plan: -Patient continues to meet criteria for inpatient psychiatric admission for symptom stabilization and safety. Patient has not signed adult voluntary form and medication consent and was placed in patient's chart. -Medications: We'll increase Haldol to 5 mg bid for psychosis. Plan will be to transition patient back onto Haldol D to ensure compliance. Trazodone 100 mg daily at bedtime when necessary for insomnia. -When necessary Ativan and Haldol for agitation/aggression. -NRT - nicotine patch -SW on board for discharge planning. Encouraged the patient to participate in milieu. Currently awaiting deferral with family law attorney and court date.
[2021-09-19] MEDS: haloperidoL 5 MG TAB PO PRN (17:22)
[2021-09-19] MEDS: haloperidoL 5 MG TAB PO SCH (19:59)
[2021-09-20] MEDS: haloperidoL 5 MG TAB PO SCH ×2 (09:11→20:37)
[2021-09-20] MEDS: ACETAMINOPHEN TAB 325 MG TAB PO PRN ×2 (09:19→20:37)
[2021-09-20] MEDS: LORazepam 1 MG TAB PO PRN ×2 (09:19→20:37)
--- NOTE | 2021-09-20 11:56 | P.PN ---
Progress Note - Text Progress Note Date: 09/20/21 Interval History: Patient was seen lying in his bed today and was directable and agreeable to tg drake with story writer. Patient continues to have a bedsheet over his head. He made some bizarre statements about him being in the hospital which did not make sense. She has been taking his medications and denies any side effects from them. He continues to have minimal insight into his condition and need for treatment. When asked about the deferral versus the court hearing, patient is unsure as to whether he wants to speak to the dog show judge or not. He was attempting to cooperate however continues to be illogical at times. He states that he slept fairly and has been going to some groups. He is not responding to internal stimuli. Continues to have poor hygiene and grooming. he admits to a fair appetite. At this time patient denies any suicidal or homical ideations, intent or plan. Patient denies any auditory, visual hallucinations and denies any paranoia or delusions. Patient denies any side effects from the medications and has been compliant with meds. Mental Status Exam: General Appearance: Patient appears to be thin, bald, wearing hospital gown and blanket over his head, stated age is alert, bizarre, improving mildly. Patient appears to have poor hygiene and grooming. Behavior: Patient is seated without any agitated behavior. Less irritable today. Speech: Patient's speech is slurred at times. Mood/Affect: Patient reports their mood is "ok", affect is incongruent and constricted. Suicidality/Homicidality: Patient denies having any homicidal ideation intent or plan. Denies any suicidal ideations intent or plan Perceptions: Patient denies any visual hallucinations and denies any auditory hallucinations Though content/process: Patient is illogical, improving mildly. Redirects some questions. Bizarre, improving mildly. Memory and concentration: AOX3, grossly intact for the purposes of this session Judgment and insight: Chronically poor, improving mildly IMPRESSIONS: Schizophrenia Nicotine dependence Plan: -Patient continues to meet criteria for inpatient psychiatric admission for symptom stabilization and safety. Patient has not signed adult voluntary form and medication consent and was placed in patient's chart. -Medications: Continue with Haldol to 5 mg bid for psychosis, then to increase tomorrow if needed. Plan will be to transition patient back onto Haldol D to ensure compliance. Trazodone 100 mg daily at bedtime when necessary for insomnia. -When necessary Ativan and Haldol for agitation/aggression. -NRT - nicotine patch -SW on board for discharge planning. Encouraged the patient to participate in milieu. Currently awaiting deferral with deputy commonwealth's attorney and court date. patient is a [facility] hold.
[2021-09-21] MEDS: LORazepam 1 MG TAB PO PRN ×2 (08:27→17:20)
[2021-09-21] MEDS: haloperidoL 5 MG TAB PO SCH ×3 (08:27→20:54)
[2021-09-21] MEDS: ACETAMINOPHEN TAB 325 MG TAB PO PRN ×3 (08:27→20:53)
[2021-09-21] MEDS ORDERED: BENZTROPINE MESYLATE 1 MG TAB PO PRN (14:52)
--- NOTE | 2021-09-21 15:49 | P.PN ---
Progress Note - Text Progress Note Date: 09/21/21 Interval History: Patient was seen lying in his bed today and was directable and agreeable to sp eak with comic writer. Patient was lying in the bed and awoke briefly to speak with comic writer. He continues to make some bizarre statements at times. His room was felt of urine and oder and comic writer was informed at team meeting the patient has been urinating on the floor beside his bed. Patient continues to improve mildly in terms of his thought process and thought content. He continues to have superficial/poor insight into his condition and need for treatment. He has been taking his medications and claims that he needs Haldol and Ativan. 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 He was attempting to cooperate however continues to be illogical at times. He states that he slept fairly and has been going to some groups. Continues to have poor hygiene and grooming. he admits to a fair appetite. At this time patient denies any suicidal or homical ideations, intent or plan. Patient denies any auditory, visual hallucinations and denies any paranoia or delusions. Patient denies any side effects from the medications and has been compliant with meds. Mental Status Exam: General Appearance: Patient appears to be thin, bald, wearing hospital gown and blanket over his head, stated age is alert, bizarre, improving mildly. Patient appears to have poor hygiene and grooming. Behavior: Patient is seated without any agitated behavior. Less irritable today. Bizarre at times. Speech: Patient's speech is slurred at times. Mood/Affect: Patient reports their mood is "ok", affect is incongruent and constricted. Suicidality/Homicidality: Patient denies having any homicidal ideation intent or plan. Denies any suicidal ideations intent or plan Perceptions: Patient denies any visual hallucinations and denies any auditory hallucinations Though content/process: Patient is illogical, improving mildly. Redirects some questions. Bizarre, improving mildly. Memory and concentration: AOX3, grossly intact for the purposes of this session Judgment and insight: Chronically poor, improving mildly IMPRESSIONS: Schizophrenia Nicotine dependence Plan: -Patient continues to meet criteria for inpatient psychiatric admission for symptom stabilization and safety. Patient has not signed adult voluntary form and medication consent and was placed in patient's chart. -Medications: Increase Haldol to 5 mg tid for psychosis. Plan will be to transition patient back onto Haldol D to ensure compliance prior to discharge. Trazodone 100 mg daily at bedtime when necessary for insomnia. Added Cogentin 1 mg twice a day when necessary for EPS prophylaxis. -When necessary Ativan and Haldol for agitation/aggression. -NRT - nicotine patch -SW on board for discharge planning. Encouraged the patient to participate in milieu. Deferral set for Friday, full court hearing on Friday at 10:45 AM. patient is a [facility] hold.
[2021-09-22] MEDS: LORazepam 1 MG TAB PO PRN ×2 (08:20→21:00)
[2021-09-22] MEDS: ACETAMINOPHEN TAB 325 MG TAB PO PRN ×3 (08:20→21:00)
[2021-09-22] MEDS: haloperidoL 5 MG TAB PO SCH ×3 (08:21→21:00)
[2021-09-23] MEDS: haloperidoL 5 MG TAB PO SCH ×3 (08:55→20:39)
[2021-09-23] MEDS: LORazepam 1 MG TAB PO PRN ×2 (08:56→20:39)
[2021-09-23] MEDS: ACETAMINOPHEN TAB 325 MG TAB PO PRN ×2 (08:56→20:39)
--- NOTE | 2021-09-23 19:16 | P.PN ---
Progress Note - Text Progress Note Date: 09/22/21 Interval history: Patient was seen in his room and was directable and agreeable to speak with song writer. Denies agitation or poor sleep. At this time patient denies any suicidal or homicidal ideations intent or plan. Denies any Auditory or visual hallucinations. Patient denies any side effects from the medications and has been compliant with meds. Mental status exam: General Appearance: [Patient appears to be older than stated age is alert, directable, and cooperative.] Behavior: [No agitated behavior. Patient is calm and directable] Speech: Patient's speech is fluent and nonpressured. Mood/Affect: Mood is "okay", affect is congruent and constricted. Suicidality/Homicidality: Patient denies having any suicidal or homicidal ideation intent or plan. Perceptions: Patient denies any auditory or visual hallucinations. Though content/process: [There is no evidence of any delusional thought content and thought process is linear and goal-directed.] Memory and concentration: AOX3, grossly intact for the purposes of this session Judgment and insight: improving mildly Assessment/Plan: Continue with current diagnosis. Patient continues to meet criteria for inpatient psychiatric admission for symptom stabilization and safety.[Patient will be maintained on current psychotropic medication regimen.] Monitor for medication compliance and for any psychotropic medication side effects. Will continue to monitor ongoing response to treatment. Encouraged participation in milieu.
--- NOTE | 2021-09-23 19:17 | P.PN ---
Progress Note - Text Progress Note Date: 09/23/21 Interval history: Patient was seen in the hallway and was directable and agreeable to speak with typewriter assembler. At this time patient denies any suicidal or homicidal ideations intent or plan. Denies any Auditory or visual hallucinations. Patient denies any side effects from the medications and has been compliant with meds. Mental status exam: General Appearance: [Patient appears to be stated age is alert, directable, and cooperative.] Behavior: [No agitated behavior. Patient is calm and directable] Speech: Patient's speech is fluent and nonpressured. Mood/Affect: Mood is "clean", affect is constricted. Suicidality/Homicidality: Patient denies having any suicidal or homicidal ideation intent or plan. Perceptions: Patient denies any auditory or visual hallucinations. Though content/process: [There is no evidence of any delusional thought content and thought process is linear and goal-directed. Swearing frequently during the interview] Memory and concentration: AOX3, grossly intact for the purposes of this session Judgment and insight: improving mildly Assessment/Plan: Continue with current diagnosis. Patient continues to meet criteria for inpatient psychiatric admission for symptom stabilization and safety.[Patient will be maintained on current psychotropic medication regimen.] Monitor for medication compliance and for any psychotropic medication side effects. Will continue to monitor ongoing response to treatment. Encouraged participation in milieu.
[2021-09-24] MEDS: LORazepam 1 MG TAB PO PRN ×2 (07:50→16:22)
[2021-09-24] MEDS: haloperidoL 5 MG TAB PO SCH ×3 (07:50→21:14)
[2021-09-24] MEDS: ACETAMINOPHEN TAB 325 MG TAB PO PRN ×2 (07:50→16:22)
--- NOTE | 2021-09-24 17:22 | P.PN ---
Subjective Progress Note Date: 09/24/21 Principal diagnosis: progress note he was seen today in persona and his update was reviewed with the team. He has been followed by DR. Gonzalez for probate court with the upcoming hearing scheduled on Fri. i reviewed the plan involving transitionig him from oral haldol to haldol [place]. HE has not been consdiered for SGA long acting Rx: abilify [place] or invega sustenna before. He has been very reluctant to stay in the [facility] for long period of time. despite psychoeducational approaches to engage him into accepting the need for Rx on a consistent absis. O ; He spoke in a rather lod vocie, despite the lack of hearing loss. He inquired about my command of Irish and chose not to further discuss the plan for his stay , his community adjustment and social support system. his affect : highly guarded and irritable, demanding for him to be treated special and for consideration of early discharge. His denied any hallucinations paaranoid ideas of reference and delusion most likely explained his peculiar mode of ommunicatuib, Thought cont. and process: he did not elaborate on his future plan, despite the lack of anditory hallucinations. No suicida or homicidal ideation. cognition: he was oreinted. with no awareness of his lack of insight or judgment. Insight judgment was absent, HE was fully oriented in 3 sphers. Diagnosis; schizophrenia, chronic in relapse positive and negative symptoms. violence risk potential and self care ADL to be further assessed, Plan; Wed: court appearance to be led by Dr. Gonzalez. Monitor his Rx response and his adverse events Objective - Vital Signs Vital signs: Vital Signs Temp 98.2 F 09/24/21 06:39 Pulse 87 09/24/21 16:24 Resp 16 09/24/21 06:39 BP 127/79 09/24/21 16:24 Pulse Ox 97 09/23/21 20:36 - Labs CBC & Chem 7: 09/18/21 10:48 09/18/21 10:48
[2021-09-25] MEDS: LORazepam 1 MG TAB PO PRN ×3 (07:58→20:51)
[2021-09-25] MEDS: haloperidoL 5 MG TAB PO SCH ×3 (07:58→20:51)
[2021-09-25] MEDS: ACETAMINOPHEN TAB 325 MG TAB PO PRN ×3 (09:38→20:52)
--- NOTE | 2021-09-25 16:45 | P.PN ---
Subjective Progress Note Date: 09/25/21 Principal diagnosis: progress note He was followed by Dr. Rod and his progress was discussed at length at the team meeting. There has not been any change in his mental status. His csse would be presented by Dr. Rod at the probate court for petition : He was relunctant to agree for a reasonable interview. His overall mental status was noted for his high irritability and guarded affect congruent with thi sthought contentHe may be hallucinationg but his seclusiveness in his room and refusal to participate in the unit milieu suggests for the presence of both positive and negative symptoms of schizoprhenia. Assessment: chronic schizophrenia positive and negative symptoms plan; Probate court petition. competency to consent to treatment would be adjudicated by camera repair technician 2. he may benefit from depot injection or clozapien for treatment resistant schizoprhenia Objective - Vital Signs Vital signs: Vital Signs Temp 98.2 F 09/24/21 06:39 Pulse 87 09/24/21 16:24 Resp 16 09/24/21 06:39 BP 127/79 09/24/21 16:24 Pulse Ox 97 09/23/21 20:36 - Labs CBC & Chem 7: 09/18/21 10:48 09/18/21 10:48
[2021-09-26] MEDS: ACETAMINOPHEN TAB 325 MG TAB PO PRN ×3 (08:02→21:06)
[2021-09-26] MEDS: LORazepam 1 MG TAB PO PRN ×3 (08:03→21:05)
[2021-09-26] MEDS: haloperidoL 5 MG TAB PO SCH ×3 (08:03→21:06)
--- NOTE | 2021-09-26 17:59 | P.PN ---
Subjective Progress Note Date: 09/26/21 Principal diagnosis: Progress carrie He was seen following his court apperance. He was less agitated an dwas more open and spontaneous after he secluded himsefl in the room for the past week. He was resigned to the outcome and was more prepared to engage to treatment . He did not elaborate on the speccific plan : MS; he was more pleasnat , and talked in a logical rational manner with good eye contact. He was not agitated or hostile. He did not elaborate on his delusional ideas of refernece. He seemd to have followed the court processing and udnerstood the legal proceedings regarding his need for treatment and his capacity for decision making to his best interests. A; Schizophrenia, persistent negative and positive symptoms he angie belong to the category of treatment resistant schizophrenia. Plan Dr. Rod will organize his treatment plan as per [place] protocol . Objective - Vital Signs Vital signs: Vital Signs Temp 97.7 F 09/26/21 06:50 Pulse 112 H 09/26/21 06:50 Resp 16 09/26/21 06:50 BP 117/73 09/26/21 06:50 Pulse Ox 97 09/23/21 20:36 - Labs CBC & Chem 7: 09/18/21 10:48 09/18/21 10:48
[2021-09-27] MEDS: haloperidoL 5 MG TAB PO SCH ×2 (08:35→16:31)
[2021-09-27] MEDS: LORazepam 1 MG TAB PO PRN ×2 (08:36→16:31)
[2021-09-27] MEDS: ACETAMINOPHEN TAB 325 MG TAB PO PRN ×2 (08:36→16:31)
--- NOTE | 2021-09-27 15:28 | P.PN ---
Progress Note - Text Progress Note Date: 09/27/21 Clinical Problems: Schizophrenia chronic type with multiple episodes currently in partial remission, tobacco use disorder Interim history: I reviewed the medical record, interviewed the patient and discussed the treatment and treatment plan with the treatment team. Abelardo has no understanding or insight as to the reason for this hospitalization. He alleged she has no explanation for his incarceration or for his transfer from shelter to the hospital. 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 He then began talking about possible employment. He denied side effects to Haldol. He intermittently attends therapeutic groups and activities. He slept 6 hours last night. He is been compliant with prescribed psychotropic medications. During team meeting the social science manager informed me that he will need to return to shelter after discharge. Mental status exam: He presented as a thin elderly male who was pleasant on approach. He made eye contact and appeared to attend to interview. He was slow but steady gait. He had tremor of the hands and repeated movements of his legs when seated. His speech was spontaneous and somewhat loud. His affect was stable and appropriate. He did not express suicidal ideation, wishes or homicidal ideation. He denied feeling hopeless, helpless or worthless. He ruminated about discharge and after discharge activities. He did not express clear ideas reference or paranoid ideation. His thinking was very concrete in his thinking was not fully organized or logical. He denied hallucinations did not appear to be responding to internal stimuli. Assessment: Patient continues to meet the criteria for inpatient psychiatric admission for symptom stabilization and safety Plan: Continue inpatient treatment. Safety precautions. Continue current medications. Encourage participation in therapeutic groups and activities. Evaluate clinical status and response to treatment daily basis.
[2021-09-28] MEDS: haloperidoL 5 MG TAB PO SCH ×2 (02:52→07:55)
[2021-09-28 07:54] VITALS: BP 99/68; PULSE 95; RESP 16; TEMP 97.6
[2021-09-28] MEDS: ACETAMINOPHEN TAB 325 MG TAB PO PRN (07:55)
[2021-09-28] MEDS: LORazepam 1 MG TAB PO PRN (07:55)
[2021-09-28 11:12] VITALS: BMI 27.4
--- NOTE | 2021-09-28 15:37 | P.DS ---
Providers Date of admission: 09/17/21 21:04 Attending physician: Marc Hamilton MD Consults: 09/17/21 21:37 Consult Physician Routine Consulting Provider: Neftaly Nation Consult Reason/Comments: H&P and medical and potential UTI Do you want consulting provider notified?: Yes Primary care physician: Stated None - Discharge Diagnosis(es) (1) Schizophrenia Status: Chronic Priority: High (2) Tobacco use Status: Chronic Priority: Medium (3) Legal problem Status: Acute Priority: High Hospital Course: HISTORY: Abelardo is a 61-year-old single male who has a chronic and severe mental illness. He was transferred to the psychiatric unit from [facility] where he was incarcerated for assault. According to information from the [facility] he was disorganized confused, refusing medications and urinating on himself. He has no understanding or insight as to the reason for this hospitalizations. He is that she has no explanation for psychiatrist or a or transfer from the [facility]. During is admission assessment he appeared to be responding to internal stimuli. He was laughing to himself inappropriately. He is making irritable and had logical. Admits association. He had difficulty concentrating and attending to the interview. HOSPITAL COURSE: He admitted him voluntarily to the psychiatric unit under the care of Dr. Gonzalez. He provided a comprehensive biopsychosocial assessment. The senior research consultant sheet metal technician completed the initial physical exam and diagnosed an asymptomatic urinary tract infection and reactive leukocytosis. We get his psychosis with Haldol titrating dose to 5 mg by mouth 3 times a day. Prescribed Desyrel 100 mg at bedtime. For sleep and Cogentin 1 mg by mouth twice a day for EPS. He was intermittently restless for she received when necessary Ativan and/or Haldol. He had no episodes requiring seclusion or restraint. He did not attend therapeutic groups and activities. He did not interact with staff or peers. Overall, he showed a moderate response to treatment. MENTAL STATUS ON DISCHARGE: Appendectomy presented as a thin casually groomed 17-year-old male with balding. He made eye contact and appeared to attend to the interview. He had tremor of the hands and legs. He had a distressed facial expression. He was alert and oriented to person and place. He was intermittently restless. His speech was spontaneous and at times loud. His affect was labile and psychotic occasionally intense. He did not express suicidal ideation, wishes or homicidal ideation. No express clear feelings of hopelessness, helplessness or worthlessness. He ruminated over and compared the [facility] of care to at [facility]. He was paranoid but did not express clear paranoid delusional beliefs. His thinking is very concrete and associations tight was not organized, coherent and goal directed. He did not appear to be responding to internal stimuli. DISPOSITION: He'll return to [facility]. His discharge medications are trazodone 50 mg at bedtime when necessary for sleep, Haldol 5 mg 3 times a day, Cogentin 1 mg twice a day and he has a follow-up appointment with [facility] on 09/28/2021. Patient Condition at Discharge: Stable Plan - Discharge Summary Discharge Rx Participant: No New Discharge Prescriptions: New haloperidoL [Haldol] 5 mg PO TID #90 tab Benztropine Mesylate [Cogentin] 1 mg PO BID #60 tab traZODone HCL [Desyrel] 100 mg PO HS PRN #30 tab PRN Reason: Insomnia Acetaminophen Tab [Tylenol] 650 mg PO Q4HR PRN #30 tab PRN Reason: Pain/Discomfort Discharge Medication List Acetaminophen Tab [Tylenol] 650 mg PO Q4HR PRN #30 tab 09/28/21 [Rx] Benztropine Mesylate [Cogentin] 1 mg PO BID #60 tab 09/28/21 [Rx] haloperidoL [Haldol] 5 mg PO TID #90 tab 09/28/21 [Rx] traZODone HCL [Desyrel] 100 mg PO HS PRN #30 tab 09/28/21 [Rx] Follow up Appointment(s)/Referral(s): [facility] [Outside] - 09/28/21 4:00 pm (Longterm services) [facility] [NON-STAFF] - 1 Week Patient Instructions/Handouts: Schizophrenia (DC) Activity/Diet/Wound Care/Special Instructions: Activity and diet as tolerated. Avoid the use of street drugs and alcohol. Take all medications as prescribed. When you are in need of refills on your medications please contact your medical provider and/or outpatient psychiatrist to have this done. Please go to scheduled outpatient appointment for aftercare treatment. If symptoms return or become worse, call the crisis line at and/or go to the nearest emergency room for evaluation Discharge Disposition: DC/TRANSFER COURT/LAW
[2021-09-28] MEDS ORDERED: BENZTROPINE MESYLATE 1 MG TAB PO SCH (21:00)
== END 2021-09-28 15:10 | DRG 885 ==
LOC: EC 11:19 → 3MHU 21:04
PROVIDERS: ADMIT Psychiatry & Neurology Psychiatry; ATTEND Psychiatry & Neurology Psychiatry
DX: F20.9 Schizophrenia, unspecified (principal); N39.0 Urinary tract infection, site not specified; D72.828 Other elevated white blood cell count; F17.210 Nicotine dependence, cigarettes, uncomplicated; J44.9 Chronic obstructive pulmonary disease, unspecified; Z65.3 Problems related to other legal circumstances; Z79.899 Other long term (current) drug therapy; Z20.822 Contact with and (suspected) exposure to COVID-19; Z80.8 Family history of malignant neoplasm of other organs or systems; Z82.3 Family history of stroke; Z82.49 Family history of ischemic heart disease and other diseases of the circulatory system; Z82.5 Family history of asthma and other chronic lower respiratory diseases; Z83.3 Family history of diabetes mellitus; Z85.820 Personal history of malignant melanoma of skin; Z88.0 Allergy status to penicillin; Z88.1 Allergy status to other antibiotic agents; Z91.040 Latex allergy status
CPT/HCPCS: 80053; 80061; 80306; 81001; 82075; 83036; 84443; 85025; 87635; 96372; 99285

== ENCOUNTER → 2021-10-26 | Outpatient (CLI) | payer MEDICARE, OTHER ==
[~2021-10-26] MED LIST: HALOPERIDOL DECANOATE 100 MG/ML 1 ML VIAL IM ONE
== END | disposition home or self-care (01) ==
LOC: LABMAIN 13:03
PROVIDERS: ATTEND Psychiatry & Neurology Psychiatry
DX: F99 Mental disorder, not otherwise specified (principal)

== ENCOUNTER 2024-04-22 22:52 | Inpatient (IN) | payer MEDICARE, OTHER ==
[2024-04-22] MEDS: HEPARIN SODIUM 1,000 UN/ML (10ML VL) IV ONE ×2 (11:37→23:37)
[~2024-04-22 22:52] MED LIST changes: -HALOPERIDOL DECANOATE 100 MG/ML 1 ML VIAL IM ONE; +NITROGLYCERIN SL TABS 0.4 MG TAB SUBLINGUAL PRN
--- NOTE | 2024-04-22 22:56 | ED ---
Chest Pain HPI - General Stated Complaint: STEMI Time Seen by Provider: 04/22/24 22:52 Source: RN notes reviewed, old records reviewed Limitations: no limitations - History of Present Illness Initial Comments: This is a 64-year-old male to the ER for evaluation no history of cardiac disease but coming in with severe onset of chest pain tonight. Chest pain for a few days for a day at home on and off and suddenly onset when it sat on him tonight with severe chest pain shortness of breath persistent here in the ER chest pain basically on and off for 2 days but definitely worse tonight Complaint: chest pain -: minutes(s) Onset: during rest, during exertion Pain Location: substernal, left chest Pain Radiation: LUE Severity: severe Severity scale (1-10): 10 Quality: tightness, heaviness Consistency: constant, intermittent (For the past 2 days pain was intermittent but now it is constant) Improves With: nothing Worsens With: nothing Anginal Symptoms: diaphoresis, dyspnea, sense of impending doom Other Symptoms: palpitations Treatments Prior to Arrival: none - Related Data Home Medications Medication Instructions Recorded Confirmed Albuterol Sulfate [Ventolin HFA] 2 puff INHALATION RT-Q3H PRN 04/23/24 04/23/24 Budesonide-Formot 160-4.5 Mcg 2 puff INHALATION RT-BID 04/23/24 04/23/24 [Symbicort 160-4.5 Mcg Inhaler] Haloperidol Decanoate [Haldol D] 100 mg IM Q28D 04/23/24 04/23/24 OLANZapine [ZyPREXA] 5 mg PO HS 04/23/24 04/23/24 Tiotropium 2.5 Mcg/Puff [Spiriva 2 puff INHALATION RT-DAILY 04/23/24 04/23/24 Respimat 2.5 Mcg] Allergies Allergy/AdvReac Type Severity Reaction Status Date / Time cephalexin monohydrate Allergy Unknown Verified 04/23/24 07:42 [From Keflex] clindamycin Allergy Unknown Verified 04/23/24 07:42 latex Allergy Rash/Hives Verified 04/23/24 07:42 Penicillins Allergy Rash/Hives Verified 04/23/24 07:42 Review of Systems ROS Statement: Those systems with pertinent positive or pertinent negative responses have been documented in the HPI. ROS Other: All systems not noted in ROS Statement are negative. EKG Findings - EKG Comments: EKG Findings:: EKG is sinus 96 WV 152 QRS [address] elevation V3-5 - [place], Pacemaker, Normal: Myocardial infarction: anterior [place] (acute or recent), lateral [place] (acute or recent) Past Medical History Past Medical History: Cancer, COPD, Pneumonia Additional Past Medical History / Comment(s): Melanoma removed from L trunk, skin cancer removed from R side of nose, L eye blurry vision, constipation, hematuria/UTI, hypoglycemia. migraines History of Any Multi-Drug Resistant Organisms: None Reported Past Surgical History: Adenoidectomy, Tonsillectomy Additional Past Surgical History / Comment(s): R side of nose skin cancer removal/skin graft, L trunk melanoma removed, colonoscopy. Past Anesthesia/Blood Transfusion Reactions: No Reported Reaction Smoking Status: Current every day smoker - Past Family History Father Family Medical History: Diabetes Mellitus Additional Family Medical History / Comment(s): Father is living. Mother Family Medical History: CVA/TIA, Myocardial Infarction ([place]) Additional Family Medical History / Comment(s): Mother had a CVA, shingles. She is from the CVA. General Exam General appearance: alert, anxious, in distress Head exam: Present: atraumatic, normocephalic, normal inspection Eye exam: Present: normal appearance, PERRL, EOMI. Absent: scleral icterus, conjunctival injection, periorbital swelling ENT exam: Present: normal exam, mucous membranes moist Neck exam: Present: normal inspection. Absent: tenderness, meningismus, lymphadenopathy Respiratory exam: Present: normal lung sounds bilaterally. Absent: respiratory distress, wheezes, rales, rhonchi, stridor Cardiovascular Exam: Present: regular rate, normal rhythm, normal heart sounds. Absent: systolic murmur, diastolic murmur, rubs, gallop, clicks GI/Abdominal exam: Present: soft, normal bowel sounds. Absent: distended, tenderness, guarding, rebound, rigid Extremities exam: Present: normal inspection, full ROM, normal capillary refill. Absent: tenderness, pedal edema, joint swelling, calf tenderness Back exam: Present: normal inspection Neurological exam: Present: alert, oriented X3, CN II-XII intact Psychiatric exam: Present: normal affect, normal mood Skin exam: Present: warm, dry, intact, normal color. Absent: rash Course Vital Signs 04/22/24 04/22/24 04/22/24 22:55 23:01 23:11 Temperature 36.9 F L Pulse Rate 94 90 Respiratory 18 18 Rate Blood Pressure 112/90 126/86 O2 Sat by Pulse 94 L 97 Oximetry - Reevaluation(s) Reevaluation #1: 04/22/24 23:17 Medical records reviewed Reevaluation #2: 04/22/24 23:17 Patient still with chest pain here in the ER Reevaluation #3: 04/22/24 23:17 Patient informed of results questions answered Reevaluation #4: Was pt. sent in by a medical professional or institution (, LOGAN, DENTAL ASSISTANT, urgent care, hospital, or custodial...) When possible be specific @ -no Did you speak to anyone other than the patient for history (EMS, parent, family, police, friend...)? What history was obtained from this source @ -no Did you review nursing and triage notes (agree or disagree)? Why? @ -agree Are old charts reviewed (outside hosp., previous admission, EMS record, old EKG, old radiological studies, urgent care reports/EKG's, custodial records)? Report findings @ -yes Differential Diagnosis (chest pain, altered mental status, abdominal pain women, abdominal pain men, vaginal bleeding, weakness, fever, dyspnea, syncope, headache, dizziness, GI bleed, back pain, seizure, CVA, palpatations, mental health, musculoskeletal)? @ -prior EKG interpreted by me (3pts min.). @ -yes X-rays interpreted by me (1pt min.). @ -yes negative for acute disease CT interpreted by me (1pt min.). @ -no U/S interpreted by me (1pt. min.). @ -no What testing was considered but not performed or refused? (CT, X-rays, U/S, labs)? Why? @ -none What meds were considered but not given or refused? Why? @ -none Did you discuss the management of the patient with other professionals (professionals i.e. LOGAN Grant, DENTAL ASSISTANT, lab, RT, psych nurse, social security benefits interviewer, wood milling machine hand, teacher, ground nuclear weapons assembly officer, outsole caser)? Give summary @ -no Was smoking cessation discussed for >3mins.? @ -no Was critical care preformed (if so, how long)? @ -yes31 Were there social determinants of health that impacted care today? How? (Homelessness, low income, unemployed, alcoholism, drug addiction, transportation, low edu. Level, literacy, decrease access to med. care, nursing home, rehab)? @ -none Was there de-escalation of care discussed even if they declined (Discuss DNR or withdrawal of care, Hospice)? DNR status @ -no What co-morbidities impacted this encounter? (DM, HTN, Smoking, COPD, CAD, Cancer, CVA, ARF, Chemo, Hep., AIDS, mental health diagnosis, sleep apnea, morbid obesity)? @ -none Was patient admitted / discharged? Hospital course, mention meds given and route, prescriptions, significant lab abnormalities, going to OR and other pertinent info. @ - 64 male coming in with acute chest pain prehospital activation for ST elevated [place]. Patient to the Flat Surfacer Admitted Undiagnosed new problem with uncertain prognosis? @ -no Drug Therapy requiring intensive monitoring for toxicity (Heparin, Nitro, Insulin, Cardizem)? @ -no Were any procedures done? @ -no Diagnosis/symptom? @ -ST elevated [place] Acute, or Chronic, or Acute on Chronic? @ -Acute Uncomplicated (without systemic symptoms) or Complicated (systemic symptoms)? @ -Complicated Side effects of treatment? @ -no Exacerbation, Progression, or Severe Exacerbation? @ -exacerbation Poses a threat to life or bodily function? How? (Chest pain, [place], [place], pneumonia, PE, COPD, DKA, ARF, appy, cholecystitis, CVA, Diverticulitis, Homicidal, S uicidal, threat to staff... and all critical care pts) @ -yes ST elevated [place] Reevaluation #5: Differential Chest Pain: Stable Angina, Unstable Angina, STEMI, NSTEMI Aortic Dissection, Pneumothorax, Musculoskeletal, Esophageal Spasm GERD, Cholecystitis, Pancreatitis, Zoster, this is not meant to be an all-inclusive list. - Consultations Consultation #1: Spoke with last who agrees to admit this patient Chest Pain MDM - MDM 64 male coming in with acute chest pain prehospital activation for ST elevated [place]. Patient to the Flat Surfacer Critical Care Time Critical Care Time: Yes Total Critical Care Time: 31 Disposition Clinical Impression: STEMI (ST elevation myocardial infarction) Disposition: ADMITTED IP TO THIS HOSP Condition: Critical Is patient prescribed a controlled substance at d/c from ED?: No Time of Disposition: 23:30
[2024-04-22 23:15] LABS: Basophils % (A) 0 %; Eosinophils # (A) 0.1 k/uL (0-0.7); Eosinophils % (A) 0 %; HCT 51.8 % (39.0-53.0); HGB 16.5 gm/dL (13.0-17.5); Lymphocytes # (A) 0.9 k/uL (1.0-4.8); Lymphocytes % (A) 6 %; MCH 29.9 pg (25.0-35.0); MCHC 31.9 g/dL (31.0-37.0); MCV 93.5 fL (80.0-100.0); Mean Platelet Volume 9.5; Monocytes # (A) 0.8 k/uL (0-1.0); Monocytes % (A) 5 %; Neutrophils # (A) 13.7 k/uL (1.3-7.7); Neutrophils % (A) 87 %; Platelet Count 314 k/uL (150-450); RBC 5.54 m/uL (4.30-5.90); RDW 14.2 % (11.5-15.5); WBC 15.7 k/uL (3.8-10.6)
[2024-04-22 23:24] LABS: ALT 12 U/L (4-49); AST 41 U/L (17-59); African American GFR (CKD) >90 (>60 ml/min/1.73 sqM); Albumin 3.9 g/dL (3.5-5.0); Alkaline Phosphatase 86 U/L (38-126); Anion Gap 6 mmol/L; Blood Urea Nitrogen 12 mg/dL (9-20); Calcium 9.3 mg/dL (8.4-10.2); Carbon Dioxide 22 mmol/L (22-30); Chloride 108 mmol/L (98-107); Glucose 105 mg/dL (74-99); Lipase 59 U/L (23-300); Magnesium 1.7 mg/dL (1.6-2.3); Non-African American GFR(CKD) 80 (>60 ml/min/1.73 sqM); Potassium 3.3 mmol/L (3.5-5.1); Sodium 136 mmol/L (137-145); Total Bilirubin 0.7 mg/dL (0.2-1.3); Total Protein 6.5 g/dL (6.3-8.2)
--- NOTE | 2024-04-22 23:25 | P.CRDCN ---
History of Present Illness Consult date: 04/22/24 History of present illness: History of Present Illness: The patient is a 64-year-old male with a history of chronic tobacco use who has been having intermittent chest discomfort for 2 days and today had severe chest discomfort rating to the left arm on presentation to the emergency room had significant ST segment elevation anteriorly. He denies any prior history of c hest discomfort, history of myocardial infarction, congestive heart failure or arrhythmia. He is a smoker. He has no history of diabetes or documented hyperlipidemia. He denies any chronic dyspnea on exertion, dizziness or palpitations. He has no PND, orthopnea or peripheral edema. He denies any alcohol intake. He has a history of schizophrenia and psychosis Medications: Trazodone, Cogentin, haloperidol Review of Systems: Respiratory: He is a chronic smoker but no recent wheezing or cough GI: No nausea or vomiting . No history of peptic ulcer disease. No recent GI bleed. : No hematuria or dysuria. Nervous System: No stroke or seizure. Physical Examination: 64-year-old male, alert oriented, appears older than stated age, shaking,Blood pressure 126/86, Heart rate 90 Head: Normocephalic. Eyes: Sclerae nonicteric. Neck: Good carotid upstroke, no bruit, no jugular venous distention. Lungs: Clear to auscultation. Heart: Regular rate and rhythm, S1-S2, no S3, no rub. No murmur. Abdomen: Soft nontender, positive bowel sounds no organomegaly. Extremities: No edema, intact distal pulses. Labs: Hemoglobin 16.5, platelet 314 EKG: EKG shows sinus mechanism with ST segment elevation anteriorly consistent with anterior wall myocardial infarction Impression: 1. Acute anterior wall myocardial infarction 2. Chronic tobacco use 3. History of schizophrenia and psychosis Plan: 1. Proceed with emergent cardiac catheterization, the procedure as well as the risks and the complications were discussed with the patient 2. Obtain an echocardiogram with Doppler 3. Smoking cessation 4. Depending on his progress further recommendations will be made 5. Thank you for this consult we will follow with you Past Medical History Past Medical History: Cancer, COPD, Pneumonia Additional Past Medical History / Comment(s): Melanoma removed from L trunk, skin cancer removed from R side of nose, L eye blurry vision, constipation, hematuria/UTI, hypoglycemia. migraines History of Any Multi-Drug Resistant Organisms: None Reported Past Surgical History: Adenoidectomy, Tonsillectomy Additional Past Surgical History / Comment(s): R side of nose skin cancer removal/skin graft, L trunk melanoma removed, colonoscopy. Past Anesthesia/Blood Transfusion Reactions: No Reported Reaction Smoking Status: Current every day smoker - Past Family History Father Family Medical History: Diabetes Mellitus Additional Family Medical History / Comment(s): Father is living. Mother Family Medical History: CVA/TIA, Myocardial Infarction ([place]) Additional Family Medical History / Comment(s): Mother had a CVA, shingles. She is from the CVA. Medications and Allergies Home Medications Medication Instructions Recorded Confirmed Type Acetaminophen Tab [Tylenol] 650 mg PO Q4HR PRN #30 tab 09/28/21 Rx Benztropine Mesylate [Cogentin] 1 mg PO BID #60 tab 09/28/21 Rx haloperidoL [Haldol] 5 mg PO TID #90 tab 09/28/21 Rx traZODone HCL [Desyrel] 100 mg PO HS PRN #30 tab 09/28/21 Rx Allergies Allergy/AdvReac Type Severity Reaction Status Date / Time cephalexin monohydrate Allergy Unknown Verified 09/21/21 18:38 [From Keflex] clindamycin Allergy Unknown Verified 09/21/21 18:38 latex Allergy Rash/Hives Verified 09/21/21 18:38 Penicillins Allergy Rash/Hives Verified 09/21/21 18:38 Physical Exam Vitals: Vital Signs Temp Pulse Resp BP Pulse Ox 04/22/24 23:11 90 18 126/86 97 04/22/24 23:01 36.9 F L 04/22/24 22:55 94 18 112/90 94 L Intake and Output 04/22/24 04/22/24 04/23/24 14:59 22:59 06:59 Other: Weight 49.895 kg Results 04/22/24 23:02 CBC 04/22/24 Range/Units 23:02 WBC 15.7 H (3.8-10.6) k/uL RBC 5.54 (4.30-5.90) m/uL Hgb 16.5 (13.0-17.5) gm/dL Hct 51.8 (39.0-53.0) % Plt Count 314 (150-450) k/uL Current Medications Generic Name Dose Route Start Last Admin Trade Name Freq PRN Reason Stop Dose Admin Aspirin 325 mg 04/23/24 09:00 Aspirin 325 Mg Tab PO DAILY [facility] Atorvastatin Calcium 80 mg 04/23/24 09:00 Atorvastatin 80 Mg Tab PO DAILY [facility] Sodium Chloride 1,000 mls @ 100 mls/hr 04/22/24 22:52 Saline 0.9% IV 04/23/24 08:51 .Q10H STA Heparin Sodium/Sodium Chloride 250 mls @ 5.987 mls/hr 04/22/24 23:00 25,000 unit/ Sodium Chloride IV .Q24H [facility] Protocol 12 UNITS/KG/HR Metoprolol Tartrate 25 mg 04/23/24 09:00 Metoprolol Tartrate 25 Mg Tab PO BID [facility] Morphine Sulfate 4 mg 04/22/24 22:52 Morphine Sulfate 4 Mg/Ml Syringe IV Q4HR PRN Chest Pain Nitroglycerin 0.4 mg 04/22/24 22:52 Nitroglycerin Sl Tabs 0.4 Mg Tab SUBLINGUAL Q5M PRN Chest Pain Intake and Output 04/22/24 04/22/24 04/23/24 14:59 22:59 06:59 Other: Weight 49.895 kg Patient Weight 04/23/24 06:59 Weight 49.895 kg 04/22/24 23:02
[2024-04-22 23:26] LABS: Partial Thromboplastin Time 27.8 sec (22.0-30.0); Prothrombin Time 11.2 sec (10.0-12.5)
[2024-04-22] MEDS: fentaNYL (PF) 50 MCG/1 ML VIAL IVP ONE (23:28)
[2024-04-22] MEDS: LIDOCAINE 1% INJ 10MG/ML (20 ML MDV) SQ ONE (23:29)
[2024-04-22] MEDS: VERAPAMIL SYRINGE (5 MG/10 ML) INTRAARTER ONE (23:31)
[2024-04-22 23:33] LABS: NT-Pro-B-Type Natriuretic Pept 1290 pg/mL
--- NOTE | 2024-04-22 23:34 | XR ---
EXAM: XR Chest, 1 View CLINICAL HISTORY: Chest pain TECHNIQUE: Frontal view of the chest. COMPARISON: Chest 2 views dated 08/28/2022 FINDINGS: Lungs: Hyperexpansion of the lungs. The left costophrenic margin is partially excluded from the [id number]. No focal airspace consolidation. The pulmonary vasculature appears somewhat equalized, slightly more prominent from the previous examination. No radiographic evidence for florid CHF. Pleural space: No definite pleural effusion or pneumothorax, accounting for limitations. Heart: No cardiomegaly. Mediastinum: The mediastinal contours are stable and unremarkable. The trachea is midline. Bones/joints: No acute fracture. IMPRESSION: Hyperexpansion of the lungs. The left costophrenic margin is partially excluded from the [id number]. No focal airspace consolidation. The pulmonary vasculature appears somewhat equalized, slightly more prominent from the previous examination. Findings suggest mild vascular congestion. No radiographic evidence for florid CHF. No definite pleural effusion or pneumothorax, accounting for limitations.
[2024-04-22] MEDS: SODIUM CHLORIDE 0.9% 1,000 ML IV ONE (23:36)
[2024-04-22] MEDS: PRASUGREL 10 MG TAB PO ONE (23:40)
[2024-04-22] MEDS: NOREPINEPHRINE 4 MG in SODIUM CHLORIDE 0.9% 250 ML IV ONE (23:58)
[2024-04-22] MEDS: HEPARIN SOD,PORK IN 0.45% NACL 25,000 UNIT in 0.45% NACL 1 250ML.BAG IV SCH (23:58)
[2024-04-22] MEDS: SODIUM CHLORIDE 0.9% 1,000 ML IV STA (23:59)
[2024-04-23] MEDS: IOPAMIDOL-370 100ML BTL INJ ONE (00:07)
[2024-04-23] MEDS: IOPAMIDOL-370 200ML BTL INJ ONE (00:21)
[2024-04-23] MEDS ORDERED: NITROGLYCERIN SL TABS 0.4 MG TAB SUBLINGUAL PRN (00:29)
[2024-04-23] MEDS ORDERED: RX INFO: IV CONTRAST WAS GIVEN 1 EACH MISC MISCELLANE PRN (00:29)
[2024-04-23] MEDS ORDERED: ATROPINE SULFATE 0.1 MG/ML 10ML SYRINGE IV PRN (00:29)
[2024-04-23 00:39] LABS: Glucose,Whole Blood 107 mg/dL (70-110)
[2024-04-23] MEDS: NOREPINEPHRINE 4 MG in SODIUM CHLORIDE 0.9% 250 ML IV SCH (00:44)
--- NOTE | 2024-04-23 00:45 | P.CARDCATH ---
Date of Procedure: 04/23/24 Description of Procedure: Cardiac Catheterization: The patient is a 64-year-old male with a history of chronic tobacco use, schizophrenia who presented with an acute anterior wall myocardial infarction. Recommendations were made regarding cardiac catheterization, the risks and the complications were discussed with the patient who is in full understanding and agreement. Procedure Description: Patient was brought to manager labor relations in fasting semi-sedated state after receiving Fentanyl and Benadryl achieiving moderate conscious sedated state. Using Xylocaine Anesthesia and modified Seldinger technique, a 6-Chadian sheath was introduced in the right radial artery . Subsequently, selective coronary angiography was performed using a 5-Chadian 3.5 bend right Amanda catheter and 6 Chadian CLS 3.5 guiding catheter. Multiple views of the coronary artery including hemiaxial views were obtained. The right Amanda catheter was used to cross the aortic valve and LVEDP was calculated. PCI: Using the CLS 3.5 guiding catheter and after cannulating the left main a 0.014 balance medium with J-wire with the help of a fine cross microcatheter was advanced across the total occlusion of the proximal LAD and positioned distally. Subsequently and after removing the microcatheter a 2.5 x 12 mm trek balloon was advanced and 3 inflations at 8 alice were done. Following that a 3.0 x 23 mm Xience macario point stent was advanced and deployed at 16 alice. After removing the balloon a 2.75 x 12 mm Xience macario point stent was deployed distal to the first 1 at 16 alice. After removing the balloon a [place] Stanton eye IVUS catheter was introduced and imaging were obtained. The distal stents were well opposed, proximally the diameter was between 4 and 4.5 mm. At that point a 4.0 x 15 mm Xience macario point stent was advanced and 1 inflation at 10 alice was done. Following that the wire was removed and images were obtained and revealed stable successful stenting. Following that, catheter and sheath were removed. Hemostasis was obtained with deployment of vascular band . There was no immediate complication. Patient was returned to room in stable condition. Of note, the patient received a total of 5000 units of intravenous heparin as well as intra-arterial verapamil. He received an oral loading dose of Effient. His ACT was monitored. He chest discomfort and EKG changes improved at the end of the procedure. He had an episode of hypotension requiring norepinephrine that was being weaned off at the end of the procedure. The patient was shaking throughout the procedure. Consideration for Impella was made but because of the severe shaking in the lower extremities it was felt that the risk of groin complications will be too high. Since his blood pressure improved the decision was made to hold on any mechanical support. Findings: Fluoroscopy: Calcifications of the proximal LAD was noted Left main: This is a large size vessel, trifurcating into LAD, left circumflex and ramus intermedius. The left main has no obstructive disease. LAD: This vessel is totally occluded proximally shortly after the origin with no significant antegrade flow Left circumflex: This is a nondominant vessel moderate in caliber giving rise to 2 obtuse marginal branch. The left circumflex has no obstructive disease RCA: This is a large dominant vessel bifurcating distally to PDA and PLV. The right coronary artery has mild intimal disease in the midsegment of 30% with no high-grade stenosis Ramus intermedius: This is a large size vessel reaching to the apical lateral wall. The ramus intermedius has no significant obstructive disease Left Ventriculogram: Not performed Hemodynamics: There was no gradient across aortic valve, LVEDP was 20-24 mmHg Conclusion: 1. Acutely occluded proximal LAD close to the ostium 2. Mild disease in the RCA 3. Successful stenting of the proximal LAD with reduction of the stenosis from 100% to less than 5% with IVUS guidance. There is hypoperfusion distally that was improving at the end of the procedure. 4. Right dominance Recommendations: The patient will continue on aspirin and Effient for 1 year without any interruption in addition to aggressive coronary risks modifications. Attempt to maintain his LDL below 70 mg will be initiated. The importance smoking cessation was discussed with the patient and he will be referred to [place] quit line. His norepinephrine will be weaned off and he will be initiated on an DIMPLE inhibitor. The findings and the recommendations were discussed with the patient and the family and they were in full understanding and agreement. Duration of sedation is 51 minutes.
[2024-04-23] MEDS: HEPARIN SODIUM 1,000 UN/ML (10ML VL) IV ONE (00:59)
[2024-04-23] MEDS: ASPIRIN 81 MG PO STA (00:59)
[2024-04-23] MEDS: MORPHINE SULFATE 4 MG/ML SYRINGE IV PRN (01:04)
[2024-04-23] MEDS: SODIUM CHLORIDE 0.9% 1,000 ML in EMPTY BAG 1 BAG IV SCH (01:07)
[2024-04-23] MEDS ORDERED: Potassium Replacement Protocol 1 EACH MISC MISCELLANE PRN (01:20)
[2024-04-23] MEDS: ZOLPIDEM 5 MG TAB PO PRN (01:22)
[2024-04-23] MEDS: POTASSIUM CHLORIDE ER 20 MEQ TAB.ER PO SCH (01:25)
--- NOTE | 2024-04-23 02:41 | P.HPIM ---
History of Present Illness H&P Date: 04/23/24 Patient is a 64-year-old male with history of COPD, schizophrenia, and nicotine dependence who came in for chest pain. He reported that for the past 2 days, he has been having intermittent episodes of sharp pleuritic chest pain/tightness at the sternum with an intensity of 8-9/10 radiating to the left arm that is relieved with rest. Last night 04/22 in the evening, episode of chest pain was at its most severe which led him to seek care at the ER. He denies shortness of breath, calf pain, dizziness, nausea or vomiting, sweats, abdominal pain, cough, fever, changes in vision, facial asymmetry, changes in speech, or loss of consciousness. At the emergency room, EKG showed sinus rhythm at a rate of [address] elevations in leads V2 to V5, QTc 395 MS. Chest x-ray showed mild congestion but is negative for pneumothorax or pleural effusion. WBC 15.7, hemoglobin 16.5, platelet 314, PT 11.2, INR 1, PTT 27.8, sodium 136, potassium 3.3, chloride 108, BUN 12, creatinine 1, glucose 105, calcium 9.3, magnesium 1.7, troponin 1.590, BUN 1290, lipase 59. On admission, patient was afebrile 97.9 Fahrenheit respiratory rate 18 blood pressure 126/86 oxygen saturation 97% on 3 L nasal cannula ED documentation reviewed. Review of systems: Pertinent positives and negatives as discussed in HPI, a complete review of systems was performed and all other systems are negative. Family history: Father is living known to have diabetes. Mother is known to had [place] and CVA. Social history: Tobacco: Current smoker. Smokes 2 packs/day for 50 years Alcohol: Denies EtOH use Recreational drugs: Prior use of marijuana. Travel: No recent travel Occupation: Retired Physical examination: Vital signs reviewed General: non toxic, no distress, older than stated age, underweight Derm: no unusual rashes/lesions, warm Head: atraumatic, normocephalic, symmetric Eyes: EOMI, no lid lag, anicteric sclera, pupils equal round reactive to light ENT: Nose and ears atraumatic Neck: No cervical lymphadenopathy, trachea midline, supple Mouth: no lip lesion, mucus membranes moist Cardiovascular: S1S2 reg, no murmur Lungs: CTA bilateral, no rhonchi, no rales, no accessory muscle use Abdominal: soft, nontender to palpation, no guarding Ext: muscle strength 5 out of 5 in all 4 extremities grossly, no gross muscle atrophy, no contractures, positive dorsalis pedis pulse bilateral, no edema Neuro: CN II-XI grossly intact, no gross focal neuro deficits Psych: Alert, oriented, appropriate affect and mood Assessment/Plan: #. Anterior wall ST elevation FL Troponin 1.590. EKG showed ST elevation in leads V2 to V5. Patient's status post Cath with stent placement of proximal LAD -Cardiac monitoring -Cardiology recommendations appreciated -Aspirin 81 mg p.o. OD -Lipitor 80 mg p.o. OD -Effient 10 mg p.o. OD -Spironolactone 25 mg p.o. OD -Metoprolol tartrate 25 mg p.o. twice daily -Morphine 4 mg IV Q4 PRN for pain -Nitroglycerin 0.4 mg p.o. sublingual as needed for chest pain -Echocardiogram ordered #. Leukocytosis, likely due to stress, no signs of active infection at this time WBC 15.17 -CBC at AM #. Hypokalemia Potassium 3.3 -Potassium 20 mEq p.o. for repletion -BMP at a.m. #. Schizophrenia -Resume home medication once reconciled #. Nicotine dependence -Patient educated on smoking cessation DVT prophylaxis: Heparin 5000 units SQ OD GI prophylaxis: Protonix 40mg IV OD The patient is admitted with an anticipated greater than 2 midnight stay for evaluation of STEMI CODE STATUS: Full Discussed with: Patient Anticipated discharge place: Home Past Medical History Past Medical History: Cancer, COPD, Pneumonia Additional Past Medical History / Comment(s): Melanoma removed from L trunk, ski n cancer removed from R side of nose, L eye blurry vision, constipation, hematuria/UTI, hypoglycemia. migraines History of Any Multi-Drug Resistant Organisms: None Reported Past Surgical History: Adenoidectomy, Tonsillectomy Additional Past Surgical History / Comment(s): R side of nose skin cancer removal/skin graft, L trunk melanoma removed, colonoscopy. Past Anesthesia/Blood Transfusion Reactions: No Reported Reaction Smoking Status: Current every day smoker - Past Family History Father Family Medical History: Diabetes Mellitus Additional Family Medical History / Comment(s): Father is living. Mother Family Medical History: CVA/TIA, Myocardial Infarction ([place]) Additional Family Medical History / Comment(s): Mother had a CVA, shingles. She is from the CVA. Medications and Allergies Home Medications Medication Instructions Recorded Confirmed Type Acetaminophen Tab [Tylenol] 650 mg PO Q4HR PRN #30 tab 09/28/21 Rx Benztropine Mesylate [Cogentin] 1 mg PO BID #60 tab 09/28/21 Rx haloperidoL [Haldol] 5 mg PO TID #90 tab 09/28/21 Rx traZODone HCL [Desyrel] 100 mg PO HS PRN #30 tab 09/28/21 Rx Allergies Allergy/AdvReac Type Severity Reaction Status Date / Time cephalexin monohydrate Allergy Unknown Verified 09/21/21 18:38 [From Keflex] clindamycin Allergy Unknown Verified 09/21/21 18:38 latex Allergy Rash/Hives Verified 09/21/21 18:38 Penicillins Allergy Rash/Hives Verified 09/21/21 18:38 Physical Exam Vitals: Vital Signs Temp Pulse Resp BP BP Pulse Ox 04/23/24 00:44 97.9 F 18 122/99 04/22/24 23:11 90 18 126/86 97 04/22/24 23:01 36.9 F L 04/22/24 22:55 94 18 112/90 94 L Intake and Output 04/22/24 04/22/24 04/23/24 14:59 22:59 06:59 Intake Total 310 Balance 310 Intake: IV 310 Other: Weight 49.895 kg 49.895 kg Results CBC & Chem 7: 04/22/24 23:02 04/22/24 23:02 Labs: Abnormal Lab Results - Last 24 Hours (Table) 04/22/24 04/22/24 04/22/24 Range/Units 23:02 23:02 23:02 WBC 15.7 H (3.8-10.6) k/uL Neutrophils # 13.7 H (1.3-7.7) k/uL Lymphocytes # 0.9 L (1.0-4.8) k/uL Sodium 136 L (137-145) mmol/L Potassium 3.3 L (3.5-5.1) mmol/L Chloride 108 H (98-107) mmol/L Glucose 105 H (74-99) mg/dL Troponin I 1.590 H* (0.000-0.034) ng/mL
[2024-04-23] MEDS ORDERED: MAG HYDROX/AL HYDROX/SIMETH 30 ML CUP PO PRN (04:00)
--- NOTE | 2024-04-23 08:52 | P.PN ---
Subjective Progress Note Date: 04/23/24 HPI: This gentleman presented with an acute anterior NV was relatively hypotensive. Underwent stenting of a totally occluded very proximal LAD by Dr. Mena. He is now hemodynamically stable has a fair urine output. Heart rate is in the mid 90s. No overt heart failure with no significant murmurs. Patient is a smoker 2 packs a day does have some emphysema. No chest pain or shortness of breath at this time. PHYSICIAL EXAM: Vitals are stable no JVD S1-S2 heard normally no significant murmurs lungs reveal diminished air entry but no rales abdomen is soft lower extremities reveal diminished pulses Central nervous system normal. IMPRESSION: 1. Acute anterior NV status post LAD PCI with noncritical disease in other vessels right dominant system. 2. Schizophrenia. 3. Smoking and COPD. 4.. 5.. RECOMMENDATIONS: I am recommending that we will obtain an echocardiogram. EKG revealed Q waves in leads V1 to V3 I suspect he will have a large area of hypokinesia. Will hydrate him at 75 cc/h. Check echocardiogram and he is already on lisinopril Aldactone and beta-blockers will continue the same prognosis remains guarded discussed my thoughts with the patient. Advised to refrain from smoking. He does not wish to have a nicotine patch. Objective - Vital Signs Vital signs: Vital Signs Temp 97.7 F 04/23/24 05:00 Pulse 101 H 04/23/24 07:45 Resp 17 04/23/24 07:45 BP 114/83 04/23/24 07:45 Pulse Ox 100 04/23/24 07:45 FiO2 Intake & Output 04/22/24 04/23/24 04/23/24 18:59 06:59 18:59 Intake Total 617.288 100 Output Total 200 50 Balance 417.288 50 Weight 51.9 kg Intake: IV 610 100 Sodium Chloride 0.9% 1, 300 100 000 ml In Empty Bag 1 bag @ 1 ML/KG/HR 49.895 mls/ hr IV .Q20H3M [facility] Rx#: [id number] Intake, IV Titration 7.288 Amount Norepinephrine 4 mg In 7.288 Sodium Chloride 0.9% 250 ml @ 0.03 MCG/KG/MIN 5. 703 mls/hr IV .Q24H [facility] Rx#:[id number] Output: Urine 200 50 Other: Voiding Method Bedside Commode # Voids 1 # Bowel Movements 1 - Labs CBC & Chem 7: 04/22/24 23:02 04/22/24 23:02 Labs: Abnormal Lab Results - Last 24 Hours (Table) 04/22/24 04/22/24 04/22/24 Range/Units 23:02 23:02 23:02 WBC 15.7 H (3.8-10.6) k/uL Neutrophils # 13.7 H (1.3-7.7) k/uL Lymphocytes # 0.9 L (1.0-4.8) k/uL Sodium 136 L (137-145) mmol/L Potassium 3.3 L (3.5-5.1) mmol/L Chloride 108 H (98-107) mmol/L Glucose 105 H (74-99) mg/dL Troponin I 1.590 H* (0.000-0.034) ng/mL 04/23/24 Range/Units 02:04 WBC (3.8-10.6) k/uL Neutrophils # (1.3-7.7) k/uL Lymphocytes # (1.0-4.8) k/uL Sodium (137-145) mmol/L Potassium (3.5-5.1) mmol/L Chloride (98-107) mmol/L Glucose (74-99) mg/dL Troponin I 130.000 H* (0.000-0.034) ng/mL
[2024-04-23] MEDS ORDERED: ASPIRIN 325 MG TAB PO SCH (09:00)
[2024-04-23 09:31] LABS: Chol/HDL Ratio 4.23 Ratio; LDL Cholesterol,Calculated 95.9 mg/dL (0.0-131.0); VLDL Calculation 18.64 mg/dL (5.00-40.00)
[2024-04-23] MEDS: PANTOPRAZOLE 40 MG/10 ML VIAL IVP SCH (09:38)
[2024-04-23] MEDS: HEPARIN SODIUM,PORCINE 5,000 UNIT/ML 1 ML VIAL SQ SCH (09:38)
[2024-04-23] MEDS: METOPROLOL TARTRATE 25 MG TAB PO SCH (09:38)
[2024-04-23] MEDS: ASPIRIN 81 MG PO SCH (09:38)
[2024-04-23] MEDS: ATORVASTATIN 80 MG TAB PO SCH (09:38)
[2024-04-23] MEDS: SPIRONOLACTONE 25 MG TAB PO SCH (09:38)
[2024-04-23] MEDS: lisinopriL 5 MG TAB PO SCH (09:38)
[2024-04-23] MEDS: SODIUM CHLORIDE 0.9% 1,000 ML IV SCH (09:39)
[2024-04-23 10:50] LABS: HCT 47.9 % (39.0-53.0); HGB 16.4 gm/dL (13.0-17.5); MCH 31.5 pg (25.0-35.0); MCHC 34.2 g/dL (31.0-37.0); MCV 92.1 fL (80.0-100.0); Mean Platelet Volume 9.8; Platelet Count 278 k/uL (150-450); RBC 5.21 m/uL (4.30-5.90); RDW 14.7 % (11.5-15.5); WBC 14.9 k/uL (3.8-10.6)
[2024-04-23 11:24] LABS: ALT 81 U/L (4-49); AST 572 U/L (17-59); African American GFR (CKD) >90 (>60 ml/min/1.73 sqM); Albumin 3.4 g/dL (3.5-5.0); Alkaline Phosphatase 102 U/L (38-126); Anion Gap 5 mmol/L; Blood Urea Nitrogen 14 mg/dL (9-20); Carbon Dioxide 20 mmol/L (22-30); Chloride 112 mmol/L (98-107); Glucose 100 mg/dL (74-99); Non-African American GFR(CKD) >90 (>60 ml/min/1.73 sqM); Sodium 137 mmol/L (137-145); Total Bilirubin 0.8 mg/dL (0.2-1.3); Total Protein 5.9 g/dL (6.3-8.2)
--- NOTE | 2024-04-23 12:20 | CA ---
Transthoracic Echo Report Name: Abelardo Salgado Age: 64 Gender: M : 1960 Exam Date: 04/23/2024 09:36 Exam Location: [facility] Ht (in): 67 Wt (lb): 110 Ordering Physician: Catarina Mena MD ([id number]) Attending/Referring Phys: [employer] Brenda García RDCS Procedure CPT: Indications: stemi Cardiac Hx: Technical Quality: Technically difficult study Contrast 1: Definity Total Dose (mL): 2 Contrast 2: Total Dose (mL): MEASUREMENTS (Male / Female) Normal Values 2D ECHO LV Diastolic Diameter PLAX 4.2 cm 4.2 - 5.9 / 3.9 - 5.3 cm LV Systolic Diameter PLAX 2.9 cm IVS Diastolic Thickness 1.2 cm 0.6 - 1.0 / 0.6 - 0.9 cm LVPW Diastolic Thickness 1.3 cm 0.6 - 1.0 / 0.6 - 0.9 cm LV Relative Wall Thickness 0.6 RV Internal Dim ED PLAX 3.9 cm LV Diastolic Volume MOD BP 73.0 cm??? 67 - 155 / 56 - 104 cm??? LV Systolic Volume MOD BP 42.5 cm??? 22 - 58 / 19 - 49 cm??? LV Ejection Fraction MOD BP 41.9 % >= 55 % LV Cardiac Index MOD BP 1888.0 cm???/min???m??? LV Diastolic Volume MOD 4C 56.5 cm??? LV Systolic Volume MOD 4C 25.1 cm??? LV Ejection Fraction MOD 4C 55.6 % LV Cardiac Index MOD 4C 1938.3 cm???/min???m??? LV Diastolic Length 4C 7.0 cm LV Systolic Length 4C 6.2 cm LV Diastolic Volume MOD 2C 92.1 cm??? LV Systolic Volume MOD 2C 71.2 cm??? LV Ejection Fraction MOD 2C 22.7 % LV Cardiac Index MOD 2C 1289.1 cm???/min???m??? LV Diastolic Length 2C 7.2 cm LV Systolic Length 2C 6.4 cm LA Volume 27.4 cm??? 18 - 58 / 22 - 52 cm??? LA Volume Index 18.0 cm???/m??? 16 - 28 cm???/m??? M-MODE Aortic Root Diameter MM 3.2 cm LA Systolic Diameter MM 3.4 cm LA Ao Ratio MM 1.1 AV Cusp Separation MM 2.1 cm DOPPLER AV Peak Velocity 73.8 cm/s AV Peak Gradient 2.2 mmHg AV Mean Velocity 50.5 cm/s AV Mean Gradient 1.2 mmHg AV Velocity Time Integral 12.1 cm LVOT Peak Velocity 66.1 cm/s LVOT Peak Gradient 1.8 mmHg LVOT Velocity Time Integral 10.5 cm MV Area PHT 5.9 cm??? Mitral E Point Velocity 50.0 cm/s Mitral A Point Velocity 59.8 cm/s Mitral E to A Ratio 0.8 MV Deceleration Time 127.8 ms MV E' Velocity 5.2 cm/s Mitral E to MV E' Ratio 9.5 TR Peak Velocity 251.0 cm/s TR Peak Gradient 25.2 mmHg Right Ventricular Systolic Press 30.2 mmHg FINDINGS Left Ventricle Mildly increased left ventricular wall thickness. Left ventricular cavity size normal. Severely reduced anteroapical, anteroseptal and anterolateral severe hypokinesis. Left ventricular ejection fraction is estimated at 20 to 25 %. Right Ventricle Mild right ventricular dilatation. Right ventricular systolic pressure within normal limits. Right Atrium Normal right atrial size. Left Atrium Normal left atrial size. Mitral Valve Structurally normal mitral valve. Mitral valve thickened. Mild mitral annular calcification. Mild mitral annular calcification. Mild mitral regurgitation. Aortic Valve No aortic valve stenosis or regurgitation. Tricuspid Valve Mild tricuspid regurgitation. Tricuspid regurgitation jet eccentric. Pulmonic Valve Pulmonic valve not well visualized. Pericardium Small pericardial effusion. Aorta Normal size aortic root and proximal ascending aorta. CONCLUSIONS 1. Severely impaired left ventricular systolic function with segmental wall motion abnormality consistent with CAD 2. Mild mitral and tricuspid regurgitation 3. Small pericardial effusion Previewed by: Dr. Catarina Mena MD (Electronically Signed) Final Date: 23 April 2024 12:19
[2024-04-23] MEDS ORDERED: LOSARTAN 25 MG TAB PO SCH (21:00)
[2024-04-23] MEDS: ALBUTEROL NEBULIZED 2.5 MG/3 ML INHALATION PRN (21:30)
[2024-04-24 01:58] LABS: HCT 47.6 % (39.0-53.0); HGB 15.2 gm/dL (13.0-17.5); Hypochromasia Slight; MCH 30.6 pg (25.0-35.0); MCV 95.5 fL (80.0-100.0); Mean Platelet Volume 9.6; Platelet Count 284 k/uL (150-450); RBC 4.99 m/uL (4.30-5.90); RDW 14.2 % (11.5-15.5); WBC 14.8 k/uL (3.8-10.6)
[2024-04-24 03:40] LABS: African American GFR (CKD) >90 (>60 ml/min/1.73 sqM); Anion Gap 2 mmol/L; Blood Urea Nitrogen 21 mg/dL (9-20); Calcium 8.6 mg/dL (8.4-10.2); Carbon Dioxide 20 mmol/L (22-30); Chloride 112 mmol/L (98-107); Glucose 84 mg/dL (74-99); Non-African American GFR(CKD) >90 (>60 ml/min/1.73 sqM); Sodium 134 mmol/L (137-145)
[2024-04-24] MEDS: LOPERAMIDE 2 MG CAP PO PRN (06:35)
[2024-04-24] MEDS: IPRATROPIUM 0.5 MG/2.5 ML NEBU INHALATION SCH (07:53)
[2024-04-24] MEDS: SYMBICORT 160-4.5 MCG INHALER INHALATION SCH (07:54)
[2024-04-24] MEDS: PRASUGREL 10 MG TAB PO SCH (08:48)
[2024-04-24] MEDS: SODIUM CHLORIDE 0.9% 1,000 ML IV SCH ×2 (10:45→12:54)
[2024-04-24] MEDS: SODIUM CHLORIDE 0.9% 500 ML 500 ML IV ONE ×2 (10:48→12:53)
[2024-04-24 11:09] LABS: Albumin 3.1 g/dL (3.5-5.0); Bilirubin, Delta 0.3 mg/dL (0.0-0.2); Bilirubin,Unconjugated 0.6 mg/dL (0.0-1.1); Total Bilirubin 0.9 mg/dL (0.2-1.3); Total Protein 5.6 g/dL (6.3-8.2)
--- NOTE | 2024-04-24 11:21 | P.PN ---
Subjective Progress Note Date: 04/24/24 64-year-old male with a PMH of COPD and schizophrenia who had presented to the emergency room with complaints of chest discomfort with radiation to the left arm. In the ED he underwent extensive evaluation. BP 112/90, HR 94, T 36.9C, RR 18, 94% on 3L. CBC, Coag panel, CMP significant for WBC 15.7, Na 136, K 3.3, Cl 108, glu 105. Mag 1.7. BNP 1290. Lipid panel T. Chol 150, LDL 95.9. Troponin 1.59, 130, 128. EKG showed ST elevation in leads V2 to V5. CODE STEMI called, patient was taken to the [facility] with stent placement of proximal LAD. He required Levophed on 04/23 which was weaned off. 04/24 Patient was seen and examined. Multiple episodes of watery diarrhea overnight. BP 80/57 HR 85 this morning. CBC and BMP significant for WBC 14.8, Na 134, Cl 112, bicarb 20, BUN 21, Cr 0.6. Echo shows EF 20-25% with segmental wall motion abnormality, mild MR/TR, small pericardial effusion. General: non toxic, mild distress, appears at stated age Derm: warm, dry Head: atraumatic, normocephalic, symmetric Eyes: EOMI, no lid lag, anicteric sclera Mouth: no lip lesion, mucus membranes moist Cardiovascular: S1 S2 reg. No murmurs, rubs, gallops Lungs: Clear to auscultation bilaterally, no accessory muscle use Ext: no gross muscle atrophy, no edema, no contractures Neuro: no focal neuro deficits Psych: Alert, oriented, appropriate affect Based on my assessment of this patient, this patient meets a high complexity level of care. STEMI: Status post LAD stent. ASA 81 mg PO QD. Lipitor on hold due to transaminitis. Metoprolol 25 mg PO BID. Effient 10 mg PO QD. HFrEF: EF 20-25%. Metoprolol as above. Aldactone 25 mg PO QD. Lisinopril 5 mg PO QD. Sepsis: Diarrhea. C. diff negative. He does meet sepsis criteria. Hypotension, tachycardia, leukocytosis. Plans to obtain CT AP w contrast. Start NS at 50 cc/hr. Judicious use of IVF due to low EF. Shock cardiogenic versus sepsis: Currently off Levophed. Maintain MAP > 65. Transaminitis: Likely due to shock. Repeat LFTs today. Stop Lipitor for now. Leukocytosis: No signs of active infection. Monitor fever profile. HyperCl metabolic acidosis: Likely due to infused IVF. COPD not in acute exacerbation: Albuterol neb Q3H PRN. Symbicort 2 INH BID. Schizophrenia: Zyprexa 5 mg PO QHS. Nicotine dependence Resolved: Shock CODE STATUS: FULL CODE. DVT Prophylaxis: Heparin SQ GI Prophylaxis: Protonix IV Designated medical POA if patient is not able to make medical decisions for themselves: I have reviewed the following analysis consultant notes: Cardiology I have reviewed the results of the following tests: CBC, BMP. C. difficile. I have ordered the following tests: LFT. CMP in the AM. CT AP w contrast. I have discussed the care of this patient with the following independent historian: NIKOLAI. I have independently interpreted the following test below: I have discussed the management of this patient with the following physician: Objective - Vital Signs Vital signs: Vital Signs Temp 98.1 F 04/24/24 04:00 Pulse 72 04/24/24 08:07 Resp 21 04/24/24 07:00 BP 121/83 04/24/24 07:00 Pulse Ox 100 04/24/24 07:54 FiO2 Intake & Output 04/23/24 04/24/24 04/24/24 18:59 06:59 18:59 Intake Total 1400 825 75 Output Total 350 850 200 Balance 1050 -25 -125 Weight 51.9 kg 54.3 kg Intake: IV 900 825 75 Sodium Chloride 0.9% 1, 750 825 75 000 ml @ 75 mls/hr IV . [id number] [facility] Rx#:[id number] Sodium Chloride 0.9% 1, 150 000 ml In Empty Bag 1 bag @ 1 ML/KG/HR 49.895 mls/ hr IV .Q20H3M [facility] Rx#: [id number] Oral 500 Output: Urine 250 200 Stool 100 350 Urine/Stool Mix 500 Other: Voiding Method Bedside Commode Bedside Commode # Voids 1 1 # Bowel Movements 1 1 - Labs CBC & Chem 7: 04/24/24 01:16 04/24/24 02:52 Labs: Abnormal Lab Results - Last 24 Hours (Table) 04/22/24 04/23/24 04/23/24 Range/Units 23:02 10:30 10:30 WBC 14.9 H (3.8-10.6) k/uL Sodium (137-145) mmol/L Chloride 112 H (98-107) mmol/L Carbon Dioxide 20 L (22-30) mmol/L BUN (9-20) mg/dL Creatinine 0.56 L (0.66-1.25) mg/dL Glucose 100 H (74-99) mg/dL AST 572 H (17-59) U/L ALT 81 H (4-49) U/L Troponin I (0.000-0.034) ng/mL Total Protein 5.9 L (6.3-8.2) g/dL Albumin 3.4 L (3.5-5.0) g/dL HDL Cholesterol 35.50 L (40.00-60.00) mg/dL 04/23/24 04/24/24 04/24/24 Range/Units 10:30 01:16 02:52 WBC 14.8 H (3.8-10.6) k/uL Sodium 134 L (137-145) mmol/L Chloride 112 H (98-107) mmol/L Carbon Dioxide 20 L (22-30) mmol/L BUN 21 H (9-20) mg/dL Creatinine 0.60 L (0.66-1.25) mg/dL Glucose (74-99) mg/dL AST (17-59) U/L ALT (4-49) U/L Troponin I 128.000 H* (0.000-0.034) ng/mL Total Protein (6.3-8.2) g/dL Albumin (3.5-5.0) g/dL HDL Cholesterol (40.00-60.00) mg/dL
[2024-04-24 13:06] LABS: Bacteria,Urine Many /hpf; Mucus,Urine Many /hpf; RBC,Urine >182 /hpf (0-5); WBC,Urine >182 /hpf (0-5)
[2024-04-24 13:14] LABS: ALT 40 U/L (4-49); AST 152 U/L (17-59); African American GFR (CKD) >90 (>60 ml/min/1.73 sqM); Albumin 2.7 g/dL (3.5-5.0); Alkaline Phosphatase 74 U/L (38-126); Anion Gap 1 mmol/L; Blood Urea Nitrogen 20 mg/dL (9-20); Calcium 8.2 mg/dL (8.4-10.2); Carbon Dioxide 23 mmol/L (22-30); Chloride 112 mmol/L (98-107); Glucose 68 mg/dL (74-99); Magnesium 1.8 mg/dL (1.6-2.3); Non-African American GFR(CKD) >90 (>60 ml/min/1.73 sqM); Potassium 3.7 mmol/L (3.5-5.1); Sodium 136 mmol/L (137-145); Total Bilirubin 0.8 mg/dL (0.2-1.3)
[2024-04-24 13:17] LABS: Appearance,Urine Cloudy (Clear)
[2024-04-24 13:19] LABS: Color,Urine Brown
[2024-04-24 14:00] LABS: Glucose,Whole Blood 95 mg/dL (70-110)
[2024-04-24] MEDS ORDERED: Magnesium Replacement Protocol 1 EACH MISC MISCELLANE PRN (14:09)
[2024-04-24] MEDS: POTASSIUM CHLORIDE ER 20 MEQ TAB.ER PO SCH (14:56)
[2024-04-24] MEDS: MAGNESIUM SULFATE-D5W PMX 1 GM in DEXTROSE/WATER 1 100ML.BAG IVPB ONE (14:56)
--- NOTE | 2024-04-24 17:18 | CT ---
EXAMINATION TYPE: CT abdomen pelvis wo con DATE OF EXAM: 04/24/2024 COMPARISON: None INDICATION: diarrhea/sepsis DLP: 319.5 mGycm, Automated exposure control for dose reduction was used. CONTRAST: 0 mL of Isovue 300. Study performed without Oral Contrast TECHNIQUE: Axial images were obtained from above the diaphragm to the pubic rami in the axial plane a t 5 mm thick sections. Reconstructed images are reviewed on the computer in the coronal plane. FINDINGS: Limited CT sections are obtained the lung bases. Dependent compressive atelectasis present.. Minima l pericardial effusion may be present. CT ABDOMEN: Liver: Normal Spleen: Normal Pancreas: Normal Adrenal glands: The adrenal glands are normal. Gallbladder: Normal Kidneys: No masses are evident. No hydronephrosis is present. No cysts are present. No renal stone s are identified Aorta: Vascular calcification is within the aorta. Inferior vena cava: Normal. CT PELVIS: Loops of bowel within the abdomen and pelvis are normal. All contrast appears within colon. Multiple loops of bowel lack oral contrast limiting their evaluation. There are loops of bowel which are inco mpletely distended or lack oral contrast limiting their evaluation. Appendix: Normal as visualized. Urinary bladder: There is thin urinary bladder. Correlate for recent instrumentation. Genitourinary structures: Prostate appears normal Osseous structures: No suspicious lytic or sclerotic lesions. IMPRESSION: 1. Air within urinary bladder. Correlate for recent instrumentation. 2. Minimal compressive atelectasis within the dependent lung bases. [facility], Workstation: [facility], 04/24/2024 5:16 PM
--- NOTE | 2024-04-24 17:32 | P.PN ---
Subjective Progress Note Date: 04/24/24 History of Present Illness: The patient is a 64-year-old male with a history of chronic tobacco use who has been having intermittent chest discomfort for 2 days and today had severe chest discomfort rating to the left arm on presentation to the emergency room had significant ST segment elevation anteriorly. He denies any prior history of chest discomfort, history of myocardial infarction, congestive heart failure or arrhythmia. He is a smoker. He has no history of diabetes or documented hyperlipidemia. He denies any chronic dyspnea on exertion, dizziness or palpitations. He has no PND, orthopnea or peripheral edema. He denies any alcohol intake. He has a history of schizophrenia and psychosis Medications: Trazodone, Cogentin, haloperidol Review of Systems: Respiratory: He is a chronic smoker but no recent wheezing or cough GI: No nausea or vomiting . No history of peptic ulcer disease. No recent GI bleed. : No hematuria or dysuria. Nervous System: No stroke or seizure. Progress note April 24, 2024 Patient is hypotensive with systolic blood pressure around 90. He is also havin g a leukocytosis and is also complaining to have diarrhea. I performed a bedside echocardiogram which showed no concerns of PostMI complications like VHD or pericardial effusion. He does have anteroseptal wall hypokinesia. Physical Examination: Head: Normocephalic. Eyes: Sclerae nonicteric. Neck: Good carotid upstroke, no bruit, no jugular venous distention. Lungs: Clear to auscultation. Heart: Regular rate and rhythm, S1-S2, no S3, no rub. No murmur. Abdomen: Soft nontender, positive bowel sounds no organomegaly. Extremities: No edema, intact distal pulses. Labs: Hemoglobin 16.5, platelet 314 EKG:EKG shows sinus mechanism with ST segment elevation anteriorly consistent with anterior wall myocardial infarction Impression: 1. Acute anterior wall myocardial infarction 2. Chronic tobacco use 3. History of schizophrenia and psychosis 4. Leukocytosis and concerns of sepsis Plan: IVC is collapsible and no signs of pericardial effusion. Give 1 L fluid bolus and started on 100 cc/h of normal saline for 10 hours. Hold antihypertensives. Continue aspirin, Effient, Monitor renal function and electrolytes Objective - Vital Signs Vital signs: Vital Signs Temp 97.5 F L 04/24/24 12:00 Pulse 110 H 04/24/24 17:00 Resp 26 H 04/24/24 17:00 BP 118/80 04/24/24 17:00 Pulse Ox 90 L 04/24/24 17:00 FiO2 Intake & Output 04/23/24 04/24/24 04/24/24 18:59 06:59 18:59 Intake Total 8164 265 5946 Output Total 237 822 3382 Balance 1050 -25 939 Weight 51.9 kg 54.3 kg Intake: IV 666 551 3045 Invasive Line 1 20 Magnesium Sulfate-D5w Pmx 100 1 gm In Dextrose/Water 1 100ml.bag @ 100 mls/hr IVPB ONCE ONE Rx#: [id number] Sodium Chloride 0.9% 1, 500 000 ml @ 100 mls/hr IV . Q10H [facility] Rx#:[id number] Sodium Chloride 0.9% 1, 100 000 ml @ 50 mls/hr IV . Q20H [facility] Rx#:[id number] Sodium Chloride 0.9% 1, 750 825 75 000 ml @ 75 mls/hr IV . [id number] [facility] Rx#:[id number] Sodium Chloride 0.9% 1, 150 000 ml In Empty Bag 1 bag @ 1 ML/KG/HR 49.895 mls/ hr IV .Q20H3M [facility] Rx#: [id number] Sodium Chloride 0.9% 500 500 ml 500 ml @ 999 mls/hr IV .Q31M [facility] Rx#:[id number] Sodium Chloride 0.9% 500 500 ml 500 ml @ 999 mls/hr IV .Q31M [facility] Rx#:[id number] Oral 500 474 Output: Urine 250 430 Stool 100 350 900 Urine/Stool Mix 500 Other: Voiding Method Bedside Commode Bedside Commode Indwelling Catheter # Voids 1 1 0 # Bowel Movements 1 1 1 - Labs CBC & Chem 7: 04/24/24 01:16 04/24/24 16:03 Labs: Abnormal Lab Results - Last 24 Hours (Table) 04/24/24 04/24/24 04/24/24 Range/Units 01:16 02:52 02:52 WBC 14.8 H (3.8-10.6) k/uL Sodium 134 L (137-145) mmol/L Chloride 112 H (98-107) mmol/L Carbon Dioxide 20 L (22-30) mmol/L BUN 21 H (9-20) mg/dL Creatinine 0.60 L (0.66-1.25) mg/dL Glucose (74-99) mg/dL Calcium (8.4-10.2) mg/dL Phosphorus (2.5-4.5) mg/dL Delta Bilirubin 0.3 H (0.0-0.2) mg/dL AST 261 H (17-59) U/L ALT 55 H (4-49) U/L Total Protein 5.6 L (6.3-8.2) g/dL Albumin 3.1 L (3.5-5.0) g/dL Urine RBC (0-5) /hpf Urine WBC (0-5) /hpf Urine Bacteria (None) /hpf Urine Mucus (None) /hpf 04/24/24 04/24/24 Range/Units 12:26 12:46 WBC (3.8-10.6) k/uL Sodium 136 L (137-145) mmol/L Chloride 112 H (98-107) mmol/L Carbon Dioxide (22-30) mmol/L BUN (9-20) mg/dL Creatinine (0.66-1.25) mg/dL Glucose 68 L (74-99) mg/dL Calcium 8.2 L (8.4-10.2) mg/dL Phosphorus 2.0 L (2.5-4.5) mg/dL Delta Bilirubin (0.0-0.2) mg/dL AST 152 H (17-59) U/L ALT (4-49) U/L Total Protein 5.0 L (6.3-8.2) g/dL Albumin 2.7 L (3.5-5.0) g/dL Urine RBC >182 H (0-5) /hpf Urine WBC >182 H (0-5) /hpf Urine Bacteria Many H (None) /hpf Urine Mucus Many H (None) /hpf
[2024-04-24] MEDS: LEVOFLOXACIN 750MG-D5W PMX 750 MG in DEXTROSE/WATER 1 150ML.BAG IVPB SCH (18:45)
[2024-04-24] MEDS: OLANZapine 5 MG TAB PO SCH (20:40)
[2024-04-25 03:48] LABS: Basophils % (A) 0 %; Eosinophils % (A) 0 %; Lymphocytes # (A) 0.9 k/uL (1.0-4.8); Lymphocytes % (A) 11 %; MCH 31.1 pg (25.0-35.0); MCHC 33.4 g/dL (31.0-37.0); MCV 93.2 fL (80.0-100.0); Mean Platelet Volume 9.3; Monocytes # (A) 0.6 k/uL (0-1.0); Monocytes % (A) 7 %; Neutrophils # (A) 6.4 k/uL (1.3-7.7); Neutrophils % (A) 79 %; Platelet Count 227 k/uL (150-450); RBC 4.51 m/uL (4.30-5.90); RDW 14.2 % (11.5-15.5); WBC 8.1 k/uL (3.8-10.6)
[2024-04-25 04:02] LABS: ALT 34 U/L (4-49); AST 101 U/L (17-59); African American GFR (CKD) >90 (>60 ml/min/1.73 sqM); Albumin 2.5 g/dL (3.5-5.0); Alkaline Phosphatase 78 U/L (38-126); Anion Gap -1 mmol/L; Blood Urea Nitrogen 11 mg/dL (9-20); Calcium 7.7 mg/dL (8.4-10.2); Carbon Dioxide 21 mmol/L (22-30); Chloride 113 mmol/L (98-107); Glucose 103 mg/dL (74-99); Magnesium 1.7 mg/dL (1.6-2.3); Non-African American GFR(CKD) >90 (>60 ml/min/1.73 sqM); Potassium 3.5 mmol/L (3.5-5.1); Sodium 133 mmol/L (137-145); Total Bilirubin 0.8 mg/dL (0.2-1.3); Total Protein 4.7 g/dL (6.3-8.2)
[2024-04-25] MEDS ORDERED: Potassium Replacement Protocol 1 EACH MISC MISCELLANE PRN (04:34)
[2024-04-25] MEDS: MAGNESIUM SULFATE-D5W PMX 1 GM in DEXTROSE/WATER 1 100ML.BAG IVPB ONE (04:56)
[2024-04-25] MEDS: POTASSIUM BICARBONATE/CIT AC 20 MEQ TABLET.EFF NG-TUBE SCH ×2 (05:08→09:40)
--- NOTE | 2024-04-25 06:38 | XR ---
EXAMINATION TYPE: XR chest 1V portable DATE OF EXAM: 04/25/2024 COMPARISON: 04/22/2024 HISTORY: Dyspnea TECHNIQUE: Single frontal view of the chest is obtained. FINDINGS: There is no change in the diffuse interstitial opacification. Findings are consistent with pulmonary vascular congestion and mild interstitial edema likely superimposed on a chronic interstit ial process. There is no airspace consolidation. There is no pleural effusion or pneumothorax. Heart size is normal. IMPRESSION: No change in the diffuse interstitial process likely pulmonary vascular congestion and possibly mild interstitial edema [facility], , 04/25/2024 6:35 AM
[2024-04-25] MEDS ORDERED: METOPROLOL TARTRATE 25 MG TAB PO SCH ×2 (07:03→09:00)
[2024-04-25 09:18] LABS: Magnesium 2.1 mg/dL (1.6-2.3); Potassium 3.7 mmol/L (3.5-5.1)
--- NOTE | 2024-04-25 10:12 | P.PN ---
Subjective Progress Note Date: 04/25/24 History of Present Illness: The patient is a 64-year-old male with a history of chronic tobacco use who has been having intermittent chest discomfort for 2 days and today had severe chest discomfort rating to the left arm on presentation to the emergency room had significant ST segment elevation anteriorly. He denies any prior history of chest discomfort, history of myocardial infarction, congestive heart failure or arrhythmia. He is a smoker. He has no history of diabetes or documented hyperlipidemia. He denies any chronic dyspnea on exertion, dizziness or palpitations. He has no PND, orthopnea or peripheral edema. He denies any alcohol intake. He has a history of schizophrenia and psychosis Medications: Trazodone, Cogentin, haloperidol Review of Systems: Respiratory: He is a chronic smoker but no recent wheezing or cough GI: No nausea or vomiting . No history of peptic ulcer disease. No recent GI bleed. : No hematuria or dysuria. Nervous System: No stroke or seizure. Progress note April 24, 2024 Patient is hypotensive with systolic blood pressure around 90. He is also havin g a leukocytosis and is also complaining to have diarrhea. I performed a bedside echocardiogram which showed no concerns of PostMI complications like VHD or pericardial effusion. He does have anteroseptal wall hypokinesia. May 12, 2024 Patient is borderline hypotensive with systolic blood pressure in 90s. His heart rate is in 90s with sinus rhythm. His diarrhea has got better. He complains of constipation. He got loperamide which I have discontinued. On exam he does not have any new murmurs. No signs of JVD elevation. No lower extremity swelling. Denies any chest pain chest pressure shortness of breath. Physical Examination: Head: Normocephalic. Eyes: Sclerae nonicteric. Neck: Good carotid upstroke, no bruit, no jugular venous distention. Lungs: Clear to auscultation. Heart: Regular rate and rhythm, S1-S2, no S3, no rub. No murmur. Abdomen: Soft nontender, positive bowel sounds no organomegaly. Extremities: No edema, intact distal pulses. Labs: Hemoglobin 16.5, platelet 314 EKG:EKG shows sinus mechanism with ST segment elevation anteriorly consistent with anterior wall myocardial infarction Impression: 1. Acute anterior wall myocardial infarction 2. Chronic tobacco use 3. History of schizophrenia and psychosis 4. Leukocytosis and concerns of sepsis 5. Ischemic cardiomyopathy. EF 35%, euvolemic Plan: Aspirin, Effient, statin Holding beta-twyla and antihypertensives because of low resting blood pressure Heart rate is in 90s which appears to be physiological. Once patient's hemodynamics improves after antibiotics and sepsis picture gets better, consider adding low-dose beta-twyla because of his cardiomyopathy. Okay to downgrade from ICU to 3 S. daily floor Objective - Vital Signs Vital signs: Vital Signs Temp 98.3 F 04/25/24 08:00 Pulse 91 04/25/24 10:00 Resp 19 04/25/24 10:00 BP 92/62 04/25/24 10:00 Pulse Ox 94 L 04/25/24 10:00 FiO2 Intake & Output 04/24/24 04/25/24 04/25/24 18:59 06:59 18:59 Intake Total 2469 400 257 Output Total 1495 2060 470 Balance 824 -1160 -213 Weight 53.4 kg Intake: IV 1994 400 20 Invasive Line 1 20 10 Invasive Line 3 10 Magnesium Sulfate-D5w Pmx 100 1 gm In Dextrose/Water 1 100ml.bag @ 100 mls/hr IVPB ONCE ONE Rx#: [id number] Sodium Chloride 0.9% 1, 700 400 000 ml @ 100 mls/hr IV . Q10H [facility] Rx#:[id number] Sodium Chloride 0.9% 1, 100 000 ml @ 50 mls/hr IV . Q20H [facility] Rx#:[id number] Sodium Chloride 0.9% 1, 75 000 ml @ 75 mls/hr IV . [id number] [facility] Rx#:[id number] Sodium Chloride 0.9% 500 500 ml 500 ml @ 999 mls/hr IV .Q31M [facility] Rx#:[id number] Sodium Chloride 0.9% 500 500 ml 500 ml @ 999 mls/hr IV .Q31M [facility] Rx#:[id number] Oral 474 237 Output: Urine 595 2060 470 Stool 900 Other: Voiding Method Indwelling Catheter Indwelling Catheter Indwelling Catheter # Voids 0 # Bowel Movements 0 - Labs CBC & Chem 7: 04/25/24 03:28 04/25/24 08:48 Labs: Abnormal Lab Results - Last 24 Hours (Table) 04/24/24 04/24/24 04/24/24 Range/Units 02:52 12:26 12:46 Lymphocytes # (1.0-4.8) k/uL Sodium 136 L (137-145) mmol/L Chloride 112 H (98-107) mmol/L Carbon Dioxide (22-30) mmol/L Creatinine (0.66-1.25) mg/dL Glucose 68 L (74-99) mg/dL Calcium 8.2 L (8.4-10.2) mg/dL Phosphorus 2.0 L (2.5-4.5) mg/dL Delta Bilirubin 0.3 H (0.0-0.2) mg/dL AST 261 H 152 H (17-59) U/L ALT 55 H (4-49) U/L Total Protein 5.6 L 5.0 L (6.3-8.2) g/dL Albumin 3.1 L 2.7 L (3.5-5.0) g/dL Urine RBC >182 H (0-5) /hpf Urine WBC >182 H (0-5) /hpf Urine Bacteria Many H (None) /hpf Urine Mucus Many H (None) /hpf 04/25/24 04/25/24 Range/Units 03:28 03:28 Lymphocytes # 0.9 L (1.0-4.8) k/uL Sodium 133 L (137-145) mmol/L Chloride 113 H (98-107) mmol/L Carbon Dioxide 21 L (22-30) mmol/L Creatinine 0.60 L (0.66-1.25) mg/dL Glucose 103 H (74-99) mg/dL Calcium 7.7 L (8.4-10.2) mg/dL Phosphorus (2.5-4.5) mg/dL Delta Bilirubin (0.0-0.2) mg/dL AST 101 H (17-59) U/L ALT (4-49) U/L Total Protein 4.7 L (6.3-8.2) g/dL Albumin 2.5 L (3.5-5.0) g/dL Urine RBC (0-5) /hpf Urine WBC (0-5) /hpf Urine Bacteria (None) /hpf Urine Mucus (None) /hpf
--- NOTE | 2024-04-25 10:35 | P.PN ---
Subjective Progress Note Date: 04/25/24 64-year-old male with a PMH of COPD and schizophrenia who had presented to the emergency room with complaints of chest discomfort with radiation to the left arm. In the ED he underwent extensive evaluation. BP 112/90, HR 94, T 36.9C, RR 18, 94% on 3L. CBC, Coag panel, CMP significant for WBC 15.7, Na 136, K 3.3, Cl 108, glu 105. Mag 1.7. BNP 1290. Lipid panel T. Chol 150, LDL 95.9. Troponin 1.59, 130, 128. EKG showed ST elevation in leads V2 to V5. CODE STEMI called, patient was taken to the computer lab aide with stent placement of proximal LAD. He required Levophed on 04/23 which was weaned off. Patient with multiple episodes of watery diarrhea. Along with hypotension and leukocytosis, concerns for seps is. Bedside echo done by Dr. Sanches on 04/24 showed no concerns of post MS complications. CT AP shows air within the urinary bladder with minimal compressive atelectasis. UA was performed which was brown in color, > 182 RBC and WBC. Started on Levaquin empirically. 04/25 Patient was seen and examined. 11 episodes of watery diarrhea over the past 24H, none this morning. Repeat C. diff test ordered along with COVID 19 test. BP 92/64 HR 95 this morning. CBC and CMP significant for Na 133, Cl 113, b icarb 21, Cr 0.6, glu 103, Ca 7.7, AST 101, alb 2.5. CXR shows mild pulmonary vascular congestion. General: non toxic, mild distress, appears at stated age Derm: warm, dry Head: atraumatic, normocephalic, symmetric Eyes: EOMI, no lid lag, anicteric sclera Mouth: no lip lesion, mucus membranes moist Cardiovascular: S1 S2 reg. No murmurs, rubs, gallops Lungs: Clear to auscultation bilaterally, no accessory muscle use Ext: no gross muscle atrophy, no edema, no contractures Neuro: no focal neuro deficits Psych: Alert, oriented, appropriate affect Based on my assessment of this patient, this patient meets a high complexity level of care. STEMI: Status post LAD stent. ASA 81 mg PO QD. Lipitor on hold due to transaminitis. Metoprolol on hold due to hypotension. Effient 10 mg PO QD. HFrEF: EF 20-25%. Metoprolol, Aldactone, Lisinopril discontinued due to hypotension. Sepsis: Diarrhea. C. diff negative. He does meet sepsis criteria. Hypotension, tachycardia, leukocytosis. CT AP unrevealing. Repeat C. diff and order COVID. Empirically started on Levaquin 750 mg IV QD. Judicious use of IVF due to low EF. Follow BCx, UCx. Shock cardiogenic versus sepsis: Currently off Levophed. Maintain MAP > 65. Bedside Echo 04/24 shows no post MS complications. Transaminitis: Likely due to shock. Improving. Stop Lipitor for now. HyperCl metabolic acidosis: Likely due to infused IVF. COPD not in acute exacerbation: Albuterol neb Q3H PRN. Symbicort 2 INH BID. Schizophrenia: Zyprexa 5 mg PO QHS. Nicotine dependence CODE STATUS: FULL CODE. DVT Prophylaxis: Heparin SQ GI Prophylaxis: Protonix IV Designated medical POA if patient is not able to make medical decisions for themselves: I have reviewed the following data processing consultant notes: Cardiology I have reviewed the results of the following tests: CBC, CMP, CT AP, UA I have ordered the following tests: COVID/RSV/Flu, repeat C. diff I have discussed the care of this patient with the following independent historian: NIKOLAI. I have independently interpreted the following test below: CXR I have discussed the management of this patient with the following physician: Objective - Vital Signs Vital signs: Vital Signs Temp 98.6 F 04/25/24 04:00 Pulse 95 04/25/24 07:00 Resp 18 04/25/24 07:00 BP 92/64 04/25/24 07:00 Pulse Ox 94 L 04/25/24 07:00 FiO2 Intake & Output 04/24/24 04/25/24 04/25/24 18:59 06:59 18:59 Intake Total 2469 400 20 Output Total 0925 2060 210 Balance 974 -1660 -190 Weight 53.4 kg Intake: IV 1994 400 20 Invasive Line 1 20 10 Invasive Line 3 10 Magnesium Sulfate-D5w Pmx 100 1 gm In Dextrose/Water 1 100ml.bag @ 100 mls/hr IVPB ONCE ONE Rx#: [id number] Sodium Chloride 0.9% 1, 700 400 000 ml @ 100 mls/hr IV . Q10H [facility] Rx#:[id number] Sodium Chloride 0.9% 1, 100 000 ml @ 50 mls/hr IV . Q20H [facility] Rx#:[id number] Sodium Chloride 0.9% 1, 75 000 ml @ 75 mls/hr IV . [id number] [facility] Rx#:[id number] Sodium Chloride 0.9% 500 500 ml 500 ml @ 999 mls/hr IV .Q31M [facility] Rx#:[id number] Sodium Chloride 0.9% 500 500 ml 500 ml @ 999 mls/hr IV .Q31M [facility] Rx#:[id number] Oral 474 Output: Urine 595 2060 210 Stool 900 Other: Voiding Method Indwelling Catheter Indwelling Catheter # Voids 0 # Bowel Movements 0 - Labs CBC & Chem 7: 04/25/24 03:28 04/25/24 08:48 Labs: Abnormal Lab Results - Last 24 Hours (Table) 04/24/24 04/24/24 04/24/24 Range/Units 02:52 12:26 12:46 Lymphocytes # (1.0-4.8) k/uL Sodium 136 L (137-145) mmol/L Chloride 112 H (98-107) mmol/L Carbon Dioxide (22-30) mmol/L Creatinine (0.66-1.25) mg/dL Glucose 68 L (74-99) mg/dL Calcium 8.2 L (8.4-10.2) mg/dL Phosphorus 2.0 L (2.5-4.5) mg/dL Delta Bilirubin 0.3 H (0.0-0.2) mg/dL AST 261 H 152 H (17-59) U/L ALT 55 H (4-49) U/L Total Protein 5.6 L 5.0 L (6.3-8.2) g/dL Albumin 3.1 L 2.7 L (3.5-5.0) g/dL Urine RBC >182 H (0-5) /hpf Urine WBC >182 H (0-5) /hpf Urine Bacteria Many H (None) /hpf Urine Mucus Many H (None) /hpf 04/25/24 04/25/24 Range/Units 03:28 03:28 Lymphocytes # 0.9 L (1.0-4.8) k/uL Sodium 133 L (137-145) mmol/L Chloride 113 H (98-107) mmol/L Carbon Dioxide 21 L (22-30) mmol/L Creatinine 0.60 L (0.66-1.25) mg/dL Glucose 103 H (74-99) mg/dL Calcium 7.7 L (8.4-10.2) mg/dL Phosphorus (2.5-4.5) mg/dL Delta Bilirubin (0.0-0.2) mg/dL AST 101 H (17-59) U/L ALT (4-49) U/L Total Protein 4.7 L (6.3-8.2) g/dL Albumin 2.5 L (3.5-5.0) g/dL Urine RBC (0-5) /hpf Urine WBC (0-5) /hpf Urine Bacteria (None) /hpf Urine Mucus (None) /hpf
[2024-04-25 16:52] LABS: Appearance,Urine Cloudy (Clear); Bacteria,Urine Occasional /hpf; Bilirubin,Urine Negative (Negative); Blood,Urine Large (Negative); Color,Urine Light Yellow; Glucose,Urine (UA) Negative (Negative); Ketones,Urine Negative (Negative); Leukocyte Esterase,Urine Large (Negative); Mucus,Urine Rare /hpf; Nitrite,Urine Negative (Negative); PH, Urine 7.5 (5.0-8.0); Protein,Urine Trace (Negative); RBC,Urine 113 /hpf (0-5); Specific Gravity,Urine 1.015 (1.001-1.035); Squamous Epithelial Cell,Urine <1 /hpf (0-4); Urobilinogen,Urine <2.0 mg/dL (<2.0); WBC,Urine >182 /hpf (0-5)
[2024-04-26 05:10] LABS: Basophils % (A) 0 %; Eosinophils # (A) 0.1 k/uL (0-0.7); Eosinophils % (A) 1 %; HGB 14.7 gm/dL (13.0-17.5); Lymphocytes # (A) 1.1 k/uL (1.0-4.8); Lymphocytes % (A) 13 %; MCH 31.7 pg (25.0-35.0); MCHC 34.2 g/dL (31.0-37.0); MCV 92.6 fL (80.0-100.0); Mean Platelet Volume 10.2; Monocytes # (A) 0.6 k/uL (0-1.0); Monocytes % (A) 7 %; Neutrophils # (A) 6.9 k/uL (1.3-7.7); Neutrophils % (A) 77 %; Platelet Count 220 k/uL (150-450); RBC 4.65 m/uL (4.30-5.90); RDW 14.7 % (11.5-15.5)
[2024-04-26 05:40] LABS: African American GFR (CKD) >90 (>60 ml/min/1.73 sqM); Anion Gap -1 mmol/L; Blood Urea Nitrogen 9 mg/dL (9-20); Calcium 8.6 mg/dL (8.4-10.2); Carbon Dioxide 29 mmol/L (22-30); Chloride 106 mmol/L (98-107); Glucose 78 mg/dL (74-99); Magnesium 1.9 mg/dL (1.6-2.3); Non-African American GFR(CKD) >90 (>60 ml/min/1.73 sqM); Potassium 4.3 mmol/L (3.5-5.1); Sodium 134 mmol/L (137-145)
[2024-04-26] MEDS: METOPROLOL TARTRATE 12.5 MG TAB PO SCH (09:35)
--- NOTE | 2024-04-26 10:19 | P.PN ---
Subjective Progress Note Date: 04/26/24 History of Present Illness: The patient is a 64-year-old male with a history of chronic tobacco use who has been having intermittent chest discomfort for 2 days and today had severe chest discomfort rating to the left arm on presentation to the emergency room had significant ST segment elevation anteriorly. He denies any prior history of chest discomfort, history of myocardial infarction, congestive heart failure or arrhythmia. He is a smoker. He has no history of diabetes or documented hyperlipidemia. He denies any chronic dyspnea on exertion, dizziness or palpitations. He has no PND, orthopnea or peripheral edema. He denies any alcohol intake. He has a history of schizophrenia and psychosis Medications: Trazodone, Cogentin, haloperidol Review of Systems: Respiratory: He is a chronic smoker but no recent wheezing or cough GI: No nausea or vomiting . No history of peptic ulcer disease. No recent GI bleed. : No hematuria or dysuria. Nervous System: No stroke or seizure. Progress note April 24, 2024 Patient is hypotensive with systolic blood pressure around 90. He is also havin g a leukocytosis and is also complaining to have diarrhea. I performed a bedside echocardiogram which showed no concerns of PostMI complications like VHD or pericardial effusion. He does have anteroseptal wall hypokinesia. May 12, 2024 Patient is borderline hypotensive with systolic blood pressure in 90s. His heart rate is in 90s with sinus rhythm. His diarrhea has got better. He complains of constipation. He got loperamide which I have discontinued. On exam he does not have any new murmurs. No signs of JVD elevation. No lower extremity swelling. Denies any chest pain chest pressure shortness of breath. April 26, 2024 Patient is borderline hypotensive with SBP in 90s. His heart rate is in the high 90s - low 100s with sinus rhythm. On exam he does not have any new murmurs. No signs of JVD elevation. No lower extremity swelling. No chest pain or shortness of breath. Physical Examination: Head: Normocephalic. Eyes: Sclerae nonicteric. Neck: Good carotid upstroke, no bruit, no jugular venous distention. Lungs: Clear to auscultation. Heart: Regular rate and rhythm, S1-S2, no S3, no rub. No murmur. Abdomen: Soft nontender, positive bowel sounds no organomegaly. Extremities: No edema, intact distal pulses. Labs: Hemoglobin 14.7, platelet 220 EKG:EKG shows sinus mechanism with ST segment elevation anteriorly consistent with anterior wall myocardial infarction Impression: 1. Acute anterior wall myocardial infarction 2. Chronic tobacco use 3. History of schizophrenia and psychosis 4. Leukocytosis and concerns of sepsis 5. Ischemic cardiomyopathy. EF 35%, euvolemic Plan: Aspirin, Effient, statin Hold metoprolol when systolic blood pressure less than 100, continue other medications. Once patient's hemodynamics improves after antibiotics and sepsis picture gets better, consider adding low-dose beta-twyla because of his cardiomyopathy. Okay to downgrade from ICU to 3 S. daily floor Objective - Vital Signs Vital signs: Vital Signs Temp 97.8 F 04/26/24 04:00 Pulse 104 H 04/26/24 08:41 Resp 21 04/26/24 04:00 BP 104/76 04/26/24 04:00 Pulse Ox 96 04/26/24 04:00 FiO2 Intake & Output 04/25/24 04/26/24 04/26/24 18:59 06:59 18:59 Intake Total 761 770 Output Total 1355 1600 Balance -594 -830 Weight 52.1 kg Intake: IV 50 20 Invasive Line 1 20 Invasive Line 3 30 20 Oral 711 750 Output: Urine 1355 1600 Other: Voiding Method Indwelling Catheter Indwelling Catheter # Bowel Movements 0 - Labs CBC & Chem 7: 04/26/24 04:46 04/26/24 04:46 Labs: Abnormal Lab Results - Last 24 Hours (Table) 04/25/24 04/26/24 Range/Units 15:40 04:46 Sodium 134 L (137-145) mmol/L Creatinine 0.53 L (0.66-1.25) mg/dL Urine Protein Trace H (Negative) Urine Blood Large H (Negative) Ur Leukocyte Esterase Large H (Negative) Urine RBC 113 H (0-5) /hpf Urine WBC >182 H (0-5) /hpf Urine WBC Clumps Many H (None) /hpf Urine Bacteria Occasional H (None) /hpf Urine Mucus Rare H (None) /hpf Microbiology - Last 24 Hours (Table) 04/24/24 12:26 Urine Culture - Preliminary Urine,Catheterized Gram Neg Bacilli Group D Enterococcus 04/24/24 10:02 Blood Culture - Preliminary Blood
--- NOTE | 2024-04-26 13:03 | P.PN ---
Subjective Progress Note Date: 04/26/24 64-year-old male with a PMH of COPD and schizophrenia who had presented to the emergency room with complaints of chest discomfort with radiation to the left arm. In the ED he underwent extensive evaluation. BP 112/90, HR 94, T 36.9C, RR 18, 94% on 3L. CBC, Coag panel, CMP significant for WBC 15.7, Na 136, K 3.3, Cl 108, glu 105. Mag 1.7. BNP 1290. Lipid panel T. Chol 150, LDL 95.9. Troponin 1.59, 130, 128. EKG showed ST elevation in leads V2 to V5. CODE STEMI called, patient was taken to the school laboratory technician with stent placement of proximal LAD. He required Levophed on 04/23 which was weaned off. Patient with multiple episodes of watery diarrhea. Along with hypotension and leukocytosis, concerns for seps is. C. diff was negative. COVID/RSV/Flu negative. Bedside echo done by Dr. Sanches on 04/24 showed no concerns of post [place] complications. CT AP shows air within the urinary bladder with minimal compressive atelectasis. UA was performed which was brown in color, > 182 RBC and WBC. Started on Levaquin empirically. 04/26 Patient was seen and examined. No more diarrhea over the past 24H. BP 104/76 HR 89 this morning. CBC and BMP significant for Na 134, Cr 0.53. Mag 1.9. UCx GNB and group D enterococcus. BCx negative at 24H. Maintained on Levaquin 750 mg IV QD (D3). General: non toxic, no distress, appears at stated age Derm: warm, dry Head: atraumatic, normocephalic, symmetric Eyes: EOMI, no lid lag, anicteric sclera Mouth: no lip lesion, mucus membranes moist Cardiovascular: S1 S2 reg. No murmurs, rubs, gallops Lungs: Clear to auscultation bilaterally, no accessory muscle use Ext: no gross muscle atrophy, no edema, no contractures Neuro: no focal neuro deficits Psych: Alert, oriented, appropriate affect Based on my assessment of this patient, this patient meets a high complexity level of care. STEMI: Status post LAD stent. ASA 81 mg PO QD. Restart Lipitor at 40 mg PO QHS. Restart Metoprolol at 12.5 mg PO BID. Effient 10 mg PO QD. HFrEF: EF 20-25%. Metoprolol restarted as above. Aldactone, Lisinopril held due to hypotension. May need LifeVest on discharge? Sepsis due to UTI: Also with diarrhea. C. diff negative. He does meet sepsis criteria. Hypotension, tachycardia, leukocytosis. CT AP unrevealing. UCx GNB and group D enterococcus. Levaquin 750 mg IV QD (D3). Judicious use of IVF due to low EF. Follow BCx, UCx. Shock cardiogenic versus sepsis: Currently off Levophed. Maintain MAP > 65. Bedside Echo 04/24 shows no post [place] complications. Transaminitis: Likely due to shock. Improving. Restart Lipitor as above. COPD not in acute exacerbation: Albuterol neb Q3H PRN. Symbicort 2 INH BID. Schizophrenia: Zyprexa 5 mg PO QHS. Nicotine dependence CODE STATUS: FULL CODE. DVT Prophylaxis: Heparin SQ GI Prophylaxis: Protonix IV Designated medical POA if patient is not able to make medical decisions for themselves: Guardian. Dispo: intermediate when UCx is resulted. Likely in the next 1-2 days. I have reviewed the following design consultant notes: Cardiology I have reviewed the results of the following tests: CBC, BMP, UCx, BCx. I have ordered the following tests: Pending: Final UCx, BCx. I have discussed the care of this patient with the following independent historian: I have independently interpreted the following test below: I have discussed the management of this patient with the following physician: Objective - Vital Signs Vital signs: Vital Signs Temp 97.8 F 04/26/24 04:00 Pulse 89 04/26/24 04:00 Resp 21 04/26/24 04:00 BP 104/76 04/26/24 04:00 Pulse Ox 96 04/26/24 04:00 FiO2 Intake & Output 04/25/24 04/26/24 04/26/24 18:59 06:59 18:59 Intake Total 761 770 Output Total 1355 1600 Balance -594 -830 Weight 52.1 kg Intake: IV 50 20 Invasive Line 1 20 Invasive Line 3 30 20 Oral 711 750 Output: Urine 1355 1600 Other: Voiding Method Indwelling Catheter Indwelling Catheter # Bowel Movements 0 - Labs CBC & Chem 7: 04/26/24 04:46 10/14/24 04:46 Labs: Abnormal Lab Results - Last 24 Hours (Table) 04/25/24 04/26/24 Range/Units 15:40 04:46 Sodium 134 L (137-145) mmol/L Creatinine 0.53 L (0.66-1.25) mg/dL Urine Protein Trace H (Negative) Urine Blood Large H (Negative) Ur Leukocyte Esterase Large H (Negative) Urine RBC 113 H (0-5) /hpf Urine WBC >182 H (0-5) /hpf Urine WBC Clumps Many H (None) /hpf Urine Bacteria Occasional H (None) /hpf Urine Mucus Rare H (None) /hpf Microbiology - Last 24 Hours (Table) 04/24/24 12:26 Urine Culture - Preliminary Urine,Catheterized Gram Neg Bacilli Group D Enterococcus 04/24/24 10:02 Blood Culture - Preliminary Blood
[2024-04-26] MEDS: LEVOFLOXACIN 750 MG TAB PO SCH (17:27)
[2024-04-26] MEDS: ATORVASTATIN 40 MG TAB PO SCH (20:27)
[2024-04-27] MEDS: PANTOPRAZOLE 40 MG TABLET PO SCH (06:36)
[2024-04-27 09:49] LABS: Glucose,Whole Blood 99 mg/dL (70-110)
[2024-04-27 10:51] LABS: Basophils % (A) 0 %; Eosinophils # (A) 0.1 k/uL (0-0.7); Eosinophils % (A) 1 %; HCT 47.1 % (39.0-53.0); HGB 15.3 gm/dL (13.0-17.5); Lymphocytes % (A) 12 %; MCH 30.7 pg (25.0-35.0); MCHC 32.5 g/dL (31.0-37.0); MCV 94.5 fL (80.0-100.0); Mean Platelet Volume 9.8; Monocytes # (A) 0.6 k/uL (0-1.0); Monocytes % (A) 7 %; Neutrophils # (A) 6.3 k/uL (1.3-7.7); Neutrophils % (A) 77 %; Platelet Count 275 k/uL (150-450); RBC 4.98 m/uL (4.30-5.90); RDW 14.1 % (11.5-15.5); WBC 8.2 k/uL (3.8-10.6)
--- NOTE | 2024-04-27 11:09 | XR ---
EXAMINATION TYPE: XR chest 1V portable DATE OF EXAM: 04/27/2024 10:31 AM CLINICAL INDICATION: Male, 64 years old with history of SOB, room air sat 80s; COMPARISON: None TECHNIQUE: XR chest 1V portable Frontal view of the chest. FINDINGS: Lungs/Pleura: There is no evidence of pleural effusion, focal consolidation, or pneumothorax. Pulmonary vascularity: Unremarkable. Heart/mediastinum: Cardiomediastinal silhouette is unremarkable. Musculoskeletal: No acute osseous pathology. Other findings: None IMPRESSION: No acute cardiopulmonary disease/process. [facility], , 04/27/2024 11:07 AM
[2024-04-27 11:12] LABS: African American GFR (CKD) >90 (>60 ml/min/1.73 sqM); Anion Gap 4 mmol/L; Blood Urea Nitrogen 12 mg/dL (9-20); Calcium 9.3 mg/dL (8.4-10.2); Carbon Dioxide 27 mmol/L (22-30); Chloride 103 mmol/L (98-107); Glucose 109 mg/dL (74-99); Non-African American GFR(CKD) >90 (>60 ml/min/1.73 sqM); Potassium 4.4 mmol/L (3.5-5.1); Sodium 134 mmol/L (137-145)
[2024-04-27 11:20] LABS: NT-Pro-B-Type Natriuretic Pept 2220 pg/mL
[2024-04-27 11:27] VITALS: BMI 18.4
--- NOTE | 2024-04-27 12:46 | P.PN ---
Subjective HISTORY OF PRESENT ILLNESS: This is 64-year-old male who was admitted to the hospital secondary to STEMI. Patient underwent stenting of the proximal LAD. Patient was transferred to [facility] yesterday. Patient examined this morning at the bedside. Patient currently denies any chest pain or pressure. He denies any shortness of breath. Blood pressures remain soft with a systolic in the 90s this morning. Echocardiogram completed revealing ejection fraction 20 to 25% with anterior apical, anterior septal, and anterior lateral hypokinesis, mild MR, mild TR, and small pericardial effusion. PHYSICAL EXAM: VITAL SIGNS: Reviewed. GENERAL: Well-developed in no acute distress. NECK: Supple. No JVD or thyromegaly LUNGS: Respirations even and unlabored. Lungs essentially clear to auscultation bilaterally. HEART: Regular rate and rhythm. S1 and S2 heard. EXTREMITIES: Normal range of motion. No clubbing or cyanosis. Peripheral pulses intact. No lower extremity edema ASSESSMENT: Acute anterior STEMI, status post stenting to the proximal LAD Ischemic cardiomyopathy, 20 to 25% Hypotension Urinary tract infection History of COPD Diarrhea, C. difficile negative, improving History of schizophrenia Nicotine dependence PLAN: Continue dual antiplatelet therapy with aspirin and Effient for 12 months Continue high intensity statin. LDL goal less than 70. Smoking cessation recommended. Patient to be referred to [place] quit line upon discharge. Continue metoprolol tartrate. Hold for systolic blood pressure less than 90 Unable to tolerate full cardiomyopathy medication regimen due to hypotension. Repeat limited echo to assess LV function. If patient is EF remains decreased, will arrange for LifeVest Further recommendations pending patient course Patient currently does not follow with a steamblaster outpatient. Upon discharg e, will arrange for patient to follow-up postdischarge in the office with Dr. Mena Nurse practitioner note has been reviewed by physician. Signing provider agrees with the documented findings, assessment, and plan of care documented by ASSISTANCE SPECIALIST as a scribe. Objective - Vital Signs Vital signs: Vital Signs Temp 98.1 F 04/27/24 09:45 Pulse 82 04/27/24 12:26 Resp 20 04/27/24 10:00 BP 93/60 04/27/24 10:15 Pulse Ox 94 L 04/27/24 10:00 FiO2 Intake & Output 04/26/24 04/27/24 04/27/24 18:59 06:59 18:59 Intake Total 1140 240 118 Output Total 750 3400 Balance 390 -3160 118 Weight 53.4 kg 53.4 kg Intake: Oral 1140 240 118 Output: Urine 750 3400 Other: Voiding Method Indwelling Catheter Indwelling Catheter Indwelling Catheter - Labs CBC & Chem 7: 04/27/24 10:24 04/27/24 10:24 Labs: Abnormal Lab Results - Last 24 Hours (Table) 04/27/24 Range/Units 10:24 Sodium 134 L (137-145) mmol/L Creatinine 0.50 L (0.66-1.25) mg/dL Glucose 109 H (74-99) mg/dL Microbiology - Last 24 Hours (Table) 04/24/24 12:26 Urine Culture - Final Urine,Catheterized Klebsiella pneumoniae Escherichia coli Enterococcus faecalis 04/25/24 15:40 Urine Culture - Preliminary Urine,Voided 04/24/24 10:02 Blood Culture - Preliminary Blood
[2024-04-27] MEDS: MIDODRINE 5 MG TAB PO SCH (12:48)
--- NOTE | 2024-04-27 14:51 | CA ---
Transthoracic Echo Report Name: Abelardo Salgado Age: 64 Gender: M : 1960 Exam Date: 04/27/2024 10:07 Exam Location: [facility] Ht (in): 67 Wt (lb): 117 Ordering Physician: Deyanira Franco Attending/Referring Phys: [id number], Savlador First Assistant Manager Johanny Tao, RDCS Procedure CPT: Indications: LV function, s/p stemi Cardiac Hx: stents, [place], limited study Technical Quality: Good Contrast 1: Total Dose (mL): Contrast 2: Total Dose (mL): MEASUREMENTS (Male / Female) Normal Values 2D ECHO LV Diastolic Volume MOD BP 60.9 cm??? 67 - 155 / 56 - 104 cm??? LV Systolic Volume MOD BP 37.8 cm??? 22 - 58 / 19 - 49 cm??? LV Ejection Fraction MOD BP 37.9 % >= 55 % LV Cardiac Index MOD BP 1291.6 cm???/min???m??? LV Diastolic Volume MOD 4C 61.4 cm??? LV Systolic Volume MOD 4C 30.8 cm??? LV Ejection Fraction MOD 4C 49.9 % LV Cardiac Index MOD 4C 1716.2 cm???/min???m??? LV Diastolic Length 4C 6.5 cm LV Systolic Length 4C 6.0 cm LV Diastolic Volume MOD 2C 61.8 cm??? LV Systolic Volume MOD 2C 42.8 cm??? LV Ejection Fraction MOD 2C 30.8 % LV Cardiac Index MOD 2C 1065.0 cm???/min???m??? LV Diastolic Length 2C 6.5 cm LV Systolic Length 2C 6.6 cm DOPPLER TR Peak Velocity 250.1 cm/s TR Peak Gradient 25.0 mmHg Right Ventricular Systolic Press 28.6 mmHg FINDINGS Left Ventricle Left ventricular ejection fraction is estimated at 35-40 %. Moderately decreased left ventricular ejection fraction. Anterior hernandez hypokinesis/akinesis Right Ventricle Normal right ventricular size and function. Right Atrium Normal right atrial size. Left Atrium Normal left atrial size. Mitral Valve Mitral valve thickened. No mitral stenosis, regurgitation or prolapse. Aortic Valve Trileaflet aortic valve. No aortic valve stenosis or regurgitation. Tricuspid Valve Structurally normal tricuspid valve. Mild tricuspid regurgitation. Pulmonic Valve Structurally normal pulmonic valve. No pulmonic regurgitation. Pericardium No pericardial or pleural effusion. Aorta Normal size aortic root and proximal ascending aorta. CONCLUSIONS Left ventricular ejection fraction 35-40% with anteroapical hypokinesis No mitral regurgitation Mild tricuspid regurgitation Previewed by: Dr. Eduardo David DO (Electronically Signed) Final Date: 27 April 2024 14:50
--- NOTE | 2024-04-27 15:07 | P.PN ---
Progress Note - Text Progress Note Date: 04/27/24 64-year-old male with a PMH of COPD and schizophrenia who had presented to the emergency room with complaints of chest discomfort with radiation to the left arm. In the ED he underwent extensive evaluation. BP 112/90, HR 94, T 36.9C, RR 18, 94% on 3L. CBC, Coag panel, CMP significant for WBC 15.7, Na 136, K 3.3, Cl 108, glu 105. Mag 1.7. BNP 1290. Lipid panel T. Chol 150, LDL 95.9. Troponin 1.59, 130, 128. EKG showed ST elevation in leads V2 to V5. CODE STEMI called, patient was taken to the cardiac cath rn with stent placement of proximal LAD. He required Levophed on 04/23 which was weaned off. Patient with multiple episodes of watery diarrhea. Along with hypotension and leukocytosis, concerns for sepsis. C. diff was negative. COVID/RSV/Flu negative. Bedside echo done by Dr. Sanches on 04/24 showed no concerns of post [place] complications. CT AP shows air within the urinary bladder with minimal compressive atelectasis. UA was performed which was brown in color, > 182 RBC and WBC. Started on Levaquin empirically. 04/26 Patient was seen and examined. No more diarrhea over the past 24H. BP 10 4/76 HR 89 this morning. CBC and BMP significant for Na 134, Cr 0.53. Mag 1.9. UCx GNB and group D enterococcus. BCx negative at 24H. Maintained on Levaquin 750 mg IV QD (D3). April 27: Earlier patient blood pressure running low. Cardio ordered a repeat limited echocardiogram. Showed a EF around 35%. Will change Lopressor for a parameter to be given above systolic 100. Ensure added because of malnutrition. Have the patient sit up in a chair and activity as tolerated. On examination: VITAL SIGNS: [97.4, 78, 18, 95 x 62, 98% 2 L] GENERAL APPEARANCE: BMI 18.4, laying in bed, tired. Loss of muscle mass subcutaneous fat bony prominence HEENT: Normal external appearance of nose and ear. Oral cavity normal EYES: Pupils equal. Conjunctiva normal. NECK: JVD not raised. Mass not palpable. RESPIRATORY: Respiratory effort normal. Lungs decreased breath CARDIOVASCULAR: First and second sounds normal. No edema. ABDOMEN: Soft. Liver and spleen not palpable. No tenderness. No mass palpable. PSYCHIATRY: Able answer questions appropriately INVESTIGATIONS, reviewed in the clinical context: April 27: White count 8.2 hemoglobin 15.3 platelets 275 sodium 134 potassium 4.4 creatinine 0.5 proBNP 2220 UA positive for leukoesterase, WBC, blood, Urine culture: Positive for Klebsiella pneumoniae, E. coli, Enterococcus faecalis CT scan abdomen pelvis: Minimal compressive atelectasis. 2D echocardiogram: EF 20 to 25%. Wall motion abnormality. Tricuspid regurgitation. Assessment and plan: -STEMI: Status post LAD stent. ASA 81 mg PO QD. Restart Lipitor at 40 mg PO QHS. Restart Metoprolol at 12.5 mg PO BID. Effient 10 mg PO QD. -Acute HFrEF: EF 20-25%. Metoprolol restarted as above. Aldactone, Lisinopril held due to hypotension. May need LifeVest on discharge? -Sepsis due to UTI: Also with diarrhea. C. diff negative. He does meet sepsis criteria. Hypotension, tachycardia, leukocytosis. CT AP unrevealing. UCx GNB and group D enterococcus. Oral Levaquin -Shock cardiogenic versus sepsis: Currently off Levophed. Maintain MAP > 65. Bedside Echo 04/24 shows no post [place] complications. -Acute transaminitis: Likely due to shock. Improving. Restart Lipitor as above. -COPD not in acute exacerbation: Albuterol neb Q3H PRN. Symbicort 2 INH BID. -Schizophrenia: Zyprexa 5 mg PO QHS. -Severe protein calorie malnutrition Ensure 3 times daily -Nicotine dependence Nicotine patch CODE STATUS: FULL CODE. -Patient has a public guardian Ensure. Increase activity. Up in chair. Discussed with nurse. Increase oral intake
[2024-04-27] MEDS: NICOTINE 21MG/24HR PATCH TRANSDERM SCH (17:04)
[2024-04-28 06:31] LABS: ALT 45 U/L (4-49); AST 41 U/L (17-59); African American GFR (CKD) >90 (>60 ml/min/1.73 sqM); Albumin 3.3 g/dL (3.5-5.0); Alkaline Phosphatase 101 U/L (38-126); Anion Gap 5 mmol/L; Blood Urea Nitrogen 24 mg/dL (9-20); Calcium 8.9 mg/dL (8.4-10.2); Carbon Dioxide 28 mmol/L (22-30); Chloride 103 mmol/L (98-107); Glucose 90 mg/dL (74-99); Non-African American GFR(CKD) >90 (>60 ml/min/1.73 sqM); Potassium 4.6 mmol/L (3.5-5.1); Sodium 136 mmol/L (137-145); Total Bilirubin 0.5 mg/dL (0.2-1.3); Total Protein 5.8 g/dL (6.3-8.2)
--- NOTE | 2024-04-28 10:47 | P.PN ---
Subjective HISTORY OF PRESENT ILLNESS: This is 64-year-old male who was admitted to the hospital secondary to STEMI. Patient underwent stenting of the proximal LAD. Patient was transferred to [facility] yesterday. Patient examined this morning at the bedside. Patient currently denies any chest pain or pressure. He denies any shortness of breath. Blood pressures remain soft with a systolic in the 90s this morning. Echocardiogram completed revealing ejection fraction 20 to 25% with anterior apical, anterior septal, and anterior lateral hypokinesis, mild MR, mild TR, and small pericardial effusion. 04/28/2024 Patient examined this morning at the bedside. Patient currently denies chest pain or pressure. He denies shortness of breath at rest. He is still requiring 2 L nasal cannula to maintain oxygen saturations greater than 2 L. Nursing does report the patient does get dyspneic with ambulation to the bathroom. Blood pressures remain soft with a systolic in the 90s. Limited echo completed revealing ejection fraction 35 to 40% with anterior apical hypokinesis and mild TR. PHYSICAL EXAM: VITAL SIGNS: Reviewed. GENERAL: Well-developed in no acute distress. NECK: Supple. No JVD or thyromegaly LUNGS: Respirations even and unlabored. Lungs essentially clear to auscultation bilaterally. HEART: Regular rate and rhythm. S1 and S2 heard. EXTREMITIES: Normal range of motion. No clubbing or cyanosis. Peripheral pulses intact. No lower extremity edema ASSESSMENT: Acute anterior STEMI, status post stenting to the proximal LAD Acute hypoxic respiratory failure requiring supplemental oxygen Ischemic cardiomyopathy, 20 to 25%, repeat echo reveals EF 35 to 40% Hypotension Urinary tract infection History of COPD Diarrhea, C. difficile negative, improving History of schizophrenia Nicotine dependence PLAN: Continue dual antiplatelet therapy with aspirin and Effient for 12 months Continue high intensity statin. LDL goal less than 70. Smoking cessation recommended. Patient to be referred to [place] quit line upon discharge. Continue metoprolol tartrate. Hold for systolic blood pressure less than 90 Unable to tolerate full cardiomyopathy medication regimen due to hypotension. Limited echo reveals EF 35 to 40%. Patient will not require LifeVest upon discharge. Wean oxygen as tolerated Patient is currently stable from a cardiac standpoint Further recommendations pending patient course Patient currently does not follow with a building and construction manager outpatient. Upon discharge, will arrange for patient to follow-up postdischarge in the office with Dr. Mena Nurse practitioner note has been reviewed by physician. Signing provider agrees with the documented findings, assessment, and plan of care documented by CONCRETE PUMP OPERATOR HELPER as a scribe. Objective - Vital Signs Vital signs: Vital Signs Temp 97.7 F 04/28/24 04:00 Pulse 75 04/28/24 09:01 Resp 15 04/28/24 04:00 BP 98/69 04/28/24 04:00 Pulse Ox 94 L 04/28/24 08:50 FiO2 Intake & Output 04/27/24 04/28/24 04/28/24 18:59 06:59 18:59 Intake Total 354 120 Output Total 600 Balance -246 120 Weight 53.4 kg 49.6 kg Intake: Oral 354 120 Output: Urine 600 Uretheral ([place]) 600 Other: Voiding Method Indwelling Catheter Indwelling Catheter # Voids 2 - Labs CBC & Chem 7: 04/27/24 10:24 04/28/24 06:07 Labs: Abnormal Lab Results - Last 24 Hours (Table) 04/27/24 04/28/24 Range/Units 10: 06:07 Sodium 134 L 136 L (137-145) mmol/L BUN 24 H (9-20) mg/dL Creatinine 0.50 L (0.66-1.25) mg/dL Glucose 109 H (74-99) mg/dL Total Protein 5.8 L (6.3-8.2) g/dL Albumin 3.3 L (3.5-5.0) g/dL Microbiology - Last 24 Hours (Table) 04/25/24 15:40 Urine Culture - Final Urine,Voided Enterococcus faecalis 04/24/24 10:02 Blood Culture - Preliminary Blood
[2024-04-28 11:56] VITALS: RESP 16
--- NOTE | 2024-04-28 16:36 | P.DS ---
Providers Date of admission: 04/22/24 22:55 Expected date of discharge: 04/28/24 Attending physician: Talha Irving Consults: 04/22/24 22:53 Consult Physician Urgent Consulting Provider: Catarina Mena Consult Reason/Comments: stemi Do you want consulting provider notified?: Yes 04/23/24 00:29 Consult Physician Routine Consulting Provider: [facility] Consult Reason/Comments: Post Interventional Patient Do you want consulting provider notified?: Already Contacted Primary care physician: Junito Rubio MD Hospital Course: 64-year-old male with a PMH of COPD and schizophrenia who had presented to the emergency room with complaints of chest discomfort with radiation to the left arm. In the ED he underwent extensive evaluation. BP 112/90, HR 94, T 36.9C, RR 18, 94% on 3L. CBC, Coag panel, CMP significant for WBC 15.7, Na 136, K 3.3, Cl 108, glu 105. Mag 1.7. BNP 1290. Lipid panel T. Chol 150, LDL 95.9. Troponin 1.59, 130, 128. EKG showed ST elevation in leads V2 to V5. CODE STEMI called, patient was taken to the label paster with stent placement of proximal LAD. He required Levophed on 04/23 which was weaned off. Patient with multiple episodes of watery diarrhea. Along with hypotension and leukocytosis, concerns for sepsis. C. diff was negative. COVID/RSV/Flu negative. Bedside echo done by Dr. Sanches on 04/24 showed no concerns of post [place] complications. CT AP shows air within the urinary bladder with minimal compressive atelectasis. UA was performed which was brown in color, > 182 RBC and WBC. Started on Levaquin empirically. 04/26 Patient was seen and examined. No more diarrhea over the past 24H. BP 104/76 HR 89 this morning. CBC and BMP significant for Na 134, Cr 0.53. Mag 1.9. UCx GNB and group D enterococcus. BCx negative at 24H. Maintained on Levaquin 750 mg IV QD (D3). April 27: Earlier patient blood pressure running low. Cardio ordered a repeat limited echocardiogram. Showed a EF around 35%. Will change Lopressor for a pa rameter to be given above systolic 100. Ensure added because of malnutrition. Have the patient sit up in a chair and activity as tolerated. April 28: Eating well. No cardiac symptoms. Cleared by cardiology. Patient return to alf. Prognosis guarded. On examination: VITAL SIGNS:] 92, 16, 100/69, 93% room air GENERAL APPEARANCE: Lying in bed loss of muscle mass subcutaneous fat bony prominence. BMI 17.1 HEENT: Normal external appearance of nose and ear. Oral cavity normal EYES: Pupils equal. Conjunctiva normal. NECK: JVD not raised. Mass not palpable. RESPIRATORY: Respiratory effort normal. Lungs decreased breath CARDIOVASCULAR: First and second sounds normal. No edema. ABDOMEN: Soft. Liver and spleen not palpable. No tenderness. No mass palpable. PSYCHIATRY: Able answer questions appropriately INVESTIGATIONS, reviewed in the clinical context: April 28: Potassium 4.6 creatinine 0.68. Albumin 3.3 April 27: White count 8.2 hemoglobin 15.3 platelets 275 sodium 134 potassium 4.4 creatinine 0.5 proBNP 2220 UA positive for leukoesterase, WBC, blood, Urine culture: Positive for Klebsiella pneumoniae, E. coli, Enterococcus faecalis CT scan abdomen pelvis: Minimal compressive atelectasis. 2D echocardiogram: EF 20 to 25%. Wall motion abnormality. Tricuspid regurgitation. Assessment and plan: -STEMI: Status post LAD stent. ASA 81 mg PO QD. Restart Lipitor at 40 mg PO QHS. Restart Metoprolol at 12.5 mg PO BID. Effient 10 mg PO QD. -Acute HFrEF: EF 20-25%. Metoprolol restarted as above. Aldactone, Lisinopril held due to hypotension. May need LifeVest on discharge? -Sepsis due to UTI: Also with diarrhea. C. diff negative. He does meet sepsis criteria. Hypotension, tachycardia, leukocytosis. CT AP unrevealing. UCx: Enterococcus faecalis Oral Levaquin-7 more days of antibiotic -Shock cardiogenic versus sepsis: Currently off Levophed. Maintain MAP > 65. Bedside Echo 04/24 shows no post [place] complications. -Acute transaminitis: Likely due to shock. Improving. -COPD not in acute exacerbation: Albuterol neb Q3H PRN. Symbicort 2 INH BID. -Schizophrenia: Zyprexa 5 mg PO QHS. -Severe protein calorie malnutrition Ensure 3 times daily -Nicotine dependence Nicotine patch CODE STATUS: FULL CODE. -Patient has a public guardian Disposition: USP Plan - Discharge Summary Discharge Rx Participant: No New Discharge Prescriptions: New Aspirin 81 mg PO DAILY #30 tab Prasugrel [Effient] 10 mg PO DAILY #30 tab Atorvastatin [Lipitor] 40 mg PO HS #60 tab Metoprolol Tartrate [Lopressor] 12.5 mg PO BID #60 tab Nitroglycerin Sl Tabs [Nitrostat] 0.4 mg SUBLINGUAL Q5M PRN #30 tab PRN Reason: Chest Pain Nicotine 21Mg/24Hr Patch [Habitrol] 1 patch TRANSDERM DAILY #30 patch Midodrine [ProAmatine] 5 mg PO AC-TID #90 tab Pantoprazole [Protonix] 40 mg PO AC-BRKFST #30 tab Levofloxacin [Levaquin] 750 mg PO DAILY@1800 #7 tab Continue Albuterol Sulfate [Ventolin HFA] 2 puff INHALATION RT-Q3H PRN PRN Reason: Shortness Of Breath Haloperidol Decanoate [Haldol D] 100 mg IM Q28D OLANZapine [ZyPREXA] 5 mg PO HS Tiotropium 2.5 Mcg/Puff [Spiriva Respimat 2.5 Mcg] 2 puff INHALATION RT-DAILY Budesonide-Formot 160-4.5 Mcg [Symbicort 160-4.5 Mcg Inhaler] 2 puff INHALATION RT-BID Discharge Medication List Albuterol Sulfate [Ventolin HFA] 2 puff INHALATION RT-Q3H PRN 04/23/24 [History] Budesonide-Formot 160-4.5 Mcg [Symbicort 160-4.5 Mcg Inhaler] 2 puff INHALATION RT-BID 04/23/24 [History] Haloperidol Decanoate [Haldol D] 100 mg IM Q28D 04/23/24 [History] OLANZapine [ZyPREXA] 5 mg PO HS 04/23/24 [History] Tiotropium 2.5 Mcg/Puff [Spiriva Respimat 2.5 Mcg] 2 puff INHALATION RT-DAILY 04/23/24 [History] Aspirin 81 mg PO DAILY #30 tab 04/28/24 [Rx] Atorvastatin [Lipitor] 40 mg PO HS #60 tab 04/28/24 [Rx] Levofloxacin [Levaquin] 750 mg PO DAILY@1800 #7 tab 04/28/24 [Rx] Metoprolol Tartrate [Lopressor] 12.5 mg PO BID #60 tab 04/28/24 [Rx] Midodrine [ProAmatine] 5 mg PO AC-TID #90 tab 04/28/24 [Rx] Nicotine 21Mg/24Hr Patch [Habitrol] 1 patch TRANSDERM DAILY #30 patch 04/28/24 [Rx] Nitroglycerin Sl Tabs [Nitrostat] 0.4 mg SUBLINGUAL Q5M PRN #30 tab 04/28/24 [Rx] Pantoprazole [Protonix] 40 mg PO AC-BRKFST #30 tab 04/28/24 [Rx] Prasugrel [Effient] 10 mg PO DAILY #30 tab 04/28/24 [Rx] Follow up Appointment(s)/Referral(s): Catarina Mena MD [STAFF PHYSICIAN] - 1 Week Junito Rubio MD [Primary Care Provider] - 1-2 days Patient Instructions/Handouts: Heart Attack (DC), After Radial Heart Catheterization (GEN)
[2024-04-28 17:24] VITALS: BP 105/70; PULSE 94; TEMP 97.4
--- NOTE | 2024-04-29 13:23 | CDI ---
Documentation Clarification Form Date: 04/29/2024 12:13:13 PM From: Dee Dee Wallace RN CCDS Phone: [phone] Admit Date: 04/22/2024 10:55:00 PM Patient Name: Abelardo Salgado Visit Number: [id number] Discharge Date: 04/28/2024 05:13:00 PM ATTENTION: The Clinical Documentation Specialists (CDI) and [facility] Coding Staff appreciate your assistance in clarifying documentation. Please respond to the clarification below the line at the bottom and electronically sign. The CDI & [facility] Coding staff will review the response and follow-up if needed. Please note: Queries are made part of the Legal Health Record. If you have any questions, please contact the author of this message via ITS. Doc: Talha Aristides The patient has Sepsis Diarrhea 04/24. Based on this information and the findings below, is there an additional diagnosis that is clinically appropriate for this patient? History/Risk Factors: 64 year old presents to the ED with chest for two days, intermittent episodes of sharp pleuritic chest pain / tightness at the sternum with an intensity. Medical History: COPD, Schizophrenia and nicotine dependence. 04/23 Clinical Indicators: WBC, 04/22: 15.7 Lactic acid, 04/24: 1.6 Urine culture, 04/24: Klebsiellla pneumonia Escherichia coli Enterococcus faecalis Urine culture, 04/25: Klebsiella pneumonia Enterococcus faecalis Vitals signs: 04/22 B/P 112/90, HR 94, Temp 36.9FL, RR 18, SpO2 94% 3L Treatment: 04/22 04/24 0.9NS 100cc/hr ; 04/22 - 04/23Norepinphrine Bitartate 4mg as directed; 04/23 04/25 Norephinephrine Bitartrate 4mg 254mls @ 5.703 mls/hr IV Antibiotics: 04/24 Levofloxacin IVPB Q24H IV Bolus: 04/23 0.9NS IV 1,000mls @ 49.895 mls/hr Q20H3M NOAH; 04/24 0.9NS IV 500cc Bolus x 2; Is there an additional diagnosis that is clinically appropriate for this patient? [ + ] Sepsis, present on admission [ ] Sepsis, developed during stay, not present on admission [ ] Other, please specify [ ] Unable to determine SIRS Criteria: 2 or more of the following may indicate SIRS Temperature < 96.8F (36C) or > 101.0F (38.3C) Heart Rate > 90 bpm Respiratory Rate > 20 breaths/min or PaCO2 < 32 mmHg White Blood Cell Count > 12,000 or < 4,000 cells/mm3 or > 10% bands (Template Last Reviewed: July 2022) MTDD
== END 2024-04-28 17:13 | disposition home or self-care (01) | DRG 321 ==
LOC: EC 22:52 → 2SICU 22:55 → 3SCARD 04-26 11:18 → 3NCARDOBS 04-26 21:47 → 3SCARD 04-27 21:28 → 3NCARDOBS 04-27 21:28 → 3SCARD 04-27 22:19 → 3NCARDOBS 04-27 22:19
PROVIDERS: ADMIT Hospitalist; ATTEND Hospitalist
PROC: 027035Z Dilation of Coronary Artery, One Artery with Two Drug-eluting Intraluminal Devices, Percutaneous Approach (ICD-10-PCS; principal; 2024-04-23)
PROC: 6A750Z5 Ultrasound Therapy of Heart, Single (ICD-10-PCS; 2024-04-23)
PROC: 4A023N7 Measurement of Cardiac Sampling and Pressure, Left Heart, Percutaneous Approach (ICD-10-PCS; 2024-04-23)
PROC: B2111ZZ Fluoroscopy of Multiple Coronary Arteries using Low Osmolar Contrast (ICD-10-PCS; 2024-04-23)
PROC: B2151ZZ Fluoroscopy of Left Heart using Low Osmolar Contrast (ICD-10-PCS; 2024-04-23)
PROC: 3E033XZ Introduction of Vasopressor into Peripheral Vein, Percutaneous Approach (ICD-10-PCS; 2024-04-23)
DX: I21.09 ST elevation (STEMI) myocardial infarction involving other coronary artery of anterior wall (principal); A41.81 Sepsis due to Enterococcus; E43 Unspecified severe protein-calorie malnutrition; I50.21 Acute systolic (congestive) heart failure; R65.21 Severe sepsis with septic shock; Z68.1 Body mass index [BMI] 19.9 or less, adult; E87.20 Acidosis, unspecified; N39.0 Urinary tract infection, site not specified; F17.210 Nicotine dependence, cigarettes, uncomplicated; I25.10 Atherosclerotic heart disease of native coronary artery without angina pectoris; E87.6 Hypokalemia; R09.02 Hypoxemia; I25.5 Ischemic cardiomyopathy; F20.9 Schizophrenia, unspecified; J43.9 Emphysema, unspecified; Z79.51 Long term (current) use of inhaled steroids; Z79.82 Long term (current) use of aspirin; Z79.899 Other long term (current) drug therapy; Z95.5 Presence of coronary angioplasty implant and graft
CPT/HCPCS: 71045; 74176; 80048; 80053; 80061; 80076; 81001; 83605; 83690; 83735; 83880; 84100; 84132; 84145; 84484; 85025; 85027; 85610; 85730; 87040; 87077; 87086; 87186; 87324; 87636; 92978; 93005; 93306; 93308; 93458; 94640; 94760; 99291

== ENCOUNTER 2024-04-30 15:20 | Observation (INO) | payer MEDICARE, OTHER ==
[2024-04-30] MEDS: SODIUM CHLORIDE 0.9% 2,000 ML IV ONE (15:30)
--- NOTE | 2024-04-30 15:36 | ED ---
Chest Pain HPI - General Chief Complaint: Chest Pain Stated Complaint: Stemi Time Seen by Provider: 04/30/24 15:27 Source: patient Mode of arrival: EMS - History of Present Illness Initial Comments: Patient is a 64-year-old male with a past medical history of recent CT status post cardiac placement, smoking presenting today for generalized weakness and hypotension. Patient was at his [facility] home when he was noted to have a blood pressure of 72/50 so EMS was called. Patient himself endorses about 2 days of generalized weakness but denies additional complaints. He currently denies any chest pain, shortness of breath, lightheadedness, dizziness, recent fevers, difficulty in breathing, abdominal pain nausea vomiting or diarrhea. - Related Data Home Medications Medication Instructions Recorded Confirmed Albuterol Sulfate [Ventolin HFA] 2 puff INHALATION RT-QID PRN 04/23/24 04/30/24 Budesonide-Formot 160-4.5 Mcg 2 puff INHALATION RT-BID@0800,209904/23/24 04/30/24 [Symbicort 160-4.5 Mcg Inhaler] Haloperidol Decanoate [Haldol D] 100 mg IM Q28D@0800 04/23/24 04/30/24 OLANZapine [ZyPREXA] 5 mg PO HS@209904/23/24 04/30/24 Tiotropium 2.5 Mcg/Puff [Spiriva 2 puff INHALATION RT-DAILY@0800 04/23/24 04/30/24 Respimat 2.5 Mcg] Aspirin 81 mg PO DAILY@0800 04/30/24 04/30/24 Atorvastatin [Lipitor] 40 mg PO HS@209904/30/24 04/30/24 Metoprolol Tartrate [Lopressor] 12.5 mg PO BID@0800,209904/30/24 04/30/24 Midodrine [ProAmatine] 5 mg PO AC-TID@08,12,17 04/30/24 04/30/24 Pantoprazole [Protonix] 40 mg PO AC-BRKFST@0700 04/30/24 04/30/24 Prasugrel [Effient] 10 mg PO DAILY@0800 04/30/24 04/30/24 Previous Rx's Medication Instructions Recorded Levofloxacin [Levaquin] 750 mg PO DAILY@1800 #7 tab 04/28/24 Nitroglycerin Sl Tabs [Nitrostat] 0.4 mg SUBLINGUAL Q5M PRN #30 tab 04/28/24 Allergies Allergy/AdvReac Type Severity Reaction Status Date / Time cephalexin monohydrate Allergy Unknown Verified 04/30/24 16:55 [From Keflex] clindamycin Allergy Unknown Verified 04/30/24 16:55 latex Allergy Rash/Hives Verified 04/30/24 16:55 Penicillins Allergy Rash/Hives Verified 04/30/24 16:55 Review of Systems ROS Statement: Those systems with pertinent positive or pertinent negative responses have been documented in the HPI. ROS Other: All systems not noted in ROS Statement are negative. EKG Findings - EKG Comments: EKG Findings:: Sinus rhythm, rate 89 bpm, NJ interval 140 ms, QRS duration 90 ms, QT/QTc 363/409 ms, normal axis for line left axis, borderline right axis deviation, ST elevation noted in V3 V4, V5 and V6 with prominent Q waves present, no reciprocal depressions. Compared to EKG performed on 04/27/2024, does show does appear consistent with prior EKG though ST elevation in V5 and V6 appear slightly more prominent. Past Medical History Past Medical History: Cancer, COPD, Pneumonia Additional Past Medical History / Comment(s): Melanoma removed from L trunk, skin cancer removed from R side of nose, L eye blurry vision, constipation, hematuria/UTI, hypoglycemia. migraines History of Any Multi-Drug Resistant Organisms: None Reported Past Surgical History: Adenoidectomy, Tonsillectomy Additional Past Surgical History / Comment(s): R side of nose skin cancer removal/skin graft, L trunk melanoma removed, colonoscopy. Past Anesthesia/Blood Transfusion Reactions: No Reported Reaction Past Psychological History: No Psychological Hx Reported, Schizophrenia Smoking Status: Current every day smoker - Past Family History Father Family Medical History: Diabetes Mellitus Additional Family Medical History / Comment(s): Father is living. Mother Family Medical History: CVA/TIA, Myocardial Infarction (CT) Additional Family Medical History / Comment(s): Mother had a CVA, shingles. She is from the CVA. General Exam - General Exam Comments Initial Comments: PE: CONSTITUTIONAL: No apparent distress, chronically ill appearing SKIN: Warm, dry, no jaundice, hives or petechiae, yellow-green bruising along lower abdomen from recent injections during recent hospitalization EYES: Pupils are equally round, extraocular movements intact without nystagmus, clear conjunctiva, non-icteric sclera, eyes do appear sunken HENT: Normocephalic, atraumatic, dry mucus membranes, oropharynx clear without exudates NECK: , Full range of motion, normal appearance PULMONARY: Clear to auscultation without wheezes, rhonchi, or rales, normal excursion, no accessory muscle use and no stridor CARDIOVASCULAR: Regular rate, rhythm, normal S1 and S2. No appreciated murmurs, rubs or gallops. 1+ radial pulses and DP with intact distal perfusion. No lower extremity edema GASTROINTESTINAL: Soft, active bowel sounds throughout, non-tender, non- distended, no palpable masses, no rebound or guarding. No hepatosplenomegaly MUSCULOSKELETAL: Extremities have no gross deformity, no edema, redness, or swelling. No calf swelling NEUROLOGIC:_a/o x 3, GCS 15, normal mentation and speech. Moves all extremities x 4 without motor or sensory deficit PSYCHIATRIC:_normal mood and affect, thought process is clear and linear Course Vital Signs 04/30/24 04/30/24 04/30/24 15:23 15:30 15:35 Temperature 98.1 F Pulse Rate 85 79 79 Respiratory 18 14 16 Rate Blood Pressure 82/29 76/60 89/59 O2 Sat by Pulse 98 95 Oximetry 04/30/24 04/30/24 04/30/24 15:39 16:14 16:20 Temperature Pulse Rate 73 71 Respiratory 16 25 H 22 Rate Blood Pressure 76/28 115/98 103/85 O2 Sat by Pulse 85 L 92 L Oximetry 04/30/24 04/30/24 04/30/24 16:30 17:00 17:15 Temperature Pulse Rate 74 70 73 Respiratory 24 12 13 Rate Blood Pressure 105/78 68/43 86/54 O2 Sat by Pulse 98 97 98 Oximetry 04/30/24 04/30/24 04/30/24 17:25 18:40 19:17 Temperature Pulse Rate 75 83 81 Respiratory 14 24 22 Rate Blood Pressure 93/69 111/77 92/60 O2 Sat by Pulse 96 97 98 Oximetry 04/30/24 04/30/24 04/30/24 20:00 21:41 22:14 Temperature 97.9 F Pulse Rate 78 78 78 Respiratory 23 20 20 Rate Blood Pressure 86/65 88/60 82/50 O2 Sat by Pulse 97 96 96 Oximetry Chest Pain MDM - MDM Was pt. sent in by a medical professional or institution ([facility], CAT WAGON OPERATOR, urgent care, hospital, or fdc...) When possible be specific @Patient was sent in from his [facility] Did you speak to anyone other than the patient for history (EMS, parent, family, police, friend...)? What history was obtained from this source @ -Spoke to EMS personnel who assisted in providing history Did you review nursing and triage notes (agree or disagree)? Why? @ -I reviewed and agree with nursing and triage notes Were old charts reviewed (outside hosp., previous admission, EMS record, old EKG, old radiological studies, urgent care reports/EKG's, fdc records)? Report findings @ -Reviewed old charts-compared most recent EKG to todays, reviewed recent echo cardiogram, Echocardiogram performed on 04/23/2024 which showed a severely impaired left ventricular systolic function with segmental wall motion abnormalities consistent with CAD, mild mitral and tricuspid regurgitation regurgitation, small pericardial effusion, ejection fraction of 20 to 25 %; reviewed recent discharge summary from recent admission Differential Diagnosis (chest pain, altered mental status, abdominal pain women, abdominal pain men, vaginal bleeding, weakness, fever, dyspnea, syncope, headache, dizziness, GI bleed, back pain, seizure, CVA, palpatations, mental health, musculoskeletal)? Differential diagnosis for weakness and hypotension remains broad however top considerations include ACS, aortic dissection, PE, dehydration, anemia/hemorrhage, heart failure, electrolyte abnormality, infection this is not all-inclusive list EKG interpreted by me (3pts min.). @ -As above X-rays interpreted by me (1pt min.). @No pleural effusions, obvious consolidations or pneumothorax CT interpreted by me (1pt min.). @ -No saddle or visible/massive/submassive pulmonary embolism, no aortic dissection, no lung consolidations U/S interpreted by me (1pt. min.). @ -None done What testing was considered but not performed or refused? (CT, X-rays, U/S, labs)? Why? @ -None What meds were considered but not given or refused? Why? @I did consider initiating the patient on Levophed however his blood pressure was fluid responsive and ultimately stabilized with fluid boluses Did you discuss the management of the patient with other professionals (professionals i.e. , PA, CAT WAGON OPERATOR, lab, RT, psych nurse, director social service, electrifier operator, teacher, stream control officer, pillowcase maker)? Give summary @This case was discussed with Dr. Sanches, cardiology who kindly evaluated patient out of concern for STEMI based on transmission of EKG prior to patient's arrival. On Dr. Sanches's evaluation, he concluded that patient was not suffering a STEMI and Hemp Fiber Taker Off activation was canceled, he also performed a bedside echocardiogram which showed an EF of approximately 40% with a collapsible IVC and trace pericardial effusion. He recommended fluid resuscitation. He will order formal echo. Was smoking cessation discussed for >3mins.? @ -No Was critical care preformed (if so, how long)? @ Yes, 45 minutes Were there social determinants of health that impacted care today? How? (Homelessness, low income, unemployed, alcoholism, drug addiction, transportation, low edu. Level, literacy, decrease access to med. care, alf, rehab)? @ -Patient is an [facility] home resident and does have a guardian Was there de-escalation of care discussed even if they declined (Discuss DNR or withdrawal of care, Hospice)? @ -No What co-morbidities impacted this encounter? (DM, HTN, Smoking, COPD, CAD, Cancer, CVA, ARF, Chemo, Hep., AIDS, mental health diagnosis, sleep apnea, morbid obesity)? @COPD, CAD Was patient admitted / discharged? Hospital course, mention meds given and ro nondalton, prescriptions, significant lab abnormalities, going to OR and other pertinent info. @ -Hospital course admission to Dr. Irving Patient is a 64-year-old gentleman with a history of COPD, CAD, discharged in the last 2 to 3 days after an admission for an CT where patient received stent placement. EKG transmitted prior to patient's arrival showed concerns for STEMI so the Hemp Fiber Taker Off was activated. Patient seen and assessed immediately upon arrival. He is chronically ill-appearing but in no distress. Physical exam significant for dry mucous membranes, eyes appear sunken, no lower extremity edema, 1+ pulses in all 4 extremities, normal S1-S2 on cardiac exam without murmurs rubs or gallops, lungs were clear to auscultation bilaterally, patient was in no distress and was nontoxic-appearing. Abdomen is soft and nontender, nondistended. Patient awake and alert. He himself endorses weakness but denies any additional complaints including any chest pain, diaphoresis, nausea, vomiting or shortness of breath. Dr. Sanches arrived to bedside shortly after patient's arrival to assess patient. Please see his recommendations as noted above. We compared patient's current EKG to EKG from recent admission. No significant changes from prior. 2 L IV fluid were ordered, despite patient's reduced ejection fraction he appears especially volume depleted. Differential diagnosis as above. With equal pulses in all 4 extremities and patient's lack of additional complaints, bedside echo results as well as weakness ongoing for 2 days I have a low suspicion for aortic dissection or PE so D dimer ordered in addition to comprehensive labs. Antibiotics were not initiated though blood culture cultures were drawn due to hypotension and recent admission. Discussed with patient plan of care, he is agreeable with plan. Heparin initially ordered however canceled due to no significant EKG changes and no chest pain. Will reorder if indicated. Blood pressure improved after 1 L IV fluids though remained somewhat hypotensive, RN was continued directed to continue infusing full 2 L. I reassessed the patient and he remains comfortable, awake alert without additional complaints. D-dimer elevated 1.47, CTA ordered. Patient's RN did inform me that patient's blood pressure decreased again after 2 L IV fluids. Ordered additional 500 cc. Reviewed CTA personally, I see no evidence of pneumothorax, no evidence of massive or submassive pulmonary embolism, no consolidations in his lungs. Mild leukocytosis white blood cell count 12.1 though chest x-ray did comment on possible developing left lower lobe infiltrate could also be atelectasis with only mild leukocytosis, no fever and CTA without obvious consolidation I will hold off on antibiotics at this point. Labs otherwise significant for potassium of 5.6 though specimen was hemolyzed sodium, 135, creatinine 0.75, GFR greater than 90, lactic 1.7, troponin 2.460 however on chart review patient had troponin of 128 at last check during his admission on 04/23/2024 so I suspect this is downtrending from prior and without chest pain and new EKG changes heparin will be withheld. On my reassessment after 2.5 L IV fluids patient blood pressure stable 89 with a MAP of 81. Patient denies symptoms currently. Given his recent significant medical history I do plan to admit him for observation to monitor blood cultures and ensure continues to maintain pressure. Patient is agreeable plan. I did update him to nodule noted on chest x-ray and the importance of following up outpatient for repeat chest CT to ensure no signs of malignancy. Patient agreeable and understanding of this. Patient admitted to Dr. Irving in stable condition. Undiagnosed new problem with uncertain prognosis? @ -No Drug Therapy requiring intensive monitoring for toxicity (Heparin, Nitro, Insulin, Cardizem)? @ -No Were any procedures done? @ -No Diagnosis/symptom? @Symptomatic hypotension Acute, or Chronic, or Acute on Chronic? @Acute Uncomplicated (without systemic symptoms) or Complicated (systemic symptoms)? @Complicated Side effects of treatment? @ -No Exacerbation, Progression, or Severe Exacerbation? @ -No Poses a threat to life or bodily function? How? (Chest pain, USA, CT, pneumonia, PE, COPD, DKA, ARF, appy, cholecystitis, CVA, Diverticulitis, Homicidal, Suicidal, threat to staff... and all critical care pts) @Yes Disposition Clinical Impression: Hypotension Disposition: ADMITTED IP TO THIS HOSP Condition: Stable
--- NOTE | 2024-04-30 15:50 | XR ---
EXAMINATION TYPE: XR chest 1V portable DATE OF EXAM: 04/30/2024 COMPARISON: 04/27/2024 INDICATION: Chest pain TECHNIQUE: Single frontal view of the chest is obtained. FINDINGS: The heart size is normal. The pulmonary vasculature is normal. Hyperinflation is present. Some minimal right basilar infiltrate has developed from comparison. A 1 c m nodule is identified in the lateral left mid to lower peripheral lung field. IMPRESSION: 1. Minimal developing infiltrate left base. Correlate for atelectasis. 2. Small nodule lateral mid to lower peripheral left lung. Follow-up CT when the patient is stable is recommended. [facility], Workstation: [facility], 04/30/2024 3:47 PM
[2024-04-30 15:53] LABS: Basophils % (A) 0 %; Eosinophils # (A) 0.1 k/uL (0-0.7); Eosinophils % (A) 1 %; HCT 51.4 % (39.0-53.0); HGB 16.6 gm/dL (13.0-17.5); Lymphocytes # (A) 1.2 k/uL (1.0-4.8); Lymphocytes % (A) 10 %; MCH 30.8 pg (25.0-35.0); MCHC 32.2 g/dL (31.0-37.0); MCV 95.5 fL (80.0-100.0); Mean Platelet Volume 9.6; Monocytes # (A) 0.9 k/uL (0-1.0); Monocytes % (A) 7 %; Neutrophils # (A) 9.6 k/uL (1.3-7.7); Neutrophils % (A) 79 %; Platelet Count 445 k/uL (150-450); RBC 5.39 m/uL (4.30-5.90); RDW 13.8 % (11.5-15.5); WBC 12.1 k/uL (3.8-10.6)
[2024-04-30 16:06] LABS: ALT 46 U/L (4-49); African American GFR (CKD) >90 (>60 ml/min/1.73 sqM); Albumin 3.7 g/dL (3.5-5.0); Anion Gap 6 mmol/L; Blood Urea Nitrogen 33 mg/dL (9-20); Calcium 9.6 mg/dL (8.4-10.2); Carbon Dioxide 25 mmol/L (22-30); Chloride 104 mmol/L (98-107); Glucose 88 mg/dL (74-99); Non-African American GFR(CKD) >90 (>60 ml/min/1.73 sqM); Sodium 135 mmol/L (137-145); Total Bilirubin 0.8 mg/dL (0.2-1.3); Total Protein 6.8 g/dL (6.3-8.2)
--- NOTE | 2024-04-30 16:09 | P.CRDCN ---
History of Present Illness Consult date: 04/30/24 History of present illness: HISTORY OF PRESENTING ILLNESS 64-year-old male who presented to [facility] in early April 2024 with anterior wall STEMI. He underwent PCI of his LAD by Dr. Mena. Post [place] Limited echo showed EF of 35 to 40% with anterior apical wall hypokinesia, This time he presented to the hospital because his home care nurse noticed that he was severely hypotensive and was appearing weak and pale. For this she activated EMS and they obtained a blood pressure of systolic 80 mmHg. They performed an ECG which showed ST elevations in anteroseptal leads. For the STEMI was activated. For STEMI I evaluated the patient on emergent basis in the ER. On personal evaluation, patient denied having any symptoms of chest pain chest pressure. He denied any symptoms of lightheadedness. He reports that he was sent to the hospital because of low blood pressure. He he denies any palpitation symptoms. We performed an ECG which showed ST elevations in Atrosept leads which were unchanged from his prior ECG from recent hospitalization. I performed a bedside echocardiogram which showed an EF of around 35 to 40% with anteroseptal and apical wall hypokinesia with normal motion of inferior and inferolateral wall. There was no obvious severe mitral regurgitation noticed. He has a small pericardial effusion with no tamponade physiology and IVC is collapsible with inspiration. REVIEW OF SYSTEMS 14 point review of system is negative except what is mentioned above in HPI. PHYSICAL EXAMINATION Vital signs reviewed. Head: Normocephalic. Eyes: Sclerae nonicteric. Neck: Brisk carotid upstroke, no jugular venous distention. Lungs: Clear to auscultation. Heart: Regular rate and rhythm, S1-S2, no S3, no murmur or rub. Abdomen: Soft nontender, positive bowel sounds. Extremities: No edema, intact distal pulses. Neuro: Alert, oritented, no focal deficits. Detailed neuro exam was not performed. ASSESSMENT Emergent consult for concerns of STEMI Recent anterior [place] status post PCI to proximal LAD. Evolving ECG changes, not qualifying for STEMI. Small pericardial effusion Severe hypertension PLAN Obtain a full echocardiogram to rule out any post MO complications IV fluid hydration with 30 cc/kg fluid resuscitation Continue his home cardiac medications. Make sure he is on dual antiplatelet therapy Make sure to check his labs to make sure he does not have any anemia or significant blood loss on dual antiplatelet therapy, and has preserved renal function. Evaristo Sanches, MD, FAC, RPVI Thank you for allowing [facility] to participate in this patient's care. Feel free to reach out in case of any followup questions. Past Medical History Past Medical History: Cancer, COPD, Pneumonia Additional Past Medical History / Comment(s): Melanoma removed from L trunk, skin cancer removed from R side of nose, L eye blurry vision, constipation, he maturia/UTI, hypoglycemia. migraines History of Any Multi-Drug Resistant Organisms: None Reported Past Surgical History: Adenoidectomy, Tonsillectomy Additional Past Surgical History / Comment(s): R side of nose skin cancer r emoval/skin graft, L trunk melanoma removed, colonoscopy. Past Anesthesia/Blood Transfusion Reactions: No Reported Reaction Past Psychological History: No Psychological Hx Reported, Schizophrenia Smoking Status: Current every day smoker - Past Family History Father Family Medical History: Diabetes Mellitus Additional Family Medical History / Comment(s): Father is living. Mother Family Medical History: CVA/TIA, Myocardial Infarction ([place]) Additional Family Medical History / Comment(s): Mother had a CVA, shingles. She is from the CVA. Medications and Allergies Home Medications Medication Instructions Recorded Confirmed Type Albuterol Sulfate [Ventolin HFA] 2 puff INHALATION RT-Q3H PRN 04/23/24 04/23/24 History Budesonide-Formot 160-4.5 Mcg 2 puff INHALATION RT-BID 04/23/24 04/23/24 History [Symbicort 160-4.5 Mcg Inhaler] Haloperidol Decanoate [Haldol D] 100 mg IM Q28D 04/23/24 04/23/24 History OLANZapine [ZyPREXA] 5 mg PO HS 04/23/24 04/23/24 History Tiotropium 2.5 Mcg/Puff [Spiriva 2 puff INHALATION RT-DAILY 04/23/24 04/23/24 History Respimat 2.5 Mcg] Aspirin 81 mg PO DAILY #30 tab 04/28/24 Rx Atorvastatin [Lipitor] 40 mg PO HS #60 tab 04/28/24 Rx Levofloxacin [Levaquin] 750 mg PO DAILY@1800 #7 tab 04/28/24 Rx Metoprolol Tartrate [Lopressor] 12.5 mg PO BID #60 tab 04/28/24 Rx Midodrine [ProAmatine] 5 mg PO AC-TID #90 tab 04/28/24 Rx Nicotine 21Mg/24Hr Patch [Habitrol] 1 patch TRANSDERM DAILY #30 patch 04/28/24 Rx Nitroglycerin Sl Tabs [Nitrostat] 0.4 mg SUBLINGUAL Q5M PRN #30 tab 04/28/24 Rx Pantoprazole [Protonix] 40 mg PO AC-BRKFST #30 tab 04/28/24 Rx Prasugrel [Effient] 10 mg PO DAILY #30 tab 04/28/24 Rx Allergies Allergy/AdvReac Type Severity Reaction Status Date / Time cephalexin monohydrate Allergy Unknown Verified 04/30/24 15:30 [From [employer]] clindamycin Allergy Unknown Verified 04/30/24 15:30 latex Allergy Rash/Hives Verified 04/30/24 15:30 Penicillins Allergy Rash/Hives Verified 04/30/24 15:30 Physical Exam Vitals: Vital Signs Temp Pulse Resp BP Pulse Ox 04/30/24 15:39 16 76/28 04/30/24 15:35 79 16 89/59 04/30/24 15:30 79 14 76/60 95 04/30/24 15:23 98.1 F 85 18 82/29 98 Intake and Output 04/30/24 04/30/24 04/30/24 06:59 14:59 22:59 Other: Weight 49.895 kg Results 04/30/24 15:29 CBC 04/30/24 Range/Units 15:29 WBC 12.1 H (3.8-10.6) k/uL RBC 5.39 (4.30-5.90) m/uL Hgb 16.6 (13.0-17.5) gm/dL Hct 51.4 (39.0-53.0) % Plt Count 445 (150-450) k/uL Current Medications Generic Name Dose Route Start Last Admin Trade Name Freq PRN Reason Stop Dose Admin Sodium Chloride 2,000 mls @ 999 mls/hr 04/30/24 15:48 04/30/24 15:30 Saline 0.9% IV 04/30/24 17:48 999 mls/hr .Q2H1M ONE Administration Intake and Output 04/30/24 04/30/24 04/30/24 06:59 14:59 22:59 Other: Weight 49.895 kg Patient Weight 05/01/24 06:59 Weight 49.895 kg 04/30/24 15:29
[2024-04-30 16:10] LABS: INR 1.1 (<1.2); Partial Thromboplastin Time 26.5 sec (22.0-30.0); Prothrombin Time 11.6 sec (10.0-12.5)
[2024-04-30] MEDS: HEPARIN SODIUM 1,000 UN/ML (10ML VL) IV ONE (16:10)
[2024-04-30] MEDS: HEPARIN SOD,PORK IN 0.45% NACL 25,000 UNIT in 0.45% NACL 1 250ML.BAG IV SCH (16:11)
[2024-04-30 16:15] LABS: NT-Pro-B-Type Natriuretic Pept 3280 pg/mL
[2024-04-30 16:19] LABS: AST 55 U/L (17-59); Alkaline Phosphatase 89 U/L (38-126); Magnesium 2.2 mg/dL (1.6-2.3); Potassium 5.6 mmol/L (3.5-5.1)
--- NOTE | 2024-04-30 17:17 | CA ---
Transthoracic Echo Report Name: Abelardo Salgado Age: 64 Gender: M : 1960 Exam Date: 04/30/2024 16:29 Exam Location: [facility] Ht (in): 67 Wt (lb): 110 Ordering Physician: Evaristo Sanches MD ([id number]) Attending/Referring Phys: Machine Puller Steph Lawson, MAURICIO Procedure CPT: Indications: Chest Pain Cardiac Hx: Rule out pericardial effusion, VDS, mitral regurgitation Technical Quality: Good Contrast 1: Total Dose (mL): Contrast 2: Total Dose (mL): MEASUREMENTS (Male / Female) Normal Values 2D ECHO LV Diastolic Diameter PLAX 5.0 cm 4.2 - 5.9 / 3.9 - 5.3 cm LV Systolic Diameter PLAX 3.4 cm IVS Diastolic Thickness 0.8 cm 0.6 - 1.0 / 0.6 - 0.9 cm LVPW Diastolic Thickness 1.2 cm 0.6 - 1.0 / 0.6 - 0.9 cm LV Relative Wall Thickness 0.4 LV Diastolic Volume MOD BP 114.9 cm??? 67 - 155 / 56 - 104 cm??? LV Systolic Volume MOD BP 51.4 cm??? 22 - 58 / 19 - 49 cm??? LV Ejection Fraction MOD BP 55.2 % >= 55 % LV Cardiac Index MOD BP 2126.1 cm???/min???m??? LV Diastolic Volume MOD 4C 117.3 cm??? LV Systolic Volume MOD 4C 49.9 cm??? LV Ejection Fraction MOD 4C 57.5 % LV Cardiac Index MOD 4C 2257.7 cm???/min???m??? LV Diastolic Length 4C 8.0 cm LV Systolic Length 4C 7.1 cm LV Diastolic Volume MOD 2C 111.2 cm??? LV Systolic Volume MOD 2C 52.3 cm??? LV Ejection Fraction MOD 2C 53.0 % LV Cardiac Index MOD 2C 1973.5 cm???/min???m??? LV Diastolic Length 2C 7.9 cm LV Systolic Length 2C 7.0 cm FINDINGS Left Ventricle Left ventricular ejection fraction is estimated at 35 %. Left ventricular cavity size normal. Left ventricular wall thickness normal. Akinetic apex. Right Ventricle Normal right ventricular size. Right Atrium Left Atrium Mitral Valve Structurally normal mitral valve. Trace mitral regurgitation. Aortic Valve Tricuspid Valve Pulmonic Valve Pericardium Small pericardial effusion. Aorta CONCLUSIONS Limited 2-D echo Left ventricular ejection fraction 35% with apical hypokinesis and basal sparing. May be consistent with Takotsubo's cardiomyopathy vs ischemic. No VSD noted Trace mitral regurgitation Small pericardial effusion without tamponade physiology Previewed by: Dr. Eduardo David DO (Electronically Signed) Final Date: 30 April 2024 17:16
[2024-04-30] MEDS: SODIUM CHLORIDE 0.9% 500 ML 500 ML IV ONE (17:50)
[2024-04-30] MEDS: SODIUM CHLORIDE 0.9% 1,000 ML IV SCH (17:50)
[2024-04-30] MEDS ORDERED: ONDANSETRON 4 MG/2 ML VIAL IVP PRN (18:49)
[2024-04-30] MEDS ORDERED: traMADol 50 MG TAB PO PRN (18:49)
[2024-04-30] MEDS ORDERED: ACETAMINOPHEN TAB 325 MG TAB PO PRN (18:49)
[2024-04-30] MEDS ORDERED: NALOXONE 0.4 MG/ML 1 ML VIAL IV PRN (18:49)
[2024-04-30] MEDS ORDERED: NITROGLYCERIN SL TABS 0.4 MG TAB SUBLINGUAL PRN (18:54)
--- NOTE | 2024-04-30 19:07 | CT ---
CTA CHEST EXAMINATION TYPE: CT angio chest DATE OF EXAM: 04/30/2024 INDICATION: Concern for PE, elevated dimer. CT DLP: 227.6 mGycm, Automated exposure control for dose reduction was used. CONTRAST: Patient injected with 100 ml mL of Isovue 370. COMPARISON: TECHNIQUE: CT of the chest is performed on a spiral scan at 2 mm thick sections. Study is performed with intravenous contrast timed for evaluation for pulmonary embolism. This will limit additional po rtions of the evaluation. 3-D MIP images reconstructed by the technologist are reviewed on the compu ter in the coronal and sagittal planes. FINDINGS: No persistent filling defects are evident to suggest an acute pulmonary embolism. No mediastinal or hilar adenopathy enlarged by CT criteria is evident. Previous adenopathy has dimin ished in size over the interval The ascending aorta diameter at the level of the main pulmonary artery is 2.1 cm. The main pulmonary artery diameter at the bifurcation is 2.6 cm. Lung windows are clear. Moderate Emphysematous changes are present. Limited CT sections were through the upper abdomen. Upper abdomen appears unremarkable. IMPRESSION: 1. No acute pulmonary embolism. 2. COPD. [facility], Workstation: [facility], 04/30/2024 7:05 PM
[2024-04-30] MEDS: FAMOTIDINE 20 MG TAB PO SCH (21:34)
[2024-04-30] MEDS: ATORVASTATIN 40 MG TAB PO SCH (21:34)
[2024-04-30] MEDS: OLANZapine 5 MG TAB PO SCH (21:34)
[2024-04-30] MEDS: METOPROLOL TARTRATE 12.5 MG TAB PO SCH (21:35)
[2024-04-30] MEDS: SYMBICORT 160-4.5 MCG INHALER INHALATION SCH (23:59)
[2024-04-30] MEDS: ALBUTEROL NEBULIZED 2.5 MG/3 ML INHALATION PRN (23:59)
[2024-05-01] MEDS: PANTOPRAZOLE 40 MG TABLET PO SCH (06:26)
[2024-05-01] MEDS: IPRATROPIUM 0.5 MG/2.5 ML NEBU INHALATION SCH (08:48)
[2024-05-01 09:11] LABS: African American GFR (CKD) >90 (>60 ml/min/1.73 sqM); Anion Gap 3 mmol/L; Blood Urea Nitrogen 19 mg/dL (9-20); Calcium 8.5 mg/dL (8.4-10.2); Carbon Dioxide 27 mmol/L (22-30); Chloride 110 mmol/L (98-107); Glucose 120 mg/dL (74-99); Non-African American GFR(CKD) >90 (>60 ml/min/1.73 sqM); Potassium 4.4 mmol/L (3.5-5.1); Sodium 140 mmol/L (137-145)
[2024-05-01] MEDS: MIDODRINE 5 MG TAB PO SCH (09:50)
[2024-05-01] MEDS: PRASUGREL 10 MG TAB PO SCH (09:50)
[2024-05-01] MEDS: ASPIRIN 81 MG PO SCH (09:50)
[2024-05-01 11:07] VITALS: BMI 17.2
[2024-05-01] MEDS ORDERED: MIDODRINE 5 MG TAB PO SCH (18:54)
--- NOTE | 2024-05-01 19:48 | P.HPIM ---
History of Present Illness H&P Date: 05/01/24 Chief Complaint: Blood pressure low 64-year-old male with a PMH of COPD and schizophrenia. Recently in the hospital from April 23 through April 28. Had presented with a STEMI with a resultant stent to the LAD. Postprocedure was in the ICU with Levophed. Was treated for UTI. Patient at the [facility] was noted to be weak. More sleepy than usual. Also noted to be hypertensive. Denies any chest pain. No dizziness lightheaded. Appetite is fair. Review of systems: GEN.: Tired EYES: None HEENT: None NECK: None RESPIRATORY: None CARDIOVASCULAR: None GASTROINTESTINAL: None GENITOURINARY: None MUSCULOSKELETAL: None LYMPHATICS: None HEMATOLOGICAL: None PSYCHIATRY: Bit forgetful NEUROLOGICAL: None Social history: Smoking 2 packs a day, since 9078. Lives at [facility]. [facility]. Has a public guardian. Physical examination: VITAL SIGNS: 98.1, 85, 18, 82/29, 98% room air upon presentation GENERAL: BMI 17.2, loss of muscle mass subcutaneous fat.. EYES: Pupils equal. Conjunctiva jayson l. HEENT: External appearance of nose and ears normal, oral cavity grossly normal. NECK: JVD not raised; masses not palpable. HEART: First and second heart sounds are normal; no edema. LUNGS: Respiratory rate normal; clear to auscultation. ABDOMEN: Soft, nontender, liver spleen not palpable, no masses palpable. PSYCH: [Able to answer simple questions l. MUSCULOSKELETAL:No Clubbing/cyanosis;muscles-grossly intact. Loss of muscle mass subcutaneous fat NEUROLOGICAL: Cranial nerves grossly intact; no facial asymmetry, power and sensation grossly intact. LYMPHATICS: No lymph nodes palpable in the axilla and neck INVESTIGATIONS, reviewed in the clinical context: May 01: Potassium 4.4 creatinine 0.65 April 30: White count 12.1 hemoglobin 16.6 platelets 445 sodium 135 potassium 5.6 creatinine 0.75 Troponin I 2.4, 2.58, 2.24. proBNP 3280 EKG tracing personally reviewed by me-sinus rhythm. Cough elevation in leads V3 to V6. Chest x-ray film personally reviewed by me-hyperinflation Recent labs April 28: Potassium 4.6 creatinine 0.68. Albumin 3.3 Urine culture: Positive for Klebsiella pneumoniae, E. coli, Enterococcus faecalis CT scan abdomen pelvis: Minimal compressive atelectasis. 2D echocardiogram: EF 20 to 25%. Wall motion abnormality. Tricuspid regurgitation. Assessment and plan: -Symptomatic hypotension. Patient recently admitted with ST elevation AL. With stent to the LAD. Patient was running hypotensive prior to discharge. Was resumed on metoprolol. Currently on Lopressor 12.5 twice daily. Cardiology consulted -STEMI [April 22, 2024] LAD stent. ASA 81 mg PO QD. Lipitor at 40 mg PO QHS. Metoprolol at 12.5 mg PO BID. Effient 10 mg PO QD. -Acute HFrEF: EF 20-25%. Metoprolol [hold lisinopril and Aldactone -Acute UTI with cystitis with cultures positive for Klebsiella pneumonia/E. coli/Enterococcus faecalis Continue Levaquin -COPD in a current smoker : Albuterol neb Q3H PRN. Symbicort 2 INH BID. -Schizophrenia: Zyprexa 5 mg PO QHS. -Severe protein calorie malnutrition Ensure 3 times daily -Nicotine dependence Nicotine patch CODE STATUS: FULL CODE. -Patient has a public guardian Diuretics, DIMPLE inhibitor held. Lopressor continued. Past Medical History Past Medical History: Cancer, COPD, Myocardial Infarction ([place]), Pneumonia Additional Past Medical History / Comment(s): STEMI april 2024 with 2 stents placed, Melanoma removed from L trunk, skin cancer removed from R side of nose, L eye blurry vision, constipation, hematuria/UTI, hypoglycemia. migraines Last Myocardial Infarction Date:: 04/22/24 History of Any Multi-Drug Resistant Organisms: None Reported Past Surgical History: Adenoidectomy, Heart Catheterization With Stent, Tonsillectomy Additional Past Surgical History / Comment(s): R side of nose skin cancer removal/skin graft, L trunk melanoma removed, colonoscopy. Past Anesthesia/Blood Transfusion Reactions: No Reported Reaction Date of Last Stent Placement:: 04/22/24 Past Psychological History: No Psychological Hx Reported, Schizophrenia Additional Psychological History / Comment(s): He served in the [employer]. Lives at [place] and has a public guardian. Follows with physician at [facility] Smoking Status: Current every day smoker Past Alcohol Use History: Occasional Additional Past Alcohol Use History / Comment(s): Pt started smoking in 1978 and is a 2 ppd smoker. Past Drug Use History: None Reported - Past Family History Father Family Medical History: Diabetes Mellitus Additional Family Medical History / Comment(s): Father is living. Mother Family Medical History: CVA/TIA, Myocardial Infarction ([place]) Additional Family Medical History / Comment(s): Mother had a CVA, shingles. She is from the CVA. Medications and Allergies Home Medications Medication Instructions Recorded Confirmed Type Albuterol Sulfate [Ventolin HFA] 2 puff INHALATION RT-QID PRN 04/23/24 04/30/24 History Budesonide-Formot 160-4.5 Mcg 2 puff INHALATION RT-BID@0800,209904/23/24 04/30/24 History [Symbicort 160-4.5 Mcg Inhaler] Haloperidol Decanoate [Haldol D] 100 mg IM Q28D@0800 04/23/24 04/30/24 History OLANZapine [ZyPREXA] 5 mg PO HS@209904/23/24 04/30/24 History Tiotropium 2.5 Mcg/Puff [Spiriva 2 puff INHALATION RT-DAILY@0800 04/23/24 04/30/24 History Respimat 2.5 Mcg] Levofloxacin [Levaquin] 750 mg PO DAILY@1800 #7 tab 04/28/24 04/30/24 Rx Nitroglycerin Sl Tabs [Nitrostat] 0.4 mg SUBLINGUAL Q5M PRN #30 tab 04/28/24 04/30/24 Rx Aspirin 81 mg PO DAILY@0800 04/30/24 04/30/24 History Atorvastatin [Lipitor] 40 mg PO HS@209904/30/24 04/30/24 History Metoprolol Tartrate [Lopressor] 12.5 mg PO BID@0800,209904/30/24 04/30/24 History Midodrine [ProAmatine] 5 mg PO AC-TID@08,12,17 04/30/24 04/30/24 History Pantoprazole [Protonix] 40 mg PO AC-BRKFST@0700 04/30/24 04/30/24 History Prasugrel [Effient] 10 mg PO DAILY@0800 04/30/24 04/30/24 History Allergies Allergy/AdvReac Type Severity Reaction Status Date / Time cephalexin monohydrate Allergy Unknown Verified 04/30/24 16:55 [From [employer]ef[employer]] clindamycin Allergy Unknown Verified 04/30/24 16:55 latex Allergy Rash/Hives Verified 04/30/24 16:55 Penicillins Allergy Rash/Hives Verified 04/30/24 16:55 Physical Exam Vitals: Vital Signs Temp Pulse Pulse Resp BP BP BP 05/01/24 09:00 92 05/01/24 08:50 88 05/01/24 08:30 80 18 82/50 05/01/24 04:15 84 18 104/69 05/01/24 00:27 80 04/30/24 23:59 76 04/30/24 23:06 96/65 04/30/24 22:58 98/56 04/30/24 22:38 97.9 F 79 28 H 101/65 134/54 04/30/24 22:14 97.9 F 78 20 82/50 04/30/24 21:41 78 20 88/60 04/30/24 20:00 78 23 86/65 04/30/24 19:17 81 22 92/60 04/30/24 18:40 83 24 111/77 04/30/24 17:25 75 14 93/69 04/30/24 17:15 73 13 86/54 04/30/24 17:00 70 12 68/43 04/30/24 16:30 74 24 105/78 04/30/24 16:20 71 22 103/85 04/30/24 16:14 73 25 H 115/98 04/30/24 15:39 16 76/28 04/30/24 15:35 79 16 89/59 04/30/24 15:30 79 14 76/60 04/30/24 15:23 98.1 F 85 18 82/29 Pulse Ox 05/01/24 09:00 05/01/24 08:50 95 05/01/24 08:30 96 05/01/24 04:15 95 05/01/24 00:27 04/30/24 23:59 04/30/24 23:06 04/30/24 22:58 04/30/24 22:38 95 04/30/24 22:14 96 04/30/24 21:41 96 04/30/24 20:00 97 04/30/24 19:17 98 04/30/24 18:40 97 04/30/24 17:25 96 04/30/24 17:15 98 04/30/24 17:00 97 04/30/24 16:30 98 04/30/24 16:20 92 L 04/30/24 16:14 85 L 04/30/24 15:39 04/30/24 15:35 04/30/24 15:30 95 04/30/24 15:23 98 Intake and Output 04/30/24 05/01/24 05/01/24 22:59 06:59 14:59 Intake Total 120 Balance 120 Intake: Oral 120 Other: # Voids 1 # Bowel Movements 1 Weight 49.895 kg 49.7 kg 49.7 kg Results CBC & Chem 7: 04/30/24 15:29 05/01/24 08:25 Labs: Abnormal Lab Results - Last 24 Hours (Table) 04/30/24 04/30/24 04/30/24 Range/Units 15:29 15:29 15:29 WBC 12.1 H (3.8-10.6) k/uL Neutrophils # 9.6 H (1.3-7.7) k/uL D-Dimer (<0.60) mg/L FEU Sodium 135 L (137-145) mmol/L Potassium 5.6 H (3.5-5.1) mmol/L Chloride (98-107) mmol/L BUN 33 H (9-20) mg/dL Creatinine (0.66-1.25) mg/dL Glucose (74-99) mg/dL Troponin I 2.460 H* (0.000-0.034) ng/mL 04/30/24 04/30/24 05/01/24 Range/Units 15:29 19:00 02:25 WBC (3.8-10.6) k/uL Neutrophils # (1.3-7.7) k/uL D-Dimer 1.47 H (<0.60) mg/L FEU Sodium (137-145) mmol/L Potassium (3.5-5.1) mmol/L Chloride (98-107) mmol/L BUN (9-20) mg/dL Creatinine (0.66-1.25) mg/dL Glucose (74-99) mg/dL Troponin I 2.580 H* 2.240 H* (0.000-0.034) ng/mL 05/01/24 Range/Units 08:25 WBC (3.8-10.6) k/uL Neutrophils # (1.3-7.7) k/uL D-Dimer (<0.60) mg/L FEU Sodium (137-145) mmol/L Potassium (3.5-5.1) mmol/L Chloride 110 H (98-107) mmol/L BUN (9-20) mg/dL Creatinine 0.65 L (0.66-1.25) mg/dL Glucose 120 H (74-99) mg/dL Troponin I (0.000-0.034) ng/mL Thrombosis Risk Factor Assmnt - Choose All That Apply Any of the Below Risk Factors Present?: No Other Risk Factors: Yes Each Risk Factor Represents 2 Points: Age 61-74 years Thrombosis Risk Factor Assessment Total Risk Factor Score: 2 Thrombosis Risk Factor Assessment Level: Low Risk
[2024-05-01] MEDS: LEVOFLOXACIN 750 MG TAB PO SCH (20:56)
[2024-05-01] MEDS: NICOTINE 21MG/24HR PATCH TRANSDERM SCH (20:56)
[2024-05-02 08:01] VITALS: RESP 16
[2024-05-02 11:29] VITALS: BP 92/63; TEMP 98.2
--- NOTE | 2024-05-02 12:28 | P.PN ---
Subjective Progress Note Date: 05/01/24 HISTORY OF PRESENTING ILLNESS 64-year-old male who presented to [facility] in early April 2024 with anterior wall STEMI. He underwent PCI of his LAD by Dr. Mena. Post [place] Limited echo showed EF of 35 to 40% with anterior apical wall hypokinesia, This time he presented to the hospital because his home care nurse noticed that he was severely hypotensive and was appearing weak and pale. For this she activated EMS and they obtained a blood pressure of systolic 80 mmHg. They performed an ECG which showed ST elevations in anteroseptal leads. For the STEMI was activated. For STEMI I evaluated the patient on emergent basis in the ER. On personal evaluation, patient denied having any symptoms of chest pain chest pressure. He denied any symptoms of lightheadedness. He reports that he was sent to the hospital because of low blood pressure. He he denies any palpitation symptoms. We performed an ECG which showed ST elevations in Atrosept leads which were unchanged from his prior ECG from recent hospitalization. I performed a bedside echocardiogram which showed an EF of around 35 to 40% with anteroseptal and apical wall hypokinesia with normal motion of inferior and inferolateral wall. There was no obvious severe mitral regurgitation noticed. He has a small pericardial effusion with no tamponade physiology and IVC is collapsible with inspiration. Progress note 05/01/2024 No reported chest pain chest pressure shortness of breath no reported lightheadedness dizziness. No reported falls or syncopal episodes. Systolic blood pressure in 90s. ECG shows sinus rhythm with evolving ST changes in anteroseptal leads most likely because of recent anteroseptal wall infarct. PHYSICAL EXAMINATION Vital signs reviewed. Head: Normocephalic. Eyes: Sclerae nonicteric. Neck: Brisk carotid upstroke, no jugular venous distention. Lungs: Clear to auscultation. Heart: Regular rate and rhythm, S1-S2, no S3, no murmur or rub. Abdomen: Soft nontender, positive bowel sounds. Extremities: No edema, intact distal pulses. Neuro: Alert, oritented, no focal deficits. Detailed neuro exam was not performed. ASSESSMENT Recent anterior AK status post PCI to proximal LAD. Abnormal ECG showing ST elevations in anteroseptal leads consistent with anteroseptal infarct Small pericardial effusion Hypotension PLAN Limited echocardiogram did not show any significant post AK complications like VSD, myocardial rupture, severe mitral regurgitation. Blood pressure is stable. Because of his low EF and anteroseptal infarct his blood pressure will stay low. If he does not feel lightheaded or dizzy, you do not have to necessarily increase his blood pressure artificially with medications. Use midodrine only as needed for symptoms of dizziness and lightheadedness. Objective - Vital Signs Vital signs: Vital Signs Temp 98.2 F 05/02/24 11:28 Pulse 80 05/02/24 11:32 Resp 16 05/02/24 11:28 BP 92/63 05/02/24 11:28 Pulse Ox 96 05/02/24 11:28 FiO2 Intake & Output 05/01/24 05/02/24 05/02/24 18:59 06:59 18:59 Intake Total 462 356 Balance 462 356 Weight 49.7 kg 50.3 kg Intake: Oral 462 356 Other: # Voids 3 1 - Labs CBC & Chem 7: 04/30/24 15:29 05/01/24 08:25 Labs: Microbiology - Last 24 Hours (Table) 04/30/24 17:21 Blood Culture - Preliminary Blood
--- NOTE | 2024-05-02 12:29 | P.PN ---
Subjective Progress Note Date: 05/02/24 HISTORY OF PRESENTING ILLNESS 64-year-old male who presented to [facility] in early April 2024 with anterior wall STEMI. He underwent PCI of his LAD by Dr. Mena. Post PA Limited echo showed EF of 35 to 40% with anterior apical wall hypokinesia, This time he presented to the hospital because his home care nurse noticed that he was severely hypotensive and was appearing weak and pale. For this she activated EMS and they obtained a blood pressure of systolic 80 mmHg. They performed an ECG which showed ST elevations in anteroseptal leads. For the STEMI was activated. For STEMI I evaluated the patient on emergent basis in the ER. On personal evaluation, patient denied having any symptoms of chest pain chest pressure. He denied any symptoms of lightheadedness. He reports that he was sent to the hospital because of low blood pressure. He he denies any palpitation symptoms. We performed an ECG which showed ST elevations in Atrosept leads which were unchanged from his prior ECG from recent hospitalization. I performed a bedside echocardiogram which showed an EF of around 35 to 40% with anteroseptal and apical wall hypokinesia with normal motion of inferior and inferolateral wall. There was no obvious severe mitral regurgitation noticed. He has a small pericardial effusion with no tamponade physiology and IVC is collapsible with inspiration. Progress note 05/01/2024 No reported chest pain chest pressure shortness of breath no reported lightheadedness dizziness. No reported falls or syncopal episodes. Systolic blood pressure in 90s. ECG shows sinus rhythm with evolving ST changes in anteroseptal leads most likely because of recent anteroseptal wall infarct. 05/02/2024 No reported chest pain shortness of breath. Telemetry is reviewed and does not show any alarms. Patient denies any passing out spells lightheadedness or dizziness. PHYSICAL EXAMINATION Vital signs reviewed. Head: Normocephalic. Eyes: Sclerae nonicteric. Neck: Brisk carotid upstroke, no jugular venous distention. Lungs: Clear to auscultation. Heart: Regular rate and rhythm, S1-S2, no S3, no murmur or rub. Abdomen: Soft nontender, positive bowel sounds. Extremities: No edema, intact distal pulses. Neuro: Alert, oritented, no focal deficits. Detailed neuro exam was not performed. ASSESSMENT Recent anterior PA status post PCI to proximal LAD. Abnormal ECG showing ST elevations in anteroseptal leads consistent with anteroseptal infarct Small pericardial effusion Hypotension PLAN Limited echocardiogram did not show any significant post PA complications like VSD, myocardial rupture, severe mitral regurgitation. Blood pressure is stable. Because of his low EF and anteroseptal infarct his blood pressure will stay low. If he does not feel lightheaded or dizzy, you do not have to necessarily increase his blood pressure artificially with medications. Use midodrine only as needed for symptoms of dizziness and lightheadedness. Okay to be discharged with clear instructions not to get alarmed with low blood pressure for home care. Clear instructions to home care to measure patient's weight every day and make sure he does not have sudden weight gain of 3 to 4 pounds. If he does give him 1 dose of Lasix 40 mg as needed. Objective - Vital Signs Vital signs: Vital Signs Temp 98.2 F 05/02/24 11:28 Pulse 80 05/02/24 11:32 Resp 16 05/02/24 11:28 BP 92/63 05/02/24 11:28 Pulse Ox 96 05/02/24 11:28 FiO2 Intake & Output 05/01/24 05/02/24 05/02/24 18:59 06:59 18:59 Intake Total 462 356 Balance 462 356 Weight 49.7 kg 50.3 kg Intake: Oral 462 356 Other: # Voids 3 1 - Labs CBC & Chem 7: 04/30/24 15:29 05/01/24 08:25 Labs: Microbiology - Last 24 Hours (Table) 04/30/24 17:21 Blood Culture - Preliminary Blood
[2024-05-02] MEDS ORDERED: FUROSEMIDE 20 MG TAB PO PRN (12:30)
[2024-05-02] MEDS: MIDODRINE 5 MG TAB PO SCH (12:39)
[2024-05-02 15:48] VITALS: PULSE 84
--- NOTE | 2024-05-02 21:27 | P.DS ---
Providers Date of admission: 04/30/24 18:49 Expected date of discharge: 05/02/24 Attending physician: Talha Irving Consults: 04/30/24 18:49 Consult Physician Routine Consulting Provider: Evaristo Sanches Consult Reason/Comments: Recent [place], hypotension Do you want consulting provider notified?: Already Contacted [facility]: Chief Complaint: Blood pressure low 64-year-old male with a PMH of COPD and schizophrenia. Recently in the hospital from April 23 through April 28. Had presented with a STEMI with a resultant stent to the LAD. Postprocedure was in the ICU with Levophed. Was treated for UTI. Patient at the [facility] was noted to be weak. More sleepy than usual. Also noted to be hypertensive. Denies any chest pain. No dizziness lightheaded. Appetite is fair. May 02: Stable. Remains on Lopressor. Lasix to be used as needed. For weight gain. Acceptable blood pressure systolic around 90. Otherwise patient feeling well tolerating a diet. Social history: Smoking 2 packs a day, since 9078. Lives at [facility]. Lives at [facility]. Has a public guardian. Physical examination: VITAL SIGNS: 98.2, 82, 16, 92 x 63, 96% room air GENERAL: BMI 17.2, loss of muscle mass subcutaneous fat.. EYES: Pupils equal. Conjunctiva jayson l. HEENT: External appearance of nose and ears normal, oral cavity grossly normal. NECK: JVD not raised; masses not palpable. HEART: First and second heart sounds are normal; no edema. LUNGS: Respiratory rate normal; clear to auscultation. ABDOMEN: Soft, nontender, liver spleen not palpable, no masses palpable. PSYCH: [Able to answer simple questions l. MUSCULOSKELETAL:No Clubbing/cyanosis;muscles-grossly intact. Loss of muscle mass subcutaneous fat INVESTIGATIONS, reviewed in the clinical context: May 01: Potassium 4.4 creatinine 0.65 April 30: White count 12.1 hemoglobin 16.6 platelets 445 sodium 135 potassium 5.6 creatinine 0.75 Troponin I 2.4, 2.58, 2.24. proBNP 3280 EKG tracing personally reviewed by me-sinus rhythm. Cough elevation in leads V3 to V6. Chest x-ray film personally reviewed by me-hyperinflation Recent labs April 28: Potassium 4.6 creatinine 0.68. Albumin 3.3 Urine culture: Positive for Klebsiella pneumoniae, E. coli, Enterococcus faecalis CT scan abdomen pelvis: Minimal compressive atelectasis. 2D echocardiogram: EF 20 to 25%. Wall motion abnormality. Tricuspid regurgitation. Assessment and plan: -Symptomatic hypotension. Patient recently admitted with ST elevation [place]. With stent to the LAD. Patient was running hypotensive prior to discharge. Was resumed on metoprolol. Currently on Lopressor 12.5 twice daily. Lisinopril Aldactone discontinued Cardiology following -STEMI [April 22, 2024] LAD stent. ASA 81 mg PO QD. Lipitor at 40 mg PO QHS. Metoprolol at 12.5 mg PO BID. Effient 10 mg PO QD. -Acute HFrEF: EF 20-25%. Metoprolol [hold lisinopril and Aldactone] -Acute UTI with cystitis with cultures positive for Klebsiella pneumonia/E. coli/Enterococcus faecalis Complete course of Levaquin -COPD in a current smoker : Albuterol neb Q3H PRN. Symbicort 2 INH BID. -Schizophrenia: Zyprexa 5 mg PO QHS. -Severe protein calorie malnutrition Ensure 3 times daily -Nicotine dependence Nicotine patch CODE STATUS: FULL CODE. -Patient has a public guardian Disposition: Assisted living, [facility] Past Medical History Past Medical History: Cancer, COPD, Myocardial Infarction ([place]), Pneumonia Additional Past Medical History / Comment(s): STEMI april 2024 with 2 stents placed, Melanoma removed from L trunk, skin cancer removed from R side of nose, L eye blurry vision, constipation, hematuria/UTI, hypoglycemia. migraines Last Myocardial Infarction Date:: 04/22/24 History of Any Multi-Drug Resistant Organisms: None Reported Past Surgical History: Adenoidectomy, Heart Catheterization With Stent, Tonsillectomy Additional Past Surgical History / Comment(s): R side of nose skin cancer removal/skin graft, L trunk melanoma removed, colonoscopy. Past Anesthesia/Blood Transfusion Reactions: No Reported Reaction Date of Last Stent Placement:: 04/22/24 Past Psychological History: No Psychological Hx Reported, Schizophrenia Additional Psychological History / Comment(s): He served in the [employer]. Lives at [facility] and has a public guardian. Follows with physician at [facility] Smoking Status: Current every day smoker Past Alcohol Use History: Occasional Additional Past Alcohol Use History / Comment(s): Pt started smoking in 1978 and is a 2 ppd smoker. Past Drug Use History: None Reported Plan - Discharge Summary New Discharge Prescriptions: New Nicotine 21Mg/24Hr Patch [Habitrol] 1 patch TRANSDERM DAILY #30 patch Furosemide [Lasix] 20 mg PO DAILY PRN tab PRN Reason: Edema Continue Albuterol Sulfate [Ventolin HFA] 2 puff INHALATION RT-QID PRN PRN Reason: Shortness Of Breath Haloperidol Decanoate [Haldol D] 100 mg IM Q28D@0800 OLANZapine [ZyPREXA] 5 mg PO HS@2100 Tiotropium 2.5 Mcg/Puff [Spiriva Respimat 2.5 Mcg] 2 puff INHALATION RT- DAILY@0800 Nitroglycerin Sl Tabs [Nitrostat] 0.4 mg SUBLINGUAL Q5M PRN #30 tab PRN Reason: Chest Pain Atorvastatin [Lipitor] 40 mg PO HS@2100 Midodrine [ProAmatine] 5 mg PO AC-TID@08,, Pantoprazole [Protonix] 40 mg PO AC-BRKFST@0700 Budesonide-Formot 160-4.5 Mcg [Symbicort 160-4.5 Mcg Inhaler] 2 puff INHALATION RT-BID@0800,2100 Levofloxacin [Levaquin] 750 mg PO DAILY@1800 #7 tab Aspirin 81 mg PO DAILY@0800 Metoprolol Tartrate [Lopressor] 12.5 mg PO BID@0800,2100 Prasugrel [Effient] 10 mg PO DAILY@0800 Discharge Medication List Albuterol Sulfate [Ventolin HFA] 2 puff INHALATION RT-QID PRN 04/23/24 [History] Budesonide-Formot 160-4.5 Mcg [Symbicort 160-4.5 Mcg Inhaler] 2 puff INHALATION RT-BID@0800,209904/23/24 [History] Haloperidol Decanoate [Haldol D] 100 mg IM Q28D@0800 04/23/24 [History] OLANZapine [ZyPREXA] 5 mg PO HS@2100 04/23/24 [History] Tiotropium 2.5 Mcg/Puff [Spiriva Respimat 2.5 Mcg] 2 puff INHALATION RT- DAILY@0800 04/23/24 [History] Levofloxacin [Levaquin] 750 mg PO DAILY@1800 #7 tab 04/28/24 [Rx] Nitroglycerin Sl Tabs [Nitrostat] 0.4 mg SUBLINGUAL Q5M PRN #30 tab 04/28/24 [Rx] Aspirin 81 mg PO DAILY@0800 04/30/24 [History] Atorvastatin [Lipitor] 40 mg PO HS@2100 04/30/24 [History] Metoprolol Tartrate [Lopressor] 12.5 mg PO BID@0800,209904/30/24 [History] Midodrine [ProAmatine] 5 mg PO AC-TID@08,12,17 04/30/24 [History] Pantoprazole [Protonix] 40 mg PO AC-BRKFST@0700 04/30/24 [History] Prasugrel [Effient] 10 mg PO DAILY@0800 04/30/24 [History] Furosemide [Lasix] 20 mg PO DAILY PRN tab 05/02/24 [Rx] Nicotine 21Mg/24Hr Patch [Habitrol] 1 patch TRANSDERM DAILY #30 patch 05/02/24 [Rx] Follow up Appointment(s)/Referral(s): cardiology, [Other] - 1 Week Talha Irving MD [Primary Care Provider] - 1-2 days Discharge Disposition: HOME SELF-CARE
== END 2024-05-02 16:06 | disposition home or self-care (01) ==
LOC: SUPCPDRO 15:20 → EC 15:20 → 3SCARD 18:49
PROVIDERS: ADMIT Hospitalist; ATTEND Hospitalist
DX: I95.9 Hypotension, unspecified (principal); N30.90 Cystitis, unspecified without hematuria; B96.1 Klebsiella pneumoniae [K. pneumoniae] as the cause of diseases classified elsewhere; B96.20 Unspecified Escherichia coli [E. coli] as the cause of diseases classified elsewhere; E43 Unspecified severe protein-calorie malnutrition; E11.8 Type 2 diabetes mellitus with unspecified complications; E86.9 Volume depletion, unspecified; I21.02 ST elevation (STEMI) myocardial infarction involving left anterior descending coronary artery; J44.0 Chronic obstructive pulmonary disease with (acute) lower respiratory infection; I11.0 Hypertensive heart disease with heart failure; F20.9 Schizophrenia, unspecified; I50.21 Acute systolic (congestive) heart failure; I31.39 Other pericardial effusion (noninflammatory); I25.10 Atherosclerotic heart disease of native coronary artery without angina pectoris; B96.89 Other specified bacterial agents as the cause of diseases classified elsewhere; F17.210 Nicotine dependence, cigarettes, uncomplicated; F10.20 Alcohol dependence, uncomplicated; N17.9 Acute kidney failure, unspecified; I25.2 Old myocardial infarction; Z79.51 Long term (current) use of inhaled steroids; Z79.82 Long term (current) use of aspirin; Z79.02 Long term (current) use of antithrombotics/antiplatelets; Z79.899 Other long term (current) drug therapy; Z87.01 Personal history of pneumonia (recurrent); Z85.820 Personal history of malignant melanoma of skin; Z88.1 Allergy status to other antibiotic agents; Z88.0 Allergy status to penicillin; Z91.040 Latex allergy status; Z90.89 Acquired absence of other organs; Z90.09 Acquired absence of other part of head and neck; Z95.5 Presence of coronary angioplasty implant and graft; Z59.01 Sheltered homelessness; Z59.6 Low income; Z56.0 Unemployment, unspecified; Z82.49 Family history of ischemic heart disease and other diseases of the circulatory system
CPT/HCPCS: 96361 ×3; 96360; 99285; 36415; 94640 ×6; 94760 ×2; 93005; 93308; 85379; 83880; 80053; 80048; 83605; 83735; 84484 ×2; 85025; 85610; 85730; 87040; 71045; 71275; G0378 ×3; Q9967

== ENCOUNTER 2024-07-21 12:52 | Emergency (ER) | payer MEDICARE, OTHER ==
[2024-07-21 13:18] VITALS: TEMP 97
--- NOTE | 2024-07-21 14:17 | ED ---
Recheck HPI - General Source: patient, RN notes reviewed Mode of arrival: ambulatory Limitations: no limitations <Bernie Damian - Last Filed: 07/21/24 14:16> - General Source: patient, RN notes reviewed, old records reviewed Mode of arrival: ambulatory Limitations: no limitations <Lucretia Corbett - Last Filed: 07/21/24 18:40> - General Chief Complaint: Recheck/Abnormal Lab/Rx Stated Complaint: LOW BP 96/59 Time Seen by Provider: 07/21/24 14:05 - History of Present Illness Initial Comments: Quick Note: This is a 64-year-old male who presents to the emergency department for hypotension. Patient had an NJ in April 2024. States that since then he has been dealing with low blood pressure. Denies any chest pain, shortness of breath, or dizziness and states that he otherwise feels fine. Patient is a poor historian. He is unsure if he is on medication or treatment otherwise for the low blood pressure. He is also not sure how low it has gotten. (Bernie Damian) 64-year-old male presenting to the ER for evaluation of hypotension. Patient states since having an NJ in April of last year he has been battling hypotension. He resides in an [facility] home and his blood pressure is checked 4 times daily. He states this morning his blood pressure was found to be 70s over 40s which prompted ER visit. Patient takes metoprolol 12.5 mg twice daily, Lasix 20 mg daily as needed and midodrine 5 mg 3 times a day. He states he has been taking all of his prescribed medications. Patient denies any dizziness, lightheadedness, chest pain, shortness of breath or other complaints. Patient is a poor historian and there is no information from [facility] home at this time. (Lucretia Corbett) - Related Data Home Medications Medication Instructions Recorded Confirmed Albuterol Sulfate [Ventolin HFA] 2 puff INHALATION RT-QID PRN 04/23/24 04/30/24 Budesonide-Formot 160-4.5 Mcg 2 puff INHALATION RT-BID@0800,2100 04/23/24 [Symbicort 160-4.5 Mcg Inhaler] Haloperidol Decanoate [Haldol D] 100 mg IM Q28D@0800 04/23/24 04/30/24 OLANZapine [ZyPREXA] 5 mg PO HS@2100 04/23/24 04/30/24 Tiotropium 2.5 Mcg/Puff [Spiriva 2 puff INHALATION RT-DAILY@0800 04/23/24 04/30/24 Respimat 2.5 Mcg] Aspirin 81 mg PO DAILY@0800 04/30/24 04/30/24 Atorvastatin [Lipitor] 40 mg PO HS@209904/30/24 04/30/24 Metoprolol Tartrate [Lopressor] 12.5 mg PO BID@0800,209904/30/24 04/30/24 Midodrine [ProAmatine] 5 mg PO AC-TID@08,12,04/30/24 04/30/24 Pantoprazole [Protonix] 40 mg PO AC-BRKFST@0700 04/30/24 04/30/24 Prasugrel [Effient] 10 mg PO DAILY@0800 04/30/24 04/30/24 Previous Rx's Medication Instructions Recorded Levofloxacin [Levaquin] 750 mg PO DAILY@1800 #7 tab 04/28/24 Nitroglycerin Sl Tabs [Nitrostat] 0.4 mg SUBLINGUAL Q5M PRN #30 tab 04/28/24 Furosemide [Lasix] 20 mg PO DAILY PRN tab 05/02/24 Nicotine 21Mg/24Hr Patch [Habitrol] 1 patch TRANSDERM DAILY #30 patch 05/02/24 Allergies Allergy/AdvReac Type Severity Reaction Status Date / Time cephalexin monohydrate Allergy Unknown Verified 07/21/24 13:19 [From Keflex] clindamycin Allergy Unknown Verified 07/21/24 13:19 latex Allergy Rash/Hives Verified 07/21/24 13:19 Penicillins Allergy Rash/Hives Verified 07/21/24 13:19 Review of Systems ROS Other: All systems not noted in ROS Statement are negative. <Bernie Damian - Last Filed: 07/21/24 14:16> ROS Other: All systems not noted in ROS Statement are negative. <Lucretia Corbett - Last Filed: 07/21/24 18:40> ROS Statement: Those systems with pertinent positive or pertinent negative responses have been documented in the HPI. Past Medical History Past Medical History: Cancer, COPD, Pneumonia Additional Past Medical History / Comment(s): Melanoma removed from L trunk, skin cancer removed from R side of nose, L eye blurry vision, constipation, hematuria/UTI, hypoglycemia. migraines Last Myocardial Infarction Date:: 04/22/24 History of Any Multi-Drug Resistant Organisms: None Reported Past Surgical History: Adenoidectomy, Tonsillectomy Additional Past Surgical History / Comment(s): R side of nose skin cancer removal/skin graft, L trunk melanoma removed, colonoscopy. Past Anesthesia/Blood Transfusion Reactions: No Reported Reaction Date of Last Stent Placement:: 04/22/24 Past Psychological History: Schizophrenia Smoking Status: Current every day smoker Past Alcohol Use History: None Reported Past Drug Use History: None Reported - Past Family History Father Family Medical History: Diabetes Mellitus Additional Family Medical History / Comment(s): Father is living. Mother Family Medical History: CVA/TIA, Myocardial Infarction ([place]) Additional Family Medical History / Comment(s): Mother had a CVA, shingles. She is from the CVA. <Bernie Damian - Last Filed: 07/21/24 14:16> General Exam Limitations: no limitations <Bernie Damian - Last Filed: 07/21/24 14:16> General appearance: alert, in no apparent distress Respiratory exam: Present: normal lung sounds bilaterally. Absent: respiratory distress, wheezes, rales, rhonchi, stridor Cardiovascular Exam: Present: regular rate, normal rhythm, normal heart sounds. Absent: systolic murmur, diastolic murmur, rubs, gallop, clicks Extremities exam: Present: normal inspection, full ROM, normal capillary refill. Absent: tenderness, pedal edema, joint swelling, calf tenderness Neurological exam: Present: alert, oriented X3, CN II-XII intact Skin exam: Present: warm, dry, intact, normal color. Absent: rash <Lucretia Corbett - Last Filed: 07/21/24 18:40> - General Exam Comments Initial Comments: Visual Physical Exam Vital signs reviewed General: Well-appearing, nontoxic, no acute distress. Head: Normocephalic, atraumatic Eyes: PERRLA, EOMI ENT: Airway patent Chest: Nonlabored breathing Skin: No visual rash, normal skin tone Neuro: Alert and oriented 3 Musculoskeletal: No gross abnormalities (Bernie Damian) Course <Lucretia Corbett - Last Filed: 07/21/24 18:40> Vital Signs 07/21/24 07/21/24 07/21/24 13:15 15:42 17:16 Temperature 97.0 F L Pulse Rate 84 83 Pulse Rate [ 79 Right Sitting Pulse Oximetery ] Pulse Rate [ 88 Right Standing Pulse Oximetery ] Pulse Rate [ 74 Right Supine Pulse Oximetery ] Respiratory 20 18 Rate Blood Pressure 97/69 104/69 Blood Pressure 104/69 [Right Arm Sitting] Blood Pressure 87/62 [Right Arm Standing] Blood Pressure 102/66 [Right Arm Supine] O2 Sat by Pulse 97 98 Oximetry 07/21/24 17:38 Temperature Pulse Rate Pulse Rate [ Right Sitting Pulse Oximetery ] Pulse Rate [ Right Standing Pulse Oximetery ] Pulse Rate [ Right Supine Pulse Oximetery ] Respiratory 16 Rate Blood Pressure Blood Pressure [Right Arm Sitting] Blood Pressure [Right Arm Standing] Blood Pressure [Right Arm Supine] O2 Sat by Pulse 98 Oximetry - Reevaluation(s) Reevaluation #1: 07/21/24 15:40 I attempted to contact [facility] for further history and HPI. I was unable to reach them via phone. (Lucretia Corbett) Medical Decision Making <Bernie Damian - Last Filed: 07/21/24 14:16> - Lab Data Result diagrams: 07/21/24 14:14 07/21/24 14:14 - EKG Data -: EKG Interpreted by Me <Lucretia Corbett - Last Filed: 07/21/24 18:40> - Medical Decision Making I performed the QuickNote portion of this chart. Signed Bernie Damian PA-C. (Bernie Damian) Was pt. sent in by a medical professional or institution ([facility], GROUP SUPERVISOR [employer], urgent care, hospital, or detention...) When possible be specific @ -Patient sent by [facility] for evaluation of hypotension. Did you speak to anyone other than the patient for history (EMS, parent, family, police, friend...)? What history was obtained from this source @ -[No] Did you review nursing and triage notes (agree or disagree)? Why? @ -[I reviewed and agree with nursing and triage notes] Were old charts reviewed (outside hosp., previous admission, EMS record, old EKG, old radiological studies, urgent care reports/EKG's, detention records)? Report findings @ -Yes, I reviewed ER visits and admission from April 2024. Patient diagnosed with a STEMI. Differential Diagnosis (chest pain, altered mental status, abdominal pain women, abdominal pain men, vaginal bleeding, weakness, fever, dyspnea, syncope, headache, dizziness, GI bleed, back pain, seizure, CVA, palpatations, mental health, musculoskeletal)? @ -[Hypertension, hypotension, sepsis,... This list is not meant to be all- inclusive] EKG interpreted by me (3pts min.). @ -[As above] X-rays interpreted by me (1pt min.). @ -[None done] CT interpreted by me (1pt min.). @ -[None done] U/S interpreted by me (1pt. min.). @ -[None done] What testing was considered but not performed or refused? (CT, X-rays, U/S, labs)? Why? @ -[None] What meds were considered but not given or refused? Why? @ -[None] Did you discuss the management of the patient with other professionals (professionals i.e. , PA, GROUP SUPERVISOR YARD, lab, RT, psych nurse, executive secretary social welfare, railroad cook, teacher, toxics program officer, classification case manager)? Give summary @ -[No] Was smoking cessation discussed for >3mins.? @ -[No] Was critical care preformed (if so, how long)? @ -[No] Were there social determinants of health that impacted care today? How? (Homelessness, low income, unemployed, alcoholism, drug addiction, transportation, low edu. Level, literacy, decrease access to med. care, skilled nursing, rehab)? @ -Patient resides in an AF home Was there de-escalation of care discussed even if they declined (Discuss DNR or withdrawal of care, Hospice)? DNR status @ -[No] What co-morbidities impacted this encounter? (DM, HTN, Smoking, COPD, CAD, Cancer, CVA, ARF, Chemo, Hep., AIDS, mental health diagnosis, sleep apnea, morbid obesity)? @ -[None] Was patient admitted / discharged? Hospital course, mention meds given and route, prescriptions, significant lab abnormalities, going to OR and other pertinent info. @ -Discharge. 64-year-old male presented to the ER for evaluation of hypotension. Upon rooming, history and physical exam completed. Vitals within acceptable limits. Patient in no signs of acute distress nontoxic-appearing. Laboratory studies obtained unremarkable. EKG comparable to prior admissions showing sinus rhythm. Orthostatic vital signs with appropriate change patient remained asymptomatic as well. Patient remained asymptomatic throughout ER stay. Upon reevaluation, patient asking for discharge. Patient given midodrine prior to discharge. I instructed patient to follow-up closely with cardiology as there may need to be medication changes made. Strict return parameters discussed. Patient discharged in stable condition with follow-up to PCP. Patient verbally expressed understanding and agreement with care plan. Case discussed with ED attending, Dr. Browne. Undiagnosed new problem with uncertain prognosis? @ -[No] Drug Therapy requiring intensive monitoring for toxicity (Heparin, Nitro, I nsulin, Cardizem)? @ -[No] Were any procedures done? @ -[No] Diagnosis/symptom? @ -Blood pressure check Acute, or Chronic, or Acute on Chronic? @ -Acute Uncomplicated (without systemic symptoms) or Complicated (systemic symptoms)? @ -Uncomplicated Side effects of treatment? @ -[No] Exacerbation, Progression, or Severe Exacerbation? @ -[No] Poses a threat to life or bodily function? How? (Chest pain, [place], [place], pneumonia, PE, COPD, DKA, ARF, appy, cholecystitis, CVA, Diverticulitis, Homicidal, Suicidal, threat to staff... and all critical care pts) @ -[No] (Lucretia Corbett) - Lab Data Lab Results 07/21/24 07/21/24 07/21/24 Range/Units 14:14 14:14 14:14 WBC 8.9 (3.8-10.6) k/uL RBC 4.54 (4.30-5.90) m/uL Hgb 13.5 (13.0-17.5) gm/dL Hct 41.2 (39.0-53.0) % MCV 90.7 (80.0-100.0) fL MCH 29.6 (25.0-35.0) pg MCHC 32.7 (31.0-37.0) g/dL RDW 14.0 (11.5-15.5) % Plt Count 388 (150-450) k/uL MPV 9.4 Neutrophils % 73 % Lymphocytes % 16 % Monocytes % 8 % Eosinophils % 1 % Basophils % 0 % Neutrophils # 6.5 (1.3-7.7) k/uL Lymphocytes # 1.4 (1.0-4.8) k/uL Monocytes # 0.7 (0-1.0) k/uL Eosinophils # 0.1 (0-0.7) k/uL Basophils # 0.0 (0-0.2) k/uL PT 11.1 (10.0-12.5) sec INR 1.0 (<1.2) APTT 25.6 (22.0-30.0) sec Sodium 139 (137-145) mmol/L Potassium 4.2 (3.5-5.1) mmol/L Chloride 107 (98-107) mmol/L Carbon Dioxide 25 (22-30) mmol/L Anion Gap 7 mmol/L BUN 23 H (9-20) mg/dL Creatinine 0.68 (0.66-1.25) mg/dL Est GFR (CKD-EPI)AfAm >90 (>60 ml/min/1.73 sqM) Est GFR (CKD-EPI)NonAf >90 (>60 ml/min/1.73 sqM) Glucose 59 L (74-99) mg/dL Calcium 10.4 H (8.4-10.2) mg/dL Magnesium 2.1 (1.6-2.3) mg/dL Total Bilirubin 0.3 (0.2-1.3) mg/dL AST 24 (17-59) U/L ALT 15 (4-49) U/L Alkaline Phosphatase 90 (38-126) U/L Total Protein 6.5 (6.3-8.2) g/dL Albumin 4.2 (3.5-5.0) g/dL - EKG Data EKG Comments: EKG taken at 13: 24 showing a sinus rhythm. No ST segment or T wave abnormalities. Artifact present. Ventricular rate 75, SD interval 147, QRS duration 86, QT/QTc 381/411. (NaunihaLucretia) Disposition <Bernie Damian - Last Filed: 07/21/24 14:16> Is patient prescribed a controlled substance at d/c from ED?: No Time of Disposition: 17:28 <Lucretia Corbett - Last Filed: 07/21/24 18:40> Clinical Impression: Blood pressure check Disposition: HOME SELF-CARE Condition: Stable Instructions (If sedation given, give patient instructions): Hypotension (ED) Additional Instructions: Follow-up with cardiology within the next 7 days. Patient received Midodrine 5 mg prior to discharge. Return to the ER for any new or worsening symptoms. Referrals: Junito Rubio MD [Primary Care Provider] - 1-2 days
[2024-07-21 14:49] LABS: Partial Thromboplastin Time 25.6 sec (22.0-30.0); Prothrombin Time 11.1 sec (10.0-12.5)
[2024-07-21 14:54] LABS: ALT 15 U/L (4-49); AST 24 U/L (17-59); African American GFR (CKD) >90 (>60 ml/min/1.73 sqM); Albumin 4.2 g/dL (3.5-5.0); Alkaline Phosphatase 90 U/L (38-126); Anion Gap 7 mmol/L; Blood Urea Nitrogen 23 mg/dL (9-20); Calcium 10.4 mg/dL (8.4-10.2); Carbon Dioxide 25 mmol/L (22-30); Chloride 107 mmol/L (98-107); Glucose 59 mg/dL (74-99); Magnesium 2.1 mg/dL (1.6-2.3); Non-African American GFR(CKD) >90 (>60 ml/min/1.73 sqM); Potassium 4.2 mmol/L (3.5-5.1); Sodium 139 mmol/L (137-145); Total Bilirubin 0.3 mg/dL (0.2-1.3); Total Protein 6.5 g/dL (6.3-8.2)
[2024-07-21 14:57] LABS: Basophils % (A) 0 %; Eosinophils # (A) 0.1 k/uL (0-0.7); Eosinophils % (A) 1 %; HCT 41.2 % (39.0-53.0); HGB 13.5 gm/dL (13.0-17.5); Lymphocytes # (A) 1.4 k/uL (1.0-4.8); Lymphocytes % (A) 16 %; MCH 29.6 pg (25.0-35.0); MCHC 32.7 g/dL (31.0-37.0); MCV 90.7 fL (80.0-100.0); Mean Platelet Volume 9.4; Monocytes # (A) 0.7 k/uL (0-1.0); Monocytes % (A) 8 %; Neutrophils # (A) 6.5 k/uL (1.3-7.7); Neutrophils % (A) 73 %; Platelet Count 388 k/uL (150-450); RBC 4.54 m/uL (4.30-5.90); WBC 8.9 k/uL (3.8-10.6)
[2024-07-21 17:19] VITALS: BP 102/66; PULSE 74
[2024-07-21] MEDS: MIDODRINE 5 MG TAB PO STA (17:37)
[2024-07-21 17:39] VITALS: RESP 16
== END 2024-07-21 17:39 | disposition home or self-care (01) ==
LOC: EC 12:52
DX: Z01.30 Encounter for examination of blood pressure without abnormal findings (principal); F17.200 Nicotine dependence, unspecified, uncomplicated; Z88.0 Allergy status to penicillin; Z88.1 Allergy status to other antibiotic agents; Z91.040 Latex allergy status
CPT/HCPCS: 36415; 80053; 83735; 85025; 85610; 85730; 93005; 99285

== ENCOUNTER 2024-07-27 04:53 | Emergency (ER) | payer OTHER ==
--- NOTE | 2024-07-27 05:03 | ED ---
GI Bleed HPI - General Chief complaint: GI Bleed Stated complaint: GI Bleed Time Seen by Provider: 07/27/24 05:01 Source: patient, EMS, RN notes reviewed, old records reviewed Mode of arrival: EMS Limitations: no limitations - History of Present Illness Initial comments: This is a 64-year-old male to the ER for evaluation of significant GI bleeding throughout the day bright red blood per rectum. Patient recently had inpatient hospital admission with a stent placed, patient since then has been feeling well but today is having significant blood in his stool and in his urine MD complaint: blood on toilet paper, other (Also having blood per hematuria) -: hour(s) Severity scale (1-10): 7 Consistency: constant Improves with: none Worsens with: none Context: history of GI bleed, blood thinners Associated Symptoms: nausea, loss of appetite, malaise, shortness of breath, syncope, weakness Treatments Prior to Arrival: none - Related Data Home Medications Medication Instructions Recorded Confirmed Albuterol Sulfate [Ventolin HFA] 2 puff INHALATION RT-QID PRN 04/23/24 04/30/24 Budesonide-Formot 160-4.5 Mcg 2 puff INHALATION RT-BID@0800,209904/23/24 04/30/24 [Symbicort 160-4.5 Mcg Inhaler] Haloperidol Decanoate [Haldol D] 100 mg IM Q28D@0804/23/24 04/30/24 OLANZapine [ZyPREXA] 5 mg PO HS@209904/23/24 04/30/24 Tiotropium 2.5 Mcg/Puff [Spiriva 2 puff INHALATION RT-DAILY@79904/23/24 04/30/24 Respimat 2.5 Mcg] Aspirin 81 mg PO DAILY@0800 04/30/24 04/30/24 Atorvastatin [Lipitor] 40 mg PO HS@209904/30/24 04/30/24 Metoprolol Tartrate [Lopressor] 12.5 mg PO BID@0800,209904/30/24 04/30/24 Midodrine [ProAmatine] 5 mg PO AC-TID@08,12,17 04/30/24 04/30/24 Pantoprazole [Protonix] 40 mg PO AC-BRKFST@0700 04/30/24 04/30/24 Prasugrel [Effient] 10 mg PO DAILY@0800 04/30/24 04/30/24 Previous Rx's Medication Instructions Recorded Levofloxacin [Levaquin] 750 mg PO DAILY@1800 #7 tab 04/28/24 Nitroglycerin Sl Tabs [Nitrostat] 0.4 mg SUBLINGUAL Q5M PRN #30 tab 04/28/24 Furosemide [Lasix] 20 mg PO DAILY PRN tab 05/02/24 Nicotine 21Mg/24Hr Patch [Habitrol] 1 patch TRANSDERM DAILY #30 patch 05/02/24 Allergies Allergy/AdvReac Type Severity Reaction Status Date / Time cephalexin monohydrate Allergy Unknown Verified 07/21/24 13:19 [From Keflex] clindamycin Allergy Unknown Verified 07/21/24 13:19 latex Allergy Rash/Hives Verified 07/21/24 13:19 Penicillins Allergy Rash/Hives Verified 07/21/24 13:19 Review of Systems ROS Statement: Those systems with pertinent positive or pertinent negative responses have been documented in the HPI. ROS Other: All systems not noted in ROS Statement are negative. Past Medical History Past Medical History: Cancer, COPD, Pneumonia Additional Past Medical History / Comment(s): Melanoma removed from L trunk, skin cancer removed from R side of nose, L eye blurry vision, constipation, hematuria/UTI, hypoglycemia. migraines Last Myocardial Infarction Date:: 04/22/24 History of Any Multi-Drug Resistant Organisms: None Reported Past Surgical History: Adenoidectomy, Tonsillectomy Additional Past Surgical History / Comment(s): R side of nose skin cancer removal/skin graft, L trunk melanoma removed, colonoscopy. Past Anesthesia/Blood Transfusion Reactions: No Reported Reaction Date of Last Stent Placement:: 04/22/24 Past Psychological History: Schizophrenia Smoking Status: Current every day smoker Past Alcohol Use History: None Reported Past Drug Use History: None Reported - Past Family History Father Family Medical History: Diabetes Mellitus Additional Family Medical History / Comment(s): Father is living. Mother Family Medical History: CVA/TIA, Myocardial Infarction ([place]) Additional Family Medical History / Comment(s): Mother had a CVA, shingles. She is from the CVA. General Exam Limitations: altered mental status General appearance: alert, in no apparent distress, lethargic, in distress, cachectic Head exam: Present: atraumatic, normocephalic, normal inspection Eye exam: Present: normal appearance, PERRL, EOMI. Absent: scleral icterus, conjunctival injection, periorbital swelling ENT exam: Present: normal exam, mucous membranes moist Neck exam: Present: normal inspection. Absent: tenderness, meningismus, lymp hadenopathy Respiratory exam: Present: respiratory distress, wheezes, accessory muscle use, decreased breath sounds, prolonged expiratory. Absent: rales, rhonchi, stridor Cardiovascular Exam: Present: regular rate, normal rhythm, normal heart sounds. Absent: systolic murmur, diastolic murmur, rubs, gallop, clicks GI/Abdominal exam: Present: soft, normal bowel sounds. Absent: distended, tenderness, guarding, rebound, rigid Extremities exam: Present: normal inspection, full ROM, normal capillary refill. Absent: tenderness, pedal edema, joint swelling, calf tenderness Back exam: Present: normal inspection Neurological exam: Present: alert, oriented X3, CN II-XII intact Psychiatric exam: Present: normal affect, normal mood Skin exam: Present: warm, dry, intact, normal color. Absent: rash Course Vital Signs 07/27/24 07/27/24 07/27/24 04:56 05:17 05:24 Temperature 97.6 F Pulse Rate 95 96 89 Respiratory 17 Rate Blood Pressure 93/65 O2 Sat by Pulse 97 Oximetry - Reevaluation(s) Reevaluation #1: 07/27/24 05:41 Records reviewed Reevaluation #2: 07/27/24 05:41 Patient has consistent and active recurrent bleed 07/27/24 05:41 Recurrent syncope Reevaluation #3: 07/27/24 05:41 Patient informed of results questions answered Reevaluation #4: Was pt. sent in by a medical professional or institution (, PA, BATTERY SERVICE TECHNICIAN, urgent care, hospital, or penitentiary...) When possible be specific @ -no Did you speak to anyone other than the patient for history (EMS, parent, family, police, friend...)? What history was obtained from this source @ -no Did you review nursing and triage notes (agree or disagree)? Why? @ -agree Are old charts reviewed (outside hosp., previous admission, EMS record, old EKG, old radiological studies, urgent care reports/EKG's, penitentiary records)? Report findings @ -yes Differential Diagnosis (chest pain, altered mental status, abdominal pain women, abdominal pain men, vaginal bleeding, weakness, fever, dyspnea, syncope, headache, dizziness, GI bleed, back pain, seizure, CVA, palpatations, mental health, musculoskeletal)? @ -prior EKG interpreted by me (3pts min.). @ -yes X-rays interpreted by me (1pt min.). @ -yes negative for acute disease CT interpreted by me (1pt min.). @ -no U/S interpreted by me (1pt. min.). @ -no What testing was considered but not performed or refused? (CT, X-rays, U/S, labs)? Why? @ -none What meds were considered but not given or refused? Why? @ -none Did you discuss the management of the patient with other professionals (professionals i.e. , PA, BATTERY SERVICE TECHNICIAN, lab, RT, psych nurse, bilingual social worker, supervisor cooperage shop, teacher, army officer, rehabilitation case coordinator)? Give summary @ -no Was smoking cessation discussed for >3mins.? @ -no Was critical care preformed (if so, how long)? @ -no Were there social determinants of health that impacted care today? How? (Homelessness, low income, unemployed, alcoholism, drug addiction, transport ation, low edu. Level, literacy, decrease access to med. care, assisted, rehab)? @ -none Was there de-escalation of care discussed even if they declined (Discuss DNR or withdrawal of care, Hospice)? DNR status @ -no What co-morbidities impacted this encounter? (DM, HTN, Smoking, COPD, CAD, Cancer, CVA, ARF, Chemo, Hep., AIDS, mental health diagnosis, sleep apnea, morbid obesity)? @ -none Was patient admitted / discharged? Hospital course, mention meds given and route, prescriptions, significant lab abnormalities, going to OR and other pertinent info. @ - Undiagnosed new problem with uncertain prognosis? @ -no Drug Therapy requiring intensive monitoring for toxicity (Heparin, Nitro, Insulin, Cardizem)? @ -no Were any procedures done? @ -no Diagnosis/symptom? @ - Acute, or Chronic, or Acute on Chronic? @ -Acute Uncomplicated (without systemic symptoms) or Complicated (systemic symptoms)? @ -Complicated Side effects of treatment? @ -no Exacerbation, Progression, or Severe Exacerbation? @ -exacerbation Poses a threat to life or bodily function? How? (Chest pain, [place], [place], pneumonia, PE, COPD, DKA, ARF, appy, cholecystitis, CVA, Diverticulitis, Homicidal, Suicidal, threat to staff... and all critical care pts) @ -yes Reevaluation #5: Differential GI Bleed: Esophageal varices, aortoenteric fistula, Cassandra-Williamson, gastritis, peptic ulcer disease, diverticulosis, inflammatory bowel disease, hemorrhoids, fissure, colitis, malignancy, Meckel's diverticulum, this is not meant to be an all- inclusive list. - Consultations Consultation #1: Spoke with Katja Joseph who accepts this patient as a transfer Medical Decision Making - Medical Decision Making 64 male to the ER for evaluation of positive GI bleed. Patient has gross blood per rectum with a hemoglobin drop of 3 from 13-10, symptomatic bleed with syncopal event. Patient will be transferred to Katja Joseph - Lab Data Result diagrams: 07/27/24 05:02 Lab Results 07/27/24 Range/Units 05:02 WBC 14.0 H (3.8-10.6) k/uL RBC 3.31 L (4.30-5.90) m/uL Hgb 10.0 L D (13.0-17.5) gm/dL Hct 29.6 L (39.0-53.0) % MCV 89.2 (80.0-100.0) fL MCH 30.2 (25.0-35.0) pg MCHC 33.9 (31.0-37.0) g/dL RDW 14.1 (11.5-15.5) % Plt Count 383 (150-450) k/uL MPV 9.1 Neutrophils % 85 % Lymphocytes % 6 % Monocytes % 7 % Eosinophils % 0 % Basophils % 0 % Neutrophils # 11.9 H (1.3-7.7) k/uL Lymphocytes # 0.9 L (1.0-4.8) k/uL Monocytes # 1.0 (0-1.0) k/uL Eosinophils # 0.0 (0-0.7) k/uL Basophils # 0.0 (0-0.2) k/uL Hypochromasia Slight Critical Care Time Critical Care Time: Yes Total Critical Care Time: 31 Disposition Clinical Impression: COPD (chronic obstructive pulmonary disease), Acute exacerbation of chronic obstructive airways disease, Hypotension, Lower gastrointestinal hemorrhage, Gastrointestinal hemorrhage, BRBPR (bright red blood per rectum), Anemia, Syncope, Hematuria Disposition: OTHER INSTITUTION NOT DEFINED Condition: Serious Is patient prescribed a controlled substance at d/c from ED?: No Referrals: Junito Rubio MD [Primary Care Provider] - 1-2 days Time of Disposition: 06:00
[2024-07-27] MEDS: SODIUM CHLORIDE 0.9% 1,000 ML IV STA (05:11)
[2024-07-27] MEDS: PANTOPRAZOLE 40 MG/10 ML VIAL IVP STA (05:12)
[2024-07-27] MEDS: ONDANSETRON 4 MG/2 ML VIAL IVP STA (05:13)
[2024-07-27] MEDS: IPRATROPIUM-ALBUTEROL 3 ML NEB INHALATION STA (05:17)
[2024-07-27 05:19] LABS: Basophils % (A) 0 %; Eosinophils % (A) 0 %; HCT 29.6 % (39.0-53.0); Hypochromasia Slight; Lymphocytes # (A) 0.9 k/uL (1.0-4.8); Lymphocytes % (A) 6 %; MCH 30.2 pg (25.0-35.0); MCHC 33.9 g/dL (31.0-37.0); MCV 89.2 fL (80.0-100.0); Mean Platelet Volume 9.1; Monocytes % (A) 7 %; Neutrophils # (A) 11.9 k/uL (1.3-7.7); Neutrophils % (A) 85 %; Platelet Count 383 k/uL (150-450); RBC 3.31 m/uL (4.30-5.90); RDW 14.1 % (11.5-15.5)
[2024-07-27 05:40] LABS: INR 1.1 (<1.2); Prothrombin Time 11.7 sec (10.0-12.5)
[2024-07-27 05:44] LABS: ALT 14 U/L (4-49); AST 25 U/L (17-59); African American GFR (CKD) >90 (>60 ml/min/1.73 sqM); Albumin 3.5 g/dL (3.5-5.0); Alkaline Phosphatase 81 U/L (38-126); Anion Gap 6 mmol/L; Blood Urea Nitrogen 22 mg/dL (9-20); Calcium 8.9 mg/dL (8.4-10.2); Carbon Dioxide 19 mmol/L (22-30); Chloride 109 mmol/L (98-107); Glucose 97 mg/dL (74-99); Lipase 117 U/L (23-300); Magnesium 1.9 mg/dL (1.6-2.3); Non-African American GFR(CKD) >90 (>60 ml/min/1.73 sqM); Potassium 4.1 mmol/L (3.5-5.1); Sodium 134 mmol/L (137-145); Total Bilirubin 0.5 mg/dL (0.2-1.3); Total Protein 5.8 g/dL (6.3-8.2)
[2024-07-27 06:26] LABS: Lactic Acid, Venous 2.5 mmol/L (0.7-2.0)
--- NOTE | 2024-07-27 06:53 | CT ---
EXAMINATION TYPE: CT angio abdomen pelvis DATE OF EXAM: 07/27/2024 COMPARISON: Prior noncontrast CT April 24, 2024 HISTORY: Pt presents to the ED with complaints of bleeding from rectum , since before dinner CT DLP: 859.3 mGycm, Automated Exposure Control for Dose Reduction was Utilized. CONTRAST: CT scan of the abdomen and pelvis is performed with oral and with IV Contrast, patient injected with 100ml mL of Isovue 370. FINDINGS: VASCULAR: [id number] peripheral calcified plaque of the aorta extends into the iliac branch ves sels no significant focal stenosis. No AAA. LUNG BASES: Some emphysematous change in the lung bases is present. Stable small to tiny pericardial effusion anteriorly LIVER/GB: No significant abnormality is appreciated. PANCREAS: No significant abnormality is seen. SPLEEN: No significant abnormality is seen. ADRENALS: No significant abnormality is seen. KIDNEYS: No renal calculi bilaterally. Moderate right-sided hydronephrosis is present. No significan t hydroureter. There is moderately distended bladder multiple large dependent calculi. There is heter ogeneous hyperdensity filling the majority of bladder. Nondependent air is present. BOWEL: Suboptimal evaluation of bowel due to patient having little internal fat. No abnormal small or large bowel dilatation is seen. Along the course of the sigmoid colon there is a rectangular shaped density measuring 2.4 x 1.1 cm on noncontrast images could reflect products of ingested minerals but given focality a foreign body needs to be considered. There is no suspicious area of blushing on millie rial phase imaging and becomes more prominent on delayed phase imaging. PROSTATE/SEMINAL VESICLES: Slightly enlarged prostate consistent with BPH. LYMPH NODES: No greater than 1cm abdominal or pelvic lymph nodes are appreciated. OSSEOUS STRUCTURES: No significant abnormality is seen. OTHER: No significant additional abnormality is seen. IMPRESSION: 1. Multiple intraluminal calculi in bladder redemonstrated. Nondependent air again seen, consider fis nehemiah if there has not been recent catheterization. Correlate clinically. 2. New heterogeneous hyperdense material occupying majority of distended bladder with foci of air, di fferential includes large hematoma but an underlying mass or neoplasm cannot be excluded. Consider di rect visualization. 3. Focal 2.4 x 1.1 cm rectangular hyperdense area suspected intraluminal location along the sigmoid c olon, cannot exclude foreign body, correlate clinically. No CT evidence for active GI hemorrhage is n oted. [facility], , 07/27/2024 6:51 AM
[2024-07-27 07:11] VITALS: BP 101/63; PULSE 100; RESP 20; TEMP 97.5
== END 2024-07-27 07:03 | disposition other institution (70) ==
LOC: EC 04:53
DX: K62.5 Hemorrhage of anus and rectum (principal); D64.9 Anemia, unspecified; J44.1 Chronic obstructive pulmonary disease with (acute) exacerbation; I95.9 Hypotension, unspecified; F17.200 Nicotine dependence, unspecified, uncomplicated; Z88.0 Allergy status to penicillin; Z88.1 Allergy status to other antibiotic agents; Z91.040 Latex allergy status; Z79.02 Long term (current) use of antithrombotics/antiplatelets; Z79.51 Long term (current) use of inhaled steroids
CPT/HCPCS: 36415; 94640; 86900; 86901; 80053; 82140; 83605; 83690; 83735; 84484; 85025; 85610; 85730; 86850; 86920; 74174; 99291; 36430; 96374; 96375; 96361; P9016; J2405; Q9967; J2470

== ENCOUNTER 2024-12-19 04:17 | Observation (INO) | payer MEDICARE, OTHER ==
--- NOTE | 2024-12-19 04:34 | ED ---
General Adult HPI - General Chief complaint: Urogenital Stated complaint: GI bleed Time Seen by Provider: 12/19/24 04:19 Source: patient Mode of arrival: EMS - History of Present Illness Initial comments: Dictation was produced using [employer] dictation software. please excuse any gram matical, word or spelling errors. Chief Complaint: 64-year-old male presents with hematuria and GI bleed History of Present Illness: Patient 64-year-old male presents to the emergency department for 2 days of GI bleed. Patient does not take anticoagulation medications. Patient also complaining of hematuria. Patient denies any complaints at the bedside. Currently lives at [facility] The ROS documented in this emergency department record has been reviewed and confirmed by me. Those systems with pertinent positive or negative responses have been documented in the HPI. All other systems are other negative and/or noncontributory. - Related Data Home Medications Medication Instructions Recorded Confirmed Albuterol Sulfate [Ventolin HFA] 2 puff INHALATION RT-QID PRN 04/23/24 04/30/24 Budesonide-Formot 160-4.5 Mcg 2 puff INHALATION RT-BID@0800,209904/23/24 04/30/24 [Symbicort 160-4.5 Mcg Inhaler] Haloperidol Decanoate [Haldol D] 100 mg IM Q28D@79904/23/24 04/30/24 OLANZapine [ZyPREXA] 5 mg PO HS@209904/23/24 04/30/24 Tiotropium 2.5 Mcg/Puff [Spiriva 2 puff INHALATION RT-DAILY@79904/23/24 04/30/24 Respimat 2.5 Mcg] Aspirin 81 mg PO DAILY@0800 04/30/24 04/30/24 Atorvastatin [Lipitor] 40 mg PO HS@209904/30/24 04/30/24 Metoprolol Tartrate [Lopressor] 12.5 mg PO BID@0800,209904/30/24 04/30/24 Midodrine [ProAmatine] 5 mg PO AC-TID@08,12,17 04/30/24 04/30/24 Pantoprazole [Protonix] 40 mg PO AC-BRKFST@0700 04/30/24 04/30/24 Prasugrel [Effient] 10 mg PO DAILY@0800 04/30/24 04/30/24 Previous Rx's Medication Instructions Recorded Levofloxacin [Levaquin] 750 mg PO DAILY@1800 #7 tab 04/28/24 Nitroglycerin Sl Tabs [Nitrostat] 0.4 mg SUBLINGUAL Q5M PRN #30 tab 04/28/24 Furosemide [Lasix] 20 mg PO DAILY PRN tab 05/02/24 Nicotine 21Mg/24Hr Patch [Habitrol] 1 patch TRANSDERM DAILY #30 patch 05/02/24 Allergies Allergy/AdvReac Type Severity Reaction Status Date / Time cephalexin monohydrate Allergy Unknown Verified 12/19/24 04:23 [From Keflex] clindamycin Allergy Unknown Verified 12/19/24 04:23 latex Allergy Rash/Hives Verified 12/19/24 04:23 Penicillins Allergy Rash/Hives Verified 12/19/24 04:23 Review of Systems ROS Statement: Those systems with pertinent positive or pertinent negative responses have been documented in the HPI. ROS Other: All systems not noted in ROS Statement are negative. Past Medical History Past Medical History: Cancer, COPD, Pneumonia Additional Past Medical History / Comment(s): Melanoma removed from L trunk, skin cancer removed from R side of nose, L eye blurry vision, constipation, hematuria/UTI, hypoglycemia. migraines Last Myocardial Infarction Date:: 04/22/24 History of Any Multi-Drug Resistant Organisms: None Reported Past Surgical History: Adenoidectomy, Tonsillectomy Additional Past Surgical History / Comment(s): R side of nose skin cancer removal/skin graft, L trunk melanoma removed, colonoscopy. Past Anesthesia/Blood Transfusion Reactions: No Reported Reaction Date of Last Stent Placement:: 04/22/24 Past Psychological History: Schizophrenia Smoking Status: Former smoker Past Alcohol Use History: None Reported Past Drug Use History: None Reported - Past Family History Father Family Medical History: Diabetes Mellitus Additional Family Medical History / Comment(s): Father is living. Mother Family Medical History: CVA/TIA, Myocardial Infarction ([place]) Additional Family Medical History / Comment(s): Mother had a CVA, shingles. She is from the CVA. General Exam - General Exam Comments Initial Comments: PHYSICAL EXAM: General Impression: Alert and oriented x3, not in acute distress HEENT: Normocephalic atraumatic, extra-ocular movements intact, pupils equal and reactive to light bilaterally, mucous membranes moist. Cardiovascular: Heart regular rate and rhythm Chest: Able to complete full sentences, no retractions, no tachypnea Abdomen: abdomen soft, non-tender, non-distended, no organomegaly Musculoskeletal: Pulses present and equal in all extremities, no peripheral edema Motor: no focal deficits noted Neurological: CN II-XII grossly intact, no focal motor or sensory deficits noted Skin: Intact with no visualized rashes Psych: Normal affect and mood Rectal exam: Gross blood on LUDY Course Vital Signs 12/19/24 12/19/24 12/19/24 04:20 04:30 05:34 Temperature 98.6 F Pulse Rate 96 105 H 87 Respiratory 18 18 18 Rate Blood Pressure 105/78 107/67 113/97 O2 Sat by Pulse 95 98 98 Oximetry 12/19/24 06:00 Temperature Pulse Rate 80 Respiratory 18 Rate Blood Pressure 120/72 O2 Sat by Pulse 97 Oximetry EKG Findings - EKG Comments: EKG Findings:: My EKG interpretation: Ventricular rate 77, sinus rhythm, right bundle branch block, ND 150, QRS 130, QTc 422. No ND prolongation, no QTC prolongation, no ST or T-wave changes noted. EKG compared to [default value] showing no changes. Overall, this EKG is unremarkable Medical Decision Making - Medical Decision Making Was pt. sent in by a medical professional or institution (, PA, LACQUER SPRAY BOOTH OPERATOR, urgent care, hospital, or custodial...) When possible be specific @ -No Did you speak to anyone other than the patient for history (EMS, parent, family, police, friend...)? What history was obtained from this source @ -No Did you review nursing and triage notes (agree or disagree)? Why? @ -I reviewed and agree with nursing and triage notes Were old charts reviewed (outside hosp., previous admission, EMS record, old EKG, old radiological studies, urgent care reports/EKG's, custodial records)? Report findings @ -No old charts were reviewed Differential Diagnosis (chest pain, altered mental status, abdominal pain women, abdominal pain men, vaginal bleeding, musculoskeletal, weakness, fever, dyspnea, syncope, headache, dizziness, GI bleed, back pain, seizure, CVA, palpatations, mental health)? @ -Differential GI Bleed: Esophageal varices, aortoenteric fistula, Cassandra-Williamson, gastritis, peptic ulcer disease, diverticulosis, inflammatory bowel disease, hemorrhoids, fissure, colitis, malignancy, Meckel's diverticulum, this is not meant to be an all- inclusive list. EKG interpreted by me (3pts min.). @ -See above X-rays interpreted by me (1pt min.). @ -None done CT interpreted by me (1pt min.). @ -None done U/S interpreted by me (1pt. min.). @ -None done What testing was considered but not performed or refused? (CT, X-rays, U/S, labs)? Why? @ -None What meds were considered but not given or refused? Why? @ -None Was smoking cessation discussed for >3mins.? @ -No Were there social determinants of health that impacted care today? How? (Homelessness, low income, unemployed, alcoholism, drug addiction, transportation, low edu. Level, literacy, decrease access to med. care, fdc, rehab)? @ -No Was there de-escalation of care discussed even if they declined (Discuss DNR or withdrawal of care, Hospice)? DNR status @ -No What co-morbidities impacted this encounter? (DM, HTN, Smoking, COPD, CAD, Cancer, CVA, ARF, Chemo, Hep., AIDS, mental health diagnosis, sleep apnea, morbid obesity)? @ -None Was patient admitted / discharged? Hospital course, mention meds given and route, prescriptions, significant lab abnormalities, going to OR and other pertinent info. @ -64-year-old male sent to the emergency department for worsening bright red b lood per rectum. Vital signs are stable. Patient on anticoagulation medications. Laboratory evaluation obtained. Hemoglobin stable. Labs unremarkable. Still, blood positive. Patient be admitted observation for GI monitoring. Case discussed with general surgery who is agreeable with patient b eing admitted. Case discussed with hospitalist for admission Did you discuss the management of the patient with other professionals (professionals i.e. , PA, LACQUER SPRAY BOOTH OPERATOR, lab, RT, psych nurse, mental health social worker, soyfreeze operator, teacher, enforcement officer, housing case manager)? Give summary @ -See above Was critical care preformed (if so, how long)? @ -No Undiagnosed new problem with uncertain prognosis? @ -No Drug Therapy requiring intensive monitoring for toxicity (Heparin, Nitro, Insulin, Cardizem)? @ -No Were any procedures done? @ -No Diagnosis/symptom? Acute, or Chronic, or Acute on Chronic? Uncomplicated (w ithout systemic symptoms) or Complicated (systemic symptoms)? @ -Bright red blood per rectum Side effects of treatment? @ -No Exacerbation, Progression, or Severe Exacerbation? @ -No Poses a threat to life or bodily function? How? (Chest pain, [place], CO, pneumonia, PE, COPD, DKA, ARF, appy, cholecystitis, CVA, Diverticulitis, Homicidal, Suicidal, threat to staff... and all critical care pts) @ -yes - Lab Data Result diagrams: 12/19/24 04:31 12/19/24 04:31 Lab Results 12/19/24 12/19/24 12/19/24 Range/Units 04:31 04:31 04:31 WBC 12.61 H (4.50-10.00) 10*3/uL RBC 5.01 (4.40-5.60) 10*6/uL Hgb 14.5 (13.0-17.0) g/dL Hct 42.9 (39.6-50.0) % MCV 85.6 (80.0-97.0) fL MCH 28.9 (27.0-32.0) pg MCHC 33.8 (32.0-37.0) g/dL Plt Count 340 (140-440) 10*3/uL MPV 10.7 (9.5-12.2) fL Immature Gran % (Auto) 0.4 % Neutrophils % 79.4 % Lymphocytes % 9.0 % Monocytes % 9.9 % Eosinophils % 1.1 % Basophils % 0.2 % Immature Gran # 0.05 H (0.00-0.04) 10*3/uL Neutrophils # 10.00 H (1.80-7.70) 10*3/uL Lymphocytes # 1.14 (0.90-5.00) 10*3/uL Monocytes # 1.25 H (0.20-1.00) 10*3/uL Eosinophils # 0.14 (0.04-0.35) 10*3/uL Basophils # 0.03 (0.00-0.10) 10*3/uL Sodium 136 L (137-145) mmol/L Potassium 4.4 (3.5-5.1) mmol/L Chloride 102 (98-107) mmol/L Carbon Dioxide 24 (22-30) mmol/L Anion Gap 10 mmol/L BUN 18 (9-20) mg/dL Creatinine 0.52 L (0.66-1.25) mg/dL Est GFR (CKD-EPI)AfAm >90 (>60 ml/min/1.73 sqM) Est GFR (CKD-EPI)NonAf >90 (>60 ml/min/1.73 sqM) Glucose 82 (74-99) mg/dL Plasma Lactic Acid Lukas (0.7-2.0) mmol/L Calcium 9.7 (8.4-10.2) mg/dL Magnesium 1.9 (1.6-2.3) mg/dL Total Bilirubin 0.4 (0.2-1.3) mg/dL AST 23 (17-59) U/L ALT 19 (4-49) U/L Alkaline Phosphatase 79 (38-126) U/L Total Protein 6.8 (6.3-8.2) g/dL Albumin 4.0 (3.5-5.0) g/dL Stool Occult Blood Positive (Negative) Blood Type Blood Type Recheck Bld Type Recheck Status Antibody Screen Spec Expiration Date 12/19/24 12/19/24 Range/Units 04:31 04:31 WBC (4.50-10.00) 10*3/uL RBC (4.40-5.60) 10*6/uL Hgb (13.0-17.0) g/dL Hct (39.6-50.0) % MCV (80.0-97.0) fL MCH (27.0-32.0) pg MCHC (32.0-37.0) g/dL Plt Count (140-440) 10*3/uL MPV (9.5-12.2) fL Immature Gran % (Auto) % Neutrophils % % Lymphocytes % % Monocytes % % Eosinophils % % Basophils % % Immature Gran # (0.00-0.04) 10*3/uL Neutrophils # (1.80-7.70) 10*3/uL Lymphocytes # (0.90-5.00) 10*3/uL Monocytes # (0.20-1.00) 10*3/uL Eosinophils # (0.04-0.35) 10*3/uL Basophils # (0.00-0.10) 10*3/uL Sodium (137-145) mmol/L Potassium (3.5-5.1) mmol/L Chloride (98-107) mmol/L Carbon Dioxide (22-30) mmol/L Anion Gap mmol/L BUN (9-20) mg/dL Creatinine (0.66-1.25) mg/dL Est GFR (CKD-EPI)AfAm (>60 ml/min/1.73 sqM) Est GFR (CKD-EPI)NonAf (>60 ml/min/1.73 sqM) Glucose (74-99) mg/dL Plasma Lactic Acid Lukas 1.2 (0.7-2.0) mmol/L Calcium (8.4-10.2) mg/dL Magnesium (1.6-2.3) mg/dL Total Bilirubin (0.2-1.3) mg/dL AST (17-59) U/L ALT (4-49) U/L Alkaline Phosphatase (38-126) U/L Total Protein (6.3-8.2) g/dL Albumin (3.5-5.0) g/dL Stool Occult Blood (Negative) Blood Type O Positive Blood Type Recheck O Pos Bld Type Recheck Status No Antibody Screen NEGATIVE Spec Expiration Date 12/22/20242330 Disposition Clinical Impression: BRBPR (bright red blood per rectum) Disposition: ADMITTED IP TO THIS [facility] Condition: Fair Referrals: Junito Rubio MD [Primary Care Provider] - 1-2 days Decision Time: 06:14
[2024-12-19 04:48] LABS: Basophils # (A) 0.03 10*3/uL (0.00-0.10); Basophils % (A) 0.2 %; Eosinophils # (A) 0.14 10*3/uL (0.04-0.35); Eosinophils % (A) 1.1 %; HCT 42.9 % (39.6-50.0); HGB 14.5 g/dL (13.0-17.0); Lymphocytes # (A) 1.14 10*3/uL (0.90-5.00); MCH 28.9 pg (27.0-32.0); MCHC 33.8 g/dL (32.0-37.0); MCV 85.6 fL (80.0-97.0); Mean Platelet Volume 10.7 fL (9.5-12.2); Monocytes # (A) 1.25 10*3/uL (0.20-1.00); Monocytes % (A) 9.9 %; Neutrophils % (A) 79.4 %; Platelet Count 340 10*3/uL (140-440); RBC 5.01 10*6/uL (4.40-5.60); RDW 15.8 % (11.5-14.5); WBC 12.61 10*3/uL (4.50-10.00)
[2024-12-19 05:18] LABS: ALT 19 U/L (4-49); AST 23 U/L (17-59); African American GFR (CKD) >90 (>60 ml/min/1.73 sqM); Alkaline Phosphatase 79 U/L (38-126); Anion Gap 10 mmol/L; Blood Urea Nitrogen 18 mg/dL (9-20); Calcium 9.7 mg/dL (8.4-10.2); Carbon Dioxide 24 mmol/L (22-30); Chloride 102 mmol/L (98-107); Glucose 82 mg/dL (74-99); Magnesium 1.9 mg/dL (1.6-2.3); Non-African American GFR(CKD) >90 (>60 ml/min/1.73 sqM); Potassium 4.4 mmol/L (3.5-5.1); Sodium 136 mmol/L (137-145); Total Bilirubin 0.4 mg/dL (0.2-1.3); Total Protein 6.8 g/dL (6.3-8.2)
[2024-12-19] MEDS ORDERED: NALOXONE 0.4 MG/ML 1 ML VIAL IV PRN (06:10)
[2024-12-19] MEDS: PANTOPRAZOLE 40 MG/10 ML VIAL IVP STA (06:18)
[2024-12-19] MEDS: SODIUM CHLORIDE 0.9% 1,000 ML IV SCH (06:18)
[2024-12-19] MEDS ORDERED: NITROGLYCERIN SL TABS 0.4 MG TAB SUBLINGUAL PRN (08:38)
[2024-12-19] MEDS ORDERED: ALBUTEROL NEBULIZED 2.5 MG/3 ML INHALATION PRN (08:38)
--- NOTE | 2024-12-19 08:41 | P.HPIM ---
History of Present Illness H&P Date: 12/19/24 Chief Complaint: Rectal bleeding, hematuria 64-year-old male with a PMH of COPD and schizophrenia. April 2024-STEMI: Stent to the LAD. Patient presented to the ER. He has a Blandon catheter was placed about 4 months ago because of enlarged prostate. He has been having hematuria. Also is unclear from the patient and from the notes from the EMS for active bleeding per rectum. Patient does say that he has had bleeding per rectum. But his stool is not dark. About 4 months ago at [facility] he did have a colonoscopy. Polyps were removed. Does not report anything else. Patient does use a wheelchair. Can take a few steps. Appetite is fair. Bowel movements are regular otherwise. Review of systems: GEN.: Tired EYES: None HEENT: None NECK: None RESPIRATORY: None CARDIOVASCULAR: None GASTROINTESTINAL: As above GENITOURINARY: As above MUSCULOSKELETAL: None LYMPHATICS: None HEMATOLOGICAL: None PSYCHIATRY: Bit forgetful NEUROLOGICAL: Tremors Social history: Smoking 2 packs a day, since 1978. [facility]. Has a public guardian. Physical examination: VITAL SIGNS: 98.6, 80, 18, 120 x 72, 97% on 2 L GENERAL: BMI 21.1, loss of muscle mass subcutaneous fat.. EYES: Pupils equal. Conjunctiva jayson l. HEENT: External appearance of nose and ears normal, oral cavity grossly normal. NECK: JVD not raised; masses not palpable. HEART: First and second heart sounds are normal; no edema. LUNGS: Respiratory rate normal; decreased breath sounds ABDOMEN: Soft, nontender, liver spleen not palpable, no masses palpable. Blandon catheter with some bloody urine PSYCH: Able to answer questions. A bit anxious MUSCULOSKELETAL:No Clubbing/cyanosis;muscles-grossly intact. Loss of muscle mass subcutaneous fat NEUROLOGICAL: Cranial nerves grossly intact; no facial asymmetry, power and sensation grossly intact. Tremors LYMPHATICS: No lymph nodes palpable in the axilla and neck INVESTIGATIONS, reviewed in the clinical context: December 19, 2024: White count 12.6 hemoglobin 14.5 platelets 340 sodium 136 potassium 4.4 creatinine 0.52 Stool occult blood positive EKG tracing personally reviewed by me-sinus rhythm. Right bundle lillie block. Recent labs April 28: Potassium 4.6 creatinine 0.68. Albumin 3.3 Urine culture: Positive for Klebsiella pneumoniae, E. coli, Enterococcus faecalis CT scan abdomen pelvis: Minimal compressive atelectasis. 2D echocardiogram: EF 20 to 25%. Wall motion abnormality. Tricuspid regurgitation. Assessment and plan: -Acute GI bleed. Patient states she has had blood per rectum. 2 separate from the stool. Does state he had a colonoscopy about 4 months ago at [facility]. Polyps were removed. Nothing else was reported. Spoke to the nurse to obtain the records from the same. GI service is not available in the hospital Dr. Boss from surgery consulted . Stop Effient - Hematuria, acute in the patient with Blandon catheter for about last 4 months. Traumatic versus UTI. Consult urology -CAD with STEMI [April 22, 2024] LAD stent. ASA 81 mg PO QD. Lipitor at 40 mg PO QHS. Metoprolol at 12.5 mg PO BID. It has been 7 months since patient has been on dual antiplatelet agent. At this point we will stop Effient Consult cardiology -Chronic HFrEF: EF 20-25%. Lasix -Evaluate for UTI UA with reflex culture -COPD in a current smoker Symbicort, Spiriva -Schizophrenia: Zyprexa 5 mg PO QHS. -Moderate-severe protein calorie malnutrition Ensure 3 times daily -Nicotine dependence Nicotine patch CODE STATUS: FULL CODE. - public guardian Discussed with patient Past Medical History Past Medical History: Cancer, COPD, Pneumonia Additional Past Medical History / Comment(s): Melanoma removed from L trunk, skin cancer removed from R side of nose, L eye blurry vision, constipation, hematuria/UTI, hypoglycemia. migraines Last Myocardial Infarction Date:: 04/22/24 History of Any Multi-Drug Resistant Organisms: None Reported Past Surgical History: Adenoidectomy, Tonsillectomy Additional Past Surgical History / Comment(s): R side of nose skin cancer removal/skin graft, L trunk melanoma removed, colonoscopy. Past Anesthesia/Blood Transfusion Reactions: No Reported Reaction Date of Last Stent Placement:: 04/22/24 Past Psychological History: Schizophrenia Smoking Status: Former smoker Past Alcohol Use History: None Reported Past Drug Use History: None Reported - Past Family History Father Family Medical History: Diabetes Mellitus Additional Family Medical History / Comment(s): Father is living. Mother Family Medical History: CVA/TIA, Myocardial Infarction ([place]) Additional Family Medical History / Comment(s): Mother had a CVA, shingles. She is from the CVA. Medications and Allergies Home Medications Medication Instructions Recorded Confirmed Type Albuterol Sulfate [Ventolin HFA] 2 puff INHALATION RT-QID PRN 04/23/24 04/30/24 History Budesonide-Formot 160-4.5 Mcg 2 puff INHALATION RT-BID@0800,209904/23/24 04/30/24 History [Symbicort 160-4.5 Mcg Inhaler] Haloperidol Decanoate [Haldol D] 100 mg IM Q28D@0800 04/23/24 04/30/24 History OLANZapine [ZyPREXA] 5 mg PO HS@209904/23/24 04/30/24 History Tiotropium 2.5 Mcg/Puff [Spiriva 2 puff INHALATION RT-DAILY@0800 04/23/24 04/30/24 History Respimat 2.5 Mcg] Levofloxacin [Levaquin] 750 mg PO DAILY@1800 #7 tab 04/28/24 04/30/24 Rx Nitroglycerin Sl Tabs [Nitrostat] 0.4 mg SUBLINGUAL Q5M PRN #30 tab 04/28/24 04/30/24 Rx Aspirin 81 mg PO DAILY@0800 04/30/24 04/30/24 History Atorvastatin [Lipitor] 40 mg PO HS@209904/30/24 04/30/24 History Metoprolol Tartrate [Lopressor] 12.5 mg PO BID@0800,209904/30/24 04/30/24 History Midodrine [ProAmatine] 5 mg PO AC-TID@08,12,17 04/30/24 04/30/24 History Pantoprazole [Protonix] 40 mg PO AC-BRKFST@0700 04/30/24 04/30/24 History Prasugrel [Effient] 10 mg PO DAILY@0800 04/30/24 04/30/24 History Furosemide [Lasix] 20 mg PO DAILY PRN tab 05/02/24 Rx Nicotine 21Mg/24Hr Patch [Habitrol] 1 patch TRANSDERM DAILY #30 patch 05/02/24 Rx Allergies Allergy/AdvReac Type Severity Reaction Status Date / Time cephalexin monohydrate Allergy Unknown Verified 12/19/24 04:23 [From Keflex] clindamycin Allergy Unknown Verified 12/19/24 04:23 latex Allergy Rash/Hives Verified 12/19/24 04:23 Penicillins Allergy Rash/Hives Verified 12/19/24 04:23 Physical Exam Vitals: Vital Signs Temp Pulse Resp BP Pulse Ox 12/19/24 06:00 80 18 120/72 97 12/19/24 05:34 87 18 113/97 98 12/19/24 04:30 105 H 18 107/67 98 12/19/24 04:20 98.6 F 96 18 105/78 95 Intake and Output 12/18/24 12/19/24 12/19/24 22:59 06:59 14:59 Other: Voiding Method Indwelling Catheter Weight 61.235 kg Results CBC & Chem 7: 12/19/24 04:31 12/19/24 04:31 Labs: Abnormal Lab Results - Last 24 Hours (Table) 12/19/24 12/19/24 Range/Units 04:31 04:31 WBC 12.61 H (4.50-10.00) 10*3/uL Immature Gran # 0.05 H (0.00-0.04) 10*3/uL Neutrophils # 10.00 H (1.80-7.70) 10*3/uL Monocytes # 1.25 H (0.20-1.00) 10*3/uL Sodium 136 L (137-145) mmol/L Creatinine 0.52 L (0.66-1.25) mg/dL
[2024-12-19] MEDS: SYMBICORT 160-4.5 MCG INHALER INHALATION SCH (08:55)
[2024-12-19] MEDS: TIOTROPIUM 2.5 MCG INHALER INHALATION SCH (08:55)
[2024-12-19] MEDS: PANTOPRAZOLE 40 MG TABLET PO SCH (09:28)
[2024-12-19] MEDS: METOPROLOL TARTRATE 12.5 MG TAB PO SCH (09:28)
[2024-12-19] MEDS: NICOTINE 21MG/24HR PATCH TRANSDERM SCH (09:31)
[2024-12-19 09:53] LABS: RBC,Urine >182 /hpf (0-5); WBC,Urine >182 /hpf (0-5)
[2024-12-19 09:55] LABS: Appearance,Urine Bloody (Clear); Color,Urine Dark Red
[2024-12-19] MEDS: MIDODRINE 5 MG TAB PO SCH (12:29)
--- NOTE | 2024-12-19 12:56 | P.GSCN ---
History of Present Illness Consult date: 12/19/24 History of present illness: 64-year-old male presents from nursing facility with concern for GI bleed. Per emergency department physician, patient's nursing facility reported multiple gross bloody bowel movements. On discussion with the patient, he states he does not recall any blood in his stool. He has previous history of hematuria and believes that this is an effect. Per ED, there is some dried blood around the anus. Currently, hemoglobin of 14. Vital signs stable. Last colonoscopy was about 4 months ago at outside facility. Patient is on anticoagulation. Review of Systems All systems: negative Past Medical History Past Medical History: Cancer, COPD, Pneumonia Additional Past Medical History / Comment(s): Melanoma removed from L trunk, skin cancer removed from R side of nose, L eye blurry vision, constipation, hematuria/UTI, hypoglycemia. migraines Last Myocardial Infarction Date:: 04/22/24 History of Any Multi-Drug Resistant Organisms: None Reported Past Surgical History: Adenoidectomy, Tonsillectomy Additional Past Surgical History / Comment(s): R side of nose skin cancer removal/skin graft, L trunk melanoma removed, colonoscopy. Past Anesthesia/Blood Transfusion Reactions: No Reported Reaction Date of Last Stent Placement:: 04/22/24 Past Psychological History: Schizophrenia Smoking Status: Former smoker Past Alcohol Use History: None Reported Past Drug Use History: None Reported - Past Family History Father Family Medical History: Diabetes Mellitus Additional Family Medical History / Comment(s): Father is living. Mother Family Medical History: CVA/TIA, Myocardial Infarction ([place]) Additional Family Medical History / Comment(s): Mother had a CVA, shingles. She is from the CVA. Medications and Allergies Home Medications Medication Instructions Recorded Confirmed Type Albuterol Sulfate [Ventolin HFA] 2 puff INHALATION RT-Q6H PRN 04/23/24 12/19/24 History Haloperidol Decanoate [Haldol D] 100 mg IM Q28D 04/23/24 12/19/24 History OLANZapine [ZyPREXA] 5 mg PO HS@199904/23/24 12/19/24 History Nitroglycerin Sl Tabs [Nitrostat] 0.4 mg SUBLINGUAL Q5M PRN #30 tab 04/28/24 Rx Aspirin 81 mg PO DAILY@0800 04/30/2412/19/25 History Atorvastatin [Lipitor] 40 mg PO HS@199904/30/24 12/19/24 History Metoprolol Tartrate [Lopressor] 12.5 mg PO BID@799,199904/30/24 12/19/24 History Midodrine [ProAmatine] 5 mg PO TID@0700,1100,1700 04/30/24 12/19/24 History Pantoprazole [Protonix] 40 mg PO DAILY@79904/30/24 12/19/24 History Prasugrel [Effient] 10 mg PO DAILY@0804/30/24 12/19/24 History Acetaminophen-Codeine 300-30mg 1 tab PO Q8H PRN 12/19/24 12/19/24 History [Tylenol w/codeine #3] Cholecalciferol [Vitamin D3 (25 50 mcg PO DAILY@69912/19/24 12/19/24 History Mcg = 1000 Iu)] Doxycycline Hyclate 100 mg PO BID@799,199912/19/24 12/19/24 History Ferrous Sulfate [Iron] 325 mg PO DAILY 12/19/24 12/19/24 History Fluticasone Propion/Salmeterol 1 puff INHALATION RT-BID@799,199912/19/24 12/19/24 History [Fluticasone-Salmeterol 250-50] Naloxone HCl [Narcan] 4 mg NASAL DIRECTED PRN 12/19/24 12/19/24 History Olopatadine HCl [Pataday] 1 drop BOTH EYES DAILY@79912/19/24 12/19/24 History Tamsulosin [Flomax] 0.4 mg PO DAILY@79912/19/24 12/19/24 History Tiotropium [place] Monohydrate 2 puff INHALATION RT-DAILY 12/19/24 12/19/24 History Inhalation Solution 1.25mcg/Act Allergies Allergy/AdvReac Type Severity Reaction Status Date / Time cephalexin monohydrate Allergy Unknown Verified 12/19/24 09:37 [From Keflex] clindamycin Allergy Unknown Verified 12/19/24 09:37 latex Allergy Rash/Hives Verified 12/19/24 09:37 Penicillins Allergy Rash/Hives Verified 12/19/24 09:37 Surgical - Exam Osteopathic Statement: *. No significant issues noted on an osteopathic structural exam other than those noted in the History and Physical/Consult. Vital Signs Temp Pulse Resp BP Pulse Ox 98.6 F 96 18 105/78 95 12/19/24 04:20 12/19/24 04:20 12/19/24 04:20 12/19/24 04:20 12/19/24 04:20 - General no distress - Eyes normal ocular movement - Neck trachea midline - Respiratory normal respiratory effort - Abdomen Abdomen: soft, non tender Results - Labs 12/19/24 04:31 12/19/24 04:31 Abnormal Lab Results - Last 24 Hours (Table) 12/19/24 12/19/24 12/19/24 Range/Units 04:31 04:31 09:37 WBC 12.61 H (4.50-10.00) 10*3/uL Immature Gran # 0.05 H (0.00-0.04) 10*3/uL Neutrophils # 10.00 H (1.80-7.70) 10*3/uL Monocytes # 1.25 H (0.20-1.00) 10*3/uL Sodium 136 L (137-145) mmol/L Creatinine 0.52 L (0.66-1.25) mg/dL Urine RBC >182 H (0-5) /hpf Urine WBC >182 H (0-5) /hpf Diabetes panel 12/19/24 Range/Units 04:31 Sodium 136 L (137-145) mmol/L Potassium 4.4 (3.5-5.1) mmol/L Chloride 102 (98-107) mmol/L Carbon Dioxide 24 (22-30) mmol/L BUN 18 (9-20) mg/dL Creatinine 0.52 L (0.66-1.25) mg/dL Glucose 82 (74-99) mg/dL Calcium 9.7 (8.4-10.2) mg/dL AST 23 (17-59) U/L ALT 19 (4-49) U/L Alkaline Phosphatase 79 (38-126) U/L Total Protein 6.8 (6.3-8.2) g/dL Albumin 4.0 (3.5-5.0) g/dL Calcium panel 12/19/24 Range/Units 04:31 Calcium 9.7 (8.4-10.2) mg/dL Albumin 4.0 (3.5-5.0) g/dL Pituitary panel 12/19/24 Range/Units 04:31 Sodium 136 L (137-145) mmol/L Potassium 4.4 (3.5-5.1) mmol/L Chloride 102 (98-107) mmol/L Carbon Dioxide 24 (22-30) mmol/L BUN 18 (9-20) mg/dL Creatinine 0.52 L (0.66-1.25) mg/dL Glucose 82 (74-99) mg/dL Calcium 9.7 (8.4-10.2) mg/dL Adrenal panel 12/19/24 Range/Units 04:31 Sodium 136 L (137-145) mmol/L Potassium 4.4 (3.5-5.1) mmol/L Chloride 102 (98-107) mmol/L Carbon Dioxide 24 (22-30) mmol/L BUN 18 (9-20) mg/dL Creatinine 0.52 L (0.66-1.25) mg/dL Glucose 82 (74-99) mg/dL Calcium 9.7 (8.4-10.2) mg/dL Total Bilirubin 0.4 (0.2-1.3) mg/dL AST 23 (17-59) U/L ALT 19 (4-49) U/L Alkaline Phosphatase 79 (38-126) U/L Total Protein 6.8 (6.3-8.2) g/dL Albumin 4.0 (3.5-5.0) g/dL Assessment and Plan Plan: 64-year-old male with suspicion of GI bleed. Has had recent colonoscopy. Would recommend holding any anticoagulation. Urology has been consulted for evaluation of hematuria. No plan for acute surgical intervention. Will continue to monitor. Follow hemoglobin and transfuse as needed.
--- NOTE | 2024-12-19 13:09 | P.GSCN ---
History of Present Illness Consult date: 12/19/24 Reason for Consult: Gross hematuria History of present illness: This is a 64-year-old male that urology is consulted for for gross hematuria. Patient has history of chronic urinary retention being managed with a Blandon catheter. He indicated he does follow-up with a urologist over at [facility]. He noticed gross hematuria for the past couple of days, of note he he indicated he does have previous history of recurrent gross hematuria which was attributed to UTIs. He was evaluated for a possible TURP by his urologist but surgery was not performed secondary to his cardiac history. He did underwent a CT angiogram back in July that showed evidence of multiple large bladder stones in the bladder, and evidence of hyperdense material within the bladder his hemoglobin is 14.5. Review of Systems - Constitutional Denies fever, Denies weight loss - EENT Ears, nose, mouth and throat: Denies dysphagia - Cardiovascular Denies chest pain, Denies shortness of breath - Respiratory Denies cough, Denies 7 - Gastrointestinal Denies nausea, Denies vomiting - Genitourinary Reports hematuria, Denies dysuria, Denies flank pain Past Medical History Past Medical History: Cancer, COPD, Pneumonia Additional Past Medical History / Comment(s): Melanoma removed from L trunk, skin cancer removed from R side of nose, L eye blurry vision, constipation, hematuria/UTI, hypoglycemia. migraines Last Myocardial Infarction Date:: 04/22/24 History of Any Multi-Drug Resistant Organisms: None Reported Past Surgical History: Adenoidectomy, Tonsillectomy Additional Past Surgical History / Comment(s): R side of nose skin cancer removal/skin graft, L trunk melanoma removed, colonoscopy. Past Anesthesia/Blood Transfusion Reactions: No Reported Reaction Date of Last Stent Placement:: 04/22/24 Past Psychological History: Schizophrenia Smoking Status: Former smoker Past Alcohol Use History: None Reported Past Drug Use History: None Reported - Past Family History Father Family Medical History: Diabetes Mellitus Additional Family Medical History / Comment(s): Father is living. Mother Family Medical History: CVA/TIA, Myocardial Infarction ([place]) Additional Family Medical History / Comment(s): Mother had a CVA, shingles. She is from the CVA. Medications and Allergies Home Medications Medication Instructions Recorded Confirmed Type Albuterol Sulfate [Ventolin HFA] 2 puff INHALATION RT-Q6H PRN 04/23/24 12/19/24 History Haloperidol Decanoate [Haldol D] 100 mg IM Q28D 04/23/24 12/19/24 History OLANZapine [ZyPREXA] 5 mg PO HS@199904/23/24 12/19/24 History Nitroglycerin Sl Tabs [Nitrostat] 0.4 mg SUBLINGUAL Q5M PRN #30 tab 04/28/24 12/19/24 Rx Aspirin 81 mg PO DAILY@79904/30/24 12/19/24 History Atorvastatin [Lipitor] 40 mg PO HS@199904/30/24 12/19/24 History Metoprolol Tartrate [Lopressor] 12.5 mg PO BID@799,199904/30/24 12/19/24 History Midodrine [ProAmatine] 5 mg PO TID@0700,1100,1700 04/30/24 12/19/24 History Pantoprazole [Protonix] 40 mg PO DAILY@79904/30/24 12/19/24 History Prasugrel [Effient] 10 mg PO DAILY@0804/30/24 12/19/24 History Acetaminophen-Codeine 300-30mg 1 tab PO Q8H PRN 12/19/24 12/19/24 History [Tylenol w/codeine #3] Cholecalciferol [Vitamin D3 (25 50 mcg PO DAILY@69912/19/24 12/19/24 History Mcg = 1000 Iu)] Doxycycline Hyclate 100 mg PO BID@799,199912/19/24 12/19/24 History Ferrous Sulfate [Iron] 325 mg PO DAILY 12/19/24 12/19/24 History Fluticasone Propion/Salmeterol 1 puff INHALATION RT-BID@799,199912/19/24 12/19/24 History [Fluticasone-Salmeterol 250-50] Naloxone HCl [Narcan] 4 mg NASAL DIRECTED PRN 12/19/24 12/19/24 History Olopatadine HCl [Pataday] 1 drop BOTH EYES DAILY@79912/19/24 12/19/24 History Tamsulosin [Flomax] 0.4 mg PO DAILY@79912/19/24 12/19/24 History Tiotropium [place] Monohydrate 2 puff INHALATION RT-DAILY 12/19/24 12/19/24 History Inhalation Solution 1.25mcg/Act Allergies Allergy/AdvReac Type Severity Reaction Status Date / Time cephalexin monohydrate Allergy Unknown Verified 12/19/24 09:37 [From Keflex] clindamycin Allergy Unknown Verified 12/19/24 09:37 latex Allergy Rash/Hives Verified 12/19/24 09:37 Penicillins Allergy Rash/Hives Verified 12/19/24 09:37 Surgical - Exam Vital Signs Temp Pulse Resp BP Pulse Ox 98.6 F 96 18 105/78 95 12/19/24 04:20 12/19/24 04:20 12/19/24 04:20 12/19/24 04:20 12/19/24 04:20 - General no distress, no pain - Eyes normal ocular movement, no pale - ENT normal nares, normal mucosa - Respiratory normal expansion, normal respiratory effort - Abdomen Abdomen: soft, non tender, no distended Results - Labs 12/19/24 04:31 12/19/24 04:31 Abnormal Lab Results - Last 24 Hours (Table) 12/19/24 12/19/24 12/19/24 Range/Units 04:31 04:31 09:37 WBC 12.61 H (4.50-10.00) 10*3/uL Immature Gran # 0.05 H (0.00-0.04) 10*3/uL Neutrophils # 10.00 H (1.80-7.70) 10*3/uL Monocytes # 1.25 H (0.20-1.00) 10*3/uL Sodium 136 L (137-145) mmol/L Creatinine 0.52 L (0.66-1.25) mg/dL Urine RBC >182 H (0-5) /hpf Urine WBC >182 H (0-5) /hpf Diabetes panel 12/19/24 Range/Units 04:31 Sodium 136 L (137-145) mmol/L Potassium 4.4 (3.5-5.1) mmol/L Chloride 102 (98-107) mmol/L Carbon Dioxide 24 (22-30) mmol/L BUN 18 (9-20) mg/dL Creatinine 0.52 L (0.66-1.25) mg/dL Glucose 82 (74-99) mg/dL Calcium 9.7 (8.4-10.2) mg/dL AST 23 (17-59) U/L ALT 19 (4-49) U/L Alkaline Phosphatase 79 (38-126) U/L Total Protein 6.8 (6.3-8.2) g/dL Albumin 4.0 (3.5-5.0) g/dL Calcium panel 12/19/24 Range/Units 04:31 Calcium 9.7 (8.4-10.2) mg/dL Albumin 4.0 (3.5-5.0) g/dL Pituitary panel 12/19/24 Range/Units 04:31 Sodium 136 L (137-145) mmol/L Potassium 4.4 (3.5-5.1) mmol/L Chloride 102 (98-107) mmol/L Carbon Dioxide 24 (22-30) mmol/L BUN 18 (9-20) mg/dL Creatinine 0.52 L (0.66-1.25) mg/dL Glucose 82 (74-99) mg/dL Calcium 9.7 (8.4-10.2) mg/dL Adrenal panel 12/19/24 Range/Units 04:31 Sodium 136 L (137-145) mmol/L Potassium 4.4 (3.5-5.1) mmol/L Chloride 102 (98-107) mmol/L Carbon Dioxide 24 (22-30) mmol/L BUN 18 (9-20) mg/dL Creatinine 0.52 L (0.66-1.25) mg/dL Glucose 82 (74-99) mg/dL Calcium 9.7 (8.4-10.2) mg/dL Total Bilirubin 0.4 (0.2-1.3) mg/dL AST 23 (17-59) U/L ALT 19 (4-49) U/L Alkaline Phosphatase 79 (38-126) U/L Total Protein 6.8 (6.3-8.2) g/dL Albumin 4.0 (3.5-5.0) g/dL Assessment and Plan Assessment: 64-year-old male with gross hematuria. Reviewed his CT from July evidence of multiple bladder stones within the bladder, this is most likely the source of his gross hematuria, I did not appreciate any disease in the upper tract. He does have a urologist that he follows up with at [facility]. At this time I advised him to follow-up as an outpatient with him to address his bladder stones as this is the is the source of his recurrent gross hematuria. -No acute surgical intervention from urology standpoint as his hemoglobin is stable and blood in the catheter is mostly consistent with old blood -Continue with monthly catheter change -He should follow-up with his urologist as an outpatient to address his bladder stone
[2024-12-19 18:47] LABS: HCT 41.7 % (39.6-50.0); MCH 28.7 pg (27.0-32.0); MCHC 33.6 g/dL (32.0-37.0); MCV 85.6 fL (80.0-97.0); Mean Platelet Volume 10.1 fL (9.5-12.2); Platelet Count 322 10*3/uL (140-440); RBC 4.87 10*6/uL (4.40-5.60); RDW 15.8 % (11.5-14.5); WBC 11.38 10*3/uL (4.50-10.00)
[2024-12-19] MEDS: ATORVASTATIN 40 MG TAB PO SCH (21:09)
[2024-12-19] MEDS: OLANZapine 5 MG TAB PO SCH (21:10)
[2024-12-20 07:30] LABS: Basophils # (A) 0.02 10*3/uL (0.00-0.10); Basophils % (A) 0.2 %; Eosinophils # (A) 0.06 10*3/uL (0.04-0.35); Eosinophils % (A) 0.7 %; HGB 12.1 g/dL (13.0-17.0); Lymphocytes # (A) 1.54 10*3/uL (0.90-5.00); Lymphocytes % (A) 18.3 %; MCH 28.5 pg (27.0-32.0); MCHC 32.7 g/dL (32.0-37.0); MCV 87.1 fL (80.0-97.0); Mean Platelet Volume 10.4 fL (9.5-12.2); Monocytes # (A) 1.05 10*3/uL (0.20-1.00); Monocytes % (A) 12.5 %; Neutrophils # (A) 5.71 10*3/uL (1.80-7.70); Neutrophils % (A) 67.7 %; Platelet Count 280 10*3/uL (140-440); RBC 4.25 10*6/uL (4.40-5.60); WBC 8.43 10*3/uL (4.50-10.00)
--- NOTE | 2024-12-20 11:17 | P.CRDCN ---
History of Present Illness History of present illness: HISTORY OF PRESENT ILLNESS: This is a 64-year-old male with a past medical history significant for coronary artery disease, ischemic cardiomyopathy, hypertension, and hyperlipidemia. Radha ent follows in the office with Dr. Mena. We have been asked to see the patient in consultation for GI bleed on Effient. Patient examined at the bedside. Patient presented to the hospital for chief complaint of blood in his urine. Patient does have a known history of hematuria and follows with a urologist at [facility]. Patient is prescribed aspirin and Effient on outpatient basis. Patient was also seen by general surgery for possible GI bleed. No plans for endoscopy. Patient's aspirin and Effient have both been placed on hold. Patient currently denies any chest pain or pressure. He denies any shortness of breath. DIAGNOSTICS: - EKG reveals sinus mechanism with right bundle branch block. - Laboratory data: WBC 8. 4 3. Hemoglobin 12.1. Platelet count 280. Sodium 136. Potassium 4.4. BUN 18. Creatinine 0.52. Magnesium 1.9. - Current home cardiac medications include midodrine 5 mg 3 times daily, metoprolol tartrate 12.5 mg twice a day, Effient 10 mg daily, Lipitor 40 mg at night, aspirin 81 mg daily. - Most recent echocardiogram obtained in April 2024 revealing ejection fraction 35%, akinetic apex, trace MR, small pericardial effusion - Cardiac catheterization history: April 2024 revealing acutely occluded proximal LAD, mild disease in the RCA, no significant disease of circumflex. Patient underwent stenting of the proximal LAD. REVIEW OF SYSTEMS: At the time of my exam: CONSTITUTIONAL: Denies fever or chills. HEENT: Denies blurred vision, vision changes, or eye pain. Denies hemoptysis CARDIOVASCULAR: Denies chest pain. Denies orthopnea. Denies PND. Denies palpitations RESPIRATORY: Denies shortness of breath. GASTROINTESTINAL: Denies abdominal pain. Denies nausea or vomiting. HEMATOLOGIC: Denies bleeding disorders. GENITOURINARY: Denies any blood in urine. SKIN: Denies pruitis. Denies rash. PHYSICAL EXAM: VITAL SIGNS: Reviewed. GENERAL: Well-developed in no acute distress. HEENT: Head is normocephalic. Pupils are equal, round. Sclerae anicteric. Mucous membranes of the mouth are moist. Neck supple. No JVD or thyromegaly LUNGS: Respirations even and unlabored. Lungs essentially clear to auscultation bilaterally. HEART: Regular rate and rhythm. S1 and S2 heard. ABDOMEN: Soft. Nondistended. Nontender. EXTREMITIES: Normal range of motion. No clubbing or cyanosis. Peripheral pulses intact. No lower extremity edema NEUROLOGIC: Awake and alert. Oriented x 3. ASSESSMENT: Hematuria Possible GI bleed, general surgery following History of bladder stones with hematuria, follows with urologist at [facility] Coronary artery disease with previous stenting, PCI to LAD and 04/2024 Ischemic cardiomyopathy 35% Hypertension Hyperlipidemia PLAN: Continue to hold aspirin and Effient. Dr. Randall recommends holding for 2 weeks and then reevaluating at follow-up appointment with Dr. Mena Continue additional cardiac medications Further recommendations pending patient course Nurse practitioner note has been reviewed by physician. Signing provider agrees with the documented findings, assessment, and plan of care documented by UNDERLAY STITCHER as a scribe. Past Medical History Past Medical History: Cancer, COPD, Pneumonia Additional Past Medical History / Comment(s): Melanoma removed from L trunk, skin cancer removed from R side of nose, L eye blurry vision, constipation, hematuria/UTI, hypoglycemia. migraines Last Myocardial Infarction Date:: 04/22/24 History of Any Multi-Drug Resistant Organisms: None Reported Past Surgical History: Adenoidectomy, Tonsillectomy Additional Past Surgical History / Comment(s): R side of nose skin cancer removal/skin graft, L trunk melanoma removed, colonoscopy. Past Anesthesia/Blood Transfusion Reactions: No Reported Reaction Date of Last Stent Placement:: 04/22/24 Past Psychological History: Schizophrenia Additional Psychological History / Comment(s): He served in the [employer]. Lives at [facility] and has a public guardian. Smoking Status: Current every day smoker Past Alcohol Use History: Occasional Additional Past Alcohol Use History / Comment(s): Pt started smoking in 1978 and is a 2 ppd smoker. Currently not able to smoke in facility. Past Drug Use History: None Reported - Past Family History Father Family Medical History: Diabetes Mellitus Additional Family Medical History / Comment(s): Father is living. Mother Family Medical History: CVA/TIA, Myocardial Infarction ([place]) Additional Family Medical History / Comment(s): Mother had a CVA, shingles. She is from the CVA. Medications and Allergies Home Medications Medication Instructions Recorded Confirmed Type Albuterol Sulfate [Ventolin HFA] 2 puff INHALATION RT-Q6H PRN 04/23/24 12/19/24 History Haloperidol Decanoate [Haldol D] 100 mg IM Q28D 04/23/24 12/19/24 History OLANZapine [ZyPREXA] 5 mg PO HS@199904/23/24 12/19/24 History Nitroglycerin Sl Tabs [Nitrostat] 0.4 mg SUBLINGUAL Q5M PRN #30 tab 04/28/24 12/19/24 Rx Aspirin 81 mg PO DAILY@0800 04/30/24 12/19/24 History Atorvastatin [Lipitor] 40 mg PO HS@199904/30/24 12/19/24 History Metoprolol Tartrate [Lopressor] 12.5 mg PO BID@08,199904/30/24 12/19/24 History Midodrine [ProAmatine] 5 mg PO TID@0700,1100,1700 04/30/24 12/19/24 History Pantoprazole [Protonix] 40 mg PO DAILY@0800 04/30/24 12/19/24 History Prasugrel [Effient] 10 mg PO DAILY@0800 04/30/24 12/19/24 History Acetaminophen-Codeine 300-30mg 1 tab PO Q8H PRN 12/19/24 12/19/24 History [Tylenol w/codeine #3] Cholecalciferol [Vitamin D3 (25 50 mcg PO DAILY@69912/19/24 12/19/24 History Mcg = 1000 Iu)] Doxycycline Hyclate 100 mg PO BID@08,199912/19/24 12/19/24 History Ferrous Sulfate [Iron] 325 mg PO DAILY 12/19/24 12/19/24 History Fluticasone Propion/Salmeterol 1 puff INHALATION RT-BID@799,199912/19/24 12/19/24 History [Fluticasone-Salmeterol 250-50] Naloxone HCl [Narcan] 4 mg NASAL DIRECTED PRN 12/19/24 12/19/24 History Olopatadine HCl [Pataday] 1 drop BOTH EYES DAILY@79912/19/24 12/19/24 History Tamsulosin [Flomax] 0.4 mg PO DAILY@0800 12/19/24 12/19/24 History Tiotropium [place] Monohydrate 2 puff INHALATION RT-DAILY 12/19/24 12/19/24 History Inhalation Solution 1.25mcg/Act Allergies Allergy/AdvReac Type Severity Reaction Status Date / Time cephalexin monohydrate Allergy Unknown Verified 12/19/24 09:37 [From [employer]] clindamycin Allergy Unknown Verified 12/19/24 09:37 latex Allergy Rash/Hives Verified 12/19/24 09:37 Penicillins Allergy Rash/Hives Verified 12/19/24 09:37 Physical Exam Vitals: Vital Signs Temp Pulse Pulse Resp BP BP Pulse Ox 12/20/24 09:36 96 12/20/24 07:56 97.6 F 79 16 111/76 96 12/20/24 04:00 97.9 F 65 19 100/65 96 12/20/24 00:00 97.6 F 85 16 103/69 95 12/19/24 20:00 97.8 F 94 18 102/71 98 12/19/24 17:48 97.4 F L 72 18 103/64 95 12/19/24 17:32 98.7 F 96 18 115/60 96 12/19/24 14:36 79 20 111/51 95 12/19/24 12:30 86 18 91/51 96 Intake and Output 12/19/24 12/20/24 12/20/24 22:59 06:59 14:59 Intake Total 240 Output Total 800 450 Balance -800 -450 240 Intake: Oral 240 Output: Urine 800 450 Other: Voiding Method Indwelling Catheter Indwelling Catheter Weight 61.235 kg Results 12/20/24 06:33 12/19/24 04:31 CBC 12/19/24 12/20/24 Range/Units 18:38 06:33 WBC 11.38 H 8.43 (4.50-10.00) 10*3/uL RBC 4.87 4.25 L (4.40-5.60) 10*6/uL Hgb 14.0 12.1 L (13.0-17.0) g/dL Hct 41.7 37.0 L (39.6-50.0) % Plt Count 322 280 (140-440) 10*3/uL Current Medications Generic Name Dose Route Start Last Admin Trade Name Freq PRN Reason Stop Dose Admin Albuterol Sulfate 2.5 mg 12/19/24 08:38 Albuterol Nebulized 2.5 Mg/3 Ml INHALATION RT-QID PRN Shortness Of Breath Atorvastatin Calcium 40 mg 12/19/24 21:00 12/19/24 21:09 Atorvastatin 40 Mg Tab PO 40 mg HS@2100 NOAH Administration Budesonide/Formoterol Fumarate 2 puff 12/19/24 08:38 12/20/24 09:36 Symbicort 160-4.5 Mcg Inhaler INHALATION 2 puff RT-BID@0800,2100 NOAH Administration Sodium Chloride 1,000 mls @ 20 mls/hr 12/19/24 06:15 12/20/24 07:30 Saline 0.9% IV Not Given .Q24H NOAH Metoprolol Tartrate 12.5 mg 12/19/24 08:38 12/20/24 08:35 Metoprolol Tartrate 12.5 Mg Tab PO 12.5 mg BID@0800,2100 NOAH Administration Midodrine 5 mg 12/19/24 12:00 12/20/24 08:35 Midodrine 5 Mg Tab PO 5 mg AC-TID@08,12,17 NOAH Administration Naloxone HCl 0.2 mg 12/19/24 06:10 Naloxone 0.4 Mg/Ml 1 Ml Vial IV Q2M PRN Opioid Reversal Nicotine 1 patch 12/19/24 09:00 12/20/24 07:59 Nicotine 21mg/24hr Patch TRANSDERM Not Given DAILY NOAH Nitroglycerin 0.4 mg 12/19/24 08:38 Nitroglycerin Sl Tabs 0.4 Mg Tab SUBLINGUAL Q5M PRN Chest Pain Olanzapine 5 mg 12/19/24 21:00 12/19/24 21:10 Olanzapine 5 Mg Tab PO 5 mg HS@2100 NOAH Administration Pantoprazole Sodium 40 mg 12/19/24 08:45 12/20/24 06:35 Pantoprazole 40 Mg Tablet PO 40 mg AC-BRKFST@0700 NOAH Administration Tiotropium [place] 2 puff 12/19/24 08:45 12/20/24 09:36 Tiotropium 2.5 Mcg Inhaler INHALATION 2 puff RT-DAILY@0800 NOAH Administration Intake and Output 12/19/24 12/20/2425 22:59 06:59 14:59 Intake Total 240 Output Total 800 450 Balance -800 -450 240 Intake: Oral 240 Output: Urine 800 450 Other: Voiding Method Indwelling Catheter Indwelling Catheter Weight 61.235 kg 12/20/24 06:33 12/19/24 04:31
[2024-12-20 11:25] VITALS: PULSE 68
--- NOTE | 2024-12-20 13:25 | P.DS ---
Providers Date of admission: 12/19/24 06:11 Expected date of discharge: 12/20/24 Attending physician: Talha Irving Consults: 12/19/24 06:10 Consult Physician Routine Consulting Provider: Feliciano Boss Consult Reason/Comments: GI bleed Do you want consulting provider notified?: Already Contacted 12/19/24 08:17 Consult Physician Routine Consulting Provider: Kvng Williamson Consult Reason/Comments: blood in baeza cath Do you want consulting provider notified?: Yes 12/19/24 08:35 Consult Physician Routine Consulting Provider: Evaristo Sanches Consult Reason/Comments: GI bleed-stop Effient Do you want consulting provider notified?: Yes Primary care physician: Junito Rubio MD Hospital Course: Chief Complaint: Rectal bleeding, hematuria 64-year-old male with a PMH of COPD and schizophrenia. April 2024-STEMI: Stent to the LAD. Patient presented to the ER. He has a Baeza catheter was placed about 4 months ago because of enlarged prostate. He has been having hematuria. Also is unclear from the patient and from the notes from the EMS for active bleeding per rectum. Patient does say that he has had bleeding per rectum. But his stool is not dark. About 4 months ago at [facility] he did have a colonoscopy. Polyps were removed. Does not report anything else. Patient does use a wheelchair. Can take a few steps. Appetite is fair. Bowel movements are regular otherwise. December 20: Patient was seen by cardiology. Per them continue both antiplatelet agents until follow-up with Dr. Mena outpatient in 2 weeks. Also seen by Dr. Williamson from urology. Patient to follow-up with his urologist at [facility]. No other surgical intervention currently per urology. Also seen by Dr. Boss from general surgery. Not for any further intervention. Patient's colonoscopy results were noted from [facility] that was done on August 10, 2024. Patient was found to have multiple flat polyps in the ascending colon. Removed with cold snare polypectomy. Several small sessile polyps were left in situ. In the transverse and descending colon. Large internal hemorrhoid. No fistula was visualized in the rectosigmoid colon. Discussed with patient case manager. Patient returned to [facility]. Discussed with the patient. Patient did state that he does get some tremors that he is known to have from [facility]. Discussion and discharge planning more than 35 minutes Social history: Smoking 2 packs a day, since 1978. Lives at [facility]. Has a public guardian. Physical examination: VITAL SIGNS: 97.5, 68, 16, 110 x 32, 96% 2 L GENERAL: BMI 21.1, loss of muscle mass subcutaneous fat.. Propped up in bed EYES: Pupils equal. Conjunctiva jayson l. HEENT: External appearance of nose and ears normal, oral cavity grossly normal. NECK: JVD not raised; masses not palpable. HEART: First and second heart sounds are normal; no edema. LUNGS: Respiratory rate normal; decreased breath sounds ABDOMEN: Soft, nontender, liver spleen not palpable, no masses palpable. Baeza catheter with urinary clear of PSYCH: Able to answer questions. A bit anxious MUSCULOSKELETAL:No Clubbing/cyanosis;muscles-grossly intact. Loss of muscle mass subcutaneous fat NEUROLOGICAL: Cranial nerves grossly intact; no facial asymmetry, power and sensation grossly intact. Tremors intermittent INVESTIGATIONS, reviewed in the clinical context: December 20: White count 8.4 hemoglobin 12.1 platelets 280 December 19, 2024: White count 12.6 hemoglobin 14.5 platelets 340 sodium 136 potassium 4.4 creatinine 0.52 Stool occult blood positive EKG tracing personally reviewed by me-sinus rhythm. Right bundle lillie block. Recent labs April 28: Potassium 4.6 creatinine 0.68. Albumin 3.3 Urine culture: Positive for Klebsiella pneumoniae, E. coli, Enterococcus faecalis CT scan abdomen pelvis: Minimal compressive atelectasis. 2D echocardiogram: EF 20 to 25%. Wall motion abnormality. Tricuspid regurgitation. Assessment and plan: -Acute GI bleed. Patient states she has had blood per rectum.-Separate from the stool.: Possibly from internal hemorrhoid Colonoscopy July 2024 [facility]. Polyps were removed. Internal hemorrhoids were noted. GI service is not available in the hospital Dr. Boss from surgery saw the patient Stop Effient - Hematuria, acute in the patient with Baeza catheter for about last 4 months. Likely traumatic in addition to patient being on Effient Seen by urology. Patient to follow-up with his own urologist at [facility] -CAD with STEMI [April 22, 2024] LAD stent. ASA 81 mg PO QD. Lipitor at 40 mg PO QHS. Metoprolol at 12.5 mg PO BID. It has been 7 months since patient has been on dual antiplatelet agent. At this point we will stop Effient Seen by cardiology. Patient's both aspirin and Effient have been discontinued. Per cardiology this is to be further evaluated by Dr. Mena patient's cardiology in 2 weeks. -Chronic HFrEF: EF 20-25%. 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 Patient did inform me that his tremor is from his Haldol. This is being followed by his physicians. -No UTI -COPD in a current smoker Symbicort, Spiriva -Schizophrenia: Zyprexa 5 mg PO QHS. -Moderate-severe protein calorie malnutrition Ensure 3 times daily -Nicotine dependence Nicotine patch CODE STATUS: FULL CODE. - public guardian Disposition: [facility] Past Medical History Past Medical History: Cancer, COPD, Pneumonia Additional Past Medical History / Comment(s): Melanoma removed from L trunk, skin cancer removed from R side of nose, L eye blurry vision, constipation, hematuria/UTI, hypoglycemia. migraines Last Myocardial Infarction Date:: 04/22/24 History of Any Multi-Drug Resistant Organisms: None Reported Past Surgical History: Adenoidectomy, Tonsillectomy Additional Past Surgical History / Comment(s): R side of nose skin cancer removal/skin graft, L trunk melanoma removed, colonoscopy. Past Anesthesia/Blood Transfusion Reactions: No Reported Reaction Date of Last Stent Placement:: 04/22/24 Past Psychological History: Schizophrenia Smoking Status: Former smoker Past Alcohol Use History: None Reported Past Drug Use History: None Reported Plan - Discharge Summary Discharge Rx Participant: No New Discharge Prescriptions: New Nicotine 21Mg/24Hr Patch [Habitrol] 1 patch TRANSDERM DAILY patch Continue Albuterol Sulfate [Ventolin HFA] 2 puff INHALATION RT-Q6H PRN PRN Reason: Shortness Of Breath Haloperidol Decanoate [Haldol D] 100 mg IM Q28D OLANZapine [ZyPREXA] 5 mg PO HS@2000 Nitroglycerin Sl Tabs [Nitrostat] 0.4 mg SUBLINGUAL Q5M PRN #30 tab PRN Reason: Chest Pain Atorvastatin [Lipitor] 40 mg PO HS@2000 Midodrine [ProAmatine] 5 mg PO TID@0700,1100,1700 Pantoprazole [Protonix] 40 mg PO DAILY@0800 Naloxone HCl [Narcan] 4 mg NASAL DIRECTED PRN PRN Reason: OVERDOSE Ferrous Sulfate [Iron] 325 mg PO DAILY Tiotropium [place] Monohydrate Inhalation Solution 1.25mcg/Act 2 puff INHALATION RT-DAILY Metoprolol Tartrate [Lopressor] 12.5 mg PO BID@ Cholecalciferol [Vitamin D3 (25 Mcg = 1000 Iu)] 50 mcg PO DAILY@0700 Tamsulosin [Flomax] 0.4 mg PO DAILY@0800 Olopatadine HCl [Pataday] 1 drop BOTH EYES DAILY@0800 Fluticasone Propion/Salmeterol [Fluticasone-Salmeterol 250-50] 1 puff INHALATION RT-BID@ Acetaminophen-Codeine 300-30mg [Tylenol w/codeine #3] 1 tab PO Q8H PRN #9 tab PRN Reason: Pain Discontinued Aspirin 81 mg PO DAILY@0800 Prasugrel [Effient] 10 mg PO DAILY@0800 Doxycycline Hyclate 100 mg PO BID@799,1999 Discharge Medication List Albuterol Sulfate [Ventolin HFA] 2 puff INHALATION RT-Q6H PRN 04/23/24 [History] Haloperidol Decanoate [Haldol D] 100 mg IM Q28D 04/23/24 [History] OLANZapine [ZyPREXA] 5 mg PO HS@199904/23/24 [History] Nitroglycerin Sl Tabs [Nitrostat] 0.4 mg SUBLINGUAL Q5M PRN #30 tab 04/28/24 [ Rx] Atorvastatin [Lipitor] 40 mg PO HS@199904/30/24 [History] Metoprolol Tartrate [Lopressor] 12.5 mg PO BID@08,199904/30/24 [History] Midodrine [ProAmatine] 5 mg PO TID@0700,1100,1700 04/30/24 [History] Pantoprazole [Protonix] 40 mg PO DAILY@0800 04/30/24 [History] Cholecalciferol [Vitamin D3 (25 Mcg = 1000 Iu)] 50 mcg PO DAILY@0700 12/19/24 [History] Ferrous Sulfate [Iron] 325 mg PO DAILY 12/19/24 [History] Fluticasone Propion/Salmeterol [Fluticasone-Salmeterol 250-50] 1 puff INHALATION RT-BID@799,199912/19/24 [History] Naloxone HCl [Narcan] 4 mg NASAL DIRECTED PRN 12/19/24 [History] Olopatadine HCl [Pataday] 1 drop BOTH EYES DAILY@79912/19/24 [History] Tamsulosin [Flomax] 0.4 mg PO DAILY@79912/19/24 [History] Tiotropium [place] Monohydrate Inhalation Solution 1.25mcg/Act 2 puff INHALATION RT-DAILY 12/19/24 [History] Acetaminophen-Codeine 300-30mg [Tylenol w/codeine #3] 1 tab PO Q8H PRN #9 tab 12/20/24 [Rx] Nicotine 21Mg/24Hr Patch [Habitrol] 1 patch TRANSDERM DAILY patch 12/20/24 [Rx] Follow up Appointment(s)/Referral(s): urology,dr [Other] - 1 Week Catarina Mena MD [STAFF PHYSICIAN] - 1 Week Junito Rubio MD [Primary Care Provider] - 1-2 days
--- NOTE | 2024-12-20 13:38 | P.PN ---
Subjective Progress Note Date: 12/20/24 SURGICAL PROGRESS NOTE CHIEF COMPLAINT: GI bleed HISTORY OF PRESENT ILLNESS: Surgical service following in regards to concerns for possible GI bleed. Patient reports no blood from rectum. He reports he had blood in his urine which has cleared. He is followed with urology and following up outpatient. He has known bladder stones. He denies any abdominal pain. Hemoglobin stable at 12. He is scheduled for discharge today. PHYSICAL EXAM: VITAL SIGNS: Reviewed. GENERAL: Well-developed in no acute distress. HEENT: No sclera icterus. Extraocular movements grossly intact. Moist buccal mucosa. Head is atraumatic, normocephalic. ABDOMEN: Soft. Nondistended. Nontender. NEUROLOGIC: Alert and oriented. Cranial nerves II through XII grossly intact. ASSESSMENT: 1. Suspicion of GI bleed with recent colonoscopy 4 months ago that reported colon polyps 2. Hematuria that is resolved. PLAN: - No surgical intervention planned - Patient can be discharged from surgical standpoint - Agree with holding Effient - If patient has any further rectal bleeding would recommend repeating colonoscopy Physician Jailer Chief note has been reviewed by physician. Signing provider agrees with the documented findings, assessment, and plan of care. Objective - Vital Signs Vital signs: Vital Signs Temp 97.5 F L 12/20/24 11:25 Pulse 68 12/20/24 11:25 Resp 16 12/20/24 11:25 BP 110/72 12/20/24 11:25 Pulse Ox 96 12/20/24 11:25 FiO2 Intake & Output 12/19/24 12/20/24 12/20/24 18:59 06:59 18:59 Intake Total 240 Output Total 800 450 Balance -800 -450 240 Weight 61.235 kg Intake: Oral 240 Output: Urine 800 450 Other: Voiding Method Indwelling Catheter Indwelling Catheter - Labs CBC & Chem 7: 12/20/24 06:33 12/19/24 04:31 Labs: Abnormal Lab Results - Last 24 Hours (Table) 12/19/24 12/20/24 Range/Units 18:38 06: WBC 11.38 H (4.50-10.00) 10*3/uL RBC 4.25 L (4.40-5.60) 10*6/uL Hgb 12.1 L (13.0-17.0) g/dL Hct 37.0 L (39.6-50.0) % Immature Gran # 0.05 H (0.00-0.04) 10*3/uL Monocytes # 1.05 H (0.20-1.00) 10*3/uL Microbiology - Last 24 Hours (Table) 12/19/24 09:37 Urine Culture - Preliminary Urine,Voided Gram Neg Bacilli
[2024-12-20 15:14] VITALS: BP 107/71; RESP 18; TEMP 97.8
== END 2024-12-20 15:52 ==
LOC: SUPCPDRO 04:17 → EC 04:17 → 4SSUR 06:10 → INTOOBSV 06:11 → OBSVTOIN 06:11 → 4SSUR 06:41 → 3SCARD 07:53
PROVIDERS: ADMIT Hospitalist; ATTEND Hospitalist
DX: K62.5 Hemorrhage of anus and rectum (principal); R31.0 Gross hematuria; I25.10 Atherosclerotic heart disease of native coronary artery without angina pectoris; I11.0 Hypertensive heart disease with heart failure; I50.22 Chronic systolic (congestive) heart failure; R25.1 Tremor, unspecified; E44.0 Moderate protein-calorie malnutrition; J44.9 Chronic obstructive pulmonary disease, unspecified; F20.9 Schizophrenia, unspecified; E78.5 Hyperlipidemia, unspecified; F17.210 Nicotine dependence, cigarettes, uncomplicated; I25.2 Old myocardial infarction; I25.5 Ischemic cardiomyopathy; Z79.01 Long term (current) use of anticoagulants; Z79.02 Long term (current) use of antithrombotics/antiplatelets; Z79.51 Long term (current) use of inhaled steroids; Z79.82 Long term (current) use of aspirin; Z79.899 Other long term (current) drug therapy; Z85.820 Personal history of malignant melanoma of skin; Z85.828 Personal history of other malignant neoplasm of skin; Z87.442 Personal history of urinary calculi; Z95.5 Presence of coronary angioplasty implant and graft; Z86.0100 Personal history of colon polyps, unspecified; Z87.440 Personal history of urinary (tract) infections; Z68.21 Body mass index [BMI] 21.0-21.9, adult
CPT/HCPCS: 96374; 99285; 36415; 94640 ×4; 94760; 93005; 86900; 86901; 80053; 83605; 83735; 85025 ×2; 85027; 86850; 82272; 81001; 87086; 87077; 87186; G0378 ×2; J2470

== ENCOUNTER 2025-01-05 12:51 | Inpatient (IN) | payer MEDICARE, OTHER ==
[2025-01-05 13:48] LABS: Appearance,Urine Turbid (Clear); Bilirubin,Urine Negative (Negative); Blood,Urine Moderate (Negative); Color,Urine Yellow; Glucose,Urine (UA) Negative (Negative); Ketones,Urine Negative (Negative); Leukocyte Esterase,Urine Large (Negative); Mucus,Urine Rare /hpf; Nitrite,Urine Negative (Negative); Protein,Urine 1+ (Negative); RBC,Urine 20 /hpf (0-5); Specific Gravity,Urine 1.019 (1.001-1.035); Urobilinogen,Urine <2.0 mg/dL (<2.0); WBC,Urine >182 /hpf (0-5)
[2025-01-05 14:30] LABS: Basophils # (A) 0.03 10*3/uL (0.00-0.10); Basophils % (A) 0.2 %; Eosinophils # (A) 0.04 10*3/uL (0.04-0.35); Eosinophils % (A) 0.2 %; HCT 29.7 % (39.6-50.0); HGB 10.2 g/dL (13.0-17.0); Lymphocytes # (A) 1.09 10*3/uL (0.90-5.00); Lymphocytes % (A) 6.1 %; MCH 30.2 pg (27.0-32.0); MCHC 34.3 g/dL (32.0-37.0); MCV 87.9 fL (80.0-97.0); Mean Platelet Volume 12.1 fL (9.5-12.2); Monocytes % (A) 6.7 %; Neutrophils # (A) 15.44 10*3/uL (1.80-7.70); Neutrophils % (A) 86.4 %; Platelet Count 224 10*3/uL (140-440); RBC 3.38 10*6/uL (4.40-5.60); RDW 15.1 % (11.5-14.5); WBC 17.88 10*3/uL (4.50-10.00)
[2025-01-05] MEDS: SODIUM CHLORIDE 0.9% 1,000 ML IV ONE (15:15)
[2025-01-05 15:16] LABS: ALT 14 U/L (4-49); AST 24 U/L (17-59); African American GFR (CKD) >90 (>60 ml/min/1.73 sqM); Albumin 3.1 g/dL (3.5-5.0); Alkaline Phosphatase 86 U/L (38-126); Anion Gap 9 mmol/L; Blood Urea Nitrogen 10 mg/dL (9-20); Calcium 8.1 mg/dL (8.4-10.2); Carbon Dioxide 21 mmol/L (22-30); Chloride 98 mmol/L (98-107); Glucose 116 mg/dL (74-99); Non-African American GFR(CKD) >90 (>60 ml/min/1.73 sqM); Potassium 3.8 mmol/L (3.5-5.1); Sodium 128 mmol/L (137-145); Total Bilirubin 0.8 mg/dL (0.2-1.3); Total Protein 5.7 g/dL (6.3-8.2)
--- NOTE | 2025-01-05 18:04 | ED ---
Male Urogenital HPI - General Chief complaint: Urogenital Stated complaint: Possible UTI Time Seen by Provider: 01/05/25 12:55 Source: patient, EMS Mode of arrival: EMS - History of Present Illness Initial comments: 64-year-old male with past medical history of schizophrenia, indwelling Blandon due to prostate issues who presents emergency department with fever. Reportedly the patient had a fever at his long-term care facility. He was given a dose of Tylenol. He had his Blandon catheter changed yesterday. They are concerned for urinary tract infection as patient has had them previously in the past. Patient does not provide many complaints. He denies weakness. No shortness of breath. Denies chest pain. No abdominal pain. No other alleviating, precipitating or modifying factors - Related Data Home Medications Medication Instructions Recorded Confirmed Albuterol Sulfate [Ventolin HFA] 2 puff INHALATION RT-Q6H PRN 04/23/24 01/05/25 Haloperidol Decanoate [Haldol D] 100 mg IM Q28D 04/23/24 01/05/25 OLANZapine [ZyPREXA] 5 mg PO HS 04/23/24 01/05/25 Atorvastatin [Lipitor] 40 mg PO HS 04/30/24 01/05/25 Metoprolol Tartrate [Lopressor] 12.5 mg PO BID 04/30/24 01/05/25 Midodrine [ProAmatine] 5 mg PO TID@0500,1100,1700 04/30/24 01/05/25 Pantoprazole [Protonix] 40 mg PO DAILY 04/30/24 01/05/25 Cholecalciferol [Vitamin D3 (25 50 mcg PO DAILY 12/19/24 01/05/25 Mcg = 1000 Iu)] Ferrous Sulfate [Iron] 325 mg PO DAILY 12/19/24 01/05/25 Fluticasone Propion/Salmeterol 1 puff INHALATION RT-BID 12/19/24 01/05/25 [Fluticasone-Salmeterol 250-50] Naloxone HCl [Narcan] 4 mg NASAL DIRECTED PRN 12/19/24 01/05/25 Olopatadine HCl [Pataday] 1 drop BOTH EYES DAILY@0800 12/19/24 01/05/25 Tamsulosin [Flomax] 0.4 mg PO DAILY@0700 12/19/24 01/05/25 Tiotropium [place] Monohydrate 2 puff INHALATION RT-DAILY 12/19/24 01/05/25 Inhalation Solution 1.25mcg/Act Acetaminophen [Tylenol 8 Hour] 650 mg PO Q6H PRN 01/05/25 01/05/25 Acetaminophen-Codeine 300-30mg 1 tab PO Q8H PRN 01/05/25 01/05/25 [Tylenol w/codeine #3] Artificial Tears-Hypromellose 2 drops BOTH EYES Q4H PRN 01/05/25 01/05/25 [Artificial Tear Drops] Doxycycline [Vibramycin] 100 mg PO BID 01/05/25 01/05/25 Pat-Tussin 200 mg PO Q6H PRN 01/05/25 01/05/25 Nicotine 21Mg/24Hr Patch [Habitrol] 1 patch TRANSDERM HS 01/05/25 01/05/25 Sennosides [Senokot] 8.6 mg PO DAILY 01/05/25 01/05/25 Previous Rx's Medication Instructions Recorded Nitroglycerin Sl Tabs [Nitrostat] 0.4 mg SUBLINGUAL Q5M PRN #30 tab 04/28/24 Allergies Allergy/AdvReac Type Severity Reaction Status Date / Time cephalexin monohydrate Allergy Unknown Verified 01/05/25 17:24 [From Keflex] clindamycin Allergy Unknown Verified 01/05/25 17:24 latex Allergy Rash/Hives Verified 01/05/25 17:24 Penicillins Allergy Rash/Hives Verified 01/05/25 17:24 Review of Systems ROS Statement: Those systems with pertinent positive or pertinent negative responses have been documented in the HPI. ROS Other: All systems not noted in ROS Statement are negative. Past Medical History Past Medical History: Cancer, COPD, Pneumonia Additional Past Medical History / Comment(s): Melanoma removed from L trunk, skin cancer removed from R side of nose, L eye blurry vision, constipation, hematuria/UTI, hypoglycemia. migraines Last Myocardial Infarction Date:: 04/22/24 History of Any Multi-Drug Resistant Organisms: None Reported Past Surgical History: Adenoidectomy, Tonsillectomy Additional Past Surgical History / Comment(s): R side of nose skin cancer removal/skin graft, L trunk melanoma removed, colonoscopy. Past Anesthesia/Blood Transfusion Reactions: No Reported Reaction Date of Last Stent Placement:: 04/22/24 Past Psychological History: Schizophrenia Smoking Status: Former smoker Past Alcohol Use History: None Reported - Past Family History Father Family Medical History: Diabetes Mellitus Additional Family Medical History / Comment(s): Father is living. Mother Family Medical History: CVA/TIA, Myocardial Infarction ([place]) Additional Family Medical History / Comment(s): Mother had a CVA, shingles. She is from the CVA. General Exam Limitations: altered mental status General appearance: alert, in no apparent distress Head exam: Present: atraumatic, normocephalic, normal inspection Eye exam: Present: normal appearance, PERRL, EOMI. Absent: scleral icterus, conjunctival injection, periorbital swelling ENT exam: Present: normal exam, mucous membranes moist Neck exam: Present: normal inspection. Absent: tenderness, meningismus, lymphadenopathy Respiratory exam: Present: normal lung sounds bilaterally. Absent: respiratory distress, wheezes, rales, rhonchi, stridor Cardiovascular Exam: Present: regular rate, normal rhythm, normal heart sounds. Absent: systolic murmur, diastolic murmur, rubs, gallop, clicks GI/Abdominal exam: Present: soft, normal bowel sounds. Absent: distended, tenderness, guarding, rebound, rigid Extremities exam: Present: normal inspection, full ROM, normal capillary refill. Absent: tenderness, pedal edema, joint swelling, calf tenderness Back exam: Present: normal inspection Neurological exam: Present: alert, oriented X3, CN II-XII intact Psychiatric exam: Present: flat affect Skin exam: Present: warm, dry, intact, normal color. Absent: rash Course Vital Signs 01/05/25 01/05/25 01/05/25 12:53 15:07 15:45 Temperature 98.2 F Pulse Rate 86 72 79 Pulse Rate [ Pulse Oximetery ] Respiratory 20 18 20 Rate Blood Pressure 107/69 80/53 94/58 Blood Pressure [Right Arm] O2 Sat by Pulse 98 96 98 Oximetry 01/05/25 01/05/25 01/06/25 17:40 21:02 01:38 Temperature Pulse Rate 81 92 78 Pulse Rate [ Pulse Oximetery ] Respiratory 17 18 19 Rate Blood Pressure 113/70 99/63 98/60 Blood Pressure [Right Arm] O2 Sat by Pulse 95 97 94 L Oximetry 01/06/25 01/06/25 01/06/25 09:50 14:10 18:49 Temperature 98 F 97.9 F 98.6 F Pulse Rate Pulse Rate [ 77 79 77 Pulse Oximetery ] Respiratory 16 16 16 Rate Blood Pressure Blood Pressure 106/70 113/82 99/63 [Right Arm] O2 Sat by Pulse 97 100 97 Oximetry Medical Decision Making - Medical Decision Making Was pt. sent in by a medical professional or institution (, PA, SANITATION LABORER, urgent care, hospital, or fpc...) When possible be specific @ -Patient was sent in from his nursing facility Did you speak to anyone other than the patient for history (EMS, parent, family, police, friend...)? What history was obtained from this source @ -Spoke with EMS for history Did you review nursing and triage notes (agree or disagree)? Why? @ -I reviewed and agree with nursing and triage notes Were old charts reviewed (outside hosp., previous admission, EMS record, old EKG, old radiological studies, urgent care reports/EKG's, fpc records)? Report findings @ -I reviewed microbiology culture from December 19 Differential Diagnosis (chest pain, altered mental status, abdominal pain women, abdominal pain men, vaginal bleeding, weakness, fever, dyspnea, syncope, headache, dizziness, GI bleed, back pain, seizure, CVA, palpatations, mental health, musculoskeletal)? @ -Differential Fever: Pneumonia, viral URI, endocarditis, myocarditis, pericarditis, otitis, sinusitis, peritonsillar Abscess, retropharyngeal Abscess, epiglottitis, peritonitis, appendicitis, Emma cystitis, diverticulitis, hepatitis, colitis, UTI, PID, TOA, pyelonephritis, prostatitis, epididymitis, meningitis, encephalitis, pulmonary embolism, CVA, thyroid storm, pancreatitis, adrenal cr volodymyr, cavernous sinus thrombosis, this is not meant to be an all-inclusive list. EKG interpreted by me (3pts min.). @ -Not done X-rays interpreted by me (1pt min.). @ -None done CT interpreted by me (1pt min.). @ -None done U/S interpreted by me (1pt. min.). @ -None done What testing was considered but not performed or refused? (CT, X-rays, U/S, labs)? Why? @ -None What meds were considered but not given or refused? Why? @ -None Did you discuss the management of the patient with other professionals (professionals i.e. , PA, SANITATION LABORER, lab, RT, psych nurse, social research assistant, clinical science liaison, teacher, correctional program officer, manager of case management)? Give summary @ -Spoke with Dr. Pires for admission Was smoking cessation discussed for >3mins.? @ -No Was critical care preformed (if so, how long)? @ -No Were there social determinants of health that impacted care today? How? (Homelessness, low income, unemployed, alcoholism, drug addiction, transportation, low edu. Level, literacy, decrease access to med. care, half-way, rehab)? @ -No Was there de-escalation of care discussed even if they declined (Discuss DNR or withdrawal of care, Hospice)? DNR status @ -No What co-morbidities impacted this encounter? (DM, HTN, Smoking, COPD, CAD, Cancer, CVA, ARF, Chemo, Hep., AIDS, mental health diagnosis, sleep apnea, mor bid obesity)? @ -urinary retention Was patient admitted / discharged? Hospital course, mention meds given and route, prescriptions, significant lab abnormalities, going to OR and other pertinent info. @ -Upon arrival patient seen and evaluated in hallway 20. Thorough history and physical exam was performed. IV access was established. Laboratory studies are conducted. Urinalysis was sent. Patient is slightly hypotensive leukocytosis. He does have multiple drug allergies. Recommended admission for infectious disease consult. Spoke with Dr. Pires admission Undiagnosed new problem with uncertain prognosis? @ -No Drug Therapy requiring intensive monitoring for toxicity (Heparin, Nitro, Insulin, Cardizem)? @ -No Were any procedures done? @ -No Diagnosis/symptom? @ -Acute pyrexia, acute UTI, hypotension, leukocytosis Acute, or Chronic, or Acute on Chronic? @ -Acute Uncomplicated (without systemic symptoms) or Complicated (systemic symptoms)? @ -Complicated Side effects of treatment? @ -No Exacerbation, Progression, or Severe Exacerbation? @ -No Poses a threat to life or bodily function? How? (Chest pain, [place], [place], pneumonia, PE, COPD, DKA, ARF, appy, cholecystitis, CVA, Diverticulitis, Homicidal, Suicidal, threat to staff... and all critical care pts) @ -No - Lab Data Result diagrams: 01/08/25 04:41 01/08/25 04:41 Lab Results 01/05/25 01/05/25 01/05/25 Range/Units 13:09 14:15 14:15 WBC 17.88 H (4.50-10.00) 10*3/uL RBC 3.38 L (4.40-5.60) 10*6/uL Hgb 10.2 L (13.0-17.0) g/dL Hct 29.7 L (39.6-50.0) % MCV 87.9 (80.0-97.0) fL MCH 30.2 (27.0-32.0) pg MCHC 34.3 (32.0-37.0) g/dL Plt Count 224 (140-440) 10*3/uL MPV 12.1 (9.5-12.2) fL Immature Gran % (Auto) 0.4 % Neutrophils % 86.4 % Lymphocytes % 6.1 % Monocytes % 6.7 % Eosinophils % 0.2 % Basophils % 0.2 % Immature Gran # 0.08 H (0.00-0.04) 10*3/uL Neutrophils # 15.44 H (1.80-7.70) 10*3/uL Lymphocytes # 1.09 (0.90-5.00) 10*3/uL Monocytes # 1.20 H (0.20-1.00) 10*3/uL Eosinophils # 0.04 (0.04-0.35) 10*3/uL Basophils # 0.03 (0.00-0.10) 10*3/uL Sodium 128 L (137-145) mmol/L Potassium 3.8 (3.5-5.1) mmol/L Chloride 98 (98-107) mmol/L Carbon Dioxide 21 L (22-30) mmol/L Anion Gap 9 mmol/L BUN 10 (9-20) mg/dL Creatinine 0.40 L (0.66-1.25) mg/dL Est GFR (CKD-EPI)AfAm >90 (>60 ml/min/1.73 sqM) Est GFR (CKD-EPI)NonAf >90 (>60 ml/min/1.73 sqM) Glucose 116 H (74-99) mg/dL Plasma Lactic Acid Lukas (0.7-2.0) mmol/L Calcium 8.1 L (8.4-10.2) mg/dL Total Bilirubin 0.8 (0.2-1.3) mg/dL AST 24 (17-59) U/L ALT 14 (4-49) U/L Alkaline Phosphatase 86 (38-126) U/L Total Protein 5.7 L (6.3-8.2) g/dL Albumin 3.1 L (3.5-5.0) g/dL Urine Color Yellow Urine Appearance Turbid (Clear) Urine pH 6.0 (5.0-8.0) Ur Specific Saline 1.019 (1.001-1.035) Urine Protein 1+ H (Negative) Urine Glucose (UA) Negative (Negative) Urine Ketones Negative (Negative) Urine Blood Moderate H (Negative) Urine Nitrite Negative (Negative) Urine Bilirubin Negative (Negative) Urine Urobilinogen <2.0 (<2.0) mg/dL Ur Leukocyte Esterase Large H (Negative) Urine RBC 20 H (0-5) /hpf Urine WBC >182 H (0-5) /hpf Urine WBC Clumps Many H (None) /hpf Urine Mucus Rare H (None) /hpf 01/05/25 Range/Units 14:15 WBC (4.50-10.00) 10*3/uL RBC (4.40-5.60) 10*6/uL Hgb (13.0-17.0) g/dL Hct (39.6-50.0) % MCV (80.0-97.0) fL MCH (27.0-32.0) pg MCHC (32.0-37.0) g/dL Plt Count (140-440) 10*3/uL MPV (9.5-12.2) fL Immature Gran % (Auto) % Neutrophils % % Lymphocytes % % Monocytes % % Eosinophils % % Basophils % % Immature Gran # (0.00-0.04) 10*3/uL Neutrophils # (1.80-7.70) 10*3/uL Lymphocytes # (0.90-5.00) 10*3/uL Monocytes # (0.20-1.00) 10*3/uL Eosinophils # (0.04-0.35) 10*3/uL Basophils # (0.00-0.10) 10*3/uL Sodium (137-145) mmol/L Potassium (3.5-5.1) mmol/L Chloride (98-107) mmol/L Carbon Dioxide (22-30) mmol/L Anion Gap mmol/L BUN (9-20) mg/dL Creatinine (0.66-1.25) mg/dL Est GFR (CKD-EPI)AfAm (>60 ml/min/1.73 sqM) Est GFR (CKD-EPI)NonAf (>60 ml/min/1.73 sqM) Glucose (74-99) mg/dL Plasma Lactic Acid Lukas 1.7 (0.7-2.0) mmol/L Calcium (8.4-10.2) mg/dL Total Bilirubin (0.2-1.3) mg/dL AST (17-59) U/L ALT (4-49) U/L Alkaline Phosphatase (38-126) U/L Total Protein (6.3-8.2) g/dL Albumin (3.5-5.0) g/dL Urine Color Urine Appearance (Clear) Urine pH (5.0-8.0) Ur Specific Saline (1.001-1.035) Urine Protein (Negative) Urine Glucose (UA) (Negative) Urine Ketones (Negative) Urine Blood (Negative) Urine Nitrite (Negative) Urine Bilirubin (Negative) Urine Urobilinogen (<2.0) mg/dL Ur Leukocyte Esterase (Negative) Urine RBC (0-5) /hpf Urine WBC (0-5) /hpf Urine WBC Clumps (None) /hpf Urine Mucus (None) /hpf Disposition Clinical Impression: UTI (urinary tract infection) Disposition: ADMITTED IP TO THIS [facility] Condition: Stable Is patient prescribed a controlled substance at d/c from ED?: No Time of Disposition: 18:18 Decision to Admit Reason: Admit from EC Decision Date: 01/05/25 Decision Time: 18:18
[2025-01-05] MEDS ORDERED: NALOXONE 0.4 MG/ML 1 ML VIAL IV PRN (18:27)
[2025-01-05] MEDS: SODIUM CHLORIDE 0.9% 1,000 ML IV SCH (18:30)
[2025-01-05] MEDS: GENTAMICIN PER PHARMACY MISCELLANE SCH (19:02)
[2025-01-05] MEDS: GENTAMICIN 300 MG in SODIUM CHLORIDE 0.9% 100 ML IVPB ONE (19:15)
[2025-01-06 04:43] LABS: African American GFR (CKD) >90 (>60 ml/min/1.73 sqM); Anion Gap 9 mmol/L; Blood Urea Nitrogen 7 mg/dL (9-20); Calcium 8.3 mg/dL (8.4-10.2); Carbon Dioxide 24 mmol/L (22-30); Chloride 99 mmol/L (98-107); Glucose 87 mg/dL (74-99); Non-African American GFR(CKD) >90 (>60 ml/min/1.73 sqM); Potassium 3.9 mmol/L (3.5-5.1); Sodium 132 mmol/L (137-145)
[2025-01-06 04:48] LABS: Gentamicin,Random 1.3 ug/mL
[2025-01-06 07:58] LABS: Basophils # (A) 0.03 X 10*3/uL (0.00-0.10); Basophils % (A) 0.2 %; Eosinophils # (A) 0.04 X 10*3/uL (0.04-0.35); Eosinophils % (A) 0.3 %; HCT 32.9 % (39.6-50.0); HGB 10.6 g/dL (13.0-17.0); Lymphocytes # (A) 0.96 X 10*3/uL (0.90-5.00); Lymphocytes % (A) 7.7 %; MCH 28.6 pg (27.0-32.0); MCHC 32.2 g/dL (32.0-37.0); MCV 88.7 FL (80.0-97.0); Monocytes # (A) 1.09 X 10*3/uL (0.20-1.00); Monocytes % (A) 8.8 %; NRBC Per 100 WBC 0 X 10*3/uL (0.00-0.01); Neutrophils # (A) 10.23 X 10*3/uL (1.80-7.70); Neutrophils % (A) 82.3 %; Platelet Count 244 X 10*3/uL (140-440); RBC 3.71 X 10*6/uL (4.40-5.60); RDW 15.2 % (11.5-14.5); WBC 12.44 X 10*3/uL (4.50-10.00)
[2025-01-06] MEDS ORDERED: ALBUTEROL NEBULIZED 2.5 MG/3 ML INHALATION PRN (08:58)
[2025-01-06] MEDS ORDERED: NITROGLYCERIN SL TABS 0.4 MG TAB SUBLINGUAL PRN (08:58)
[2025-01-06] MEDS ORDERED: ARTIFICIAL TEARS-HYPROMELLOSE DROPS 15 ML BTL BOTH EYES PRN (08:58)
[2025-01-06] MEDS ORDERED: ACETAMINOPHEN TAB 325 MG TAB PO PRN (08:58)
[2025-01-06] MEDS ORDERED: guaiFENesin SYRUP 100MG/5ML 200 MG/10 ML CUP PO PRN (08:58)
[2025-01-06] MEDS: CHOLECALCIFEROL 25 MCG (1000 IU) TABLET PO SCH (09:53)
[2025-01-06] MEDS: PANTOPRAZOLE 40 MG TABLET PO SCH (09:53)
[2025-01-06] MEDS: SENNOSIDES 8.6 MG TAB PO SCH (09:53)
[2025-01-06] MEDS: METOPROLOL TARTRATE 12.5 MG TAB PO SCH (09:53)
[2025-01-06] MEDS: FERROUS SULFATE 325 MG TAB PO SCH (09:53)
[2025-01-06] MEDS: NICOTINE 21MG/24HR PATCH TRANSDERM SCH (09:53)
[2025-01-06] MEDS: MIDODRINE 5 MG TAB PO SCH (09:54)
[2025-01-06] MEDS: CEFEPIME 2 GM in SODIUM CHLORIDE 0.9% 100 ML IVPB SCH (12:08)
--- NOTE | 2025-01-06 16:12 | P.HPIM ---
History of Present Illness H&P Date: 01/06/25 History of present illness: 64-year-old male patient with past medical history significant for schizo phrenia, indwelling Blandon catheter due to BPH who presented to ED from intermediate with fever. Patient was noted to have fever at his long-term care facility, had Blandon catheter exchanged 1 day prior to presentation. Patient has history of recurrent UTIs, has history of Pseudomonas and Enterococcus in the past. Patient is a poor historian. Patient denied any chest pain, palpitation, sore throat, productive cough, shortness of breath, nausea vomiting diarrhea constipation abdominal pain dysuria urgency frequency flank pain weakness or numbness of the extremities. Patient is afebrile, heart rate 79, respiratory rate 16, blood pressure 113/82, saturating 100% on room air. WBC 17.8, trended down to 12.4, hemoglobin 10.6, platelet 244. Sodium on presentation 128, improved to 132 potassium 3.9 chloride 99 CO2 24 BUN 7 creatinine 0.60. UA positive for large leukocyte Estrace, WBCs more than 182. Assessment and plan: Complicated UTI: History of chronic indwelling Blandon catheter Recurrent UTIs History of Pseudomonas and Enterococcus: Presented with fever, lower abdominal discomfort Has history of chronic indwelling Blandon's catheter, exchanged 2 days ago UA positive Follow-up urine culture Infectious disease consult Currently on cefepime Hyponatremia: Improving, hypovolemic Monitor sodium IV fluids History of schizophrenia BPH Hyperlipidemia DVT prophylaxis Subcutaneous Lovenox Monitor vital signs and labs Labs and medication were reviewed. Continue same treatment. Further recommendations as per clinical course of the patient PHYSICAL EXAMINATION: GENERAL: The patient is A&O x3, NAD HEENT: EOMI, Sclerae anicteric, Moist Mucous membranes Neck: Supple, Non tender, No JVD PULMONARY: Equal breath souds B/L, No wheezing, No crackles. CARDIOVASCULAR: S1, S2 present. No murmurs, rubs, or gallops. ABDOMEN: Soft, nontender, nondistended, normoactive bowel sounds. No guarding or rebound tenderness. MUSCULOSKELETAL: No edema, No cyanosis. No clubbing. Normal ROM. Intact peripheral pulses. NEUROLOGICAL: CN 2-12 grossly intact. No FND REVIEW OF SYSTEMS: CONSTITUTIONAL: No fever, no malaise, no fatigue. HEENT: No recent visual problems or hearing problems. Denied any sore throat. CARDIOVASCULAR: No chest pain, orthopnea, PND, no palpitations, no syncope. PULMONARY: No shortness of breath, no cough, no hemoptysis. GASTROINTESTINAL: No diarrhea, no nausea, no vomiting, no abdominal pain. NEUROLOGICAL: No headaches, no weakness, no numbness. HEMATOLOGICAL: Denies any bleeding or petechiae. GENITOURINARY: Complains of bladder discomfort. MUSCULOSKELETAL/RHEUMATOLOGICAL: Denies any joint pain, swelling, or any muscle pain. ENDOCRINE: Denies any polyuria or polydipsia. The rest of the 14-point review of systems is negative. Dictation was produced using [employer] software. please excuse any grammatical, word or spelling errors. Past Medical History Past Medical History: Cancer, COPD, Pneumonia Additional Past Medical History / Comment(s): Melanoma removed from L trunk, skin cancer removed from R side of nose, L eye blurry vision, constipation, hematuria/UTI, hypoglycemia. migraines Last Myocardial Infarction Date:: 04/22/24 History of Any Multi-Drug Resistant Organisms: None Reported Past Surgical History: Adenoidectomy, Tonsillectomy Additional Past Surgical History / Comment(s): R side of nose skin cancer removal/skin graft, L trunk melanoma removed, colonoscopy. Past Anesthesia/Blood Transfusion Reactions: No Reported Reaction Date of Last Stent Placement:: 04/22/24 Past Psychological History: Schizophrenia Smoking Status: Former smoker Past Alcohol Use History: None Reported - Past Family History Father Family Medical History: Diabetes Mellitus Additional Family Medical History / Comment(s): Father is living. Mother Family Medical History: CVA/TIA, Myocardial Infarction ([place]) Additional Family Medical History / Comment(s): Mother had a CVA, shingles. She is from the CVA. Medications and Allergies Home Medications Medication Instructions Recorded Confirmed Type Albuterol Sulfate [Ventolin HFA] 2 puff INHALATION RT-Q6H PRN 04/23/24 01/05/25 History Haloperidol Decanoate [Haldol D] 100 mg IM Q28D 04/23/24 01/05/25 History OLANZapine [ZyPREXA] 5 mg PO HS 04/23/24 01/05/25 History Nitroglycerin Sl Tabs [Nitrostat] 0.4 mg SUBLINGUAL Q5M PRN #30 tab 04/28/24 01/05/25 Rx Atorvastatin [Lipitor] 40 mg PO HS 04/30/24 01/05/25 History Metoprolol Tartrate [Lopressor] 12.5 mg PO BID 04/30/24 01/05/25 History Midodrine [ProAmatine] 5 mg PO TID@0500,1100,1700 04/30/24 01/05/25 History Pantoprazole [Protonix] 40 mg PO DAILY 04/30/24 01/05/25 History Cholecalciferol [Vitamin D3 (25 50 mcg PO DAILY 12/19/24 01/05/25 History Mcg = 1000 Iu)] Ferrous Sulfate [Iron] 325 mg PO DAILY 12/19/24 01/05/25 History Fluticasone Propion/Salmeterol 1 puff INHALATION RT-BID 12/19/24 01/05/25 History [Fluticasone-Salmeterol 250-50] Naloxone HCl [Narcan] 4 mg NASAL DIRECTED PRN 12/19/24 01/05/25 History Olopatadine HCl [Pataday] 1 drop BOTH EYES DAILY@0800 12/19/24 01/05/25 History Tamsulosin [Flomax] 0.4 mg PO DAILY@0700 12/19/24 01/05/25 History Tiotropium [place] Monohydrate 2 puff INHALATION RT-DAILY 12/19/24 01/05/25 History Inhalation Solution 1.25mcg/Act Acetaminophen [Tylenol 8 Hour] 650 mg PO Q6H PRN 01/05/25 01/05/25 History Acetaminophen-Codeine 300-30mg 1 tab PO Q8H PRN 01/05/25 01/05/25 History [Tylenol w/codeine #3] Artificial Tears-Hypromellose 2 drops BOTH EYES Q4H PRN 01/05/25 01/05/25 History [Artificial Tear Drops] Doxycycline [Vibramycin] 100 mg PO BID 01/05/25 01/05/25 History Pat-Tussin 200 mg PO Q6H PRN 01/05/25 01/05/25 History Nicotine 21Mg/24Hr Patch [Habitrol] 1 patch TRANSDERM HS 01/05/25 01/05/25 History Sennosides [Senokot] 8.6 mg PO DAILY 01/05/25 01/05/25 History Allergies Allergy/AdvReac Type Severity Reaction Status Date / Time cephalexin monohydrate Allergy Unknown Verified 01/05/25 17:24 [From Keflex] clindamycin Allergy Unknown Verified 01/05/25 17:24 latex Allergy Rash/Hives Verified 01/05/25 17:24 Penicillins Allergy Rash/Hives Verified 01/05/25 17:24 Physical Exam Vitals: Vital Signs Temp Pulse Pulse Resp BP BP Pulse Ox 01/06/25 14:10 97.9 F 79 16 113/82 100 01/06/25 09:50 98 F 77 16 106/70 97 01/06/25 01:38 78 19 98/60 94 L 01/05/25 21:02 92 18 99/63 97 01/05/25 17:40 81 17 113/70 95 Intake and Output 01/06/25 01/06/25 01/06/25 06:59 14:59 22:59 Intake Total 480 1010 Output Total 1000 1200 Balance -1000 480 -190 Intake: Intake, IV Titration 1010 Amount Cefepime 2 gm In Sodium 100 Chloride 0.9% 100 ml @ 25 mls/hr IVPB Q8H [facility] Rx#: [id number] Sodium Chloride 0.9% 1, 910 000 ml @ 130 mls/hr IV . Q7H42M [facility] Rx#:[id number] Oral 480 Output: Urine 1000 1200 Other: Voiding Method Indwelling Catheter Indwelling Catheter Results CBC & Chem 7: 01/06/25 03:36 01/06/25 03:36 Labs: Abnormal Lab Results - Last 24 Hours (Table) 01/06/25 01/06/25 Range/Units 03:36 03:36 WBC 12.44 H (4.50-10.00) X 10*3/uL RBC 3.71 L (4.40-5.60) X 10*6/uL Hgb 10.6 L (13.0-17.0) g/dL Hct 32.9 L (39.6-50.0) % RDW 15.2 H (11.5-14.5) % Immature Gran # 0.09 H (0.00-0.04) X 10*3/uL Neutrophils # 10.23 H (1.80-7.70) X 10*3/uL Monocytes # 1.09 H (0.20-1.00) X 10*3/uL Sodium 132 L (137-145) mmol/L BUN 7 L (9-20) mg/dL Creatinine 0.60 L (0.66-1.25) mg/dL Calcium 8.3 L (8.4-10.2) mg/dL
[2025-01-06] MEDS: ASPIRIN 81 MG PO SCH (17:10)
[2025-01-06] MEDS ORDERED: GENTAMICIN 300 MG in SODIUM CHLORIDE 0.9% 100 ML IVPB SCH (18:00)
[2025-01-06] MEDS: SYMBICORT 80-4.5 MCG INHALER INHALATION SCH (22:15)
[2025-01-06] MEDS: ATORVASTATIN 40 MG TAB PO SCH (22:22)
[2025-01-06] MEDS: KETOTIFEN 0.025% OPHTH DROPS 5 ML BTL BOTH EYES SCH (22:40)
[2025-01-06] MEDS: OLANZapine 5 MG TAB PO SCH (22:40)
--- NOTE | 2025-01-06 23:05 | P.CONS ---
History of Present Illness - Reason for Consult Consult date: 01/06/25 Acute UTI Requesting physician: Margarita Steel - Chief Complaint Fever x 1 day - History of Present Illness Patient is a 75-year-old male with a past medical history significant for COPD melanoma pneumonia history of urinary retention with chronic draining Blandon catheter patient has been sent to the hospital from a long-term care facility after apparently the patient did have a fever patient Blandon catheter was changed day before the patient has been brought to the hospital and the fever started on fluids patient denies any headache or URI symptoms no chest pain shortness of breath or cough no nausea no vomiting no abdominal pain no diarrhea on presentation to the hospital the patient was afebrile no fever have been called subsequently patient was not tachycardic hypotensive or hypoxic he did have elevated white of 17.88 with a left shift creatinine 0.40 urine has been positive patient last urine culture done on 12/19/2024 positive for Serratia marcescens and Pseudomonas as the patient did have a Keflex and penicillin allergy he was started on gentamicin infectious disease was consulted for further management of antibiotic therapy Review of Systems Positive point and negatives has been mentioned in the HPI, complete review of systems was performed and all other systems are negative Past Medical History Past Medical History: Cancer, COPD, Pneumonia Additional Past Medical History / Comment(s): Melanoma removed from L trunk, skin cancer removed from R side of nose, L eye blurry vision, constipation, hematuria/UTI, hypoglycemia. migraines Last Myocardial Infarction Date:: 04/22/24 History of Any Multi-Drug Resistant Organisms: None Reported Past Surgical History: Adenoidectomy, Tonsillectomy Additional Past Surgical History / Comment(s): R side of nose skin cancer removal/skin graft, L trunk melanoma removed, colonoscopy. Past Anesthesia/Blood Transfusion Reactions: No Reported Reaction Date of Last Stent Placement:: 04/22/24 Past Psychological History: Schizophrenia Smoking Status: Former smoker Past Alcohol Use History: None Reported - Past Family History Father Family Medical History: Diabetes Mellitus Additional Family Medical History / Comment(s): Father is living. Mother Family Medical History: CVA/TIA, Myocardial Infarction ([place]) Additional Family Medical History / Comment(s): Mother had a CVA, shingles. She is from the [place]. Medications and Allergies Home Medications Medication Instructions Recorded Confirmed Type Albuterol Sulfate [Ventolin HFA] 2 puff INHALATION RT-Q6H PRN 04/23/24 01/05/25 History Haloperidol Decanoate [Haldol D] 100 mg IM Q28D 04/23/24 01/05/25 History OLANZapine [ZyPREXA] 5 mg PO HS 04/23/24 01/05/25 History Nitroglycerin Sl Tabs [Nitrostat] 0.4 mg SUBLINGUAL Q5M PRN #30 tab 04/28/24 01/05/25 Rx Atorvastatin [Lipitor] 40 mg PO HS 04/30/24 01/05/25 History Metoprolol Tartrate [Lopressor] 12.5 mg PO BID 04/30/24 01/05/25 History Midodrine [ProAmatine] 5 mg PO TID@0500,1100,1700 04/30/24 01/05/25 History Pantoprazole [Protonix] 40 mg PO DAILY 04/30/24 01/05/25 History Cholecalciferol [Vitamin D3 (25 50 mcg PO DAILY 12/19/24 01/05/25 History Mcg = 1000 Iu)] Ferrous Sulfate [Iron] 325 mg PO DAILY 12/19/24 01/05/25 History Fluticasone Propion/Salmeterol 1 puff INHALATION RT-BID 12/19/24 01/05/25 History [Fluticasone-Salmeterol 250-50] Naloxone HCl [Narcan] 4 mg NASAL DIRECTED PRN 12/19/24 01/05/25 History Olopatadine HCl [Pataday] 1 drop BOTH EYES DAILY@0800 12/19/24 01/05/25 History Tamsulosin [Flomax] 0.4 mg PO DAILY@0700 12/19/24 01/05/25 History Tiotropium [place] Monohydrate 2 puff INHALATION RT-DAILY 12/19/24 01/05/25 History Inhalation Solution 1.25mcg/Act Acetaminophen [Tylenol 8 Hour] 650 mg PO Q6H PRN 01/05/25 01/05/25 History Acetaminophen-Codeine 300-30mg 1 tab PO Q8H PRN 01/05/25 01/05/25 History [Tylenol w/codeine #3] Artificial Tears-Hypromellose 2 drops BOTH EYES Q4H PRN 01/05/25 01/05/25 History [Artificial Tear Drops] Doxycycline [Vibramycin] 100 mg PO BID 01/05/25 01/05/25 History Pat-Tussin 200 mg PO Q6H PRN 01/05/25 01/05/25 History Nicotine 21Mg/24Hr Patch [Habitrol] 1 patch TRANSDERM HS 01/05/25 01/05/25 History Sennosides [Senokot] 8.6 mg PO DAILY 01/05/25 01/05/25 History Allergies Allergy/AdvReac Type Severity Reaction Status Date / Time cephalexin monohydrate Allergy Unknown Verified 01/05/25 17:24 [From Keflex] clindamycin Allergy Unknown Verified 01/05/25 17:24 latex Allergy Rash/Hives Verified 01/05/25 17:24 Penicillins Allergy Rash/Hives Verified 01/05/25 17:24 Physical Exam Vitals: Vital Signs Temp Pulse Pulse Resp BP BP Pulse Ox 01/06/25 09:50 98 F 77 16 106/70 97 01/06/25 01:38 78 19 98/60 94 L 01/05/25 21:02 92 18 99/63 97 01/05/25 17:40 81 17 113/70 95 01/05/25 15:45 79 20 94/58 98 01/05/25 15:07 72 18 80/53 96 01/05/25 12:53 98.2 F 86 20 107/69 98 Intake and Output 01/05/25 01/06/25 01/06/25 22:59 06:59 14:59 Output Total 1400 1000 Balance -1400 -1000 Output: Urine 1400 1000 Uretheral (Blandon) 1400 Other: Voiding Method Indwelling Catheter Indwelling Catheter GENERAL DESCRIPTION: Mild lesion male lying in bed, no distress. No tachypnea or accessory muscle of respiration use. HEENT: Shows Pallor , no scleral icterus. Oral mucous membrane is dry. NECK: Trachea central, no thyromegaly. LUNGS: Unlabored breathing. Clear to auscultation anteriorly. No wheeze or crackle. HEART: S1, S2, regular rate and rhythm. No loud murmur ABDOMEN: Soft, no tenderness , guarding or rigidity, no organomegaly EXTREMITIES: No edema of feet. SKIN: No rash, no masses palpable. NEUROLOGICAL: The patient is awake, alert, mood and affect normal. Results CBC & Chem 7: 01/06/25 03:36 01/06/25 03:36 Labs: Abnormal Lab Results - Last 24 Hours (Table) 01/05/25 01/05/25 01/05/25 Range/Units 13:09 14:15 14:15 WBC 17.88 H (4.50-10.00) 10*3/uL RBC 3.38 L (4.40-5.60) 10*6/uL Hgb 10.2 L (13.0-17.0) g/dL Hct 29.7 L (39.6-50.0) % RDW (11.5-14.5) % Immature Gran # 0.08 H (0.00-0.04) 10*3/uL Neutrophils # 15.44 H (1.80-7.70) 10*3/uL Monocytes # 1.20 H (0.20-1.00) 10*3/uL Sodium 128 L (137-145) mmol/L Carbon Dioxide 21 L (22-30) mmol/L BUN (9-20) mg/dL Creatinine 0.40 L (0.66-1.25) mg/dL Glucose 116 H (74-99) mg/dL Calcium 8.1 L (8.4-10.2) mg/dL Total Protein 5.7 L (6.3-8.2) g/dL Albumin 3.1 L (3.5-5.0) g/dL Urine Protein 1+ H (Negative) Urine Blood Moderate H (Negative) Ur Leukocyte Esterase Large H (Negative) Urine RBC 20 H (0-5) /hpf Urine WBC >182 H (0-5) /hpf Urine WBC Clumps Many H (None) /hpf Urine Mucus Rare H (None) /hpf 01/06/25 01/06/25 Range/Units 03:36 03:36 WBC 12.44 H (4.50-10.00) 10*3/uL RBC 3.71 L (4.40-5.60) 10*6/uL Hgb 10.6 L (13.0-17.0) g/dL Hct 32.9 L (39.6-50.0) % RDW 15.2 H (11.5-14.5) % Immature Gran # 0.09 H (0.00-0.04) 10*3/uL Neutrophils # 10.23 H (1.80-7.70) 10*3/uL Monocytes # 1.09 H (0.20-1.00) 10*3/uL Sodium 132 L (137-145) mmol/L Carbon Dioxide (22-30) mmol/L BUN 7 L (9-20) mg/dL Creatinine 0.60 L (0.66-1.25) mg/dL Glucose (74-99) mg/dL Calcium 8.3 L (8.4-10.2) mg/dL Total Protein (6.3-8.2) g/dL Albumin (3.5-5.0) g/dL Urine Protein (Negative) Urine Blood (Negative) Ur Leukocyte Esterase (Negative) Urine RBC (0-5) /hpf Urine WBC (0-5) /hpf Urine WBC Clumps (None) /hpf Urine Mucus (None) /hpf Assessment and Plan (1) Catheter-associated urinary tract infection Current Visit: Yes Status: Acute Code(s): T83.511A - I/I REACT D/T INDWELLING URETHRAL CATHETER, INIT; N39.0 - URINARY TRACT INFECTION, SITE NOT SPECIFIED SNOMED Code(s): 174613998 (2) Allergy to multiple antibiotics Current Visit: Yes Status: Acute Code(s): Z88.1 - ALLERGY STATUS TO OTHER ANTIBIOTIC AGENTS SNOMED Code(s): 551749982 Plan: 1patient presented hospital with a fever this patient did have significant positive UA history of chronic indwelling Blandon catheter there was a change before his fever started highly concerning for a catheter associated TIA as currently other obvious focus for this fever and elevated white count. 2patient with multiple antibiotic ALLERGIES that would limit the number of antibiotic safe to use. 3last urine culture positive for Serratia and Pseudomonas on 12/19/2024. 4discontinue gentamicin to decrease risk of nephrotoxicity. 5we will start the patient on cefepime 2 g every 8 hours while waiting for repeat urine culture to be finalized We will follow on clinical condition and cultures to further adjust medication if needed Thank you for this consultation we will follow the patient along with you Dictation was produced using [employer] dictation software. please excuse any grammatical, word or spelling errors. Time with Patient: Greater than 30
[2025-01-07] MEDS: TAMSULOSIN 0.4 MG CAP.ER.24H PO SCH (06:28)
[2025-01-07] MEDS: ENOXAPARIN 40 MG/0.4 ML SYRINGE SQ SCH (07:55)
[2025-01-07] MEDS: Acetaminophen-Codeine 300-30mg TAB PO PRN (07:56)
[2025-01-07 08:22] LABS: Basophils # (A) 0.02 X 10*3/uL (0.00-0.10); Basophils % (A) 0.3 %; Eosinophils # (A) 0.09 X 10*3/uL (0.04-0.35); Eosinophils % (A) 1.2 %; HGB 10.8 g/dL (13.0-17.0); Lymphocytes # (A) 1.05 X 10*3/uL (0.90-5.00); MCH 28.7 pg (27.0-32.0); MCHC 32.7 g/dL (32.0-37.0); MCV 87.8 FL (80.0-97.0); Monocytes # (A) 1.03 X 10*3/uL (0.20-1.00); Monocytes % (A) 13.8 %; NRBC Per 100 WBC 0 X 10*3/uL (0.00-0.01); Neutrophils # (A) 5.27 X 10*3/uL (1.80-7.70); Neutrophils % (A) 70.3 %; Platelet Count 295 X 10*3/uL (140-440); RBC 3.76 X 10*6/uL (4.40-5.60); WBC 7.49 X 10*3/uL (4.50-10.00)
[2025-01-07 08:30] LABS: Blood Urea Nitrogen 6.1 mg/dL (9.0-27.0); Calcium 8.5 mg/dL (8.7-10.3); Carbon Dioxide 21.6 mmol/L (21.6-31.8); Chloride 106 mmol/L (96-109); Glucose 101 mg/dL (70-110); Potassium 3.7 mmol/L (3.5-5.5); Sodium 137 mmol/L (135-145)
[2025-01-07] MEDS: TIOTROPIUM 2.5 MCG INHALER INHALATION SCH (09:13)
--- NOTE | 2025-01-07 14:41 | P.PN ---
Subjective Progress Note Date: 01/07/25 64-year-old male patient with past medical history significant for schizophrenia, indwelling Blandon catheter due to BPH who presented to ED from longterm with fever. Patient was noted to have fever at his long-term care facility, had Blandon catheter exchanged 1 day prior to presentation. Patient has history of recurrent UTIs, has history of Pseudomonas and Enterococcus in the past. Patient is a poor historian. Patient denied any chest pain, palpitation, sore throat, productive cough, shortness of breath, nausea vomiting diarrhea constipation abdominal pain dysuria urgency frequency flank pain weakness or numbness of the extremities. Patient is afebrile, heart rate 79, respiratory rate 16, blood pressure 113/82, saturating 100% on room air. WBC 17.8, trended down to 12.4, hemoglobin 10.6, platelet 244. Sodium on presentation 128, improved to 132 potassium 3.9 chloride 99 CO2 24 BUN 7 crea tinine 0.60. UA positive for large leukocyte Estrace, WBCs more than 182. 6/. Patient seen and examined. Labs reviewed showing WBC 7.49, hemoglobin 10.8, sodium 137 potassium 3.7, BUN 6.1, creatinine 0.5 REVIEW OF SYSTEMS: CONSTITUTIONAL: No fever, no malaise,. CARDIOVASCULAR: No chest pain, no palpitations, no syncope. PULMONARY: No shortness of breath, no cough, GASTROINTESTINAL: No diarrhea, no nausea, no vomiting, no abdominal pain. NEUROLOGICAL: No headaches, no weakness, PHYSICAL EXAMINATION: GENERAL: The patient is alert and oriented x3, not in any acute distress. Well d eveloped, well nourished. HEENT: Pupils are round and equally reacting to light. EOMI. No scleral icterus. No conjunctival pallor. Normocephalic, atraumatic. No pharyngeal erythema. No thyromegaly. CARDIOVASCULAR: S1 and S2 present. No murmurs, rubs, or gallops. PULMONARY: Chest is clear to auscultation, no wheezing or crackles. ABDOMEN: Soft, nontender, nondistended, normoactive bowel sounds. No palpable organomegaly. MUSCULOSKELETAL: No joint swelling or deformity. EXTREMITIES: No cyanosis, clubbing, or pedal edema. NEUROLOGICAL: Gross neurological examination did not reveal any focal deficits. SKIN: No rashes. Assessment and plan Complicated UTI: History of chronic indwelling Blandon catheter Recurrent UTIs History of Pseudomonas and Enterococcus: Presented with fever, lower abdominal discomfort Has history of chronic indwelling Blandon's catheter, exchanged 2 days ago UA positive Follow-up urine culture Continue cefepime ID following Hyponatremia: Improving, hypovolemic Monitor sodium DC fluids History of schizophrenia BPH Hyperlipidemia History of CAD status post LAD stenting April 2024: Patient has history of coronary artery disease, had stent in April 2024, was seen by cardiology during previous hospitalization 3 weeks ago, dual antipl atelets were held at that time due to concern for hematuria, was recommended to follow-up with cardiology in 2 weeks. Continue aspirin, statin. Consulted cardiology, follows Labs and medication were reviewed.. Continue same treatment. Continue with symptomatic treatment. Resume home medication. Monitor labs and vitals. DVT and GI prophylaxis. Further recommendations as per clinical course of the patient Dictation was produced using [employer] dictation software. please excuse any grammatical, word or spelling errors. Objective - Vital Signs Vital signs: Vital Signs Temp 98.1 F 01/07/25 07:31 Pulse 79 01/07/25 07:31 Resp 18 01/07/25 07:31 BP 125/78 01/07/25 07:31 Pulse Ox 95 01/07/25 07:31 FiO2 Intake & Output 01/06/25 01/07/25 01/07/25 18:59 06:59 18:59 Intake Total 1490 2100 180 Output Total 1200 7650 Balance 290 -5550 180 Weight 61.235 kg Intake: Intake, IV Titration 1010 Amount Cefepime 2 gm In Sodium 100 Chloride 0.9% 100 ml @ 25 mls/hr IVPB Q8H [facility] Rx#: [id number] Sodium Chloride 0.9% 1, 910 000 ml @ 130 mls/hr IV . Q7H42M [facility] Rx#:[id number] Oral 480 2100 180 Output: Urine 1200 7650 Other: Voiding Method Indwelling Catheter Indwelling Catheter Indwelling Catheter # Bowel Movements 1 - Labs CBC & Chem 7: 01/07/25 05:26 01/07/25 05:26 Labs: Abnormal Lab Results - Last 24 Hours (Table) 01/07/25 01/07/25 Range/Units 05:26 05:26 RBC 3.76 L (4.40-5.60) X 10*6/uL Hgb 10.8 L (13.0-17.0) g/dL Hct 33.0 L (39.6-50.0) % RDW 15.0 H (11.5-14.5) % Monocytes # 1.03 H (0.20-1.00) X 10*3/uL BUN 6.1 L (9.0-27.0) mg/dL Creatinine 0.5 L (0.6-1.5) mg/dL Calcium 8.5 L (8.7-10.3) mg/dL Microbiology - Last 24 Hours (Table) 01/05/25 16:23 Blood Culture - Preliminary Blood
--- NOTE | 2025-01-08 00:56 | P.CRDCN ---
History of Present Illness Consult date: 01/07/25 History of present illness: HISTORY OF PRESENTING ILLNESS: Patient is a 75-year-old male with past medical history of schizophrenia, indwelling catheter because of BPH, presented to the ER from a [facility] because of fever. He has recurrent UTI history with history of Pseudomonas and Enterococcus in the past. He is a very poor historian. He denies having any active chest pain chest pressure shortness of breath. Patient has history of CAD status post PCI in April 2024. For this he was placed on dual antiplatelet therapy which was held on his last hospital admission 2 weeks ago because of concerns of hematuria. Cardiology was consulted for dual antiplatelet recommendations. REVIEW OF SYSTEMS: 14 point review of system is negative except what is mentioned above in HPI. PHYSICAL EXAMINATION: Neck: Brisk carotid upstroke, no jugular venous distention. Lungs: Clear to auscultation. Heart: Regular rate and rhythm, S1-S2, mild systolic murmur audible Abdomen: Soft nontender, positive bowel sounds. Extremities: No edema, intact distal pulses. Neuro: Alert, oritented, no focal deficits. Detailed neuro exam was not performed. Indwelling Blandon catheter in place ASSESSMENT: # CAD status post PCI to LAD in April 2024 # Consult for dual antiplatelet therapy recommendation # UTI # Generalized weakness # Schizophrenia # Prior to UTI with Pseudomonas and Enterococcus, with indwelling catheter PLAN: At this time patient's hemoglobin is stable at 10.8. There is no concerns of hematuria at this time. I would recommend doing aspirin Plavix. If there is any concerns of hematuria may consider stopping Plavix Continue Lipitor, metoprolol 12.5 twice daily He is also on midodrine At this time patient is stable from cardiovascular standpoint. Cardiology team will sign off Evaristo Sanches MD, FACC, RPVI Thank you for allowing [facility] to participate in this patient's care. Feel free to reach out in case of any followup questions. Past Medical History Past Medical History: Cancer, COPD, Pneumonia Additional Past Medical History / Comment(s): Melanoma removed from L trunk, skin cancer removed from R side of nose, L eye blurry vision, constipation, hematuria/UTI, hypoglycemia. migraines Last Myocardial Infarction Date:: 04/22/24 History of Any Multi-Drug Resistant Organisms: None Reported Past Surgical History: Adenoidectomy, Tonsillectomy Additional Past Surgical History / Comment(s): R side of nose skin cancer removal/skin graft, L trunk melanoma removed, colonoscopy. Past Anesthesia/Blood Transfusion Reactions: No Reported Reaction Date of Last Stent Placement:: 04/22/24 Past Psychological History: Schizophrenia Smoking Status: Former smoker Past Alcohol Use History: None Reported - Past Family History Father Family Medical History: Diabetes Mellitus Additional Family Medical History / Comment(s): Father is living. Mother Family Medical History: CVA/TIA, Myocardial Infarction ([place]) Additional Family Medical History / Comment(s): Mother had a CVA, shingles. She is from the CVA. Medications and Allergies Home Medications Medication Instructions Recorded Confirmed Type Albuterol Sulfate [Ventolin HFA] 2 puff INHALATION RT-Q6H PRN 04/23/24 01/05/25 History Haloperidol Decanoate [Haldol D] 100 mg IM Q28D 04/23/24 01/05/25 History OLANZapine [ZyPREXA] 5 mg PO HS 04/23/24 01/05/25 History Nitroglycerin Sl Tabs [Nitrostat] 0.4 mg SUBLINGUAL Q5M PRN #30 tab 04/28/24 01/05/25 Rx Atorvastatin [Lipitor] 40 mg PO HS 04/30/24 01/05/25 History Metoprolol Tartrate [Lopressor] 12.5 mg PO BID 04/30/24 01/05/25 History Midodrine [ProAmatine] 5 mg PO TID@0500,1100,1700 04/30/24 01/05/25 History Pantoprazole [Protonix] 40 mg PO DAILY 04/30/24 01/05/25 History Cholecalciferol [Vitamin D3 (25 50 mcg PO DAILY 12/19/24 01/05/25 History Mcg = 1000 Iu)] Ferrous Sulfate [Iron] 325 mg PO DAILY 12/19/24 01/05/25 History Fluticasone Propion/Salmeterol 1 puff INHALATION RT-BID 12/19/24 01/05/25 Hi story [Fluticasone-Salmeterol 250-50] Naloxone HCl [Narcan] 4 mg NASAL DIRECTED PRN 12/19/24 01/05/25 History Olopatadine HCl [Pataday] 1 drop BOTH EYES DAILY@0800 12/19/24 01/05/25 History Tamsulosin [Flomax] 0.4 mg PO DAILY@0700 12/19/24 01/05/25 History Tiotropium [place] Monohydrate 2 puff INHALATION RT-DAILY 12/19/24 01/05/25 History Inhalation Solution 1.25mcg/Act Acetaminophen [Tylenol 8 Hour] 650 mg PO Q6H PRN 01/05/25 01/05/25 History Acetaminophen-Codeine 300-30mg 1 tab PO Q8H PRN 01/05/25 01/05/25 History [Tylenol w/codeine #3] Artificial Tears-Hypromellose 2 drops BOTH EYES Q4H PRN 01/05/25 01/05/25 History [Artificial Tear Drops] Doxycycline [Vibramycin] 100 mg PO BID 01/05/25 01/05/25 History Pat-Tussin 200 mg PO Q6H PRN 01/05/25 01/05/25 History Nicotine 21Mg/24Hr Patch [Habitrol] 1 patch TRANSDERM HS 01/05/25 01/05/25 History Sennosides [Senokot] 8.6 mg PO DAILY 01/05/25 01/05/25 History Allergies Allergy/AdvReac Type Severity Reaction Status Date / Time cephalexin monohydrate Allergy Unknown Verified 01/05/25 17:24 [From Keflex] clindamycin Allergy Unknown Verified 01/05/25 17:24 latex Allergy Rash/Hives Verified 01/05/25 17:24 Penicillins Allergy Rash/Hives Verified 01/05/25 17:24 Physical Exam Vitals: Vital Signs Temp Pulse Resp BP Pulse Ox 01/07/25 19:26 98.1 F 78 97/63 97 01/07/25 15:57 105/71 01/07/25 13:57 97.9 F 82 18 103/70 96 01/07/25 07:31 98.1 F 79 18 125/78 95 01/07/25 06:16 78 109/74 01/07/25 01:06 97.9 F 76 16 95/58 93 L Intake and Output 01/07/25 01/07/25 01/08/25 14:59 22:59 06:59 Intake Total 300 3660 Output Total 1000 Balance 300 2660 Intake: Intake, IV Titration 1400 Amount Cefepime 2 gm In Sodium 100 Chloride 0.9% 100 ml @ 25 mls/hr IVPB Q8H [facility] Rx#: [id number] Sodium Chloride 0.9% 1, 1300 000 ml @ 130 mls/hr IV . Q7H42M [facility] Rx#:[id number] Oral 300 2260 Output: Urine 1000 Other: Voiding Method Indwelling Catheter Indwelling Catheter Results 01/07/25 05:26 01/07/25 05:26 CBC 01/07/25 Range/Units 05:26 WBC 7.49 (4.50-10.00) X 10*3/uL RBC 3.76 L (4.40-5.60) X 10*6/uL Hgb 10.8 L (13.0-17.0) g/dL Hct 33.0 L (39.6-50.0) % Plt Count 295 (140-440) X 10*3/uL Comprehensive Metabolic Panel 01/07/25 Range/Units 05:26 Sodium 137 (135-145) mmol/L Potassium 3.7 (3.5-5.5) mmol/L Chloride 106 (96-109) mmol/L Carbon Dioxide 21.6 (21.6-31.8) mmol/L BUN 6.1 L (9.0-27.0) mg/dL Creatinine 0.5 L (0.6-1.5) mg/dL Glucose 101 (70-110) mg/dL Calcium 8.5 L (8.7-10.3) mg/dL Current Medications Generic Name Dose Route Start Last Admin Trade Name Freq PRN Reason Stop Dose Admin Acetaminophen 650 mg 01/06/25 08:58 Acetaminophen Tab 325 Mg Tab PO Q6H PRN Fever Acetaminophen/Codeine Phosphate 1 each 01/06/25 08:58 01/07/25 16:28 Acetaminophen-Codeine 300-30mg Tab PO 1 each Q8H PRN Administration mild/moderate pain Albuterol Sulfate 2.5 mg 01/06/25 08:58 Albuterol Nebulized 2.5 Mg/3 Ml INHALATION RT-Q6H PRN Shortness Of Breath Or Wheezing Artificial Tears 2 drops 01/06/25 08:58 Artificial Tears-Hypromellose Drops 15 Ml Btl BOTH EYES Q4H PRN prophylaxis Aspirin 81 mg 01/06/25 16:30 01/07/25 07:55 Aspirin 81 Mg PO 81 mg DAILY [facility] Administration Atorvastatin Calcium 40 mg 01/06/25 21:00 01/07/25 20:09 Atorvastatin 40 Mg Tab PO 40 mg HS [facility] Administration Budesonide/Formoterol Fumarate 2 puff 01/06/25 20:00 01/07/25 19:45 Symbicort 80-4.5 Mcg Inhaler INHALATION 2 puff RT-BID [facility] Administration Cholecalciferol 50 mcg 01/06/25 09:00 01/07/25 07:56 Cholecalciferol 25 Mcg (1000 Iu) Tablet PO 50 mcg DAILY [facility] Administration Enoxaparin Sodium 40 mg 01/07/25 09:00 01/07/25 07:55 Enoxaparin 40 Mg/0.4 Ml Syringe SQ 40 mg DAILY [facility] Administration Ferrous Sulfate 325 mg 01/06/25 09:00 01/07/25 07:56 Ferrous Sulfate 325 Mg Tab PO 325 mg DAILY [facility] Administration Guaifenesin 200 mg 01/06/25 08:58 Guaifenesin Syrup 100mg/5ml 200 Mg/10 Ml Cup PO Q6H PRN Cough Cefepime HCl 2 gm/ Sodium 100 mls @ 25 mls/hr 01/06/25 12:00 01/07/25 20:09 Chloride IVPB 25 mls/hr Q8H [facility] Administration Protocol Ketotifen Fumarate 1 drops 01/06/25 21:00 01/07/25 20:09 Ketotifen 0.025% Ophth Drops 5 Ml Btl BOTH EYES 1 drops BID [facility] Administration Metoprolol Tartrate 12.5 mg 01/06/25 09:00 01/07/25 20:09 Metoprolol Tartrate 12.5 Mg Tab PO 12.5 mg BID [facility] Administration Midodrine 5 mg 01/06/25 11:00 01/07/25 16:28 Midodrine 5 Mg Tab PO 5 mg TID@0500,1100,1700 [facility] Administration Naloxone HCl 0.2 mg 01/05/25 18:27 Naloxone 0.4 Mg/Ml 1 Ml Vial IV Q2M PRN Opioid Reversal Nicotine 1 patch 01/06/25 09:30 01/07/25 08:01 Nicotine 21mg/24hr Patch TRANSDERM Not Given DAILY [facility] Nitroglycerin 0.4 mg 01/06/25 08:58 Nitroglycerin Sl Tabs 0.4 Mg Tab SUBLINGUAL Q5M PRN Chest Pain Olanzapine 5 mg 01/06/25 21:00 01/07/25 20:09 Olanzapine 5 Mg Tab PO 5 mg HS [facility] Administration Pantoprazole Sodium 40 mg 01/06/25 09:00 01/07/25 07:55 Pantoprazole 40 Mg Tablet PO 40 mg DAILY [facility] Administration Senna 8.6 mg 01/06/25 09:00 01/07/25 07:55 Sennosides 8.6 Mg Tab PO Not Given DAILY [facility] Tamsulosin HCl 0.4 mg 01/07/25 07:00 01/07/25 06:28 Tamsulosin 0.4 Mg Cap.Er.24h PO 0.4 mg DAILY@0700 [facility] Administration Tiotropium [place] 2 puff 01/07/25 08:00 01/07/25 09:13 Tiotropium 2.5 Mcg Inhaler INHALATION 2 puff RT-DAILY [facility] Administration Intake and Output 01/07/25 01/07/25 01/08/25 14:59 22:59 06:59 Intake Total 300 3660 Output Total 1000 Balance 300 2660 Intake: Intake, IV Titration 1400 Amount Cefepime 2 gm In Sodium 100 Chloride 0.9% 100 ml @ 25 mls/hr IVPB Q8H [facility] Rx#: [id number] Sodium Chloride 0.9% 1, 1300 000 ml @ 130 mls/hr IV . Q7H42M [facility] Rx#:[id number] Oral 300 2260 Output: Urine 1000 Other: Voiding Method Indwelling Catheter Indwelling Catheter 01/07/25 05:26 01/07/25 05:26
[2025-01-08] MEDS: CLOPIDOGREL 75 MG TAB PO SCH (08:35)
[2025-01-08 09:29] LABS: Basophils # (A) 0.02 X 10*3/uL (0.00-0.10); Basophils % (A) 0.3 %; Eosinophils # (A) 0.14 X 10*3/uL (0.04-0.35); Eosinophils % (A) 1.9 %; HCT 36.2 % (39.6-50.0); HGB 11.7 g/dL (13.0-17.0); Lymphocytes # (A) 1.14 X 10*3/uL (0.90-5.00); Lymphocytes % (A) 15.6 %; MCH 28.7 pg (27.0-32.0); MCHC 32.3 g/dL (32.0-37.0); MCV 88.7 FL (80.0-97.0); Monocytes # (A) 0.76 X 10*3/uL (0.20-1.00); Monocytes % (A) 10.4 %; NRBC Per 100 WBC 0 X 10*3/uL (0.00-0.01); Neutrophils # (A) 5.18 X 10*3/uL (1.80-7.70); Neutrophils % (A) 71.1 %; Platelet Count 325 X 10*3/uL (140-440); RBC 4.08 X 10*6/uL (4.40-5.60); RDW 15.2 % (11.5-14.5); WBC 7.29 X 10*3/uL (4.50-10.00)
--- NOTE | 2025-01-08 09:34 | P.PN ---
Subjective Progress Note Date: 01/07/25 Principal diagnosis: Reason for follow-up is catheter associated UTI Patient is a 75-year-old male with a past medical history significant for COPD melanoma pneumonia history of urinary retention with chronic draining Blandon catheter patient has been sent to the hospital from a long-term care facility after apparently the patient did have a fever with a recent urine c ulture positive for Serratia and Pseudomonas and patient did have multiple antibiotic allergies. On today's visit that is 01/07/2025, the patient did have resolution of his fever and is afebrile today, the patient is on room air and breathing comfortably, the Pt denies having any chest pain or cough, the patient denies having any abdominal pain no vomiting or any diarrhea has been reported by the nursing staff. Patient work normalized to 7.49 creatinine 0.5 Objective - Vital Signs Vital signs: Vital Signs Temp 97.9 F 01/07/25 13:57 Pulse 82 01/07/25 13:57 Resp 18 01/07/25 13:57 BP 105/71 01/07/25 15:57 Pulse Ox 96 01/07/25 13:57 FiO2 Intake & Output 01/06/25 01/07/25 01/07/25 18:59 06:59 18:59 Intake Total 1490 2100 2460 Output Total 1200 7650 Balance 290 -5550 2460 Weight 61.235 kg Intake: Intake, IV Titration 1010 1400 Amount Cefepime 2 gm In Sodium 100 100 Chloride 0.9% 100 ml @ 25 mls/hr IVPB Q8H [facility] Rx#: [id number] Sodium Chloride 0.9% 1, 910 1300 000 ml @ 130 mls/hr IV . Q7H42M [facility] Rx#:[id number] Oral 480 2100 1060 Output: Urine 1200 7650 Other: Voiding Method Indwelling Catheter Indwelling Catheter Indwelling Catheter # Bowel Movements 1 - Exam GENERAL DESCRIPTION: Middle-age male lying in bed in no distress RESPIRATORY SYSTEM: Unlabored breathing , decreased breath sounds at bases HEART: S1 S2 regular rate and rhythm , ABDOMEN: Soft , no tenderness EXTREMITIES: No edema feet - Labs CBC & Chem 7: 01/08/25 04:41 01/07/25 05:26 Labs: Abnormal Lab Results - Last 24 Hours (Table) 01/07/25 01/07/25 Range/Units 05:26 05:26 RBC 3.76 L (4.40-5.60) X 10*6/uL Hgb 10.8 L (13.0-17.0) g/dL Hct 33.0 L (39.6-50.0) % RDW 15.0 H (11.5-14.5) % Monocytes # 1.03 H (0.20-1.00) X 10*3/uL BUN 6.1 L (9.0-27.0) mg/dL Creatinine 0.5 L (0.6-1.5) mg/dL Calcium 8.5 L (8.7-10.3) mg/dL Microbiology - Last 24 Hours (Table) 01/05/25 16:23 Blood Culture - Preliminary Blood Assessment and Plan (1) Catheter-associated urinary tract infection Current Visit: Yes Status: Acute Code(s): T83.511A - I/I REACT D/T INDWELLING URETHRAL CATHETER, INIT; N39.0 - URINARY TRACT INFECTION, SITE NOT SPECIFIED SNOMED Code(s): 926105165 (2) Allergy to multiple antibiotics Current Visit: Yes Status: Acute Code(s): Z88.1 - ALLERGY STATUS TO OTHER ANTIBIOTIC AGENTS SNOMED Code(s): 885153485 Plan: 1patient presented hospital with a fever this patient did have significant positive UA history of chronic indwelling Blandon catheter there was a change before his fever started highly concerning for a catheter associated TIA as currently other obvious focus for this fever and elevated white count. 2patient with multiple antibiotic ALLERGIES that would limit the number of antibiotic safe to use. 3last urine culture positive for Serratia and Pseudomonas on 12/19/2024. 4unfortunately no urine culture more than a on the UA from the ER 5patient did have a improvement in his white count, to continue cefepime 2 g every 8 hours while waiting for repeat urine culture to be finalized Dictation was produced using [employer] dictation software. please excuse any grammatical, word or spelling errors. Time with Patient: Less than 30
[2025-01-08 09:37] LABS: ALT 14 U/L (10-49); AST 16 U/L (14-35); Albumin 3.3 g/dL (3.8-4.9); Albumin/Globulin Ratio 1.32 Ratio (1.60-3.17); Alkaline Phosphatase 79 U/L (41-126); Blood Urea Nitrogen 6.1 mg/dL (9.0-27.0); Calcium 8.6 mg/dL (8.7-10.3); Carbon Dioxide 23.1 mmol/L (21.6-31.8); Chloride 106 mmol/L (96-109); Globulin 2.5 g/dL (1.6-3.3); Glucose 98 mg/dL (70-110); Sodium 137 mmol/L (135-145); Total Bilirubin 0.2 mg/dL (0.3-1.2); Total Protein 5.8 g/dL (6.2-8.2)
--- NOTE | 2025-01-08 14:35 | P.PN ---
Subjective Progress Note Date: 01/08/25 64-year-old male patient with past medical history significant for schizophrenia, indwelling Blandon catheter due to BPH who presented [facility] ED from [facility] with fever. Patient was noted to have fever at his long-term care facility, had Blandon catheter exchanged 1 day prior to presentation. Patient has history of recurrent UTIs, has history of Pseudomonas and Enterococcus in the past. Patient is a poor historian. Patient denied any chest pain, palpitation, sore throat, productive cough, shortness of breath, nausea vomiting diarrhea constipation abdominal pain dysuria urgency frequency flank pain weakness or numbness of the extremities. Patient is afebrile, heart rate 79, respiratory rate 16, blood pressure 113/82, saturating 100% on room air. WBC 17.8, trended down to 12.4, hemoglobin 10.6, platelet 244. Sodium on presentation 128, improved to 132 potassium 3.9 chloride 99 CO2 24 BUN 7 crea tinine 0.60. UA positive for large leukocyte Estrace, WBCs more than 182. /. Patient seen and examined. Labs reviewed showing WBC 7.49, hemoglobin 10.8, sodium 137 potassium 3.7, BUN 6.1, creatinine 0.5 01/08. Patient seen and examined. Labs reviewed showing WBC 10.9, hemoglobin 9.7, sodium 117, potassium 4, BUN 6.1, creatinine 0.5. Cardiology evaluated patient, recommended continuing dual antiplatelet therapy with aspirin and Plavix REVIEW OF SYSTEMS: CONSTITUTIONAL: No fever, no malaise,. CARDIOVASCULAR: No chest pain, no palpitations, no syncope. PULMONARY: No shortness of breath, no cough, GASTROINTESTINAL: No diarrhea, no nausea, no vomiting, no abdominal pain. NEUROLOGICAL: No headaches, no weakness, PHYSICAL EXAMINATION: GENERAL: The patient is alert and oriented x3, not in any acute distress. Well developed, well nourished. HEENT: Pupils are round and equally reacting to light. EOMI. No scleral icterus. No conjunctival pallor. Normocephalic, atraumatic. No pharyngeal erythema. No thyromegaly. CARDIOVASCULAR: S1 and S2 present. No murmurs, rubs, or gallops. PULMONARY: Chest is clear to auscultation, no wheezing or crackles. ABDOMEN: Soft, nontender, nondistended, normoactive bowel sounds. No palpable organomegaly. MUSCULOSKELETAL: No joint swelling or deformity. EXTREMITIES: No cyanosis, clubbing, or pedal edema. NEUROLOGICAL: Gross neurological examination did not reveal any focal deficits. SKIN: No rashes. Assessment and plan Complicated UTI: History of chronic indwelling Blandon catheter Recurrent UTIs History of Pseudomonas and Enterococcus: Presented with fever, lower abdominal discomfort Has history of chronic indwelling Blandon's catheter, exchanged 2 days ago UA positive Follow-up urine culture Continue cefepime ID following Hyponatremia: Monitor BMP History of schizophrenia BPH Hyperlipidemia History of CAD status post LAD stenting April 2024: Patient has history of coronary artery disease, had stent in April 2024, was seen by cardiology during previous hospitalization 3 weeks ago, dual antip latelets were held at that time due to concern for hematuria, was recommended to follow-up with cardiology in 2 weeks. Cardiology evaluated, agreed with aspirin and Plavix Labs and medication were reviewed.. Continue same treatment. Continue with symptomatic treatment. Resume home medication. Monitor labs and vitals. DVT and GI prophylaxis. Further recommendations as per clinical course of the patient Dictation was produced using [employer] dictation software. please excuse any grammatical, word or spelling errors. Objective - Vital Signs Vital signs: Vital Signs Temp 97.8 F 01/08/25 07:47 Pulse 78 01/08/25 07:47 Resp 18 01/08/25 07:47 BP 95/58 01/08/25 07:47 Pulse Ox 97 01/08/25 08:07 FiO2 Intake & Output 01/07/25 01/08/25 01/08/25 18:59 06:59 18:59 Intake Total 3960 950 Output Total 1000 1100 1000 Balance 2960 -150 -1000 Intake: Intake, IV Titration 1400 200 Amount Cefepime 2 gm In Sodium 100 200 Chloride 0.9% 100 ml @ 25 mls/hr IVPB Q8H [facility] Rx#: [id number] Sodium Chloride 0.9% 1, 1300 000 ml @ 130 mls/hr IV . Q7H42M [facility] Rx#:[id number] Oral 2560 750 Output: Urine 1000 1100 1000 Uretheral (Blandon) 1000 Other: Voiding Method Indwelling Catheter Indwelling Catheter Indwelling Catheter - Labs CBC & Chem 7: 01/08/25 04:41 01/08/25 04:41 Labs: Abnormal Lab Results - Last 24 Hours (Table) 01/08/25 01/08/25 Range/Units 04:41 04:41 RBC 4.08 L (4.40-5.60) X 10*6/uL Hgb 11.7 L (13.0-17.0) g/dL Hct 36.2 L (39.6-50.0) % RDW 15.2 H (11.5-14.5) % Immature Gran # 0.05 H (0.00-0.04) X 10*3/uL BUN 6.1 L (9.0-27.0) mg/dL Creatinine 0.5 L (0.6-1.5) mg/dL Calcium 8.6 L (8.7-10.3) mg/dL Total Bilirubin 0.2 L (0.3-1.2) mg/dL Total Protein 5.8 L (6.2-8.2) g/dL Albumin 3.3 L (3.8-4.9) g/dL Albumin/Globulin Ratio 1.32 L (1.60-3.17) Ratio Microbiology - Last 24 Hours (Table) 01/05/25 16:23 Blood Culture - Preliminary Blood
--- NOTE | 2025-01-08 15:16 | P.PN ---
Subjective Progress Note Date: 01/08/25 Principal diagnosis: Reason for follow-up is catheter associated UTI Patient is a 75-year-old male with a past medical history significant for COPD melanoma pneumonia history of urinary retention with chronic draining Blandon catheter patient has been sent to the hospital from a long-term care facility after apparently the patient did have a fever with a recent urine c ulture positive for Serratia and Pseudomonas and patient did have multiple antibiotic allergies. On today's visit that is 01/09/2024, patient did have a temperature of 97.6 F this afternoon and denies having any chills, patient is on 1 L nasal cannula oxygen and breathing comfortably no chest pain or cough, the patient did not have any nausea vomiting abdominal pain or any diarrhea. Patient did not have any lab draw today blood and urine cultures currently pending Objective - Vital Signs Vital signs: Vital Signs Temp 97.6 F 01/08/25 14:00 Pulse 71 01/08/25 14:00 Resp 18 01/08/25 14:00 BP 100/64 01/08/25 14:00 Pulse Ox 94 L 01/08/25 14:00 FiO2 Intake & Output 01/07/25 01/08/25 01/08/25 18:59 06:59 18:59 Intake Total 3960 950 Output Total 1000 1100 1000 Balance 2960 -150 -1000 Intake: Intake, IV Titration 1400 200 Amount Cefepime 2 gm In Sodium 100 200 Chloride 0.9% 100 ml @ 25 mls/hr IVPB Q8H [facility] Rx#: [id number] Sodium Chloride 0.9% 1, 1300 000 ml @ 130 mls/hr IV . Q7H42M [facility] Rx#:[id number] Oral 2560 750 Output: Urine 1000 1100 1000 Uretheral (Blandon) 1000 Other: Voiding Method Indwelling Catheter Indwelling Catheter Indwelling Catheter - Exam GENERAL DESCRIPTION: Middle-age male lying in bed in no distress RESPIRATORY SYSTEM: Unlabored breathing , decreased breath sounds at bases HEART: S1 S2 regular rate and rhythm , ABDOMEN: Soft , no tenderness EXTREMITIES: No edema feet - Labs CBC & Chem 7: 01/08/25 04:41 01/08/25 04:41 Labs: Abnormal Lab Results - Last 24 Hours (Table) 01/08/25 01/08/25 Range/Units 04:41 04:41 RBC 4.08 L (4.40-5.60) X 10*6/uL Hgb 11.7 L (13.0-17.0) g/dL Hct 36.2 L (39.6-50.0) % RDW 15.2 H (11.5-14.5) % Immature Gran # 0.05 H (0.00-0.04) X 10*3/uL BUN 6.1 L (9.0-27.0) mg/dL Creatinine 0.5 L (0.6-1.5) mg/dL Calcium 8.6 L (8.7-10.3) mg/dL Total Bilirubin 0.2 L (0.3-1.2) mg/dL Total Protein 5.8 L (6.2-8.2) g/dL Albumin 3.3 L (3.8-4.9) g/dL Albumin/Globulin Ratio 1.32 L (1.60-3.17) Ratio Microbiology - Last 24 Hours (Table) 01/05/25 16:23 Blood Culture - Preliminary Blood Assessment and Plan (1) Catheter-associated urinary tract infection Current Visit: Yes Status: Acute Code(s): T83.511A - I/I REACT D/T INDWELLING URETHRAL CATHETER, INIT; N39.0 - URINARY TRACT INFECTION, SITE NOT SPECIFIED SNOMED Code(s): 612211834 (2) Allergy to multiple antibiotics Current Visit: Yes Status: Acute Code(s): Z88.1 - ALLERGY STATUS TO OTHER ANTIBIOTIC AGENTS SNOMED Code(s): 995828935 Plan: 1patient presented hospital with a fever this patient did have significant positive UA history of chronic indwelling Blandon catheter there was a change before his fever started highly concerning for a catheter associated TIA as currently other obvious focus for this fever and elevated white count. 2patient with multiple antibiotic ALLERGIES that would limit the number of antibiotic safe to use. 3last urine culture positive for Serratia and Pseudomonas on 12/19/2024. 4patient blood and urine cultures are currently pending 5patient currently be treated cefepime 2 g every 8 hours while waiting for repeat urine culture to be finalized Dictation was produced using [employer] software. please excuse any grammatical, word or spelling errors.
--- NOTE | 2025-01-09 16:07 | P.PN ---
Subjective Progress Note Date: 01/09/25 Principal diagnosis: Reason for follow-up is catheter associated UTI Patient is a 75-year-old male with a past medical history significant for COPD melanoma pneumonia history of urinary retention with chronic draining Blandon catheter patient has been sent to the hospital from a long-term care facility after apparently the patient did have a fever with a recent urine c ulture positive for Serratia and Pseudomonas and patient did have multiple antibiotic allergies. On today's visit that is 01/09/2025, Patient is afebrile patient is currently on 2 L goal oxygen and denies having any shortness of breath, the patient denies any chest pain or cough, the patient denies any nausea vomiting did not have any abdominal pain and no diarrhea. Patient did not have any lab work today blood and urine came back negative so far Objective - Vital Signs Vital signs: Vital Signs Temp 97.8 F 01/09/25 13:55 Pulse 64 01/09/25 13:55 Resp 19 01/09/25 13:55 BP 96/57 01/09/25 13:55 Pulse Ox 95 01/09/25 13:55 FiO2 Intake & Output 01/08/25 01/09/25 01/09/25 18:59 06:59 18:59 Intake Total 1780 240 Output Total 3500 600 Balance -1720 240 -600 Intake: Intake, IV Titration 100 Amount Cefepime 2 gm In Sodium 100 Chloride 0.9% 100 ml @ 25 mls/hr IVPB Q8H [facility] Rx#: [id number] Oral 1680 240 Output: Urine 3500 600 Uretheral (Blandon) 3500 Other: Voiding Method Indwelling Catheter Indwelling Catheter Indwelling Catheter - Exam GENERAL DESCRIPTION: Middle-age male lying in bed in no distress RESPIRATORY SYSTEM: Unlabored breathing , decreased breath sounds at bases HEART: S1 S2 regular rate and rhythm , ABDOMEN: Soft , no tenderness EXTREMITIES: No edema feet - Labs CBC & Chem 7: 01/08/25 04:41 01/08/25 04:41 Labs: Microbiology - Last 24 Hours (Table) 01/08/25 10:30 Urine Culture - Final Urine,Catheterized 01/05/25 16:23 Blood Culture - Preliminary Blood Assessment and Plan (1) Catheter-associated urinary tract infection Current Visit: Yes Status: Acute Code(s): T83.511A - I/I REACT D/T INDWELLING URETHRAL CATHETER, INIT; N39.0 - URINARY TRACT INFECTION, SITE NOT SPECIFIED SNOMED Code(s): 693374987 (2) Allergy to multiple antibiotics Current Visit: Yes Status: Acute Code(s): Z88.1 - ALLERGY STATUS TO OTHER ANTIBIOTIC AGENTS SNOMED Code(s): 339564208 Plan: 1patient presented hospital with a fever this patient did have significant positive UA history of chronic indwelling Blandon catheter there was a change before his fever started highly concerning for a catheter associated TIA as currently other obvious focus for this fever and elevated white count. 2patient with multiple antibiotic ALLERGIES that would limit the number of antibiotic safe to use. 3last urine culture positive for Serratia and Pseudomonas on 12/19/2024. 4patient blood and urine cultures are so far negative 5patient to continue cefepime 2 g every 8 hours, may consider short course of oral Cipro on discharge Dictation was produced using [employer] dictation software. please excuse any grammatical, word or spelling errors. Time with Patient: Less than 30
--- NOTE | 2025-01-09 17:09 | P.PN ---
Subjective Progress Note Date: 01/09/25 64-year-old male patient with past medical history significant for schizophrenia, indwelling Blandon catheter due to BPH who presented to ED from [facility] with fever. Patient was noted to have fever at his long-term care facility, had Blandon catheter exchanged 1 day prior to presentation. Patient has history of recurrent UTIs, has history of Pseudomonas and Enterococcus in the past. Patient is a poor historian. Patient denied any chest pain, palpitation, sore throat, productive cough, shortness of breath, nausea vomiting diarrhea constipation abdominal pain dysuria urgency frequency flank pain weakness or numbness of the extremities. Patient is afebrile, heart rate 79, respiratory rate 16, blood pressure 113/82, saturating 100% on room air. WBC 17.8, trended down to 12.4, hemoglobin 10.6, platelet 244. Sodium on presentation 128, improved to 132 potassium 3.9 chloride 99 CO2 24 BUN 7 crea tinine 0.60. UA positive for large leukocyte Estrace, WBCs more than 182. 01/07. Patient seen and examined. Labs reviewed showing WBC 7.49, hemoglobin 10.8, sodium 137 potassium 3.7, BUN 6.1, creatinine 0.5 01/08. Patient seen and examined. Labs reviewed showing WBC 10.9, hemoglobin 9.7, sodium 117, potassium 4, BUN 6.1, creatinine 0.5. Cardiology evaluated patient, recommended continuing dual antiplatelet therapy with aspirin and Plavix 01/09. Patient seen and examined. No acute issue overnight. Vital signs stable REVIEW OF SYSTEMS: CONSTITUTIONAL: No fever, no malaise,. CARDIOVASCULAR: No chest pain, no palpitations, no syncope. PULMONARY: No shortness of breath, no cough, GASTROINTESTINAL: No diarrhea, no nausea, no vomiting, no abdominal pain. NEUROLOGICAL: No headaches, no weakness, PHYSICAL EXAMINATION: GENERAL: The patient is alert and oriented x3, not in any acute distress. Well developed, well nourished. HEENT: Pupils are round and equally reacting to light. EOMI. No scleral icterus. No conjunctival pallor. Normocephalic, atraumatic. No pharyngeal erythema. No thyromegaly. CARDIOVASCULAR: S1 and S2 present. No murmurs, rubs, or gallops. PULMONARY: Chest is clear to auscultation, no wheezing or crackles. ABDOMEN: Soft, nontender, nondistended, normoactive bowel sounds. No palpable organomegaly. MUSCULOSKELETAL: No joint swelling or deformity. EXTREMITIES: No cyanosis, clubbing, or pedal edema. NEUROLOGICAL: Gross neurological examination did not reveal any focal deficits. SKIN: No rashes. Assessment and plan Complicated UTI: History of chronic indwelling Blandon catheter Recurrent UTIs History of Pseudomonas and Enterococcus: Presented with fever, lower abdominal discomfort Has history of chronic indwelling Blandon's catheter, exchanged 2 days ago UA positive Follow-up urine culture Continue cefepime ID following Hyponatremia: Monitor BMP History of schizophrenia BPH Hyperlipidemia History of CAD status post LAD stenting April 2024: Patient has history of coronary artery disease, had stent in April 2024, was seen by cardiology during previous hospitalization 3 weeks ago, dual antiplatelets were held at that time due to concern for hematuria, was recommended to follow-up with cardiology in 2 weeks. Cardiology evaluated, agreed with aspirin and Plavix Labs and medication were reviewed.. Continue same treatment. Continue with symptomatic treatment. Resume home medication. Monitor labs and vitals. DVT and GI prophylaxis. Further recommendations as per clinical course of the patient Dictation was produced using [employer]ation software. please excuse any grammatical, word or spelling errors. Objective - Vital Signs Vital signs: Vital Signs Temp 97.8 F 01/09/25 13:55 Pulse 64 01/09/25 13:55 Resp 19 01/09/25 13:55 BP 98/64 01/09/25 16:43 Pulse Ox 95 01/09/25 13:55 FiO2 Intake & Output 01/08/25 01/09/25 01/09/25 18:59 06:59 18:59 Intake Total 1780 240 Output Total 3500 600 Balance -1720 240 -600 Intake: Intake, IV Titration 100 Amount Cefepime 2 gm In Sodium 100 Chloride 0.9% 100 ml @ 25 mls/hr IVPB Q8H [facility] Rx#: [id number] Oral 1680 240 Output: Urine 3500 600 Uretheral (Blandon) 3500 Other: Voiding Method Indwelling Catheter Indwelling Catheter Indwelling Catheter - Labs CBC & Chem 7: 01/08/25 04:41 01/08/25 04:41 Labs: Microbiology - Last 24 Hours (Table) 01/08/25 10:30 Urine Culture - Final Urine,Catheterized 01/05/25 16:23 Blood Culture - Preliminary Blood
[2025-01-10 07:54] VITALS: RESP 18
--- NOTE | 2025-01-10 14:21 | P.DS ---
Providers Date of admission: 01/05/25 18:30 Expected date of discharge: 01/10/25 Attending physician: Lillian Pires MD Consults: 01/05/25 18:27 Consult Physician Urgent Consulting Provider: Charmaine Leigh Consult Reason/Comments: acute uti Do you want consulting provider notified?: Yes Primary care physician: [facility] Course: Discharge diagnoses; Complicated UTI: History of chronic indwelling Blandon catheter Recurrent UTIs History of Pseudomonas and Enterococcus: Being discharged on oral Cipro 5oo mg bid for 5 days Hyponatremia: Monitor BMP History of schizophrenia BPH Hyperlipidemia Hospital course; 64-year-old male patient with past medical history significant for schizophrenia, indwelling Blandon catheter due to BPH who presented [facility] ED from [facility] with fever. Patient was noted to have fever at his long-term care facility, had Blandon catheter exchanged 1 day prior to presentation. Patient has history of recurrent UTIs, has history of Pseudomonas and Enterococcus in the past. Patient is a poor historian. Patient denied any chest pain, palpitation, sore throat, productive cough, shortness of breath, nausea vomiting diarrhea constipation abdominal pain dysuria urgency frequency flank pain weakness or numbness of the extremities. Patient is afebrile, heart rate 79, respiratory rate 16, blood pressure 113/82, saturating 100% on room air. WBC 17.8, trended down to 12.4, hemoglobin 10.6, platelet 244. Sodium on presentation 128, improved to 132 potassium 3.9 chloride 99 CO2 24 BUN 7 creatinine 0.60. UA positive for large leukocyte Estrace, WBCs more than 182. 01/07. Patient seen and examined. Labs reviewed showing WBC 7.49, hemoglobin 10.8, sodium 137 potassium 3.7, BUN 6.1, creatinine 0.5 01/08. Patient seen and examined. Labs reviewed showing WBC 10.9, hemoglobin 9.7, sodium 117, potassium 4, BUN 6.1, creatinine 0.5. Cardiology evaluated patient, recommended continuing dual antiplatelet therapy with aspirin and Plavix 01/09. Patient seen and examined. No acute issue overnight. Vital signs stable 01/10. Patient seen and examined. ID cleared the patient for discharge, on Cipro 500 mg twice daily for 5 days PHYSICAL EXAMINATION: GENERAL: The patient is alert and oriented x3, not in any acute distress. Well developed, well nourished. HEENT: Pupils are round and equally reacting to light. EOMI. No scleral icterus. No conjunctival pallor. Normocephalic, atraumatic. No pharyngeal erythema. No thyromegaly. CARDIOVASCULAR: S1 and S2 present. No murmurs, rubs, or gallops. PULMONARY: Chest is clear to auscultation, no wheezing or crackles. ABDOMEN: Soft, nontender, nondistended, normoactive bowel sounds. No palpable organomegaly. MUSCULOSKELETAL: No joint swelling or deformity. EXTREMITIES: No cyanosis, clubbing, or pedal edema. NEUROLOGICAL: Gross neurological examination did not reveal any focal deficits. SKIN: No rashes. Dictation was produced using [employer] dictation software. please excuse any grammatical, word or spelling errors. Patient Condition at Discharge: Stable Plan - Discharge Summary Discharge Rx Participant: No New Discharge Prescriptions: New Aspirin 81 mg PO DAILY #30 tab Ciprofloxacin HCl [Cipro] 500 mg PO Q12HR 5 Days #10 tab Clopidogrel [Plavix] 75 mg PO DAILY 30 Days #30 tab Continue Albuterol Sulfate [Ventolin HFA] 2 puff INHALATION RT-Q6H PRN PRN Reason: Shortness Of Breath Or Wheezing Haloperidol Decanoate [Haldol D] 100 mg IM Q28D OLANZapine [ZyPREXA] 5 mg PO HS Nitroglycerin Sl Tabs [Nitrostat] 0.4 mg SUBLINGUAL Q5M PRN #30 tab PRN Reason: Chest Pain Atorvastatin [Lipitor] 40 mg PO HS Midodrine [ProAmatine] 5 mg PO TID@0500,1100,1700 Pantoprazole [Protonix] 40 mg PO DAILY Naloxone HCl [Narcan] 4 mg NASAL DIRECTED PRN PRN Reason: OVERDOSE Ferrous Sulfate [Iron] 325 mg PO DAILY Tiotropium [place] Monohydrate Inhalation Solution 1.25mcg/Act 2 puff INHALATION RT-DAILY Sennosides [Senokot] 8.6 mg PO DAILY Nicotine 21Mg/24Hr Patch [Habitrol] 1 patch TRANSDERM HS Acetaminophen [Tylenol 8 Hour] 650 mg PO Q6H PRN PRN Reason: Fever Acetaminophen-Codeine 300-30mg [Tylenol w/codeine #3] 1 tab PO Q8H PRN 3 Days #9 tab PRN Reason: mild/moderate pain Metoprolol Tartrate [Lopressor] 12.5 mg PO BID Cholecalciferol [Vitamin D3 (25 Mcg = 1000 Iu)] 50 mcg PO DAILY Tamsulosin [Flomax] 0.4 mg PO DAILY@0700 Olopatadine HCl [Pataday] 1 drop BOTH EYES DAILY@0800 Fluticasone Propion/Salmeterol [Fluticasone-Salmeterol 250-50] 1 puff INHALATION RT-BID Pat-Tussin 200 mg PO Q6H PRN PRN Reason: Cough Artificial Tears-Hypromellose [Artificial Tear Drops] 2 drops BOTH EYES Q4H PRN PRN Reason: prophylaxis Discontinued Doxycycline [Vibramycin] 100 mg PO BID Discharge Medication List Albuterol Sulfate [Ventolin HFA] 2 puff INHALATION RT-Q6H PRN 04/23/24 [History] Haloperidol Decanoate [Haldol D] 100 mg IM Q28D 04/23/24 [History] OLANZapine [ZyPREXA] 5 mg PO HS 04/23/24 [History] Nitroglycerin Sl Tabs [Nitrostat] 0.4 mg SUBLINGUAL Q5M PRN #30 tab 04/28/24 [Rx] Atorvastatin [Lipitor] 40 mg PO HS 04/30/24 [History] Metoprolol Tartrate [Lopressor] 12.5 mg PO BID 04/30/24 [History] Midodrine [ProAmatine] 5 mg PO TID@0500,1100,1700 04/30/24 [History] Pantoprazole [Protonix] 40 mg PO DAILY 04/30/24 [History] Cholecalciferol [Vitamin D3 (25 Mcg = 1000 Iu)] 50 mcg PO DAILY 12/19/24 [History] Ferrous Sulfate [Iron] 325 mg PO DAILY 12/19/24 [History] Fluticasone Propion/Salmeterol [Fluticasone-Salmeterol 250-50] 1 puff INHALATION RT-BID 12/19/24 [History] Naloxone HCl [Narcan] 4 mg NASAL DIRECTED PRN 12/19/24 [History] Olopatadine HCl [Pataday] 1 drop BOTH EYES DAILY@0800 12/19/24 [History] Tamsulosin [Flomax] 0.4 mg PO DAILY@0700 12/19/24 [History] Tiotropium [place] Monohydrate Inhalation Solution 1.25mcg/Act 2 puff INHALATION RT-DAILY 12/19/24 [History] Acetaminophen [Tylenol 8 Hour] 650 mg PO Q6H PRN 01/05/25 [History] Artificial Tears-Hypromellose [Artificial Tear Drops] 2 drops BOTH EYES Q4H PRN 01/05/25 [History] Pat-Tussin 200 mg PO Q6H PRN 01/05/25 [History] Nicotine 21Mg/24Hr Patch [Habitrol] 1 patch TRANSDERM HS 01/05/25 [History] Sennosides [Senokot] 8.6 mg PO DAILY 01/05/25 [History] Acetaminophen-Codeine 300-30mg [Tylenol w/codeine #3] 1 tab PO Q8H PRN 3 Days #9 tab 01/10/25 [Rx] Aspirin 81 mg PO DAILY #30 tab 01/10/25 [Rx] Ciprofloxacin HCl [Cipro] 500 mg PO Q12HR 5 Days #10 tab 01/10/25 [Rx] Clopidogrel [Plavix] 75 mg PO DAILY 30 Days #30 tab 01/10/25 [Rx] Follow up Appointment(s)/Referral(s): None,Stated [REFERRING] - 1-2 days Charmaine Leigh MD [STAFF PHYSICIAN] - 1 Week Discharge Disposition: TRANSFER TO SNF/F
[2025-01-10 15:08] VITALS: BP 128/80; PULSE 76; TEMP 97.7
--- NOTE | 2025-01-11 15:59 | P.PN ---
Subjective Progress Note Date: 01/10/25 Principal diagnosis: Reason for follow-up is catheter associated UTI Patient is a 75-year-old male with a past medical history significant for COPD melanoma pneumonia history of urinary retention with chronic draining Blandon catheter patient has been sent to the hospital from a long-term care facility after apparently the patient did have a fever with a recent urine c ulture positive for Serratia and Pseudomonas and patient did have multiple antibiotic allergies. On today's visit that is 01/10/2025, patient has been afebrile, patient is breathing comfortably and is currently on room air, patient denies having any chest pain and cough, patient denies nausea vomiting or diarrhea and no abdominal pain. No new lab has been obtained today blood and urine culture have been negative Objective - Vital Signs Vital signs: Vital Signs Temp 97.9 F 01/10/25 07:53 Pulse 72 01/10/25 07:53 Resp 18 01/10/25 07:53 BP 101/64 01/10/25 07:53 Pulse Ox 96 01/10/25 09:26 FiO2 Intake & Output 01/09/25 01/10/25 01/10/25 18:59 06:59 18:59 Output Total 600 1900 1000 Balance -600 -1900 -1000 Output: Urine 600 1900 1000 Uretheral ([place]) 1100 Other: Voiding Method Indwelling Catheter Indwelling Catheter Indwelling Catheter - Exam GENERAL DESCRIPTION: Middle-age male lying in bed in no distress RESPIRATORY SYSTEM: Unlabored breathing , decreased breath sounds at bases HEART: S1 S2 regular rate and rhythm , ABDOMEN: Soft , no tenderness EXTREMITIES: No edema feet - Labs CBC & Chem 7: 01/08/25 04:41 01/08/25 04:41 Labs: Microbiology - Last 24 Hours (Table) 01/08/25 10:30 Urine Culture - Final Urine,Catheterized Assessment and Plan (1) Catheter-associated urinary tract infection Status: Acute Code(s): T83.511A - I/I REACT D/T INDWELLING URETHRAL CATHETER, INIT; N39.0 - URINARY TRACT INFECTION, SITE NOT SPECIFIED SNOMED Code(s): 902697998 (2) Allergy to multiple antibiotics Status: Acute Code(s): Z88.1 - ALLERGY STATUS TO OTHER ANTIBIOTIC AGENTS SNOMED Code(s): 545820211 Plan: 1patient presented hospital with a fever this patient did have significant positive UA history of chronic indwelling Blandon catheter there was a change before his fever started highly concerning for a catheter associated TIA as currently other obvious focus for this fever and elevated white count. 2patient with multiple antibiotic ALLERGIES that would limit the number of antibiotic safe to use. 3last urine culture positive for Serratia and Pseudomonas on 12/19/2024. 4patient blood and urine cultures are so far negative 5patient has received adequate cefepime 2 g every 8 hours, advised short course of oral Cipro on discharge discussed with admitting physician working on discharge Dictation was produced using [employer] dictation software. please excuse any grammatical, word or spelling errors. Time with Patient: Less than 30
== END 2025-01-10 16:20 | DRG 699 ==
LOC: SUPCPDRO 12:51 → EC 12:51 → 4SSUR 18:29 → OBSVTOIN 18:30 → 4SSUR 20:10
PROVIDERS: ADMIT Internal Medicine; ATTEND Internal Medicine
DX: T83.518A Infection and inflammatory reaction due to other urinary catheter, initial encounter (principal); E87.1 Hypo-osmolality and hyponatremia; F20.9 Schizophrenia, unspecified; N39.0 Urinary tract infection, site not specified; I25.10 Atherosclerotic heart disease of native coronary artery without angina pectoris; E86.1 Hypovolemia; N40.1 Benign prostatic hyperplasia with lower urinary tract symptoms; R33.8 Other retention of urine; E78.5 Hyperlipidemia, unspecified; Y84.6 Urinary catheterization as the cause of abnormal reaction of the patient, or of later complication, without mention of misadventure at the time of the procedure; Z79.899 Other long term (current) drug therapy; Z79.51 Long term (current) use of inhaled steroids; Z87.440 Personal history of urinary (tract) infections; Z86.19 Personal history of other infectious and parasitic diseases; Z95.5 Presence of coronary angioplasty implant and graft; Z88.1 Allergy status to other antibiotic agents; Z88.0 Allergy status to penicillin; Z87.891 Personal history of nicotine dependence; Z85.828 Personal history of other malignant neoplasm of skin; Z85.820 Personal history of malignant melanoma of skin; I25.2 Old myocardial infarction
CPT/HCPCS: 36415; 80048; 80053; 80170; 81001; 83605; 85025; 87040; 87086; 94640; 94760; 96361; 96365; 99285